=== PATIENT | male | born 1940 | race American Indian/Alaskan Native ===

== ENCOUNTER 2018-10-25 11:54 | Inpatient (IN) | payer MEDICARE ==
--- NOTE | 2018-10-25 12:34 | Emergency Department Report ---
ED Fall HPI - General Chief Complaint: Fall Stated Complaint: LEG PAIN/FALL Time Seen by Provider: 10/25/18 12:29 Source: EMS Mode of arrival: Stretcher Limitations: Language Barrier - History of Present Illness Initial Comments: This 78-year-old male that presented to emergency with complaints of bilateral knee pain and bilateral ankle pain after a fall. Patient states he was walking and tripped and fell and hit his knees and twisted his ankles. Patient states the pain is a 10 out of 10 and is so bad he can't walk. Patient states the pain is better with rest and worse with walking and movement and palpation. Patient denies loss of consciousness and hitting his head. Patient denies dizziness. Patient denies headache. Patient denies hip pain. Patient states she was walking and tripped and fell directly onto his knees Family at bedside to translate. MD Complaint: fall -: Sudden Fall From: standing When Fall Occurred: 1 hour [employer] Fall Witnessed: yes, by family Place Fall Occurred: street Loss of Consciousness: none Prolonged Down Time?: no Symptoms Prior to Fall: none Location - Extremities: Left: Knee, Ankle, Right: Knee, Ankle Severity: severe Severity scale (0 -10): 10 Context: tripped/slipped Associated Symptoms: unable to walk. denies: headache, neck pain, numbness, weakness, chest paint, abdominal pain, hematuria, lightheaded, vertigo, confusion - Related Data Home Medications Medication Instructions Recorded Confirmed Last Taken Atorvastatin Calcium 40 mg PO DAILY 10/25/18 10/25/18 Unknown Clopidogrel [Plavix] 75 mg PO QDAY 10/25/18 10/25/18 Unknown Lisinopril [Zestril] 20 mg PO QDAY 10/25/18 10/25/18 Unknown Nebivolol HCl [Bystolic] 10 mg PO DAILY 10/25/18 10/25/18 Unknown Allergies Allergy/AdvReac Type Severity Reaction Status Date / Time No Known Allergies Allergy Verified 10/25/18 17:04 ED Review of Systems ROS: Stated complaint: LEG PAIN/FALL Other details as noted in HPI Constitutional: denies: chills, fever Eyes: denies: eye pain, eye discharge, vision change ENT: denies: ear pain, throat pain Respiratory: denies: cough, shortness of breath, wheezing Cardiovascular: denies: chest pain, palpitations Endocrine: no symptoms reported Gastrointestinal: denies: abdominal pain, nausea, diarrhea Genitourinary: denies: urgency, dysuria Musculoskeletal: denies: back pain, joint swelling, arthralgia Skin: denies: rash, lesions Neurological: denies: headache, weakness, paresthesias Psychiatric: denies: anxiety, depression Hematological/Lymphatic: denies: easy bleeding, easy bruising ED Past Medical Hx - Past Medical History Previous Medical History?: Yes Hx Hypertension: Yes - Surgical History Past Surgical History?: Yes Additional Surgical History: cayden hands, ear - Family History Family history: no significant - Social History Smoking Status: Current Every Day Smoker Substance Use Type: None - Medications Home Medications: Home Medications Medication Instructions Recorded Confirmed Last Taken Type Atorvastatin Calcium 40 mg PO DAILY 10/25/18 10/25/18 Unknown History Clopidogrel [Plavix] 75 mg PO QDAY 10/25/18 10/25/18 Unknown History Lisinopril [Zestril] 20 mg PO QDAY 10/25/18 10/25/18 Unknown History Nebivolol HCl [Bystolic] 10 mg PO DAILY 10/25/18 10/25/18 Unknown History ED Physical Exam - General Limitations: Language Barrier General appearance: alert, in no apparent distress - Head Head exam: Present: atraumatic, normocephalic - Eye Eye exam: Present: normal appearance - ENT ENT exam: Present: mucous membranes moist - Neck Neck exam: Present: normal inspection - Respiratory Respiratory exam: Present: normal lung sounds bilaterally. Absent: respiratory distress - Cardiovascular Cardiovascular Exam: Present: regular rate, normal rhythm. Absent: systolic murmur, diastolic murmur, rubs, gallop - GI/Abdominal GI/Abdominal exam: Present: soft, normal bowel sounds, other (no hip or pelvic tenderness) - Rectal Rectal exam: Present: deferred - Extremities Exam Extremities exam: Present: tenderness (to cayden knees and ankles) - Back Exam Back exam: Present: normal inspection - Neurological Exam Neurological exam: Present: alert, oriented X3 - Psychiatric Psychiatric exam: Present: normal affect, normal mood - Skin Skin exam: Present: warm, dry, normal color, ecchymosis (cayden knees. ). Absent: rash ED Course Vital Signs 10/25/18 10/25/18 10/25/18 12:05 12:19 13:53 Temperature 98.7 F Pulse Rate 85 82 Respiratory 16 16 Rate Blood Pressure Blood Pressure 134/69 165/81 [Left] O2 Sat by Pulse 95 97 98 Oximetry 10/25/18 10/25/18 10/25/18 17:25 19:21 20:00 Temperature 98.3 F Pulse Rate 80 65 Respiratory 16 12 16 Rate Blood Pressure 151/72 Blood Pressure 151/72 137/48 [Left] O2 Sat by Pulse 99 98 97 Oximetry 10/25/18 10/25/18 21:00 22:00 Temperature Pulse Rate 68 65 Respiratory 16 10 L Rate Blood Pressure 150/63 162/68 Blood Pressure [Left] O2 Sat by Pulse 97 96 Oximetry - Reevaluation(s) Reevaluation #1: Discussed all results results with family and patient. Patient's x-rays are negative. Patient stable for discharge. Patient's findings consistent with contusions. 10/25/18 14:33 Discharge discharge give patient a [place] and attempted to ambulate patient 10/25/18 14:48 Patient still unable to walk. Patient instructed to walk to bathroom to urinate and was unable to support his own weight due to pain. While standing patient complained of bilateral hip pain. We'll do a pelvic CT 10/25/18 15:01 Discussed plan of care with patient and family. Patient admitted to the hospitalist service. 10/25/18 16:30 - Consultations Consultation #1: Hospitalist consultation for admission. Hospitalist to admit patient. 10/25/18 16:30 ED Medical Decision Making - Lab Data Result diagrams: 10/25/18 17:12 10/25/18 17:12 - Radiology Data Radiology results: report reviewed, image reviewed BILATERAL KNEES, 3 VIEWS History: Fall, pain. Findings: Osteopenia is evident. Mild osteoarthritic changes are noted in both knees. No evidence for fracture or bone lesion. Moderate to large bilateral knee effusions are identified. Vascular calcifications are also noted. Impression: Osteopenia. Mild osteoarthritis. Bilateral knee effusions. No acute bony injury is appreciated. Transcribed By: TTR Dictated By: CARISSA YOUNG JR, MD Electronically Authenticated By: CARISSA YOUNG JR, MD Signed Date/Time: 10/25/18 1334 Fluoro Time In Minutes: BILATERAL ANKLES, 3 VIEWS History: Fall, pain. Findings: Osteopenia is evident. Moderate osteoarthritic changes are noted at both ankles. No evidence for fracture, malalignment or bone lesion. Large left ankle effusion is suspected. Moderate bilateral plantar spurs. Impression: No acute injury is identified. Osteopenia. Degenerative changes. Left ankle effusion. Transcribed By: TTR Dictated By: CARISSA YOUNG JR, MD Electronically Authenticated By: CARISSA YOUNG JR, MD Signed Date/Time: 10/25/18 2233 FINAL REPORT PROCEDURE: CT ABDOMEN PELVIS WO CON TECHNIQUE: Computerized axial tomography of the abdomen and pelvis was performed without intravenous contrast. This study is performed without intravascular contrast material and its sensitivity for abdominal and pelvic pathology, including neoplasms, inflammation, abscess, free fluid, thrombosis, arterial dissection and infarction, is reduced compared with a contrast enhanced study. HISTORY: unable to ambulate and hip pain COMPARISON: No prior studies are available for comparison. FINDINGS: Lower Lung mora: There is a small amount of dependent atelectasis. Calcified granuloma seen left lower lobe. Calcifications visualized in the coronary arteries indicating atherosclerotic disease. Upper Abdomen: There are a few calcified granulomas seen in the left lobe of the liver. There is a 1.5 centimeter low-density nodule in the right lobe of the liver laterally with a density of 22 Hounsfield units. This may represent a cyst. I cannot exclude a low-density nodule. Consider follow- up ultrasound to ensure this is a cyst and not a low-density solid nodule. The liver is otherwise unremarkable. Gallbladder is unremarkable. The adrenal glands, the pancreas and the spleen show no abnormalities. Kidneys, Ureters and Urinary bladder: Renal arterial calcifications visualized bilaterally. No definite renal calculi are seen. There is no hydronephrosis. No ureteral calculi are identified. The renal cortex of both kidneys appears mildly lobulated. There is also a indeterminate nodule projecting posteriorly from the lower 3rd of the right kidney measuring 1 centimeter. 1.6 centimeter low-density nodule projects from the lower 3rd of the left kidney anteriorly. This has a density of approximately 9 Hounsfield units consistent with a renal cortical cyst. Retroperitoneum: Atherosclerotic changes seen in the abdominal aorta. No aneurysm is visualized. 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 Nonspecific subcentimeter lymph nodes are seen in the retroperitoneum. No pathologically enlarged lymph nodes are identified. Bowel: No focal bowel loop abnormalities are seen. No evidence of bowel obstruction ascites or free intraperitoneal gas. Normal-appearing appendix is seen in the right lower quadrant. Reproductive organs: Prostate gland does not appear to be significantly enlarged. Other: No acute bony abnormalities are seen. IMPRESSION: Prior granulomatous disease. Low-density nodule right lobe of the liver and lobulated contour of the kidneys. Multiple small cortical nodule suspected in the kidneys which are not clearly defined by this exam. Consider follow-up hepatic and renal ultrasound to ensure these all represent cysts and there are no solid nodules. Diffuse renal arterial calcifications are present. No definite renal calculi are seen. 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 . Transcribed By: DFSebastian Dictated By: YANICK WELLER MD Electronically Authenticated By: YANICK WELLER MD Signed Date/Time: 10/25/181807 - Medical Decision Making Patient 78-year-old male that presents for bilateral knee and ankle pain after fall. Patient denied losing consciousness. Patient denies headache. Patient's x-rays were done and were negative. Patient's finding consistent with contusion., Due to the patient unable to ambulate, pt to be Admitted to the hospitalist service . - Differential Diagnosis contusion. fall. knee and ankle pain/ Critical care attestation.: If time is entered above; I have spent that time in minutes in the direct care of this critically ill patient, excluding procedure time. ED Disposition Clinical Impression: Unable to ambulate Bilateral knee pain Qualifiers: Chronicity: acute Qualified Code(s): M25.561 - Pain in right knee Contusion, knee Qualifiers: Encounter type: initial encounter Laterality: unspecified laterality Qualified Code(s): S80.00XA - Contusion of unspecified knee, initial encounter Bilateral ankle pain Qualifiers: Chronicity: acute Qualified Code(s): M25.571 - Pain in right ankle and joints of right foot Ankle sprain Qualifiers: Encounter type: initial encounter Involved ligament of ankle: unspecified ligament Laterality: unspecified laterality Qualified Code(s): S93.409A - Sprain of unspecified ligament of unspecified ankle, initial encounter Disposition: OP ADMIT IP TO THIS HOSP Is pt being admited?: Yes Does the pt Need Aspirin: No Condition: Serious Time of Disposition: 16:31
--- NOTE | 2018-10-25 13:37 | XRay Report ---
BILATERAL KNEES, 3 VIEWS History: Fall, pain. Findings: Osteopenia is evident. Mild osteoarthritic changes are noted in both knees. No evidence for fracture or bone lesion. Moderate to large bilateral knee effusions are identified. Vascular calcifications are also noted. Impression: Osteopenia. Mild osteoarthritis. Bilateral knee effusions. No acute bony injury is appreciated.
--- NOTE | 2018-10-25 13:38 | XRay Report ---
BILATERAL ANKLES, 3 VIEWS History: Fall, pain. Findings: Osteopenia is evident. Moderate osteoarthritic changes are noted at both ankles. No evidence for fracture, malalignment or bone lesion. Large left ankle effusion is suspected. Moderate bilateral plantar spurs. Impression: No acute injury is identified. Osteopenia. Degenerative changes. Left ankle effusion.
[2018-10-25] MEDS ORDERED: NORCO 5/325 PO ONE (14:48)
--- NOTE | 2018-10-25 16:47 | History and Physical Report ---
History of Present Illness Chief complaint: Hes a little weak History of present illness: 78 YO Male with HTN, Nicotine Dependence presents to ED for evaluation. Pt is unable to speak Moroccan, and provide detailed history. Pt history provided by son and family who is at bedside during exam and interview. As per son, the patient states that he has experienced generalized weakness, and malaise over the past 4 days with persistent symptoms over the same time frame. Pt was walking and subsequently tripped and fell onto his knees. Pt transported to [facility] for further care and evaluation. Pt states that pain has improved at time of exam but he in unable to ambulate due to bilateral knee pain with weight bearing.. Pt seen and evaluated in ED and found to have Sepsis, ARF, and Bilateral knee contusions. Pt admitted to [facility] unit and initiated on sepsis protocol. PT denies fever, chills, CP, Palpitations, NVD, Syncope, BRBPR, Loss of Consciousness, Prolonged travel/immobility, unilateral leg swelling, calf pain, hemoptysis, individual/family history of DVT/PE/Blood Clotting Disorders, or skin rash. Past History Past Medical History: hypertension Past Surgical History: Other (Hand, Ear surgery) Social history: , smoking Family history: hypertension Medications and Allergies Allergies Allergy/AdvReac Type Severity Reaction Status Date / Time No Known Allergies Allergy Verified 10/25/18 17:04 Home Medications Medication Instructions Recorded Confirmed Last Taken Type Atorvastatin Calcium 40 mg PO DAILY 10/25/18 10/25/18 Unknown History Clopidogrel [Plavix] 75 mg PO QDAY 10/25/18 10/25/18 Unknown History Lisinopril [Zestril] 20 mg PO QDAY 10/25/18 10/25/18 Unknown History Nebivolol HCl [Bystolic] 10 mg PO DAILY 10/25/18 10/25/18 Unknown History Review of Systems Constitutional: weakness, malaise, no weight loss, no weight gain, no fever, no chills Ears, nose, mouth and throat: no ear pain, no ear discharge, no tinnitis, no decreased hearing, no nose pain Cardiovascular: no chest pain, no orthopnea, no palpitations, no rapid/irregular heart beat, no edema, no syncope Respiratory: no cough, no cough with sputum, no excessive sputum, no hemoptysis, no shortness of breath Gastrointestinal: no nausea, no vomiting, no diarrhea, no constipation, no change in bowel habits, no hematemesis Genitourinary Male: no dysuria, no hematuria, no flank pain, no discharge, no urinary frequency, no urinary hesitancy Rectal: no pain, no incontinence, no bleeding Musculoskeletal: no neck stiffness, no neck pain, no shooting arm pain, no arm numbness/tingling, no low back pain, no shooting leg pain Integumentary: no rash, no pruritis, no redness, no sores, no wounds Neurological: no transient paralysis, no paralysis, no weakness, no numbness, no tingling Psychiatric: no anxiety, no memory loss, no change in sleep habits, no sleep disturbances, no hypersomnia, no change in appetite Endocrine: no cold intolerance, no heat intolerance, no polyphagia, no polyuria, no weight change Hematologic/Lymphatic: no easy bruising, no easy bleeding, no lymphadenopathy, no lymphedema Allergic/Immunologic: no urticaria, no allergic rhinitis, no wheezing, no persistent infections, no anaphylaxis, no angioedema Exam - Constitutional Vitals: Temp Pulse Resp BP Pulse Ox 98.7 F 82 16 165/81 98 10/25/18 12:19 10/25/18 13:53 10/25/18 13:53 10/25/18 13:53 10/25/18 13:53 General appearance: Present: mild distress - EENT Eyes: Present: PERRL ENT: hearing intact, clear oral mucosa - Neck Neck: Present: supple, normal ROM - Respiratory Respiratory effort: normal Respiratory: bilateral: CTA - Cardiovascular Heart Sounds: Present: S1 & S2. Absent: rub, click - Extremities Extremities: pulses symmetrical, No edema Peripheral Pulses: abnormal (capillary refill greater then 3.5 seconds) - Abdominal General gastrointestinal: Present: soft, non-tender, non-distended, normal bowel sounds Male genitourinary: Present: normal - Integumentary Integumentary: Present: clear, warm, dry - Musculoskeletal Musculoskeletal: gait normal, strength equal bilaterally - Psychiatric Psychiatric: appropriate mood/affect, intact judgment & insight - Neurologic Neurologic: CNII-XII intact, moves all extremities Results - Labs CBC & Chem 7: 10/25/18 17:12 10/25/18 17:12 Assessment and Plan - Patient Problems (1) Sepsis Current Visit: Yes Status: Acute Qualifiers: Sepsis type: sepsis due to unspecified organism Qualified Code(s): A41.9 - Sepsis, unspecified organism Plan to address problem: Sepsis protocol: IV antibiotic therapy, monitor uop q shift, serial lactic acid, Chest x ray, urinalysis, blood cultures. CBC,CMP. (2) ARF (acute renal failure) with tubular necrosis Current Visit: Yes Status: Acute Plan to address problem: IVF resuscitation, monitor uop q shift, repeat bmp to monitor serum creatnine. (3) Contusion, knee Current Visit: Yes Status: Acute Qualifiers: Encounter type: initial encounter Laterality: unspecified laterality Qualified Code(s): S80.00XA - Contusion of unspecified knee, initial encounter Plan to address problem: Bilateral Knee x ray, pain control, supportive care. (4) DVT prophylaxis Current Visit: Yes Status: Acute Plan to address problem: SCD to BLE while in bed.
[2018-10-25] MEDS ORDERED: SODIUM CHLORIDE FLUSH SYRINGE 10 ML IV PRN (16:54)
[2018-10-25] MEDS ORDERED: ZOFRAN IV PRN (16:54)
[2018-10-25 17:30] LABS: Hematocrit 40.3 % (35.5-45.6); Hemoglobin 13.5 gm/dl (11.8-15.2); Mean Corpuscular HGB Conc 34 % (32-34); Mean Corpuscular Volume 90 fl (84-94); Platelet Count 440 K/mm3 (140-440); Red Blood Count 4.48 M/mm3 (3.65-5.03); Red Cell Distribution Width 14.1 % (13.2-15.2)
[2018-10-25 17:54] LABS: Albumin 2.9 g/dL (3.9-5); Calcium 9.5 mg/dL (8.4-10.2)
[2018-10-25 17:56] LABS: Basophils % (Manual) 0 % (0.0-1.8); Eosinophils % (Manual) 0 % (0.0-4.3); Total Cells Counted 100
[2018-10-25 17:57] LABS: Anisocytosis Few
[2018-10-25 17:58] LABS: Poikilocytosis Few
--- NOTE | 2018-10-25 18:08 | Cat Scan Report ---
FINAL REPORT PROCEDURE: CT ABDOMEN PELVIS WO CON TECHNIQUE: Computerized axial tomography of the abdomen and pelvis was performed without intravenous contrast. This study is performed without intravascular contrast material and its sensitivity for ab dominal and pelvic pathology, including neoplasms, inflammation, abscess, free fluid, thrombosis, art erial dissection and infarction, is reduced compared with a contrast enhanced study. HISTORY: unable to ambulate and hip pain COMPARISON: No prior studies are available for comparison. FINDINGS: Lower Lung mora: There is a small amount of dependent atelectasis. Calcified granuloma seen left lo wer lobe. Calcifications visualized in the coronary arteries indicating atherosclerotic disease. Upper Abdomen: There are a few calcified granulomas seen in the left lobe of the liver. There is a 1. 5 centimeter low-density nodule in the right lobe of the liver laterally with a density of 22 Hounsfi eld units. This may represent a cyst. I cannot exclude a low-density nodule. Consider follow-up ultra sound to ensure this is a cyst and not a low-density solid nodule. The liver is otherwise unremarkabl e. Gallbladder is unremarkable. The adrenal glands, the pancreas and the spleen show no abnormalities . Kidneys, Ureters and Urinary bladder: Renal arterial calcifications visualized bilaterally. No defini te renal calculi are seen. There is no hydronephrosis. No ureteral calculi are identified. The renal cortex of both kidneys appears mildly lobulated. There is also a indeterminate nodule projecting post eriorly from the lower 3rd of the right kidney measuring 1 centimeter. 1.6 centimeter low-density nod ule projects from the lower 3rd of the left kidney anteriorly. This has a density of approximately 9 Hounsfield units consistent with a renal cortical cyst. Retroperitoneum: Atherosclerotic changes seen in the abdominal aorta. No aneurysm is visualized. 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 Nonspecific subcentimeter lymph nodes are seen in the retroperitoneum. No pathologically enlarged lym ph nodes are identified. Bowel: No focal bowel loop abnormalities are seen. No evidence of bowel obstruction ascites or free i ntraperitoneal gas. Normal-appearing appendix is seen in the right lower quadrant. Reproductive organs: Prostate gland does not appear to be significantly enlarged. Other: No acute bony abnormalities are seen. IMPRESSION: Prior granulomatous disease. Low-density nodule right lobe of the liver and lobulated contour of the kidneys. Multiple small corti kentrell nodule suspected in the kidneys which are not clearly defined by this exam. Consider follow-up he patic and renal ultrasound to ensure these all represent cysts and there are no solid nodules. Diffus e renal arterial calcifications are present. No definite renal calculi are seen. 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 .
--- NOTE | 2018-10-25 19:33 | Cat Scan Report ---
FINAL REPORT PROCEDURE: CT head without contrast. TECHNIQUE: Computerized tomography of the head was performed without contrast material. HISTORY: Headache. COMPARISON: No prior studies are available for comparison. FINDINGS: There is mild cerebral atrophy. There is moderate evidence of chronic ischemic white matter disease. There is some focal encephalomalacia in the lateral aspect of the left frontal lobe. There is also so me encephalomalacia in the anterior portion of the left temporal lobe. 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 Clinical correlation is recommended. There are no mass lesions. There is no intr acranial hemorrhage. There is focal severe enlargement of the right side of the frontal bone. There a re lucent areas as well as sclerotic areas present. This obviously represents a long-standing process . Paget's disease of bone is one possibility. The exact etiology is uncertain. Clinical correlation i s recommended. The mastoid air cells and paranasal sinuses are clear as far as visualized. IMPRESSION: Chronic ischemic changes in the brain as described. No evidence of acute disease. Abnormal skull as d escribed, possibly representing Paget's disease.
[2018-10-25] MEDS ORDERED: NACL 0.9% 1000 ML IV ONE (19:38)
[2018-10-25] MEDS ORDERED: VANCOMYCIN 1,250 MG in NACL 0.9% 250ML 250 ML IV ONE (20:00)
[2018-10-25] MEDS ORDERED: VANCOMYCIN 1,250 MG in NACL 0.9% 500 ML 500 ML IV ONE (20:00)
[2018-10-25] MEDS ORDERED: NACL 0.9% 1000 ML 1,000 ML ONE ×2 (20:17→21:30)
[2018-10-25] MEDS: ZOSYN/NS 2.25 GM/50ML 2.25 GM/50 ML BAG IV SCH (20:38)
--- NOTE | 2018-10-25 21:21 | XRay Report ---
FINAL REPORT PROCEDURE: Chest. TECHNIQUE: Chest radiograph anteroposterior view. CPT 57823 HISTORY: Dyspnea. COMPARISON: No prior studies are available for comparison. FINDINGS: The heart size is normal. There is calcification in the thoracic aorta. The lungs are clear and well expanded. There are no pleural effusions. The soft tissues and regional skeleton are unremarkable. Th ere is an old fracture of the right clavicle. IMPRESSION: No evidence of acute disease.
[2018-10-25] MEDS ORDERED: ZOSYN/NS 4.5GM/100ML 4.5 GM/100 ML VIAL IV SCH (22:00)
[2018-10-26 06:01] LABS: Amorphous Crystals,Urine Few; Bacteria,Urine 1+ /HPF (Negative); Bilirubin,Urine NEG (Negative); Blood,Urine NEG (Negative); Color,Urine Yellow (Yellow); Hyaline Casts,Urine 9 /LPF; Mucus,Urine FEW /HPF; Protein,Urine <15 mg/dL mg/dL (Negative); Urobilinogen,Urine < 2.0 mg/dL (<2.0)
[2018-10-26] MEDS: ZOSYN/NS 2.25 GM/50ML 2.25 GM/50 ML BAG IV SCH ×3 (07:05→17:16)
[2018-10-26] MEDS: SODIUM CHLORIDE FLUSH SYRINGE 10 ML IV SCH ×3 (07:08→22:42)
[2018-10-26] MEDS ORDERED: ZESTRIL PO SCH (10:00)
[2018-10-26] MEDS ORDERED: NON-FORMULARY (Nebivolol Hcl [Bystolic] 10 MG) PO SCH (10:00)
[2018-10-26] MEDS: PLAVIX PO SCH (10:40)
[2018-10-26] MEDS: TOPROL XL PO SCH (10:42)
--- NOTE | 2018-10-26 13:35 | Progress Note ---
Assessment and Plan Assessment and plan: 78 YO Male with HTN, Nicotine Dependence presents to ED for evaluation. Pt is unable to speak Macedonian, and provide detailed history. Pt history provided by son and family who is at bedside during exam and interview. As per son, the patient states that he has experienced generalized weakness, and malaise over the past 4 days with persistent symptoms over the same time frame. Pt was walking and subsequently tripped and fell onto his knees. Pt transported to [facility] for further care and evaluation. Pt states that pain has improved at time of exam but he in unable to ambulate due to bilateral knee pain with weight bearing.. Pt seen and evaluated in ED and found to have Sepsis, ARF, and Bilateral knee contusions. Pt admitted to [facility] unit and initiated on sepsis protocol. PT denies fever, chills, CP, Palpitations, NVD, Syncope, BRBPR, Loss of Consciousness, Prolonged travel/immobility, unilateral leg swelling, calf pain, hemoptysis, individual/family history of DVT/PE/Blood Clotting Disorders, or skin rash. (1)SIRS vs Septic Knee- Less likely the later Surgical consult to evaluate knee effusion Continue abx for now (2) ARF (acute renal failure) with tubular necrosis Current Visit: Yes Status: Acute Plan to address problem: IVF resuscitation, monitor uop q shift, repeat bmp to monitor serum creatnine. Hold ACEI (3) Contusion, knee Current Visit: Yes Status: Acute Qualifiers: Encounter type: initial encounter Laterality: unspecified laterality Qualified Code(s): S80.00XA - Contusion of unspecified knee, initial encounter Plan to address problem: Bilateral Knee x ray, pain control, supportive care. (4) hypertension Blood pressure medications. (5) DVT prophylaxis Current Visit: Yes Status: Acute Plan to address problem: SCD to BLE while in bed. History Interval history: Patient is seen today for: RECURRENT falls Seen and examined at bedside; 24hour events reviewed; nursing staff ; no adverse overnight events reported to me; Denies any chest pain, nausea, vomiting, diarrhea No fever noted blood pressure controlled Hospitalist Physical - Physical exam Narrative exam: VITAL SIGNS: Reviewed. GENERAL: The patient appeared well nourished and normally developed. Vital signs as documented. HEAD: No signs of head trauma. EYES: Pupils are equal. Extraocular motions intact. EARS: Hearing grossly intact. MOUTH: Oropharynx is normal. NECK: No adenopathy, no JVD. CHEST: Chest with clear breath sounds bilaterally. No wheezes, rales, or rhonchi. CARDIAC: Regular rate and rhythm. S1 and S2, without murmurs, gallops, or rubs. VASCULAR: No Edema. Peripheral pulses normal and equal in all extremities. ABDOMEN: Soft, without detectable tenderness. No sign of distention. No rebound or guarding, and no masses palpated. Bowel Sounds normal. MUSCULOSKELETAL: Limited range of motion of the bilaterally warm to the touch the mild joint effusion bilaterally. Extremities without clubbing, cyanosis or edema. NEUROLOGIC EXAM: Alert and oriented x 3. No focal sensory or strength deficits. Speech normal. Follows commands. PSYCHIATRIC: Mood normal. SKIN: No rash or lesions. - Constitutional Vitals: Temp Pulse Resp BP Pulse Ox 98.6 F 70 20 154/69 95 10/26/18 08:05 10/26/18 10:42 10/26/18 10:00 10/26/18 10:42 10/26/18 10:40 General appearance: Present: mild distress Results - Labs CBC & Chem 7: 10/25/18 17:12 10/25/18 17:12 Labs: Laboratory Last Values WBC 20.9 K/mm3 (4.5-11.0) H 10/25/18 17:12 RBC 4.48 M/mm3 (3.65-5.03) 10/25/18 17:12 Hgb 13.5 gm/dl (11.8-15.2) 10/25/18 17:12 Hct 40.3 % (35.5-45.6) 10/25/18 17:12 MCV 90 fl (84-94) 10/25/18 17:12 MCH 30 pg (28-32) 10/25/18 17:12 MCHC 34 % (32-34) 10/25/18 17:12 RDW 14.1 % (13.2-15.2) 10/25/18 17:12 Plt Count 440 K/mm3 (140-440) 10/25/18 17:12 Add Manual Diff Complete 10/25/18 17:12 Total Counted 100 10/25/18 17:12 Seg Neuts % (Manual) 93.0 % (40.0-70.0) H 10/25/18 17:12 Band Neutrophils % 0 % 10/25/18 17:12 Lymphocytes % (Manual) 2.0 % (13.4-35.0) L 10/25/18 17:12 Reactive Lymphs % (Man) 0 % 10/25/18 17:12 Monocytes % (Manual) 5.0 % (0.0-7.3) 10/25/18 17:12 Eosinophils % (Manual) 0 % (0.0-4.3) 10/25/18 17:12 Basophils % (Manual) 0 % (0.0-1.8) 10/25/18 17:12 Metamyelocytes % 0 % 10/25/18 17:12 Myelocytes % 0 % 10/25/18 17:12 Promyelocytes % 0 % 10/25/18 17:12 Blast Cells % 0 % 10/25/18 17:12 Nucleated RBC % Not Reportable 10/25/18 17:12 Seg Neutrophils # Man 19.4 K/mm3 (1.8-7.7) H 10/25/18 17:12 Band Neutrophils # 0.0 K/mm3 10/25/18 17:12 Lymphocytes # (Manual) 0.4 K/mm3 (1.2-5.4) L 10/25/18 17:12 Abs React Lymphs (Man) 0.0 K/mm3 10/25/18 17:12 Monocytes # (Manual) 1.0 K/mm3 (0.0-0.8) H 10/25/18 17:12 Eosinophils # (Manual) 0.0 K/mm3 (0.0-0.4) 10/25/18 17:12 Basophils # (Manual) 0.0 K/mm3 (0.0-0.1) 10/25/18 17:12 Metamyelocytes # 0.0 K/mm3 10/25/18 17:12 Myelocytes # 0.0 K/mm3 10/25/18 17:12 Promyelocytes # 0.0 K/mm3 10/25/18 17:12 Blast Cells # 0.0 K/mm3 10/25/18 17:12 WBC Morphology Not Reportable 10/25/18 17:12 Hypersegmented Neuts Not Reportable 10/25/18 17:12 Hyposegmented Neuts Not Reportable 10/25/18 17:12 Hypogranular Neuts Not Reportable 10/25/18 17:12 Smudge Cells Not Reportable 10/25/18 17:12 Toxic Granulation Not Reportable 10/25/18 17:12 Toxic Vacuolation Not Reportable 10/25/18 17:12 Dohle Bodies Not Reportable 10/25/18 17:12 Pelger-Huet Anomaly Not Reportable 10/25/18 17:12 Swetha Rods Not Reportable 10/25/18 17:12 Platelet Estimate Appears normal 10/25/18 17:12 Clumped Platelets Not Reportable 10/25/18 17:12 Plt Clumps, EDTA Not Reportable 10/25/18 17:12 Large Platelets Not Reportable 10/25/18 17:12 Giant Platelets Not Reportable 10/25/18 17:12 Platelet Satelliting Not Reportable 10/25/18 17:12 Plt Morphology Comment Not Reportable 10/25/18 17:12 RBC Morphology Not Reportable 10/25/18 17:12 Dimorphic RBCs Not Reportable 10/25/18 17:12 Polychromasia Not Reportable 10/25/18 17:12 Hypochromasia Not Reportable 10/25/18 17:12 Poikilocytosis Few 10/25/18 17:12 Anisocytosis Few 10/25/18 17:12 Microcytosis Not Reportable 10/25/18 17:12 Macrocytosis Not Reportable 10/25/18 17:12 Spherocytes Not Reportable 10/25/18 17:12 Pappenheimer Bodies Not Reportable 10/25/18 17:12 Sickle Cells Not Reportable 10/25/18 17:12 Target Cells Not Reportable 10/25/18 17:12 Tear Drop Cells Not Reportable 10/25/18 17:12 Ovalocytes Not Reportable 10/25/18 17:12 Helmet Cells Not Reportable 10/25/18 17:12 [place] Bodies Not Reportable 10/25/18 17:12 [place] Rings Not Reportable 10/25/18 17:12 Mineral Cells Not Reportable 10/25/18 17:12 Bite Cells Not Reportable 10/25/18 17:12 Crenated Cell Not Reportable 10/25/18 17:12 Elliptocytes Few 10/25/18 17:12 Acanthocytes (Spur) Not Reportable 10/25/18 17:12 Rouleaux Not Reportable 10/25/18 17:12 Hemoglobin C Crystals Not Reportable 10/25/18 17:12 Schistocytes Not Reportable 10/25/18 17:12 Malaria parasites Not Reportable 10/25/18 17:12 Catalino Bodies Not Reportable 10/25/18 17:12 Hem Pathologist Commnt No 10/25/18 17:12 Sodium 143 mmol/L (137-145) 10/25/18 17:12 Potassium 4.1 mmol/L (3.6-5.0) 10/25/18 17:12 Chloride 101.3 mmol/L (98-107) 10/25/18 17:12 Carbon Dioxide 28 mmol/L (22-30) 10/25/18 17:12 Anion Gap 18 mmol/L 10/25/18 17:12 BUN 29 mg/dL (9-20) H 10/25/18 17:12 Creatinine 1.7 mg/dL (0.8-1.5) H 10/25/18 17:12 Estimated GFR 48 ml/min 10/25/18 17:12 BUN/Creatinine Ratio 17 % 10/25/18 17:12 Glucose 111 mg/dL (75-100) H 10/25/18 17:12 Lactic Acid 1.40 mmol/L (0.7-2.0) 10/26/18 06:05 Calcium 9.5 mg/dL (8.4-10.2) 10/25/18 17:12 Total Bilirubin 0.40 mg/dL (0.1-1.2) 10/25/18 17:12 AST 34 units/L (5-40) 10/25/18 17:12 ALT 24 units/L (7-56) 10/25/18 17:12 Alkaline Phosphatase 101 units/L (35-129) 10/25/18 17:12 Total Protein 6.8 g/dL (6.3-8.2) 10/25/18 17:12 Albumin 2.9 g/dL (3.9-5) L 10/25/18 17:12 Albumin/Globulin Ratio 0.7 % 10/25/18 17:12 Urine Color Yellow (Yellow) 10/26/18 05:30 Urine Turbidity Clear (Clear) 10/26/18 05:30 Urine pH 5.0 (5.0-7.0) 10/26/18 05:30 Ur Specific [place] 1.013 (1.003-1.030) 10/26/18 05:30 Urine Protein <15 mg/dl mg/dL (Negative) 10/26/18 05:30 Urine Glucose (UA) Neg mg/dL (Negative) 10/26/18 05:30 Urine Ketones Neg mg/dL (Negative) 10/26/18 05:30 Urine Blood Neg (Negative) 10/26/18 05:30 Urine Nitrite Neg (Negative) 10/26/18 05:30 Urine Bilirubin Neg (Negative) 10/26/18 05:30 Urine Urobilinogen < 2.0 mg/dL (<2.0) 10/26/18 05:30 Ur Leukocyte Esterase Neg (Negative) 10/26/18 05:30 Urine WBC (Auto) 2.0 /HPF (0.0-6.0) 10/26/18 05:30 Urine RBC (Auto) 1.0 /HPF (0.0-6.0) 10/26/18 05:30 U Epithel Cells (Auto) 2.0 /HPF (0-13.0) 10/26/18 05:30 Urine Bacteria (Auto) 1+ /HPF (Negative) 10/26/18 05:30 Amorphous Crystals Few 10/26/18 05:30 Hyaline Casts 9 /LPF 10/26/18 05:30 Urine Mucus Few /HPF 10/26/18 05:30 - Imaging and Cardiology Imaging and Cardiology: KNEE JOINTS XRAY SHOWS EFFUSION
[2018-10-26] MEDS: NACL 0.9% 1000 ML 1,000 ML IV SCH (14:47)
[2018-10-26] MEDS: TYLENOL PO PRN (17:22)
[2018-10-27] MEDS: NACL 0.9% 1000 ML 1,000 ML IV SCH ×2 (00:56→12:18)
[2018-10-27] MEDS: ZOSYN/NS 2.25 GM/50ML 2.25 GM/50 ML BAG IV SCH ×4 (00:56→18:55)
[2018-10-27 06:21] LABS: Hematocrit 43.8 % (35.5-45.6); Hemoglobin 14.4 gm/dl (11.8-15.2); Mean Corpuscular HGB Conc 33 % (32-34); Mean Corpuscular Volume 93 fl (84-94); Platelet Count 203 K/mm3 (140-440); Red Blood Count 4.71 M/mm3 (3.65-5.03); Red Cell Distribution Width 14.1 % (13.2-15.2)
[2018-10-27 06:23] LABS: Hemolysis Index 8
[2018-10-27 06:25] LABS: BUN/Creatinine Ratio TNR; Blood Urea Nitrogen TNR mg/dL (9-20); Calcium TNR mg/dL (8.4-10.2)
[2018-10-27 08:58] LABS: BUN/Creatinine Ratio 13; Blood Urea Nitrogen 17 mg/dL (9-20); Hemolysis Index 21
[2018-10-27 08:59] LABS: Blood Urea Nitrogen 17 mg/dL (9-20)
[2018-10-27] MEDS: TOPROL XL PO SCH (10:48)
[2018-10-27] MEDS: PLAVIX PO SCH (10:48)
[2018-10-27] MEDS: SODIUM CHLORIDE FLUSH SYRINGE 10 ML IV SCH ×2 (10:50→21:39)
[2018-10-27] MEDS: TYLENOL PO PRN (14:47)
--- NOTE | 2018-10-27 15:47 | Progress Note ---
Assessment and Plan Assessment and plan: 78 YO Male with HTN, Nicotine Dependence presents to ED for evaluation. Pt is unable to speak Yakut, and provide detailed history. Pt history provided by son and family who is at bedside during exam and interview. As per son, the patient states that he has experienced generalized weakness, and malaise over the past 4 days with persistent symptoms over the same time frame. Pt was walking and subsequently tripped and fell onto his knees. Pt transported to [facility] for further care and evaluation. Pt states that pain has improved at time of exam but he in unable to ambulate due to bilateral knee pain with weight bearing.. Pt seen and evaluated in ED and found to have Sepsis, ARF, and Bilateral knee contusions. Pt admitted to [facility] unit and initiated on sepsis protocol. PT denies fever, chills, CP, Palpitations, NVD, Syncope, BRBPR, Loss of Consciousness, Prolonged travel/immobility, unilateral leg swelling, calf pain, hemoptysis, individual/family history of DVT/PE/Blood Clotting Disorders, or skin rash. (1)SIRS vs Septic Knee- Less likely the later Surgical consult to evaluate knee effusion Continue abx for now Add vancomycin. Consult ID (2) ARF (acute renal failure) with tubular necrosis Current Visit: Yes Status: Acute Plan to address problem: IVF resuscitation, monitor uop q shift, repeat bmp to monitor serum creatinine. Hold ACEI (3) Contusion, knee Current Visit: Yes Status: Acute Qualifiers: Encounter type: initial encounter Laterality: unspecified laterality Qualified Code(s): S80.00XA - Contusion of unspecified knee, initial encounter Plan to address problem: Bilateral Knee x ray, pain control, supportive care. (4) Hypertension Blood pressure medications. Add PRN Hydralazin (5) DVT prophylaxis Current Visit: Yes Status: Acute Plan to address problem: SCD to BLE while in bed. History Interval history: Patient is seen today for: RECURRENT falls Seen and examined at bedside; 24hour events reviewed; nursing staff ; no adverse overnight events reported to me; Denies any chest pain, nausea, vomiting, diarrhea. Family at the bedside. states the patient normally would ambulate without help but slowly. Today noted with fever TMAX 101/2 Hospitalist Physical - Physical exam Narrative exam: VITAL SIGNS: Reviewed. GENERAL: The patient appeared well nourished and normally developed. Apparently lethargic Vital signs as documented. HEAD: No signs of head trauma. EYES: Pupils are equal. Extraocular motions intact. EARS: Hearing grossly intact. MOUTH: Oropharynx is normal. NECK: No adenopathy, no JVD. CHEST: Chest with clear breath sounds bilaterally. No wheezes, rales, or rhonchi. CARDIAC: Regular rate and rhythm. S1 and S2, without murmurs, gallops, or rubs. VASCULAR: No Edema. Peripheral pulses normal and equal in all extremities. ABDOMEN: Soft, without detectable tenderness. No sign of distention. No rebound or guarding, and no masses palpated. Bowel Sounds normal. MUSCULOSKELETAL: Limited range of motion of the bilaterally warm to the touch the mild joint effusion bilaterally. Extremities without clubbing, cyanosis or edema. NEUROLOGIC EXAM: Alert and oriented x 3. No focal sensory or strength de ficits. Speech normal. Follows commands. PSYCHIATRIC: Mood normal. SKIN: No rash or lesions. - Constitutional Vitals: Temp Pulse Resp BP Pulse Ox 101.2 F H 86 20 179/80 94 10/27/18 13:40 10/27/18 13:40 10/27/18 13:40 10/27/18 13:40 10/27/18 13:40 General appearance: Present: mild distress Results - Labs CBC & Chem 7: 10/27/18 05:45 10/27/18 08:14 Labs: Laboratory Last Values WBC 18.1 K/mm3 (4.5-11.0) H 10/27/18 05:45 RBC 4.71 M/mm3 (3.65-5.03) 10/27/18 05:45 Hgb 14.4 gm/dl (11.8-15.2) 10/27/18 05:45 Hct 43.8 % (35.5-45.6) 10/27/18 05:45 MCV 93 fl (84-94) 10/27/18 05:45 MCH 30 pg (28-32) 10/27/18 05:45 MCHC 33 % (32-34) 10/27/18 05:45 RDW 14.1 % (13.2-15.2) 10/27/18 05:45 Plt Count 203 K/mm3 (140-440) 10/27/18 05:45 Add Manual Diff Complete 10/25/18 17:12 Total Counted 100 10/25/18 17:12 Seg Neuts % (Manual) 93.0 % (40.0-70.0) H 10/25/18 17:12 Band Neutrophils % 0 % 10/25/18 17:12 Lymphocytes % (Manual) 2.0 % (13.4-35.0) L 10/25/18 17:12 Reactive Lymphs % (Man) 0 % 10/25/18 17:12 Monocytes % (Manual) 5.0 % (0.0-7.3) 10/25/18 17:12 Eosinophils % (Manual) 0 % (0.0-4.3) 10/25/18 17:12 Basophils % (Manual) 0 % (0.0-1.8) 10/25/18 17:12 Metamyelocytes % 0 % 10/25/18 17:12 Myelocytes % 0 % 10/25/18 17:12 Promyelocytes % 0 % 10/25/18 17:12 Blast Cells % 0 % 10/25/18 17:12 Nucleated RBC % Not Reportable 10/25/18 17:12 Seg Neutrophils # Man 19.4 K/mm3 (1.8-7.7) H 10/25/18 17:12 Band Neutrophils # 0.0 K/mm3 10/25/18 17:12 Lymphocytes # (Manual) 0.4 K/mm3 (1.2-5.4) L 10/25/18 17:12 Abs React Lymphs (Man) 0.0 K/mm3 10/25/18 17:12 Monocytes # (Manual) 1.0 K/mm3 (0.0-0.8) H 10/25/18 17:12 Eosinophils # (Manual) 0.0 K/mm3 (0.0-0.4) 10/25/18 17:12 Basophils # (Manual) 0.0 K/mm3 (0.0-0.1) 10/25/18 17:12 Metamyelocytes # 0.0 K/mm3 10/25/18 17:12 Myelocytes # 0.0 K/mm3 10/25/18 17:12 Promyelocytes # 0.0 K/mm3 10/25/18 17:12 Blast Cells # 0.0 K/mm3 10/25/18 17:12 WBC Morphology Not Reportable 10/25/18 17:12 Hypersegmented Neuts Not Reportable 10/25/18 17:12 Hyposegmented Neuts Not Reportable 10/25/18 17:12 Hypogranular Neuts Not Reportable 10/25/18 17:12 Smudge Cells Not Reportable 10/25/18 17:12 Toxic Granulation Not Reportable 10/25/18 17:12 Toxic Vacuolation Not Reportable 10/25/18 17:12 Dohle Bodies Not Reportable 10/25/18 17:12 Pelger-Huet Anomaly Not Reportable 10/25/18 17:12 Swetha Rods Not Reportable 10/25/18 17:12 Platelet Estimate Appears normal 10/25/18 17:12 Clumped Platelets Not Reportable 10/25/18 17:12 Plt Clumps, EDTA Not Reportable 10/25/18 17:12 Large Platelets Not Reportable 10/25/18 17:12 Giant Platelets Not Reportable 10/25/18 17:12 Platelet Satelliting Not Reportable 10/25/18 17:12 Plt Morphology Comment Not Reportable 10/25/18 17:12 RBC Morphology Not Reportable 10/25/18 17:12 Dimorphic RBCs Not Reportable 10/25/18 17:12 Polychromasia Not Reportable 10/25/18 17:12 Hypochromasia Not Reportable 10/25/18 17:12 Poikilocytosis Few 10/25/18 17:12 Anisocytosis Few 10/25/18 17:12 Microcytosis Not Reportable 10/25/18 17:12 Macrocytosis Not Reportable 10/25/18 17:12 Spherocytes Not Reportable 10/25/18 17:12 Pappenheimer Bodies Not Reportable 10/25/18 17:12 Sickle Cells Not Reportable 10/25/18 17:12 Target Cells Not Reportable 10/25/18 17:12 Tear Drop Cells Not Reportable 10/25/18 17:12 Ovalocytes Not Reportable 10/25/18 17:12 Helmet Cells Not Reportable 10/25/18 17:12 Qu[place] Bodies Not Reportable 10/25/18 17:12 [place] Rings Not Reportable 10/25/18 17:12 Kit Cells Not Reportable 10/25/18 17:12 Bite Cells Not Reportable 10/25/18 17:12 Crenated Cell Not Reportable 10/25/18 17:12 Elliptocytes Few 10/25/18 17:12 Acanthocytes (Spur) Not Reportable 10/25/18 17:12 Rouleaux Not Reportable 10/25/18 17:12 Hemoglobin C Crystals Not Reportable 10/25/18 17:12 Schistocytes Not Reportable 10/25/18 17:12 Malaria parasites Not Reportable 10/25/18 17:12 [place] Bodies Not Reportable 10/25/18 17:12 Hem Pathologist Commnt No 10/25/18 17:12 Sodium 142 mmol/L (137-145) 10/27/18 08:14 Potassium 3.3 mmol/L (3.6-5.0) L 10/27/18 08:14 Chloride 107.4 mmol/L (98-107) H 10/27/18 08:14 Carbon Dioxide 22 mmol/L (22-30) 10/27/18 08:14 Anion Gap 16 mmol/L 10/27/18 08:14 BUN 17 mg/dL (9-20) 10/27/18 08:14 Creatinine 1.3 mg/dL (0.8-1.5) 10/27/18 08:14 Estimated GFR > 60 ml/min 10/27/18 08:14 BUN/Creatinine Ratio 13 % 10/27/18 08:14 Glucose 97 mg/dL (75-100) 10/27/18 08:14 Lactic Acid 1.40 mmol/L (0.7-2.0) 10/26/18 06:05 Calcium 8.0 mg/dL (8.4-10.2) L D 10/27/18 08:14 Total Bilirubin 0.40 mg/dL (0.1-1.2) 10/25/18 17:12 AST 34 units/L (5-40) 10/25/18 17:12 ALT 24 units/L (7-56) 10/25/18 17:12 Alkaline Phosphatase 101 units/L (35-129) 10/25/18 17:12 Total Protein 6.8 g/dL (6.3-8.2) 10/25/18 17:12 Albumin 2.9 g/dL (3.9-5) L 10/25/18 17:12 Albumin/Globulin Ratio 0.7 % 10/25/18 17:12 Urine Color Yellow (Yellow) 10/26/18 05:30 Urine Turbidity Clear (Clear) 10/26/18 05:30 Urine pH 5.0 (5.0-7.0) 10/26/18 05:30 Ur Specific [place] 1.013 (1.003-1.030) 10/26/18 05:30 Urine Protein <15 mg/dl mg/dL (Negative) 10/26/18 05:30 Urine Glucose (UA) Neg mg/dL (Negative) 10/26/18 05:30 Urine Ketones Neg mg/dL (Negative) 10/26/18 05:30 Urine Blood Neg (Negative) 10/26/18 05:30 Urine Nitrite Neg (Negative) 10/26/18 05:30 Urine Bilirubin Neg (Negative) 10/26/18 05:30 Urine Urobilinogen < 2.0 mg/dL (<2.0) 10/26/18 05:30 Ur Leukocyte Esterase Neg (Negative) 10/26/18 05:30 Urine WBC (Auto) 2.0 /HPF (0.0-6.0) 10/26/18 05:30 Urine RBC (Auto) 1.0 /HPF (0.0-6.0) 10/26/18 05:30 U Epithel Cells (Auto) 2.0 /HPF (0-13.0) 10/26/18 05:30 Urine Bacteria (Auto) 1+ /HPF (Negative) 10/26/18 05:30 Amorphous Crystals Few 10/26/18 05:30 Hyaline Casts 9 /LPF 10/26/18 05:30 Urine Mucus Few /HPF 10/26/18 05:30
[2018-10-27] MEDS ORDERED: VANCOMYCIN PHARMACY TO DOSE IV SCH (16:00)
[2018-10-27] MEDS ORDERED: POTASSIUM CHLORIDE FEEDTUBE ONE (16:49)
--- NOTE | 2018-10-27 18:45 | Consultation ---
History of Present Illness - [facility] Consult date: 10/26/18 Consult reason: joint pain History of present illness: 78-year-old male who complains of bilateral knee pain after a fall patient was brought to the hospital for other medical reasons and was found to have pain in his left knee x-rays were obtained and consult requested. Currently patient states his knee is doing better with oral medications is present at bedside to translate... Past History Past Medical History: hypertension Past Surgical History: Other (Hand, Ear surgery) Social history: , smoking Family history: hypertension Medications and Allergies Allergies Allergy/AdvReac Type Severity Reaction Status Date / Time No Known Allergies Allergy Verified 10/25/18 17:04 Home Medications Medication Instructions Recorded Confirmed Last Taken Type Atorvastatin Calcium 40 mg PO DAILY 10/25/18 10/25/18 Unknown History Clopidogrel [Plavix] 75 mg PO QDAY 10/25/18 10/25/18 Unknown History Lisinopril [Zestril] 20 mg PO QDAY 10/25/18 10/25/18 Unknown History Nebivolol HCl [Bystolic] 10 mg PO DAILY 10/25/18 10/25/18 Unknown History Active Meds: Active Medications Acetaminophen (Tylenol) 650 mg PO Q4H PRN PRN Reason: Pain MILD(1-3)/Fever >100.5/PARIKH Last Admin: 10/27/18 14:47 Dose: 650 mg Documented by: Albuterol (Proventil) 2.5 mg IH Q4HRT PRN PRN Reason: Shortness Of Breath Atorvastatin Calcium (Lipitor) 40 mg PO DAILY [facility] Last Admin: 10/27/18 10:48 Dose: 40 mg Documented by: Clopidogrel Bisulfate (Plavix) 75 mg PO QDAY [facility] Last Admin: 10/27/18 10:48 Dose: 75 mg Documented by: Hydralazine HCl (Apresoline) 10 mg IV Q4HR PRN PRN Reason: Hypertension Piperacillin Sod/Tazobactam Sod (Zosyn/Ns 2.25 Gm/50ml) 2.25 gm in 50 mls @ 100 mls/hr IV Q6HR [facility] Last Admin: 10/27/18 12:19 Dose: 100 mls/hr Documented by: Sodium Chloride (Nacl 0.9% 1000 Ml) 1,000 mls @ 125 mls/hr IV DIRECT [facility] Last Admin: 10/27/18 12:18 Dose: 125 mls/hr Documented by: Vancomycin HCl 750 mg/ Sodium (Chloride) 265 mls @ 166.667 mls/hr IV Q24H [facility] Metoprolol Succinate (Toprol Xl) 100 mg PO QDAY [facility] Last Admin: 10/27/18 10:48 Dose: 100 mg Documented by: Ondansetron HCl (Zofran) 4 mg IV Q8H PRN PRN Reason: Nausea And Vomiting Sodium Chloride (Sodium Chloride Flush Syringe 10 Ml) 10 ml IV BID [facility] Last Admin: 10/27/18 10:50 Dose: 10 ml Documented by: Sodium Chloride (Sodium Chloride Flush Syringe 10 Ml) 10 ml IV PRN PRN PRN Reason: LINE FLUSH Physical Examination - Physical exam Narrative exam: PHYSICAL examination significant musculoskeletal findings relates to the lower extremities at the patient's knee there is no bruits and no discoloration there is mild joint effusion on the left palpation and he is slightly tender to deep palpation but has good active and passive range of motion Plain x-rays of both knees were reviewed by me and show some mild to moderate osteoarthritic changes in the left knee the right knee wounds basically unremarkable Assessment and Plan Bilateral knee pain status post contusion patient has a history of osteoarthritis Recommendations would continue with oral anti-inflammatory medications patient can also begin physical therapy for range of motion and strengthening exercises he can also weight-bear as tolerated
[2018-10-27] MEDS: VANCOMYCIN 750 MG in NACL 0.9% 250ML 250 ML IV SCH (19:29)
[2018-10-28] MEDS: ZOSYN/NS 2.25 GM/50ML 2.25 GM/50 ML BAG IV SCH ×4 (00:25→17:49)
[2018-10-28 06:42] LABS: BUN/Creatinine Ratio 10; Blood Urea Nitrogen 13 mg/dL (9-20); Calcium 7.7 mg/dL (8.4-10.2); Hemolysis Index 13
[2018-10-28] MEDS: TOPROL XL PO SCH (10:14)
[2018-10-28] MEDS: PLAVIX PO SCH (10:14)
[2018-10-28] MEDS: NACL 0.9% 1000 ML 1,000 ML IV SCH (10:15)
[2018-10-28] MEDS: SODIUM CHLORIDE FLUSH SYRINGE 10 ML IV SCH ×2 (10:15→22:02)
--- NOTE | 2018-10-28 11:59 | Progress Note ---
Assessment and Plan Assessment and plan: 78 YO Male with HTN, Nicotine Dependence presents to ED for evaluation. Pt is unable to speak Yoruba, and provide detailed history. Pt history provided by son and family who is at bedside during exam and interview. As per son, the patient states that he has experienced generalized weakness, and malaise over the past 4 days with persistent symptoms over the same time frame. Pt was walking and subsequently tripped and fell onto his knees. Pt transported to [facility] for further care and evaluation. Pt states that pain has improved at time of exam but he in unable to ambulate due to bilateral knee pain with weight bearing.. Pt seen and evaluated in ED and found to have Sepsis, ARF, and Bilateral knee contusions. Pt admitted to [facility] unit and initiated on sepsis protocol. PT denies fever, chills, CP, Palpitations, NVD, Syncope, BRBPR, Loss of Consciousness, Prolonged travel/immobility, unilateral leg swelling, calf pain, hemoptysis, individual/family history of DVT/PE/Blood Clotting Disorders, or skin rash. (1)SIRS vs Septic Knee- Less likely the later Surgical consult to evaluate knee effusion Input from surgery noted :lateral knee pain status post contusion patient has a history of osteoarthritis Recommendations would continue with oral anti- inflammatory medications patient can also begin physical therapy for range of motion and strengthening exercises he can also weight-bear as tolerated Continue abx for now Consult ID (2) ARF (acute renal failure) with tubular necrosis Current Visit: Yes Status: Acute Plan to address problem: IVF resuscitation, monitor uop q shift, repeat bmp to monitor serum creatinine. Hold ACEI (3) Contusion, knee Current Visit: Yes Status: Acute Qualifiers: Encounter type: initial encounter Laterality: unspecified laterality Qualified Code(s): S80.00XA - Contusion of unspecified knee, initial encounter Plan to address problem: Bilateral Knee x ray, pain control, supportive care. (4) Hypertension Blood pressure medications. Add PRN Hydralazin (5) Nocturnal Metabolic Encephalopathy Possible . May have underlying dementia Precautions discussed with family (6)DVT prophylaxis Current Visit: Yes Status: Acute Plan to address problem: SCD to BLE while in bed. Family agreeable to placement for Rehab at SNF on discharge History Interval history: Patient is seen today for: RECURRENT falls Seen and examined at bedside; 24hour events reviewed; nursing staff ; no adverse overnight events reported to me; Denies any chest pain, nausea, vomiting, diarrhea. Family at the bedside. states the patient normally would ambulate without help but slowly. Son reports intermittent confusion at night time. states this has been ongoing for a few months now Hospitalist Physical - Physical exam Narrative exam: VITAL SIGNS: Reviewed. GENERAL: The patient appeared well nourished and normally developed. Apparently lethargic Vital signs as documented. HEAD: No signs of head trauma. EYES: Pupils are equal. Extraocular motions intact. EARS: Hearing grossly intact. MOUTH: Oropharynx is normal. NECK: No adenopathy, no JVD. CHEST: Chest with clear breath sounds bilaterally. No wheezes, rales, or rhonchi. CARDIAC: Regular rate and rhythm. S1 and S2, without murmurs, gallops, or rubs. VASCULAR: No Edema. Peripheral pulses normal and equal in all extremities. ABDOMEN: Soft, without detectable tenderness. No sign of distention. No rebound or guarding, and no masses palpated. Bowel Sounds normal. MUSCULOSKELETAL: Limited range of motion of the bilaterally warm to the touch the mild joint effusion bilaterally. Extremities without clubbing, cyanosis or edema. NEUROLOGIC EXAM: Alert and oriented x 3. No focal sensory or strength deficits. Speech normal. Follows commands. PSYCHIATRIC: Mood normal. SKIN: No rash or lesions. - Constitutional Vitals: Temp Pulse Resp BP Pulse Ox 98.3 F 77 18 206/88 95 10/28/18 07:39 10/28/18 10:14 10/28/18 07:39 10/28/18 10:14 10/28/18 08:09 General appearance: Present: mild distress Results - Labs CBC & Chem 7: 10/27/18 05:45 10/28/18 05:22 Labs: Laboratory Last Values WBC 18.1 K/mm3 (4.5-11.0) H 10/27/18 05:45 RBC 4.71 M/mm3 (3.65-5.03) 10/27/18 05:45 Hgb 14.4 gm/dl (11.8-15.2) 10/27/18 05:45 Hct 43.8 % (35.5-45.6) 10/27/18 05:45 MCV 93 fl (84-94) 10/27/18 05:45 MCH 30 pg (28-32) 10/27/18 05:45 MCHC 33 % (32-34) 10/27/18 05:45 RDW 14.1 % (13.2-15.2) 10/27/18 05:45 Plt Count 203 K/mm3 (140-440) 10/27/18 05:45 Add Manual Diff Complete 10/25/18 17:12 Total Counted 100 10/25/18 17:12 Seg Neuts % (Manual) 93.0 % (40.0-70.0) H 10/25/18 17:12 Band Neutrophils % 0 % 10/25/18 17:12 Lymphocytes % (Manual) 2.0 % (13.4-35.0) L 10/25/18 17:12 Reactive Lymphs % (Man) 0 % 10/25/18 17:12 Monocytes % (Manual) 5.0 % (0.0-7.3) 10/25/18 17:12 Eosinophils % (Manual) 0 % (0.0-4.3) 10/25/18 17:12 Basophils % (Manual) 0 % (0.0-1.8) 10/25/18 17:12 Metamyelocytes % 0 % 10/25/18 17:12 Myelocytes % 0 % 10/25/18 17:12 Promyelocytes % 0 % 10/25/18 17:12 Blast Cells % 0 % 10/25/18 17:12 Nucleated RBC % Not Reportable 10/25/18 17:12 Seg Neutrophils # Man 19.4 K/mm3 (1.8-7.7) H 10/25/18 17:12 Band Neutrophils # 0.0 K/mm3 10/25/18 17:12 Lymphocytes # (Manual) 0.4 K/mm3 (1.2-5.4) L 10/25/18 17:12 Abs React Lymphs (Man) 0.0 K/mm3 10/25/18 17:12 Monocytes # (Manual) 1.0 K/mm3 (0.0-0.8) H 10/25/18 17:12 Eosinophils # (Manual) 0.0 K/mm3 (0.0-0.4) 10/25/18 17:12 Basophils # (Manual) 0.0 K/mm3 (0.0-0.1) 10/25/18 17:12 Metamyelocytes # 0.0 K/mm3 10/25/18 17:12 Myelocytes # 0.0 K/mm3 10/25/18 17:12 Promyelocytes # 0.0 K/mm3 10/25/18 17:12 Blast Cells # 0.0 K/mm3 10/25/18 17:12 WBC Morphology Not Reportable 10/25/18 17:12 Hypersegmented Neuts Not Reportable 10/25/18 17:12 Hyposegmented Neuts Not Reportable 10/25/18 17:12 Hypogranular Neuts Not Reportable 10/25/18 17:12 Smudge Cells Not Reportable 10/25/18 17:12 Toxic Granulation Not Reportable 10/25/18 17:12 Toxic Vacuolation Not Reportable 10/25/18 17:12 Dohle Bodies Not Reportable 10/25/18 17:12 Pelger-Huet Anomaly Not Reportable 10/25/18 17:12 Swetha Rods Not Reportable 10/25/18 17:12 Platelet Estimate Appears normal 10/25/18 17:12 Clumped Platelets Not Reportable 10/25/18 17:12 Plt Clumps, EDTA Not Reportable 10/25/18 17:12 Large Platelets Not Reportable 10/25/18 17:12 Giant Platelets Not Reportable 10/25/18 17:12 Platelet Satelliting Not Reportable 10/25/18 17:12 Plt Morphology Comment Not Reportable 10/25/18 17:12 RBC Morphology Not Reportable 10/25/18 17:12 Dimorphic RBCs Not Reportable 10/25/18 17:12 Polychromasia Not Reportable 10/25/18 17:12 Hypochromasia Not Reportable 10/25/18 17:12 Poikilocytosis Few 10/25/18 17:12 Anisocytosis Few 10/25/18 17:12 Microcytosis Not Reportable 10/25/18 17:12 Macrocytosis Not Reportable 10/25/18 17:12 Spherocytes Not Reportable 10/25/18 17:12 Pappenheimer Bodies Not Reportable 10/25/18 17:12 Sickle Cells Not Reportable 10/25/18 17:12 Target Cells Not Reportable 10/25/18 17:12 Tear Drop Cells Not Reportable 10/25/18 17:12 Ovalocytes Not Reportable 10/25/18 17:12 Helmet Cells Not Reportable 10/25/18 17:12 [place] Bodies Not Reportable 10/25/18 17:12 [place] Rings Not Reportable 10/25/18 17:12 [place] Cells Not Reportable 10/25/18 17:12 Bite Cells Not Reportable 10/25/18 17:12 Crenated Cell Not Reportable 10/25/18 17:12 Elliptocytes Few 10/25/18 17:12 Acanthocytes (Spur) Not Reportable 10/25/18 17:12 Rouleaux Not Reportable 10/25/18 17:12 Hemoglobin C Crystals Not Reportable 10/25/18 17:12 Schistocytes Not Reportable 10/25/18 17:12 Malaria parasites Not Reportable 10/25/18 17:12 [place] Bodies Not Reportable 10/25/18 17:12 Hem Pathologist Commnt No 10/25/18 17:12 Sodium 141 mmol/L (137-145) 10/28/18 05:22 Potassium 3.7 mmol/L (3.6-5.0) 10/28/18 05:22 Chloride 105.2 mmol/L (98-107) 10/28/18 05:22 Carbon Dioxide 20 mmol/L (22-30) L 10/28/18 05:22 Anion Gap 20 mmol/L 10/28/18 05:22 BUN 13 mg/dL (9-20) 10/28/18 05:22 Creatinine 1.3 mg/dL (0.8-1.5) 10/28/18 05:22 Estimated GFR > 60 ml/min 10/28/18 05:22 BUN/Creatinine Ratio 10 % 10/28/18 05:22 Glucose 91 mg/dL (75-100) 10/28/18 05:22 Lactic Acid 1.40 mmol/L (0.7-2.0) 10/26/18 06:05 Calcium 7.7 mg/dL (8.4-10.2) L 10/28/18 05:22 Total Bilirubin 0.40 mg/dL (0.1-1.2) 10/25/18 17:12 AST 34 units/L (5-40) 10/25/18 17:12 ALT 24 units/L (7-56) 10/25/18 17:12 Alkaline Phosphatase 101 units/L (35-129) 10/25/18 17:12 Total Protein 6.8 g/dL (6.3-8.2) 10/25/18 17:12 Albumin 2.9 g/dL (3.9-5) L 10/25/18 17:12 Albumin/Globulin Ratio 0.7 % 10/25/18 17:12 Urine Color Yellow (Yellow) 10/26/18 05:30 Urine Turbidity Clear (Clear) 10/26/18 05:30 Urine pH 5.0 (5.0-7.0) 10/26/18 05:30 Ur Specific [place] 1.013 (1.003-1.030) 10/26/18 05:30 Urine Protein <15 mg/dl mg/dL (Negative) 10/26/18 05:30 Urine Glucose (UA) Neg mg/dL (Negative) 10/26/18 05:30 Urine Ketones Neg mg/dL (Negative) 10/26/18 05:30 Urine Blood Neg (Negative) 10/26/18 05:30 Urine Nitrite Neg (Negative) 10/26/18 05:30 Urine Bilirubin Neg (Negative) 10/26/18 05:30 Urine Urobilinogen < 2.0 mg/dL (<2.0) 10/26/18 05:30 Ur Leukocyte Esterase Neg (Negative) 10/26/18 05:30 Urine WBC (Auto) 2.0 /HPF (0.0-6.0) 10/26/18 05:30 Urine RBC (Auto) 1.0 /HPF (0.0-6.0) 10/26/18 05:30 U Epithel Cells (Auto) 2.0 /HPF (0-13.0) 10/26/18 05:30 Urine Bacteria (Auto) 1+ /HPF (Negative) 10/26/18 05:30 Amorphous Crystals Few 10/26/18 05:30 Hyaline Casts 9 /LPF 10/26/18 05:30 Urine Mucus Few /HPF 10/26/18 05:30
[2018-10-28] MEDS: VANCOMYCIN 750 MG in NACL 0.9% 250ML 250 ML IV SCH (18:32)
--- NOTE | 2018-10-28 20:04 | Event Note ---
Date: 10/28/18 Received consult due to septic knee, patient unable to provide history. Per son, he has been recenlty falling down, last time hit his knees, admitted with SIRS with leukocytosis and fever also AMS, UA neg, CXR, CT abd w/o contrast ?liver cyst, knee XR cayden effusion. Unclear source of sepsis. F/u blood cx, obtain CRP, consider IR right knee aspiration as right is worse then left, abdominal US r/o liver abscess; continue zosyn / vanc for now. Full consultation to f/u tomorrow.
--- NOTE | 2018-10-28 21:17 | Ultrasound Report ---
FINAL REPORT EXAM: US ABDOMEN COMPLETE HISTORY: eval r/o liver abscess, kidney abscess COMPARISON: CT abdomen pelvis from October 25, 2018. TECHNIQUE: Several real-time grayscale and color Doppler images were obtained. FINDINGS: There is increased echogenicity of the liver compatible with fatty infiltration. No shadowing gallsto jaun. Gallbladder wall thickness within normal limits. The common bile duct measures 4 millimeters wit hin normal limits. Visualized portal vein is patent. The spleen measures 11 centimeters in length within normal limits. Right kidney measures 10.6 centime ters in length. Left kidney measures 11.0 centimeters in length. No hydronephrosis. Lobulated contour of the kidneys. There are tiny hypodensities which may reflect cysts on the right. Punctate nonobstr uctive renal calculi could be obscured by renal sinus fat. Visualized aorta is normal in caliber. Vis ualized urinary bladder is grossly unremarkable. Dedicated images the IVC not obtained. IMPRESSION: Mild diffuse fatty infiltration of the liver. Previously seen low-attenuation lesion seen on prior CT within the right hepatic lobe is not visualized by ultrasound. Probable tiny right renal cyst. These are not well delineated by ultrasound. CT abdomen and pelvis wi thout contrast could be performed for further evaluation if clinically indicated. No cholelithiasis or biliary dilatation.
[2018-10-29] MEDS: ZOSYN/NS 2.25 GM/50ML 2.25 GM/50 ML BAG IV SCH ×3 (00:26→13:11)
[2018-10-29] MEDS: NACL 0.9% 1000 ML 1,000 ML IV SCH ×2 (06:05→17:31)
--- NOTE | 2018-10-29 09:52 | Progress Note ---
Assessment and Plan Assessment and plan: 78 YO Male with HTN, Nicotine Dependence presents to ED for evaluation. Pt is unable to speak Kiswahili, and provide detailed history. Pt history provided by son and family who is at bedside during exam and interview. As per son, the patient states that he has experienced generalized weakness, and malaise over the past 4 days with persistent symptoms over the same time frame. Pt was walking and subsequently tripped and fell onto his knees. Pt transported to [facility] for further care and evaluation. Pt states that pain has improved at time of exam but he in unable to ambulate due to bilateral knee pain with weight bearing.. Pt seen and evaluated in ED and found to have Sepsis, ARF, and Bilateral knee contusions. Pt admitted to [facility] unit and initiated on sepsis protocol. PT denies fever, chills, CP, Palpitations, NVD, Syncope, BRBPR, Loss of Consciousness, Prolonged travel/immobility, unilateral leg swelling, calf pain, hemoptysis, individual/family history of DVT/PE/Blood Clotting Disorders, or skin rash. (1)Febrile disease. SIRS vs Septic Knee vs gout Surgical consult to evaluate knee effusion Input from surgery noted :lateral knee pain status post contusion patient has a history of osteoarthritis Recommendations would continue with oral anti- inflammatory medications patient can also begin physical therapy for range of motion and strengthening exercises he can also weight-bear as tolerated Continue abx for now ID input noted IR for joint aspiration (2) ARF (acute renal failure) with tubular necrosis Current Visit: Yes Status: Acute Plan to address problem: Resolved Decrease IV fluids (3) Contusion, knee Current Visit: Yes Status: Acute Qualifiers: Encounter type: initial encounter Laterality: unspecified laterality Qualified Code(s): S80.00XA - Contusion of unspecified knee, initial encounter Plan to address problem: Bilateral Knee x ray, pain control, supportive care. PT eval and treat (4) Hypertension Blood pressure medications. Continue PRN Hydralazin Retart ACEI (5) Nocturnal Metabolic Encephalopathy Possible . May have underlying dementia Precautions discussed with family (6)DVT prophylaxis Current Visit: Yes Status: Acute Plan to address problem: SCD to BLE while in bed. Family agreeable to placement for Rehab at SNF on discharge History Interval history: Patient is seen today for: RECURRENT falls Seen and examined at bedside; 24hour events reviewed; nursing staff ; no adverse overnight events reported to me; Denies any chest pain, nausea, vomiting, diarrhea. Son reports patient improving, also evident is improvement in mentation. Hospitalist Physical - Physical exam Narrative exam: VITAL SIGNS: Reviewed. GENERAL: The patient appeared well nourished and normally developed. Apparently lethargic Vital signs as documented. HEAD: No signs of head trauma. EYES: Pupils are equal. Extraocular motions intact. EARS: Hearing grossly intact. MOUTH: Oropharynx is normal. NECK: No adenopathy, no JVD. CHEST: Chest with clear breath sounds bilaterally. No wheezes, rales, or rhonchi. CARDIAC: Regular rate and rhythm. S1 and S2, without murmurs, gallops, or rubs. VASCULAR: No Edema. Peripheral pulses normal and equal in all extremities. ABDOMEN: Soft, without detectable tenderness. No sign of distention. No rebound or guarding, and no masses palpated. Bowel Sounds normal. MUSCULOSKELETAL: Limited range of motion of the bilaterally warm to the touch the mild joint effusion bilaterally. Extremities without clubbing, cyanosis or edema. NEUROLOGIC EXAM: Alert and oriented x 3. No focal sensory or strength deficits. Speech normal. Follows commands. PSYCHIATRIC: Mood normal. SKIN: No rash or lesions. - Constitutional Vitals: Temp Pulse Resp BP Pulse Ox 99.5 F 71 20 171/68 98 10/29/18 02:52 10/29/18 02:52 10/29/18 02:52 10/29/18 02:52 10/29/18 02:52 General appearance: Present: mild distress Results - Labs CBC & Chem 7: 10/27/18 05:45 10/28/18 05:22 Labs: Laboratory Last Values WBC 18.1 K/mm3 (4.5-11.0) H 10/27/18 05:45 RBC 4.71 M/mm3 (3.65-5.03) 10/27/18 05:45 Hgb 14.4 gm/dl (11.8-15.2) 10/27/18 05:45 Hct 43.8 % (35.5-45.6) 10/27/18 05:45 MCV 93 fl (84-94) 10/27/18 05:45 MCH 30 pg (28-32) 10/27/18 05:45 MCHC 33 % (32-34) 10/27/18 05:45 RDW 14.1 % (13.2-15.2) 10/27/18 05:45 Plt Count 203 K/mm3 (140-440) 10/27/18 05:45 Add Manual Diff Complete 10/25/18 17:12 Total Counted 100 10/25/18 17:12 Seg Neuts % (Manual) 93.0 % (40.0-70.0) H 10/25/18 17:12 Band Neutrophils % 0 % 10/25/18 17:12 Lymphocytes % (Manual) 2.0 % (13.4-35.0) L 10/25/18 17:12 Reactive Lymphs % (Man) 0 % 10/25/18 17:12 Monocytes % (Manual) 5.0 % (0.0-7.3) 10/25/18 17:12 Eosinophils % (Manual) 0 % (0.0-4.3) 10/25/18 17:12 Basophils % (Manual) 0 % (0.0-1.8) 10/25/18 17:12 Metamyelocytes % 0 % 10/25/18 17:12 Myelocytes % 0 % 10/25/18 17:12 Promyelocytes % 0 % 10/25/18 17:12 Blast Cells % 0 % 10/25/18 17:12 Nucleated RBC % Not Reportable 10/25/18 17:12 Seg Neutrophils # Man 19.4 K/mm3 (1.8-7.7) H 10/25/18 17:12 Band Neutrophils # 0.0 K/mm3 10/25/18 17:12 Lymphocytes # (Manual) 0.4 K/mm3 (1.2-5.4) L 10/25/18 17:12 Abs React Lymphs (Man) 0.0 K/mm3 10/25/18 17:12 Monocytes # (Manual) 1.0 K/mm3 (0.0-0.8) H 10/25/18 17:12 Eosinophils # (Manual) 0.0 K/mm3 (0.0-0.4) 10/25/18 17:12 Basophils # (Manual) 0.0 K/mm3 (0.0-0.1) 10/25/18 17:12 Metamyelocytes # 0.0 K/mm3 10/25/18 17:12 Myelocytes # 0.0 K/mm3 10/25/18 17:12 Promyelocytes # 0.0 K/mm3 10/25/18 17:12 Blast Cells # 0.0 K/mm3 10/25/18 17:12 WBC Morphology Not Reportable 10/25/18 17:12 Hypersegmented Neuts Not Reportable 10/25/18 17:12 Hyposegmented Neuts Not Reportable 10/25/18 17:12 Hypogranular Neuts Not Reportable 10/25/18 17:12 Smudge Cells Not Reportable 10/25/18 17:12 Toxic Granulation Not Reportable 10/25/18 17:12 Toxic Vacuolation Not Reportable 10/25/18 17:12 Dohle Bodies Not Reportable 10/25/18 17:12 Pelger-Huet Anomaly Not Reportable 10/25/18 17:12 Swetha Rods Not Reportable 10/25/18 17:12 Platelet Estimate Appears normal 10/25/18 17:12 Clumped Platelets Not Reportable 10/25/18 17:12 Plt Clumps, EDTA Not Reportable 10/25/18 17:12 Large Platelets Not Reportable 10/25/18 17:12 Giant Platelets Not Reportable 10/25/18 17:12 Platelet Satelliting Not Reportable 10/25/18 17:12 Plt Morphology Comment Not Reportable 10/25/18 17:12 RBC Morphology Not Reportable 10/25/18 17:12 Dimorphic RBCs Not Reportable 10/25/18 17:12 Polychromasia Not Reportable 10/25/18 17:12 Hypochromasia Not Reportable 10/25/18 17:12 Poikilocytosis Few 10/25/18 17:12 Anisocytosis Few 10/25/18 17:12 Microcytosis Not Reportable 10/25/18 17:12 Macrocytosis Not Reportable 10/25/18 17:12 Spherocytes Not Reportable 10/25/18 17:12 Pappenheimer Bodies Not Reportable 10/25/18 17:12 Sickle Cells Not Reportable 10/25/18 17:12 Target Cells Not Reportable 10/25/18 17:12 Tear Drop Cells Not Reportable 10/25/18 17:12 Ovalocytes Not Reportable 10/25/18 17:12 Helmet Cells Not Reportable 10/25/18 17:12 [place] Bodies Not Reportable 10/25/18 17:12 [place] Rings Not Reportable 10/25/18 17:12 [place] Cells Not Reportable 10/25/18 17:12 Bite Cells Not Reportable 10/25/18 17:12 Crenated Cell Not Reportable 10/25/18 17:12 Elliptocytes Few 10/25/18 17:12 Acanthocytes (Spur) Not Reportable 10/25/18 17:12 Rouleaux Not Reportable 10/25/18 17:12 Hemoglobin C Crystals Not Reportable 10/25/18 17:12 Schistocytes Not Reportable 10/25/18 17:12 Malaria parasites Not Reportable 10/25/18 17:12 [place] Bodies Not Reportable 10/25/18 17:12 Hem Pathologist Commnt No 10/25/18 17:12 Sodium 141 mmol/L (137-145) 10/28/18 05:22 Potassium 3.7 mmol/L (3.6-5.0) 10/28/18 05:22 Chloride 105.2 mmol/L (98-107) 10/28/18 05:22 Carbon Dioxide 20 mmol/L (22-30) L 10/28/18 05:22 Anion Gap 20 mmol/L 10/28/18 05:22 BUN 13 mg/dL (9-20) 10/28/18 05:22 Creatinine 1.3 mg/dL (0.8-1.5) 10/28/18 05:22 Estimated GFR > 60 ml/min 10/28/18 05:22 BUN/Creatinine Ratio 10 % 10/28/18 05:22 Glucose 91 mg/dL (75-100) 10/28/18 05:22 Lactic Acid 1.40 mmol/L (0.7-2.0) 10/26/18 06:05 Calcium 7.7 mg/dL (8.4-10.2) L 10/28/18 05:22 Total Bilirubin 0.40 mg/dL (0.1-1.2) 10/25/18 17:12 AST 34 units/L (5-40) 10/25/18 17:12 ALT 24 units/L (7-56) 10/25/18 17:12 Alkaline Phosphatase 101 units/L (35-129) 10/25/18 17:12 C-Reactive Protein 23.00 mg/dL (0.00-1.30) H 10/28/18 20:48 Total Protein 6.8 g/dL (6.3-8.2) 10/25/18 17:12 Albumin 2.9 g/dL (3.9-5) L 10/25/18 17:12 Albumin/Globulin Ratio 0.7 % 10/25/18 17:12 Urine Color Yellow (Yellow) 10/26/18 05:30 Urine Turbidity Clear (Clear) 10/26/18 05:30 Urine pH 5.0 (5.0-7.0) 10/26/18 05:30 Ur Specific [place] 1.013 (1.003-1.030) 10/26/18 05:30 Urine Protein <15 mg/dl mg/dL (Negative) 10/26/18 05:30 Urine Glucose (UA) Neg mg/dL (Negative) 10/26/18 05:30 Urine Ketones Neg mg/dL (Negative) 10/26/18 05:30 Urine Blood Neg (Negative) 10/26/18 05:30 Urine Nitrite Neg (Negative) 10/26/18 05:30 Urine Bilirubin Neg (Negative) 10/26/18 05:30 Urine Urobilinogen < 2.0 mg/dL (<2.0) 10/26/18 05:30 Ur Leukocyte Esterase Neg (Negative) 10/26/18 05:30 Urine WBC (Auto) 2.0 /HPF (0.0-6.0) 10/26/18 05:30 Urine RBC (Auto) 1.0 /HPF (0.0-6.0) 10/26/18 05:30 U Epithel Cells (Auto) 2.0 /HPF (0-13.0) 10/26/18 05:30 Urine Bacteria (Auto) 1+ /HPF (Negative) 10/26/18 05:30 Amorphous Crystals Few 10/26/18 05:30 Hyaline Casts 9 /LPF 10/26/18 05:30 Urine Mucus Few /HPF 10/26/18 05:30
[2018-10-29] MEDS: ZESTRIL PO SCH (10:44)
[2018-10-29] MEDS: PLAVIX PO SCH (10:44)
[2018-10-29] MEDS: TOPROL XL PO SCH (10:44)
[2018-10-29] MEDS: SODIUM CHLORIDE FLUSH SYRINGE 10 ML IV SCH ×2 (10:45→22:38)
--- NOTE | 2018-10-29 13:10 | Consultation ---
History of Present Illness - Reason for Consult Consult date: 10/29/18 septic knee Requesting physician: CITLALI BURTON - History of Present Illness 78 y/o male with history of HTN; admitted on 10/25/2018 due to a-week history of generalized weakness and a recent fall to the ground injuring his knees. History was provided by son since patient was sleepy/somnolent. Son reports he had an upper respiratory infection during [place] and had cough for a while. He also vomited once during a family reunion. Patient has been falling down several times per son. After last fall, he was unable to stand up on his feet and walk. Son also noted sleepiness and confusion. In the ED, temp 98.7, HR 85, BP 134/69, O2 sat 95%, WBC 20.0. Hg 13.5. Plat 440. Creat 1.7. Lactate 0.7. LFTs normal. Blood cultures 10/25/[address] no [address] abd showed prior granulomatous disease, low-density nodule right lobe of the liver and lobulated contour of the kidneys, multiple small cortical nodule suspected in the kidneys which are not clearly defined by this exam. CXR neg. XR knees bilateral knee effusions. CT head old chronic ischemic changes. Noted fever 101.2 on 10/27/2018 ROS: unable to obtain due to AMS/language barrier Past History Past Medical History: hypertension Past Surgical History: Other (Hand, Ear surgery) Social history: , smoking Family history: hypertension Medications and Allergies Allergies Allergy/AdvReac Type Severity Reaction Status Date / Time No Known Allergies Allergy Verified 10/25/18 17:04 Home Medications Medication Instructions Recorded Confirmed Last Taken Type Atorvastatin Calcium 40 mg PO DAILY 10/25/18 10/25/18 Unknown History Clopidogrel [Plavix] 75 mg PO QDAY 10/25/18 10/25/18 Unknown History Lisinopril [Zestril] 20 mg PO QDAY 10/25/18 10/25/18 Unknown History Nebivolol HCl [Bystolic] 10 mg PO DAILY 10/25/18 10/25/18 Unknown History Active Meds: Active Medications Acetaminophen (Tylenol) 650 mg PO Q4H PRN PRN Reason: Pain MILD(1-3)/Fever >100.5/PARIKH Last Admin: 10/27/18 14:47 Dose: 650 mg Documented by: Albuterol (Proventil) 2.5 mg IH Q4HRT PRN PRN Reason: Shortness Of Breath Atorvastatin Calcium (Lipitor) 40 mg PO DAILY [facility] Last Admin: 10/29/18 10:44 Dose: 40 mg Documented by: Clopidogrel Bisulfate (Plavix) 75 mg PO QDAY [facility] Last Admin: 10/29/18 10:44 Dose: 75 mg Documented by: Hydralazine HCl (Apresoline) 10 mg IV Q4HR PRN PRN Reason: Hypertension Piperacillin Sod/Tazobactam Sod (Zosyn/Ns 2.25 Gm/50ml) 2.25 gm in 50 mls @ 100 mls/hr IV Q6HR [facility] Last Admin: 10/29/18 06:02 Dose: 100 mls/hr Documented by: Sodium Chloride (Nacl 0.9% 1000 Ml) 1,000 mls @ 75 mls/hr IV DIRECT [facility] Last Admin: 10/29/18 06:05 Dose: 125 mls/hr Documented by: Vancomycin HCl 750 mg/ Sodium (Chloride) 265 mls @ 166.667 mls/hr IV Q24H [facility] Last Admin: 10/28/18 18:32 Dose: 166.667 mls/hr Documented by: Lisinopril (Zestril) 20 mg PO QDAY [facility] Last Admin: 10/29/18 10:44 Dose: 20 mg Documented by: Metoprolol Succinate (Toprol Xl) 100 mg PO QDAY [facility] Last Admin: 10/29/18 10:44 Dose: 100 mg Documented by: Ondansetron HCl (Zofran) 4 mg IV Q8H PRN PRN Reason: Nausea And Vomiting Sodium Chloride (Sodium Chloride Flush Syringe 10 Ml) 10 ml IV BID [facility] Last Admin: 10/29/18 10:45 Dose: 10 ml Documented by: Sodium Chloride (Sodium Chloride Flush Syringe 10 Ml) 10 ml IV PRN PRN PRN Reason: LINE FLUSH Physical Examination - Physical Exam Narrative exam: General appearance: somnolent in NAD, non conversant Eyes: anicteric sclerae, moist conjunctivae; no lid-lag; PERRLA HENT: Atraumatic, old craneal frontal deformity; oropharynx limited Neck: Trachea midline; supple, no thyromegaly or lymphadenopathy Lungs: CTA CV: RRR Abdomen: Soft, non-tender; no masses or hepatosplenomegaly Extremities: +right knee edema, heat and tenderness more pronounced than left Skin: Normal temperature, turgor and texture; no rash, ulcers or subcutaneous nodules Psych: somnolent Neuro: somnolent non verbal Lines: - Constitutional Vitals: Vital Signs Temp Pulse Resp BP Pulse Ox 98.7 F 67 18 177/75 95 10/29/18 07:29 10/29/18 07:29 10/29/18 07:29 10/29/18 10:44 10/29/18 07:29 Temperature -Last 24 Hours Temperature 98.7 F Temperature 99.5 F Temperature 98.1 F Results - Labs CBC & Chem 7: 10/27/18 05:45 10/28/18 05:22 Labs: Abnormal lab results 10/28/18 Range/Units 20:48 C-Reactive Protein 23.00 H (0.00-1.30) mg/dL Assessment and Plan Cultures: Blood culture 10/25/2018 no growth so far Assessment: 78 y/o male with history of HTN; admitted on 10/25/2018 due to a-week history of generalized weakness and a recent fall to the ground injuring his knees:. 1) SIRS: present on admission with leukocytosis and AMS, noted fever on 10/27/2018 at 101.2; source unclear. ?right knee septic arthritis vs cellulitis after a fall ? influenza. Blood cultures 10/27/2018 no growth, UA neg, CXR neg, LFTs normal, CT abd showed prior granulomatous disease, low-density nodule right lobe of the liver and lobulated contour of the kidneys, multiple small cortical nodule suspected in the kidneys which are not clearly defined by this exam. XR knee bilateral effusion. 2) Acute encephalopathy: unclear etio. improving. 3) Right > left knee cellulitis vs septic arthritis ? after recent fall 4) AMANDA - better Recommendations: - stop zosyn - continue vancomycin - start cefazolin - request right knee asp by IR send fluid for cell coutn, diff, crystlas, Gram and cultures - monitor leukocytosis - check influenza antigen Will follow up with you. Dr Vines roundchapis tomorrow Rosita Couch MD Infectious Diseases [employer] [facility] M [phone] O [phone]
[2018-10-29] MEDS: ceFAZolin 2 GM in NACL 0.9% 100 ML IV SCH ×3 (14:40→22:37)
[2018-10-29] MEDS: TAMIFLU PO SCH ×2 (15:53→22:37)
[2018-10-29] MEDS: VANCOMYCIN 750 MG in NACL 0.9% 250ML 250 ML IV SCH (17:28)
[2018-10-29] MEDS: TYLENOL PO PRN (20:06)
[2018-10-29] MEDS: APRESOLINE IV PRN (20:07)
[2018-10-30 03:48] LABS: BUN/Creatinine Ratio 9; Blood Urea Nitrogen 11 mg/dL (9-20); Calcium 7.6 mg/dL (8.4-10.2); Hemolysis Index 131
[2018-10-30 04:05] LABS: Hematocrit 44.3 % (35.5-45.6); Mean Corpuscular HGB Conc 32 % (32-34); Mean Corpuscular Volume 95 fl (84-94); Platelet Count 292 K/mm3 (140-440); Red Blood Count 4.68 M/mm3 (3.65-5.03); Red Cell Distribution Width 14.7 % (13.2-15.2)
[2018-10-30] MEDS: ceFAZolin 2 GM in NACL 0.9% 100 ML IV SCH ×3 (05:35→21:52)
--- NOTE | 2018-10-30 08:22 | Progress Note ---
Assessment and Plan Cultures: Blood culture 10/25/2018 no growth so far Assessment: 78 y/o male with history of HTN; admitted on 10/25/2018 due to a-week history of generalized weakness and a recent fall to the ground injuring his knees:. 1) SIRS: Improved. Leukocytosis continuing. source unclear. ?right knee septic arthritis vs cellulitis after a fall. influenza negative. Blood cultures 10/27/2018 no growth, UA neg, CXR neg, LFTs normal, CT abd showed prior granulomatous disease, low-density nodule right lobe of the liver and lobulated contour of the kidneys, multiple small cortical nodule suspected in the kidneys which are not clearly defined by this exam. XR knee bilateral effusion. -Influenza negative 2) Acute encephalopathy: unclear etio. improving. 3) Right > left knee cellulitis vs septic arthritis ? after recent fall- requested right knee aspiration and cultures 4) AMANDA - better Recommendations: - continue vancomycin - continue cefazolin - f/u right knee asp by IR send fluid for cell coutn, diff, crystlas, Gram and cultures [facility] M: [phone] O:[phone] Subjective Date of service: 10/30/18 Interval history: Patient seen and examined. and daughter at bedside. Primary language Grenadian. Patient verbalized that he was feeling better today, but continues to have right knee pain. Objective - Exam Narrative Exam: General appearance: Awake, alert Primary language Grenadian, mild distress Eyes: anicteric sclerae, moist conjunctivae; no lid-lag; PERRLA HENT: Atraumatic, old craneal frontal deformity; oropharynx limited Neck: Trachea midline; supple, no thyromegaly or lymphadenopathy Lungs: CTA CV: RRR Abdomen: Soft, non-tender; no masses or hepatosplenomegaly Extremities: +right knee edema, heat and tenderness more pronounced than left Skin: Normal temperature, turgor and texture; no rash, ulcers or subcutaneous nodules Psych: Mood: ok Neuro: conversant, awake Lines: - Constitutional Vitals: Vital Signs Temp Pulse Resp BP Pulse Ox 98.8 F 80 20 164/73 93 10/30/18 07:34 10/30/18 07:34 10/30/18 07:34 10/30/18 07:34 10/30/18 07:34 Temperature -Last 24 Hours Temperature 98.8 F Temperature 98.1 F Temperature 99.2 F Temperature 97.8 F - Labs CBC & Chem 7: 10/30/18 02:36 10/30/18 02:36 Labs: Abnormal lab results 10/30/18 10/30/18 Range/Units 02:36 02:36 WBC 18.7 H (4.5-11.0) K/mm3 MCV 95 H (84-94) fl Sodium 135 L (137-145) mmol/L Potassium 3.0 L (3.6-5.0) mmol/L Carbon Dioxide 18 L (22-30) mmol/L Glucose 107 H (75-100) mg/dL Calcium 7.6 L (8.4-10.2) mg/dL
[2018-10-30] MEDS: PLAVIX PO SCH (11:00)
[2018-10-30] MEDS: VANCOMYCIN/NS 1 GM/250 ML 1 GM/250 ML BAG IV SCH (11:00)
[2018-10-30] MEDS: ZESTRIL PO SCH (11:00)
[2018-10-30] MEDS: TOPROL XL PO SCH (11:00)
[2018-10-30] MEDS: TAMIFLU PO SCH ×2 (11:00→21:52)
[2018-10-30] MEDS: SODIUM CHLORIDE FLUSH SYRINGE 10 ML IV SCH ×2 (11:03→21:53)
--- NOTE | 2018-10-30 15:35 | Event Note ---
Date: 10/30/18 Will plan on right knee aspiration tomorrow
[2018-10-30] MEDS: APRESOLINE IV PRN (15:45)
[2018-10-30] MEDS: TYLENOL PO PRN (17:00)
--- NOTE | 2018-10-30 17:00 | Progress Note ---
Assessment and Plan Assessment and plan: 78 YO Male with HTN, Nicotine Dependence presents to ED for evaluation. Pt is unable to speak Divehi, and provide detailed history. Pt history provided by son and family who is at bedside during exam and interview. As per son, the patient states that he has experienced generalized weakness, and malaise over the past 4 days with persistent symptoms over the same time frame. Pt was walking and subsequently tripped and fell onto his knees. Pt transported to [facility] for further care and evaluation. Pt states that pain has improved at time of exam but he in unable to ambulate due to bilateral knee pain with weight bearing.. Pt seen and evaluated in ED and found to have Sepsis, ARF, and Bilateral knee contusions. Pt admitted to [facility] unit and initiated on sepsis protocol. PT denies fever, chills, CP, Palpitations, NVD, Syncope, BRBPR, Loss of Consciousness, Prolonged travel/immobility, unilateral leg swelling, calf pain, hemoptysis, individual/family history of DVT/PE/Blood Clotting Disorders, or skin rash. Patient will schedule mammogram antibiotic coverage with vancomycin and ID was consulted were waiting for joint aspiration which appears to happen tomorrow as planned. I started the patient on colchicine also in case this appears to be gout which I doubt that this point. But will help with some pain control. (1)Febrile disease. SIRS vs Septic Knee vs gout Surgical consult to evaluate knee effusion Input from surgery noted :lateral knee pain status post contusion patient has a history of osteoarthritis Recommendations would continue with oral anti- inflammatory medications patient can also begin physical therapy for range of motion and strengthening exercises he can also weight-bear as tolerated Continue abx for now Unknown source of the infection ID input noted IR for joint aspiration (2) ARF (acute renal failure) with tubular necrosis Current Visit: Yes Status: Acute Plan to address problem: Resolved Decrease IV fluids (3) Contusion, knee Current Visit: Yes Status: Acute Qualifiers: Encounter type: initial encounter Laterality: unspecified laterality Qualified Code(s): S80.00XA - Contusion of unspecified knee, initial encounter Plan to address problem: Bilateral Knee x ray, pain control, supportive care. PT eval and treat (4) Hypertension Blood pressure medications. Continue PRN Hydralazin Retart ACEI (5) Nocturnal Metabolic Encephalopathy Possible . May have underlying dementia Precautions discussed with family (6)DVT prophylaxis Current Visit: Yes Status: Acute Plan to address problem: SCD to BLE while in bed. Family agreeable to placement for Rehab at SNF on discharge History Interval history: Patient is seen today for: RECURRENT falls Seen and examined at bedside; 24hour events reviewed; nursing staff ; no adverse overnight events reported to me; Denies any chest pain, nausea, vomiting, diarrhea. still with intermittent fever. still with knee pain Son reports patient improving, also evident is improvement in mentation. Hospitalist Physical - Physical exam Narrative exam: VITAL SIGNS: Reviewed. GENERAL: The patient appeared well nourished and normally developed. Apparently lethargic Vital signs as documented. HEAD: No signs of head trauma. EYES: Pupils are equal. Extraocular motions intact. EARS: Hearing grossly intact. MOUTH: Oropharynx is normal. NECK: No adenopathy, no JVD. CHEST: Chest with clear breath sounds bilaterally. No wheezes, rales, or rhonchi. CARDIAC: Regular rate and rhythm. S1 and S2, without murmurs, gallops, or rubs. VASCULAR: No Edema. Peripheral pulses normal and equal in all extremities. ABDOMEN: Soft, without detectable tenderness. No sign of distention. No rebound or guarding, and no masses palpated. Bowel Sounds normal. MUSCULOSKELETAL: Limited range of motion of the bilaterally warm to the touch the mild joint effusion bilaterally. Extremities without clubbing, cyanosis or edema. NEUROLOGIC EXAM: Alert and oriented x 3. No focal sensory or strength deficits. Speech normal. Follows commands. PSYCHIATRIC: Mood normal. SKIN: No rash or lesions. - Constitutional Vitals: Temp Pulse Resp BP Pulse Ox 101.4 F H 99 H 20 198/92 96 10/30/18 14:46 10/30/18 14:46 10/30/18 14:46 10/30/18 14:46 10/30/18 14:46 General appearance: Present: mild distress Results - Labs CBC & Chem 7: 10/30/18 02:36 10/30/18 02:36 Labs: Laboratory Last Values WBC 18.7 K/mm3 (4.5-11.0) H 10/30/18 02:36 RBC 4.68 M/mm3 (3.65-5.03) 10/30/18 02:36 Hgb 14.0 gm/dl (11.8-15.2) 10/30/18 02:36 Hct 44.3 % (35.5-45.6) 10/30/18 02:36 MCV 95 fl (84-94) H 10/30/18 02:36 MCH 30 pg (28-32) 10/30/18 02:36 MCHC 32 % (32-34) 10/30/18 02:36 RDW 14.7 % (13.2-15.2) 10/30/18 02:36 Plt Count 292 K/mm3 (140-440) 10/30/18 02:36 Add Manual Diff Complete 10/25/18 17:12 Total Counted 100 10/25/18 17:12 Seg Neuts % (Manual) 93.0 % (40.0-70.0) H 10/25/18 17:12 Band Neutrophils % 0 % 10/25/18 17:12 Lymphocytes % (Manual) 2.0 % (13.4-35.0) L 10/25/18 17:12 Reactive Lymphs % (Man) 0 % 10/25/18 17:12 Monocytes % (Manual) 5.0 % (0.0-7.3) 10/25/18 17:12 Eosinophils % (Manual) 0 % (0.0-4.3) 10/25/18 17:12 Basophils % (Manual) 0 % (0.0-1.8) 10/25/18 17:12 Metamyelocytes % 0 % 10/25/18 17:12 Myelocytes % 0 % 10/25/18 17:12 Promyelocytes % 0 % 10/25/18 17:12 Blast Cells % 0 % 10/25/18 17:12 Nucleated RBC % Not Reportable 10/25/18 17:12 Seg Neutrophils # Man 19.4 K/mm3 (1.8-7.7) H 10/25/18 17:12 Band Neutrophils # 0.0 K/mm3 10/25/18 17:12 Lymphocytes # (Manual) 0.4 K/mm3 (1.2-5.4) L 10/25/18 17:12 Abs React Lymphs (Man) 0.0 K/mm3 10/25/18 17:12 Monocytes # (Manual) 1.0 K/mm3 (0.0-0.8) H 10/25/18 17:12 Eosinophils # (Manual) 0.0 K/mm3 (0.0-0.4) 10/25/18 17:12 Basophils # (Manual) 0.0 K/mm3 (0.0-0.1) 10/25/18 17:12 Metamyelocytes # 0.0 K/mm3 10/25/18 17:12 Myelocytes # 0.0 K/mm3 10/25/18 17:12 Promyelocytes # 0.0 K/mm3 10/25/18 17:12 Blast Cells # 0.0 K/mm3 10/25/18 17:12 WBC Morphology Not Reportable 10/25/18 17:12 Hypersegmented Neuts Not Reportable 10/25/18 17:12 Hyposegmented Neuts Not Reportable 10/25/18 17:12 Hypogranular Neuts Not Reportable 10/25/18 17:12 Smudge Cells Not Reportable 10/25/18 17:12 Toxic Granulation Not Reportable 10/25/18 17:12 Toxic Vacuolation Not Reportable 10/25/18 17:12 Dohle Bodies Not Reportable 10/25/18 17:12 Pelger-Huet Anomaly Not Reportable 10/25/18 17:12 Swetha Rods Not Reportable 10/25/18 17:12 Platelet Estimate Appears normal 10/25/18 17:12 Clumped Platelets Not Reportable 10/25/18 17:12 Plt Clumps, EDTA Not Reportable 10/25/18 17:12 Large Platelets Not Reportable 10/25/18 17:12 Giant Platelets Not Reportable 10/25/18 17:12 Platelet Satelliting Not Reportable 10/25/18 17:12 Plt Morphology Comment Not Reportable 10/25/18 17:12 RBC Morphology Not Reportable 10/25/18 17:12 Dimorphic RBCs Not Reportable 10/25/18 17:12 Polychromasia Not Reportable 10/25/18 17:12 Hypochromasia Not Reportable 10/25/18 17:12 Poikilocytosis Few 10/25/18 17:12 Anisocytosis Few 10/25/18 17:12 Microcytosis Not Reportable 10/25/18 17:12 Macrocytosis Not Reportable 10/25/18 17:12 Spherocytes Not Reportable 10/25/18 17:12 Pappenheimer Bodies Not Reportable 10/25/18 17:12 Sickle Cells Not Reportable 10/25/18 17:12 Target Cells Not Reportable 10/25/18 17:12 Tear Drop Cells Not Reportable 10/25/18 17:12 Ovalocytes Not Reportable 10/25/18 17:12 Helmet Cells Not Reportable 10/25/18 17:12 [place] Bodies Not Reportable 10/25/18 17:12 [place] Rings Not Reportable 10/25/18 17:12 [place] Cells Not Reportable 10/25/18 17:12 Bite Cells Not Reportable 10/25/18 17:12 Crenated Cell Not Reportable 10/25/18 17:12 Elliptocytes Few 10/25/18 17:12 Acanthocytes (Spur) Not Reportable 10/25/18 17:12 Rouleaux Not Reportable 10/25/18 17:12 Hemoglobin C Crystals Not Reportable 10/25/18 17:12 Schistocytes Not Reportable 10/25/18 17:12 Malaria parasites Not Reportable 10/25/18 17:12 [place] Bodies Not Reportable 10/25/18 17:12 Hem Pathologist Commnt No 10/25/18 17:12 Sodium 135 mmol/L (137-145) L 10/30/18 02:36 Potassium 3.0 mmol/L (3.6-5.0) L 10/30/18 02:36 Chloride 103.0 mmol/L (98-107) 10/30/18 02:36 Carbon Dioxide 18 mmol/L (22-30) L 10/30/18 02:36 Anion Gap 17 mmol/L 10/30/18 02:36 BUN 11 mg/dL (9-20) 10/30/18 02:36 Creatinine 1.2 mg/dL (0.8-1.5) 10/30/18 02:36 Estimated GFR > 60 ml/min 10/30/18 02:36 BUN/Creatinine Ratio 9 % 10/30/18 02:36 Glucose 107 mg/dL (75-100) H 10/30/18 02:36 Lactic Acid 1.40 mmol/L (0.7-2.0) 10/26/18 06:05 Calcium 7.6 mg/dL (8.4-10.2) L 10/30/18 02:36 Total Bilirubin 0.40 mg/dL (0.1-1.2) 10/25/18 17:12 AST 34 units/L (5-40) 10/25/18 17:12 ALT 24 units/L (7-56) 10/25/18 17:12 Alkaline Phosphatase 101 units/L (35-129) 10/25/18 17:12 C-Reactive Protein 23.00 mg/dL (0.00-1.30) H 10/28/18 20:48 Total Protein 6.8 g/dL (6.3-8.2) 10/25/18 17:12 Albumin 2.9 g/dL (3.9-5) L 10/25/18 17:12 Albumin/Globulin Ratio 0.7 % 10/25/18 17:12 Urine Color Yellow (Yellow) 10/26/18 05:30 Urine Turbidity Clear (Clear) 10/26/18 05:30 Urine pH 5.0 (5.0-7.0) 10/26/18 05:30 Ur Specific [place] 1.013 (1.003-1.030) 10/26/18 05:30 Urine Protein <15 mg/dl mg/dL (Negative) 10/26/18 05:30 Urine Glucose (UA) Neg mg/dL (Negative) 10/26/18 05:30 Urine Ketones Neg mg/dL (Negative) 10/26/18 05:30 Urine Blood Neg (Negative) 10/26/18 05:30 Urine Nitrite Neg (Negative) 10/26/18 05:30 Urine Bilirubin Neg (Negative) 10/26/18 05:30 Urine Urobilinogen < 2.0 mg/dL (<2.0) 10/26/18 05:30 Ur Leukocyte Esterase Neg (Negative) 10/26/18 05:30 Urine WBC (Auto) 2.0 /HPF (0.0-6.0) 10/26/18 05:30 Urine RBC (Auto) 1.0 /HPF (0.0-6.0) 10/26/18 05:30 U Epithel Cells (Auto) 2.0 /HPF (0-13.0) 10/26/18 05:30 Urine Bacteria (Auto) 1+ /HPF (Negative) 10/26/18 05:30 Amorphous Crystals Few 10/26/18 05:30 Hyaline Casts 9 /LPF 10/26/18 05:30 Urine Mucus Few /HPF 10/26/18 05:30 Influenza A (Rapid) Negative (Negative) 10/29/18 16:42 Influenza B (Rapid) Negative (Negative) 10/29/18 16:42
[2018-10-30] MEDS: COLCHICINE PO SCH ×2 (17:01→21:52)
--- NOTE | 2018-10-30 21:18 | Progress Note ---
Assessment and Plan Left knee effusion most likely inflammatory in nature Status post aspiration was then fluid for culture and sensitivity Subjective Date of service: 10/30/18 Interval history: There is still complaining of left knee pain, infectious disease request aspiration left knee Objective Vital signs: Vital Signs - 12hr 10/30/18 10/30/18 10/30/18 14:00 14:46 15:45 Temperature 101.4 F H Pulse Rate 99 H 99 H Pulse Rate [ 80 From Monitor] Respiratory 20 20 Rate Blood Pressure 198/92 198/92 O2 Sat by Pulse 93 96 Oximetry 10/30/18 19:52 Temperature 97.5 F L Pulse Rate 86 Pulse Rate [ From Monitor] Respiratory 18 Rate Blood Pressure 147/73 O2 Sat by Pulse 94 Oximetry Narrative Exam: Left knee - 1+ joint effusion, decreased RANGE of motion passively able to flex to 40 Left knee aspirated at bedside with return of serosanguineous fluid no pus seen - Labs CBC & BMP: 10/30/18 02:36 10/30/18 02:36 Labs: Abnormal lab results 10/30/18 10/30/18 Range/Units 02:36 02:36 WBC 18.7 H (4.5-11.0) K/mm3 MCV 95 H (84-94) fl Sodium 135 L (137-145) mmol/L Potassium 3.0 L (3.6-5.0) mmol/L Carbon Dioxide 18 L (22-30) mmol/L Glucose 107 H (75-100) mg/dL Calcium 7.6 L (8.4-10.2) mg/dL
[2018-10-31] MEDS: NACL 0.9% 1000 ML 1,000 ML IV SCH ×2 (02:12→17:23)
[2018-10-31] MEDS: ceFAZolin 2 GM in NACL 0.9% 100 ML IV SCH ×3 (05:54→22:01)
--- NOTE | 2018-10-31 08:33 | Progress Note ---
Assessment and Plan Cultures: 10/25/2018 Blood Culture: no growth so far 10/30/2018 Synovial Left Knee: no growth Assessment: 78 y/o male with history of HTN; admitted on 10/25/2018 due to a-week history of generalized weakness and a recent fall to the ground injuring his knees:. 1) SIRS: Improved. Leukocytosis continuing. source unclear. ?right knee septic arthritis vs cellulitis after a fall. influenza negative. Blood cultures 10/27/2018 no growth, UA neg, CXR neg, LFTs normal, CT abd showed prior granu lomatous disease, low-density nodule right lobe of the liver and lobulated contour of the kidneys, multiple small cortical nodule suspected in the kidneys which are not clearly defined by this exam. XR knee bilateral effusion. -Influenza negative 2) Acute encephalopathy: unclear etio. improving. 3) Right knee cellulitis vs septic arthritis. Right knee swelling, will obtain a right knee arthrocentesis.. Left knee unremarkable. 4) AMANDA - better Recommendations: - continue vancomycin - continue cefazolin - f/u right knee arthrocentesis [facility] M: [phone] O:[phone] Subjective Date of service: 10/31/18 Interval history: Patient seen and examined. at bedside. . Primary language Ghanaian. S tated that is knees continue to hurt, right more than left. Objective - Exam Narrative Exam: General appearance: Awake, alert Primary language Ghanaian, mild distress Eyes: anicteric sclerae, moist conjunctivae; no lid-lag; PERRLA HENT: Atraumatic, old craneal frontal deformity; oropharynx limited Neck: Trachea midline; supple, no thyromegaly or lymphadenopathy Lungs: CTA CV: RRR Abdomen: Soft, non-tender; no masses or hepatosplenomegaly Extremities: +right knee edema, heat and tenderness more pronounced than left Skin: Normal temperature, turgor and texture; no rash, ulcers or subcutaneous nodules Psych: Mood: ok Neuro: conversant, awake Lines: - Constitutional Vitals: Vital Signs Temp Pulse Resp BP Pulse Ox 98.0 F 72 18 162/76 94 10/31/18 02:10 10/31/18 02:10 10/31/18 02:10 10/31/18 02:10 10/31/18 02:10 Temperature -Last 24 Hours Temperature 98.0 F Temperature 97.5 F Temperature 101.4 F - Labs CBC & Chem 7: 10/30/18 02:36 10/30/18 02:36
[2018-10-31] MEDS: TYLENOL PO PRN (10:07)
[2018-10-31] MEDS: PLAVIX PO SCH (10:07)
[2018-10-31] MEDS: ZESTRIL PO SCH (10:08)
[2018-10-31] MEDS: COLCHICINE PO SCH ×2 (10:08→22:01)
[2018-10-31] MEDS: TOPROL XL PO SCH (10:09)
[2018-10-31] MEDS: TAMIFLU PO SCH ×2 (10:09→22:01)
[2018-10-31] MEDS: VANCOMYCIN/NS 1 GM/250 ML 1 GM/250 ML BAG IV SCH (10:10)
[2018-10-31 12:46] LABS: Total Cells Counted 100 /mm3
--- NOTE | 2018-10-31 16:25 | Progress Note ---
Assessment and Plan Assessment and plan: Septic arthritis of the right knee -Patient is on IV vancomycin and cefazolin -ID consulted -Blood cultures negative so far -IR will do right arthrocentesis 78 YO Male with HTN, Nicotine Dependence presents to ED for evaluation. Pt is unable to speak Armenian, and provide detailed history. Pt history provided by son and family who is at bedside during exam and interview. As per son, the patient states that he has experienced generalized weakness, and malaise over the past 4 days with persistent symptoms over the same time frame. Pt was walking and subsequently tripped and fell onto his knees. Pt transported to [facility] for further care and evaluation. Pt states that pain has improved at time of exam but he in unable to ambulate due to bilateral knee pain with weight bearing.. Pt seen and evaluated in ED and found to have Sepsis, ARF, and Bilateral knee contusions. Pt admitted to [facility] unit and initiated on sepsis protocol. PT denies fever, chills, CP, Palpitations, NVD, Syncope, BRBPR, Loss of Consciousness, Prolonged travel/immobility, unilateral leg swelling, calf pain, hemoptysis, individual/family history of DVT/PE/Blood Clotting Disorders, or skin rash. Patient will schedule mammogram antibiotic coverage with vancomycin and ID was consulted were waiting for joint aspiration which appears to happen tomorrow as planned. I started the patient on colchicine also in case this appears to be gout which I doubt that this point. But will help with some pain control. Febrile disease. SIRS vs Septic Knee vs gout Input from surgery noted :lateral knee pain status post contusion patient has a history of osteoarthritis Recommendations would continue with oral anti- inflammatory medications patient can also begin physical therapy for range of motion and strengthening exercises he can also weight-bear as tolerated Continue IV vancomycin and cefazolin ID input appreciated IR will do the right knee joint aspiration today ARF (acute renal failure) with tubular necrosis Resolved with IV fluids Contusion, knee Bilateral Knee x ray, pain control, supportive care. PT eval and treat Hypertension Blood pressure medications. Continue PRN Hydralazin Retart ACEI Nocturnal Metabolic Encephalopathy Possible . May have underlying dementia Precautions discussed with family DVT prophylaxis SCD to BLE while in bed. Family agreeable to placement for Rehab at SNF on discharge History Interval history: Patient was seen and evaluated this morning, patient's complaining right knee pain. Hospitalist Physical - Physical exam Narrative exam: Not in cardiopulmonary distress. The patient appeared well nourished and normally developed. Vital signs as documented. Head exam is unremarkable. No scleral icterus . Neck is without jugular venous distension, thyromegaly, or carotid bruits. Lungs are clear to auscultation. Cardiac exam reveals regular rate and Rhythm. Abdominal exam reveals normal bowel sounds, no masses, no organomegaly and no aortic enlargement. Extremities swelling and tenderness on the right knee. PRODUCTION SHIFT SUPERVISOR: Alert and oriented 3. No focal weakness. - Constitutional Vitals: Temp Pulse Resp BP Pulse Ox 99.4 F 75 20 182/85 96 10/31/18 15:04 10/31/18 15:37 10/31/18 15:04 10/31/18 15:04 10/31/18 15:37 General appearance: Present: mild distress Results - Labs CBC & Chem 7: 10/30/18 02:36 10/30/18 02:36 Labs: Laboratory Last Values WBC 18.7 K/mm3 (4.5-11.0) H 10/30/18 02:36 RBC 4.68 M/mm3 (3.65-5.03) 10/30/18 02:36 Hgb 14.0 gm/dl (11.8-15.2) 10/30/18 02:36 Hct 44.3 % (35.5-45.6) 10/30/18 02:36 MCV 95 fl (84-94) H 10/30/18 02:36 MCH 30 pg (28-32) 10/30/18 02:36 MCHC 32 % (32-34) 10/30/18 02:36 RDW 14.7 % (13.2-15.2) 10/30/18 02:36 Plt Count 292 K/mm3 (140-440) 10/30/18 02:36 Add Manual Diff Complete 10/25/18 17:12 Total Counted 100 10/25/18 17:12 Seg Neuts % (Manual) 93.0 % (40.0-70.0) H 10/25/18 17:12 Band Neutrophils % 0 % 10/25/18 17:12 Lymphocytes % (Manual) 2.0 % (13.4-35.0) L 10/25/18 17:12 Reactive Lymphs % (Man) 0 % 10/25/18 17:12 Monocytes % (Manual) 5.0 % (0.0-7.3) 10/25/18 17:12 Eosinophils % (Manual) 0 % (0.0-4.3) 10/25/18 17:12 Basophils % (Manual) 0 % (0.0-1.8) 10/25/18 17:12 Metamyelocytes % 0 % 10/25/18 17:12 Myelocytes % 0 % 10/25/18 17:12 Promyelocytes % 0 % 10/25/18 17:12 Blast Cells % 0 % 10/25/18 17:12 Nucleated RBC % Not Reportable 10/25/18 17:12 Seg Neutrophils # Man 19.4 K/mm3 (1.8-7.7) H 10/25/18 17:12 Band Neutrophils # 0.0 K/mm3 10/25/18 17:12 Lymphocytes # (Manual) 0.4 K/mm3 (1.2-5.4) L 10/25/18 17:12 Abs React Lymphs (Man) 0.0 K/mm3 10/25/18 17:12 Monocytes # (Manual) 1.0 K/mm3 (0.0-0.8) H 10/25/18 17:12 Eosinophils # (Manual) 0.0 K/mm3 (0.0-0.4) 10/25/18 17:12 Basophils # (Manual) 0.0 K/mm3 (0.0-0.1) 10/25/18 17:12 Metamyelocytes # 0.0 K/mm3 10/25/18 17:12 Myelocytes # 0.0 K/mm3 10/25/18 17:12 Promyelocytes # 0.0 K/mm3 10/25/18 17:12 Blast Cells # 0.0 K/mm3 10/25/18 17:12 WBC Morphology Not Reportable 10/25/18 17:12 Hypersegmented Neuts Not Reportable 10/25/18 17:12 Hyposegmented Neuts Not Reportable 10/25/18 17:12 Hypogranular Neuts Not Reportable 10/25/18 17:12 Smudge Cells Not Reportable 10/25/18 17:12 Toxic Granulation Not Reportable 10/25/18 17:12 Toxic Vacuolation Not Reportable 10/25/18 17:12 Dohle Bodies Not Reportable 10/25/18 17:12 Pelger-Huet Anomaly Not Reportable 10/25/18 17:12 Swetha Rods Not Reportable 10/25/18 17:12 Platelet Estimate Appears normal 10/25/18 17:12 Clumped Platelets Not Reportable 10/25/18 17:12 Plt Clumps, EDTA Not Reportable 10/25/18 17:12 Large Platelets Not Reportable 10/25/18 17:12 Giant Platelets Not Reportable 10/25/18 17:12 Platelet Satelliting Not Reportable 10/25/18 17:12 Plt Morphology Comment Not Reportable 10/25/18 17:12 RBC Morphology Not Reportable 10/25/18 17:12 Dimorphic RBCs Not Reportable 10/25/18 17:12 Polychromasia Not Reportable 10/25/18 17:12 Hypochromasia Not Reportable 10/25/18 17:12 Poikilocytosis Few 10/25/18 17:12 Anisocytosis Few 10/25/18 17:12 Microcytosis Not Reportable 10/25/18 17:12 Macrocytosis Not Reportable 10/25/18 17:12 Spherocytes Not Reportable 10/25/18 17:12 Pappenheimer Bodies Not Reportable 10/25/18 17:12 Sickle Cells Not Reportable 10/25/18 17:12 Target Cells Not Reportable 10/25/18 17:12 Tear Drop Cells Not Reportable 10/25/18 17:12 Ovalocytes Not Reportable 10/25/18 17:12 Helmet Cells Not Reportable 10/25/18 17:12 Quiñones-[place] Bodies Not Reportable 10/25/18 17:12 Emblem Rings Not Reportable 10/25/18 17:12 Kit Cells Not Reportable 10/25/18 17:12 Bite Cells Not Reportable 10/25/18 17:12 Crenated Cell Not Reportable 10/25/18 17:12 Elliptocytes Few 10/25/18 17:12 Acanthocytes (Spur) Not Reportable 10/25/18 17:12 Rouleaux Not Reportable 10/25/18 17:12 Hemoglobin C Crystals Not Reportable 10/25/18 17:12 Schistocytes Not Reportable 10/25/18 17:12 Malaria parasites Not Reportable 10/25/18 17:12 Catalino Bodies Not Reportable 10/25/18 17:12 Hem Pathologist Commnt No 10/25/18 17:12 Sodium 135 mmol/L (137-145) L 10/30/18 02:36 Potassium 3.0 mmol/L (3.6-5.0) L 10/30/18 02:36 Chloride 103.0 mmol/L (98-107) 10/30/18 02:36 Carbon Dioxide 18 mmol/L (22-30) L 10/30/18 02:36 Anion Gap 17 mmol/L 10/30/18 02:36 BUN 11 mg/dL (9-20) 10/30/18 02:36 Creatinine 1.2 mg/dL (0.8-1.5) 10/30/18 02:36 Estimated GFR > 60 ml/min 10/30/18 02:36 BUN/Creatinine Ratio 9 % 10/30/18 02:36 Glucose 107 mg/dL (75-100) H 10/30/18 02:36 Lactic Acid 1.40 mmol/L (0.7-2.0) 10/26/18 06:05 Calcium 7.6 mg/dL (8.4-10.2) L 10/30/18 02:36 Total Bilirubin 0.40 mg/dL (0.1-1.2) 10/25/18 17:12 AST 34 units/L (5-40) 10/25/18 17:12 ALT 24 units/L (7-56) 10/25/18 17:12 Alkaline Phosphatase 101 units/L (35-129) 10/25/18 17:12 C-Reactive Protein 23.00 mg/dL (0.00-1.30) H 10/28/18 20:48 Total Protein 6.8 g/dL (6.3-8.2) 10/25/18 17:12 Albumin 2.9 g/dL (3.9-5) L 10/25/18 17:12 Albumin/Globulin Ratio 0.7 % 10/25/18 17:12 Urine Color Yellow (Yellow) 10/26/18 05:30 Urine Turbidity Clear (Clear) 10/26/18 05:30 Urine pH 5.0 (5.0-7.0) 10/26/18 05:30 Ur Specific [place] 1.013 (1.003-1.030) 10/26/18 05:30 Urine Protein <15 mg/dl mg/dL (Negative) 10/26/18 05:30 Urine Glucose (UA) Neg mg/dL (Negative) 10/26/18 05:30 Urine Ketones Neg mg/dL (Negative) 10/26/18 05:30 Urine Blood Neg (Negative) 10/26/18 05:30 Urine Nitrite Neg (Negative) 10/26/18 05:30 Urine Bilirubin Neg (Negative) 10/26/18 05:30 Urine Urobilinogen < 2.0 mg/dL (<2.0) 10/26/18 05:30 Ur Leukocyte Esterase Neg (Negative) 10/26/18 05:30 Urine WBC (Auto) 2.0 /HPF (0.0-6.0) 10/26/18 05:30 Urine RBC (Auto) 1.0 /HPF (0.0-6.0) 10/26/18 05:30 U Epithel Cells (Auto) 2.0 /HPF (0-13.0) 10/26/18 05:30 Urine Bacteria (Auto) 1+ /HPF (Negative) 10/26/18 05:30 Amorphous Crystals Few 10/26/18 05:30 Hyaline Casts 9 /LPF 10/26/18 05:30 Urine Mucus Few /HPF 10/26/18 05:30 Fluid Type Synovial 10/29/18 Unknown Fluid Color Red 10/29/18 Unknown Fluid Appearance Turbid 10/29/18 Unknown Fluid WBC 250 /mm3 10/29/18 Unknown Fluid RBC 1300 /mm3 10/29/18 Unknown Fluid Seg Neutrophils 86.0 % 10/29/18 Unknown Fluid Lymphocytes 7.0 % 10/29/18 Unknown Fluid Reactive Lymphs 0 % 10/29/18 Unknown Fluid Monocytes 7.0 % 10/29/18 Unknown Fluid Eosinophils 0 % 10/29/18 Unknown Fluid Basophils 0 % 10/29/18 Unknown Synovial Crystals Negative (NONE SEEN) 10/29/18 Unknown Influenza A (Rapid) Negative (Negative) 10/29/18 16:42 Influenza B (Rapid) Negative (Negative) 10/29/18 16:42
[2018-10-31] MEDS: APRESOLINE IV PRN (17:22)
[2018-10-31] MEDS: SODIUM CHLORIDE FLUSH SYRINGE 10 ML IV SCH ×2 (17:25→22:02)
[2018-11-01] MEDS: NACL 0.9% 1000 ML 1,000 ML IV SCH ×2 (03:37→15:02)
[2018-11-01] MEDS: ceFAZolin 2 GM in NACL 0.9% 100 ML IV SCH ×3 (05:57→22:12)
[2018-11-01 08:42] LABS: BUN/Creatinine Ratio 13; Blood Urea Nitrogen 14 mg/dL (9-20); Calcium 7.9 mg/dL (8.4-10.2); Hemolysis Index 6
--- NOTE | 2018-11-01 08:48 | Progress Note ---
Assessment and Plan Cultures: 10/25/2018 Blood Culture: no growth so far 10/30/2018 Synovial Left Knee: no growth Assessment: 78 y/o male with history of HTN; admitted on 10/25/2018 due to a-week history of generalized weakness and a recent fall to the ground injuring his knees:. 1) SIRS: Improved. Leukocytosis continuing. source unclear. ?right knee septic arthritis vs cellulitis after a fall. influenza negative. Blood cultures 10/27/2018 no growth, UA neg, CXR neg, LFTs normal, CT abd showed prior granu lomatous disease, low-density nodule right lobe of the liver and lobulated contour of the kidneys, multiple small cortical nodule suspected in the kidneys which are not clearly defined by this exam. XR knee bilateral effusion. -Influenza negative 2) Acute encephalopathy: unclear etio. improving. 3) Right knee cellulitis vs septic arthritis. Right knee swelling, will obtain a right knee arthrocentesis.. Left knee unremarkable. 4) AMANDA - better Recommendations: - continue vancomycin - continue cefazolin - f/u right knee arthrocentesis -CBC/BMP ordered for tomorrow [facility] M: [id number] O:[phone] Subjective Date of service: 11/01/18 Interval history: Patient seen and examined. and daughter at bedside. . Primary language Malaysian. Stated that he was feeling better today. + Right knee tenderness. Objective - Exam Narrative Exam: General appearance: Awake, alert Primary language Malaysian, mild distress Eyes: anicteric sclerae, moist conjunctivae; no lid-lag; PERRLA HENT: Atraumatic, old craneal frontal deformity; oropharynx limited Neck: Trachea midline; supple, no thyromegaly or lymphadenopathy Lungs: CTA CV: RRR Abdomen: Soft, non-tender; no masses or hepatosplenomegaly Extremities: +right knee edema, heat and tenderness more pronounced than left Skin: Normal temperature, turgor and texture; no rash, ulcers or subcutaneous nodules Psych: Mood: ok Neuro: conversant, awake Lines: - Constitutional Vitals: Vital Signs Temp Pulse Resp BP Pulse Ox 98.2 F 107 H 20 160/84 96 11/01/18 03:45 11/01/18 03:45 11/01/18 03:45 11/01/18 03:45 11/01/18 03:45 Temperature -Last 24 Hours Temperature 98.2 F Temperature 99.2 F Temperature 99.4 F - Labs CBC & Chem 7: 10/30/18 02:36 11/01/18 05:27 Labs: Abnormal lab results 11/01/18 Range/Units 05:27 Carbon Dioxide 18 L (22-30) mmol/L Calcium 7.9 L (8.4-10.2) mg/dL
[2018-11-01] MEDS: SODIUM CHLORIDE FLUSH SYRINGE 10 ML IV SCH ×2 (10:04→22:15)
[2018-11-01] MEDS: VANCOMYCIN/NS 1 GM/250 ML 1 GM/250 ML BAG IV SCH (10:04)
[2018-11-01] MEDS: COLCHICINE PO SCH (10:05)
[2018-11-01] MEDS: TAMIFLU PO SCH ×2 (10:05→22:14)
[2018-11-01] MEDS: TOPROL XL PO SCH (10:05)
[2018-11-01] MEDS: PLAVIX PO SCH (10:06)
[2018-11-01] MEDS: ZESTRIL PO SCH (10:06)
[2018-11-01] MEDS ORDERED: K-DUR PO ONE (11:05)
--- NOTE | 2018-11-01 14:56 | Progress Note ---
Assessment and Plan Assessment and plan: Septic arthritis of the right knee -Patient is on IV vancomycin and cefazolin -ID consulted -Blood cultures negative so far -IR will do right arthrocentesis 78 YO Male with HTN, Nicotine Dependence presents to ED for evaluation. Pt is unable to speak Romanian, and provide detailed history. Pt history provided by son and family who is at bedside during exam and interview. As per son, the patient states that he has experienced generalized weakness, and malaise over the past 4 days with persistent symptoms over the same time frame. Pt was walking and subsequently tripped and fell onto his knees. Pt transported to [facility] for further care and evaluation. Pt states that pain has improved at time of exam but he in unable to ambulate due to bilateral knee pain with weight bearing.. Pt seen and evaluated in ED and found to have Sepsis, ARF, and Bilateral knee contusions. Pt admitted to [facility] unit and initiated on sepsis protocol. PT denies fever, chills, CP, Palpitations, NVD, Syncope, BRBPR, Loss of Consciousness, Prolonged travel/immobility, unilateral leg swelling, calf pain, hemoptysis, individual/family history of DVT/PE/Blood Clotting Disorders, or skin rash. Patient will schedule mammogram antibiotic coverage with vancomycin and ID was consulted were waiting for joint aspiration which appears to happen tomorrow as planned. I started the patient on colchicine also in case this appears to be gout which I doubt that this point. But will help with some pain control. Febrile disease. SIRS vs Septic Knee vs gout Input from surgery noted :lateral knee pain status post contusion patient has a history of osteoarthritis Recommendations would continue with oral anti- inflammatory medications patient can also begin physical therapy for range of motion and strengthening exercises he can also weight-bear as tolerated Continue IV vancomycin and cefazolin ID input appreciated Dr Clifton was consulted to do right knee arthrocentesis and said there is no fluid. ARF (acute renal failure) with tubular necrosis Resolved with IV fluids Contusion, knee Bilateral Knee x ray, pain control, supportive care. PT eval and treat Hypertension Blood pressure medications. Continue PRN Hydralazin Retart ACEI Nocturnal Metabolic Encephalopathy Possible . May have underlying dementia Precautions discussed with family DVT prophylaxis SCD to BLE while in bed. Family agreeable to placement for Rehab at SNF on discharge History Interval history: Patient was seen and evaluated this morning, patient's complaining right knee pain. Hospitalist Physical - Physical exam Narrative exam: Not in cardiopulmonary distress. The patient appeared well nourished and normally developed. Vital signs as documented. Head exam is unremarkable. No scleral icterus . Neck is without jugular venous distension, thyromegaly, or carotid bruits. Lungs are clear to auscultation. Cardiac exam reveals regular rate and Rhythm. Abdominal exam reveals normal bowel sounds, no masses, no organomegaly and no aortic enlargement. Extremities swelling and tenderness on the right knee. ADJUNCT PROFESSOR OF ENGLISH: Alert and oriented 3. No focal weakness. - Constitutional Vitals: Temp Pulse Resp BP Pulse Ox 97.4 F L 100 H 18 180/88 96 11/01/18 08:01 11/01/18 10:06 11/01/18 08:01 11/01/18 10:06 11/01/18 08:01 General appearance: Present: mild distress Results - Labs CBC & Chem 7: 10/30/18 02:36 11/01/18 05:27 Labs: Laboratory Last Values WBC 18.7 K/mm3 (4.5-11.0) H 10/30/18 02:36 RBC 4.68 M/mm3 (3.65-5.03) 10/30/18 02:36 Hgb 14.0 gm/dl (11.8-15.2) 10/30/18 02:36 Hct 44.3 % (35.5-45.6) 10/30/18 02:36 MCV 95 fl (84-94) H 10/30/18 02:36 MCH 30 pg (28-32) 10/30/18 02:36 MCHC 32 % (32-34) 10/30/18 02:36 RDW 14.7 % (13.2-15.2) 10/30/18 02:36 Plt Count 292 K/mm3 (140-440) 10/30/18 02:36 Add Manual Diff Complete 10/25/18 17:12 Total Counted 100 10/25/18 17:12 Seg Neuts % (Manual) 93.0 % (40.0-70.0) H 10/25/18 17:12 Band Neutrophils % 0 % 10/25/18 17:12 Lymphocytes % (Manual) 2.0 % (13.4-35.0) L 10/25/18 17:12 Reactive Lymphs % (Man) 0 % 10/25/18 17:12 Monocytes % (Manual) 5.0 % (0.0-7.3) 10/25/18 17:12 Eosinophils % (Manual) 0 % (0.0-4.3) 10/25/18 17:12 Basophils % (Manual) 0 % (0.0-1.8) 10/25/18 17:12 Metamyelocytes % 0 % 10/25/18 17:12 Myelocytes % 0 % 10/25/18 17:12 Promyelocytes % 0 % 10/25/18 17:12 Blast Cells % 0 % 10/25/18 17:12 Nucleated RBC % Not Reportable 10/25/18 17:12 Seg Neutrophils # Man 19.4 K/mm3 (1.8-7.7) H 10/25/18 17:12 Band Neutrophils # 0.0 K/mm3 10/25/18 17:12 Lymphocytes # (Manual) 0.4 K/mm3 (1.2-5.4) L 10/25/18 17:12 Abs React Lymphs (Man) 0.0 K/mm3 10/25/18 17:12 Monocytes # (Manual) 1.0 K/mm3 (0.0-0.8) H 10/25/18 17:12 Eosinophils # (Manual) 0.0 K/mm3 (0.0-0.4) 10/25/18 17:12 Basophils # (Manual) 0.0 K/mm3 (0.0-0.1) 10/25/18 17:12 Metamyelocytes # 0.0 K/mm3 10/25/18 17:12 Myelocytes # 0.0 K/mm3 10/25/18 17:12 Promyelocytes # 0.0 K/mm3 10/25/18 17:12 Blast Cells # 0.0 K/mm3 10/25/18 17:12 WBC Morphology Not Reportable 10/25/18 17:12 Hypersegmented Neuts Not Reportable 10/25/18 17:12 Hyposegmented Neuts Not Reportable 10/25/18 17:12 Hypogranular Neuts Not Reportable 10/25/18 17:12 Smudge Cells Not Reportable 10/25/18 17:12 Toxic Granulation Not Reportable 10/25/18 17:12 Toxic Vacuolation Not Reportable 10/25/18 17:12 Dohle Bodies Not Reportable 10/25/18 17:12 Pelger-Huet Anomaly Not Reportable 10/25/18 17:12 Swetha Rods Not Reportable 10/25/18 17:12 Platelet Estimate Appears normal 10/25/18 17:12 Clumped Platelets Not Reportable 10/25/18 17:12 Plt Clumps, EDTA Not Reportable 10/25/18 17:12 Large Platelets Not Reportable 10/25/18 17:12 Giant Platelets Not Reportable 10/25/18 17:12 Platelet Satelliting Not Reportable 10/25/18 17:12 Plt Morphology Comment Not Reportable 10/25/18 17:12 RBC Morphology Not Reportable 10/25/18 17:12 Dimorphic RBCs Not Reportable 10/25/18 17:12 Polychromasia Not Reportable 10/25/18 17:12 Hypochromasia Not Reportable 10/25/18 17:12 Poikilocytosis Few 10/25/18 17:12 Anisocytosis Few 10/25/18 17:12 Microcytosis Not Reportable 10/25/18 17:12 Macrocytosis Not Reportable 10/25/18 17:12 Spherocytes Not Reportable 10/25/18 17:12 Pappenheimer Bodies Not Reportable 10/25/18 17:12 Sickle Cells Not Reportable 10/25/18 17:12 Target Cells Not Reportable 10/25/18 17:12 Tear Drop Cells Not Reportable 10/25/18 17:12 Ovalocytes Not Reportable 10/25/18 17:12 Helmet Cells Not Reportable 10/25/18 17:12 Quiñ[place] Bodies Not Reportable 10/25/18 17:12 [place] Rings Not Reportable 10/25/18 17:12 [place] Cells Not Reportable 10/25/18 17:12 Bite Cells Not Reportable 10/25/18 17:12 Crenated Cell Not Reportable 10/25/18 17:12 Elliptocytes Few 10/25/18 17:12 Acanthocytes (Spur) Not Reportable 10/25/18 17:12 Rouleaux Not Reportable 10/25/18 17:12 Hemoglobin C Crystals Not Reportable 10/25/18 17:12 Schistocytes Not Reportable 10/25/18 17:12 Malaria parasites Not Reportable 10/25/18 17:12 Catalino Bodies Not Reportable 10/25/18 17:12 Hem Pathologist Commnt No 10/25/18 17:12 Sodium 140 mmol/L (137-145) 11/01/18 05:27 Potassium 2.5 mmol/L (3.6-5.0) L* 11/01/18 05:27 Chloride 106.6 mmol/L (98-107) 11/01/18 05:27 Carbon Dioxide 18 mmol/L (22-30) L 11/01/18 05:27 Anion Gap 18 mmol/L 11/01/18 05:27 BUN 14 mg/dL (9-20) 11/01/18 05:27 Creatinine 1.1 mg/dL (0.8-1.5) 11/01/18 05:27 Estimated GFR > 60 ml/min 11/01/18 05:27 BUN/Creatinine Ratio 13 % 11/01/18 05:27 Glucose 96 mg/dL (75-100) 11/01/18 05:27 Lactic Acid 1.40 mmol/L (0.7-2.0) 10/26/18 06:05 Calcium 7.9 mg/dL (8.4-10.2) L 11/01/18 05:27 Total Bilirubin 0.40 mg/dL (0.1-1.2) 10/25/18 17:12 AST 34 units/L (5-40) 10/25/18 17:12 ALT 24 units/L (7-56) 10/25/18 17:12 Alkaline Phosphatase 101 units/L (35-129) 10/25/18 17:12 C-Reactive Protein 23.00 mg/dL (0.00-1.30) H 10/28/18 20:48 Total Protein 6.8 g/dL (6.3-8.2) 10/25/18 17:12 Albumin 2.9 g/dL (3.9-5) L 10/25/18 17:12 Albumin/Globulin Ratio 0.7 % 10/25/18 17:12 Urine Color Yellow (Yellow) 10/26/18 05:30 Urine Turbidity Clear (Clear) 10/26/18 05:30 Urine pH 5.0 (5.0-7.0) 10/26/18 05:30 Ur Specific [place] 1.013 (1.003-1.030) 10/26/18 05:30 Urine Protein <15 mg/dl mg/dL (Negative) 10/26/18 05:30 Urine Glucose (UA) Neg mg/dL (Negative) 10/26/18 05:30 Urine Ketones Neg mg/dL (Negative) 10/26/18 05:30 Urine Blood Neg (Negative) 10/26/18 05:30 Urine Nitrite Neg (Negative) 10/26/18 05:30 Urine Bilirubin Neg (Negative) 10/26/18 05:30 Urine Urobilinogen < 2.0 mg/dL (<2.0) 10/26/18 05:30 Ur Leukocyte Esterase Neg (Negative) 10/26/18 05:30 Urine WBC (Auto) 2.0 /HPF (0.0-6.0) 10/26/18 05:30 Urine RBC (Auto) 1.0 /HPF (0.0-6.0) 10/26/18 05:30 U Epithel Cells (Auto) 2.0 /HPF (0-13.0) 10/26/18 05:30 Urine Bacteria (Auto) 1+ /HPF (Negative) 10/26/18 05:30 Amorphous Crystals Few 10/26/18 05:30 Hyaline Casts 9 /LPF 10/26/18 05:30 Urine Mucus Few /HPF 10/26/18 05:30 Fluid Type Synovial 10/29/18 Unknown Fluid Color Red 10/29/18 Unknown Fluid Appearance Turbid 10/29/18 Unknown Fluid WBC 250 /mm3 10/29/18 Unknown Fluid RBC 1300 /mm3 10/29/18 Unknown Fluid Seg Neutrophils 86.0 % 10/29/18 Unknown Fluid Lymphocytes 7.0 % 10/29/18 Unknown Fluid Reactive Lymphs 0 % 10/29/18 Unknown Fluid Monocytes 7.0 % 10/29/18 Unknown Fluid Eosinophils 0 % 10/29/18 Unknown Fluid Basophils 0 % 10/29/18 Unknown Synovial Crystals Negative (NONE SEEN) 10/29/18 Unknown Influenza A (Rapid) Negative (Negative) 10/29/18 16:42 Influenza B (Rapid) Negative (Negative) 10/29/18 16:42 Nutrition/Malnutrition Assess - Dietary Evaluation Nutrition/Malnutrition Findings: Nutrition Notes Start: 11/01/18 12:03 Freq: Status: Active Protocol: Document 11/01/18 12:03 GEOFFREY (Rec: 11/01/18 12:09 GEOFFREY [email or web address]) Nutrition Notes Need for Assessment generated from: LOS Initial or Follow up Assessment Current Diagnosis Hypertension Other Pertinent Diagnosis (R) knee septic arthritis Current Diet Cardiac Labs/Tests K 2.5 Pertinent Medications 80mEq KCl Height 5 ft 4 in Weight 61 kg Usual Body Weight 60.9 kg [place] Body Weight (lbs) 130.0 BMI 23.1 Weight Status Appropriate Subjective/Other Information Pt screened for LOS. He has consumed 58% of meals since admission. Per pt family report, pt ate well first few days of admission, then intakes declined. They request a supplement. Percent of energy/protein needs met: 81% energy 79% pro Burn Absent Trauma Absent Current % PO Fair (50-74%) #1 Nutrition Diagnosis Inadequate oral intake Etiology decreased appetite during admission; sepsis As Evidenced by Signs and Symptoms PO intakes declining during hospital stay Is patient on ventilator? No Is Patient Ambulatory and/or Out of Bed No [facility] 1507.764 Calculation Used for Recommendations [facility] Additional Notes Pro needs 1-1.2g/k-73g/ day Fluid needs 1ml/kcal Nutrition Intervention Change Diet Order: Continue current diet order; suggested that family bring him foods he likes to eat Add Supplement/Snack (indicate name/kcal Ensure Enlive TID (vanilla) /protein ) Provides kCal: 1,050 Provides Protein (gm) 60 Goal #1 PO intake of meals plus ONS to meet nutrient needs Goal #2 Wt maintenance Anticipated Discharge Needs: Continue ONS 1-2 times daily if PO intakes remain suboptimal Follow-Up By: 11/03/18 Additional Comments F/U: intakes (meals/ONS), wt
[2018-11-02 05:41] LABS: Hematocrit 35.7 % (35.5-45.6); Hemoglobin 11.7 gm/dl (11.8-15.2); Mean Corpuscular HGB Conc 33 % (32-34); Mean Corpuscular Volume 89 fl (84-94); Platelet Count 456 K/mm3 (140-440); Red Cell Distribution Width 14.5 % (13.2-15.2)
[2018-11-02] MEDS: APRESOLINE IV PRN (05:50)
[2018-11-02 06:06] LABS: BUN/Creatinine Ratio 13; Blood Urea Nitrogen 14 mg/dL (9-20); Hemolysis Index 8
[2018-11-02 06:15] LABS: Band Neutrophils # (Manual) 0.8 K/mm3; Total Cells Counted 100
[2018-11-02 06:16] LABS: Anisocytosis 1+; Ovalocytes 1+
[2018-11-02] MEDS: ceFAZolin 2 GM in NACL 0.9% 100 ML IV SCH ×3 (07:08→21:46)
--- NOTE | 2018-11-02 08:12 | Progress Note ---
Assessment and Plan Cultures: 10/25/2018 Blood Culture: no growth so far 10/30/2018 Synovial Left Knee: no growth Assessment: 78 y/o male with history of HTN; admitted on 10/25/2018 due to a-week history of generalized weakness and a recent fall to the ground injuring his knees:. 1) SIRS: Leukocytosis Worsening, 18.7 ---> 28.2, source unclear. ?right knee septic arthritis vs cellulitis after a fall. influenza negative. Blood cultures 10/27/2018 no growth, UA neg, CXR neg, LFTs normal, CT abd showed prior granulomatous disease, low-density nodule right lobe of the liver and lobulated contour of the kidneys, multiple small cortical nodule suspected in the kidneys which are not clearly defined by this exam. XR knee bilateral effusion. -Influenza negative 2) Acute encephalopathy: unclear etio. improving. 3) Right knee cellulitis vs septic arthritis. s/p Right knee -aspirated 20 cc seropurulent fluid, sent for gram stain and analysis. Patient taken to the OR fo r joint washout. 4) AMANDA - better Recommendations: - continue vancomycin - continue cefazolin - f/u right knee arthrocentesis cultures Lula Purdy NP [facility] M: [phone] O:[phone] Subjective Date of service: 11/02/18 Interval history: Patient seen and examined. and daughter at bedside. . Primary language Liberian. Family stated that right knee was aspirated today. Verbalized understanding about going to the OR, questions answered. Objective - Exam Narrative Exam: General appearance: Awake, alert Primary language Liberian, mild distress Eyes: anicteric sclerae, moist conjunctivae; no lid-lag; PERRLA HENT: Atraumatic, old craneal frontal deformity; oropharynx limited Neck: Trachea midline; supple, no thyromegaly or lymphadenopathy Lungs: CTA CV: RRR Abdomen: Soft, non-tender; no masses or hepatosplenomegaly Extremities: s/p +left knee aspirated, no swelling or tenderness- +right knee aspiration today Skin: Normal temperature, turgor and texture; no rash, ulcers or subcutaneous nodules Psych: Mood: ok Neuro: conversant, awake Lines: - Constitutional Vitals: Vital Signs Temp Pulse Resp BP Pulse Ox 98.2 F 102 H 18 171/94 94 11/02/18 07:40 11/02/18 07:40 11/02/18 07:40 11/02/18 07:40 11/02/18 07:40 Temperature -Last 24 Hours Temperature 98.2 F Temperature 99.6 F Temperature 99.1 F - Labs CBC & Chem 7: 11/02/18 05:20 11/02/18 05:20 Labs: Abnormal lab results 11/01/18 11/02/18 11/02/18 Range/Units 05:27 05:20 05:20 WBC 28.2 H (4.5-11.0) K/mm3 Hgb 11.7 L (11.8-15.2) gm/dl Plt Count 456 H (140-440) K/mm3 Seg Neuts % (Manual) 91.0 H (40.0-70.0) % Lymphocytes % (Manual) 1.0 L (13.4-35.0) % Seg Neutrophils # Man 25.7 H (1.8-7.7) K/mm3 Lymphocytes # (Manual) 0.3 L (1.2-5.4) K/mm3 Basophils # (Manual) 0.3 H (0.0-0.1) K/mm3 Potassium 2.5 L* 3.3 L (3.6-5.0) mmol/L Carbon Dioxide 18 L 20 L (22-30) mmol/L Calcium 7.9 L 8.0 L (8.4-10.2) mg/dL
[2018-11-02] MEDS: VANCOMYCIN/NS 1 GM/250 ML 1 GM/250 ML BAG IV SCH (09:54)
[2018-11-02] MEDS: PLAVIX PO SCH (09:55)
[2018-11-02] MEDS: TOPROL XL PO SCH (09:55)
[2018-11-02] MEDS: APRESOLINE PO SCH ×3 (09:56→21:43)
[2018-11-02] MEDS: TAMIFLU PO SCH (09:56)
[2018-11-02] MEDS: ZESTRIL PO SCH (09:56)
[2018-11-02] MEDS ORDERED: XYLOCAINE 1% 20 mL ONE (09:59)
[2018-11-02] MEDS ORDERED: K-DUR PO ONE (10:00)
--- NOTE | 2018-11-02 10:29 | Progress Note ---
Assessment and Plan right knee pain and swelling s/p aspiration right knee today awaiting gram stain and fluid analysis may need irrigation and debridement via arthroscope Subjective Date of service: 11/02/18 Interval history: There is still complaining of left knee pain, infectious disease request aspiration left knee Objective Vital signs: Vital Signs - 12hr 11/02/18 11/02/18 02:10 07:40 Temperature 99.6 F 98.2 F Pulse Rate 96 H 102 H Respiratory 20 18 Rate Blood Pressure 182/87 171/94 [Left] O2 Sat by Pulse 99 94 Oximetry Narrative Exam: Right knee -aspirated 20 cc seropurulent fluid, sent for gram stain and analysis stat - Labs CBC & BMP: 11/02/18 05:20 11/02/18 05:20 Labs: Abnormal lab results 11/02/18 11/02/18 Range/Units 05:20 05:20 WBC 28.2 H (4.5-11.0) K/mm3 Hgb 11.7 L (11.8-15.2) gm/dl Plt Count 456 H (140-440) K/mm3 Seg Neuts % (Manual) 91.0 H (40.0-70.0) % Lymphocytes % (Manual) 1.0 L (13.4-35.0) % Seg Neutrophils # Man 25.7 H (1.8-7.7) K/mm3 Lymphocytes # (Manual) 0.3 L (1.2-5.4) K/mm3 Basophils # (Manual) 0.3 H (0.0-0.1) K/mm3 Potassium 3.3 L (3.6-5.0) mmol/L Carbon Dioxide 20 L (22-30) mmol/L Calcium 8.0 L (8.4-10.2) mg/dL
[2018-11-02] MEDS: SODIUM CHLORIDE FLUSH SYRINGE 10 ML IV SCH ×2 (12:50→21:47)
--- NOTE | 2018-11-02 13:09 | Progress Note ---
Assessment and Plan Assessment and plan: Septic arthritis of the right knee -Patient is on IV vancomycin and cefazolin -ID consulted -Blood cultures negative so far -IR will do right arthrocentesis 78 YO Male with HTN, Nicotine Dependence presents to ED for evaluation. Pt is unable to speak Welsh, and provide detailed history. Pt history provided by son and family who is at bedside during exam and interview. As per son, the patient states that he has experienced generalized weakness, and malaise over the past 4 days with persistent symptoms over the same time frame. Pt was walking and subsequently tripped and fell onto his knees. Pt transported to [facility] for further care and evaluation. Pt states that pain has improved at time of exam but he in unable to ambulate due to bilateral knee pain with weight bearing.. Pt seen and evaluated in ED and found to have Sepsis, ARF, and Bilateral knee contusions. Pt admitted to [facility] unit and initiated on sepsis protocol. PT denies fever, chills, CP, Palpitations, NVD, Syncope, BRBPR, Loss of Consciousness, Prolonged travel/immobility, unilateral leg swelling, calf pain, hemoptysis, individual/family history of DVT/PE/Blood Clotting Disorders, or skin rash. Patient will schedule mammogram antibiotic coverage with vancomycin and ID was consulted were waiting for joint aspiration which appears to happen tomorrow as planned. I started the patient on colchicine also in case this appears to be gout which I doubt that this point. But will help with some pain control. Sepsis secondary to septic arthritis of the right knee - Patient is on IV vancomycin and cefazolin - ID input appreciated - Orthopedics was consulted and did arthrocentesis and will do joint washout ARF (acute renal failure) with tubular necrosis Resolved with IV fluids Contusion, knee Bilateral Knee x ray, pain control, supportive care. PT eval and treat Hypertension Blood pressure medications. Continue PRN Hydralazin Retart ACEI Metabolic Encephalopathy Resolving DVT prophylaxis SCD to BLE while in bed. Family agreeable to placement for Rehab at SNF on discharge History Interval history: Patient was seen and evaluated this morning, patient's complaining right knee pain. Dr Wolf did right knee artherocentesis. Hospitalist Physical - Physical exam Narrative exam: Not in cardiopulmonary distress. The patient appeared well nourished and normally developed. Vital signs as documented. Head exam is unremarkable. No scleral icterus . Neck is without jugular venous distension, thyromegaly, or carotid bruits. Lungs are clear to auscultation. Cardiac exam reveals regular rate and Rhythm. Abdominal exam reveals normal bowel sounds, no masses, no organomegaly and no aortic enlargement. Extremities swelling and tenderness on the right knee, status post arthrocentesis. PIER WORKER: Alert and oriented 3. No focal weakness. - Constitutional Vitals: Temp Pulse Resp BP Pulse Ox 98.2 F 102 H 18 171/94 94 11/02/18 07:40 11/02/18 07:40 11/02/18 07:40 11/02/18 07:40 11/02/18 07:40 General appearance: Present: mild distress Results - Labs CBC & Chem 7: 11/02/18 05:20 11/02/18 05:20 Labs: Laboratory Last Values WBC 28.2 K/mm3 (4.5-11.0) H 11/02/18 05:20 RBC 4.00 M/mm3 (3.65-5.03) 11/02/18 05:20 Hgb 11.7 gm/dl (11.8-15.2) L 11/02/18 05:20 Hct 35.7 % (35.5-45.6) 11/02/18 05:20 MCV 89 fl (84-94) 11/02/18 05:20 MCH 29 pg (28-32) 11/02/18 05:20 MCHC 33 % (32-34) 11/02/18 05:20 RDW 14.5 % (13.2-15.2) 11/02/18 05:20 Plt Count 456 K/mm3 (140-440) H 11/02/18 05:20 Add Manual Diff Complete 11/02/18 05:20 Total Counted 100 11/02/18 05:20 Seg Neuts % (Manual) 91.0 % (40.0-70.0) H 11/02/18 05:20 Band Neutrophils % 3.0 % 11/02/18 05:20 Lymphocytes % (Manual) 1.0 % (13.4-35.0) L 11/02/18 05:20 Reactive Lymphs % (Man) 0 % 11/02/18 05:20 Monocytes % (Manual) 3.0 % (0.0-7.3) 11/02/18 05:20 Eosinophils % (Manual) 1.0 % (0.0-4.3) 11/02/18 05:20 Basophils % (Manual) 1.0 % (0.0-1.8) 11/02/18 05:20 Metamyelocytes % 0 % 11/02/18 05:20 Myelocytes % 0 % 11/02/18 05:20 Promyelocytes % 0 % 11/02/18 05:20 Blast Cells % 0 % 11/02/18 05:20 Nucleated RBC % Not Reportable 11/02/18 05:20 Seg Neutrophils # Man 25.7 K/mm3 (1.8-7.7) H 11/02/18 05:20 Band Neutrophils # 0.8 K/mm3 11/02/18 05:20 Lymphocytes # (Manual) 0.3 K/mm3 (1.2-5.4) L 11/02/18 05:20 Abs React Lymphs (Man) 0.0 K/mm3 11/02/18 05:20 Monocytes # (Manual) 0.8 K/mm3 (0.0-0.8) 11/02/18 05:20 Eosinophils # (Manual) 0.3 K/mm3 (0.0-0.4) 11/02/18 05:20 Basophils # (Manual) 0.3 K/mm3 (0.0-0.1) H 11/02/18 05:20 Metamyelocytes # 0.0 K/mm3 11/02/18 05:20 Myelocytes # 0.0 K/mm3 11/02/18 05:20 Promyelocytes # 0.0 K/mm3 11/02/18 05:20 Blast Cells # 0.0 K/mm3 11/02/18 05:20 WBC Morphology Not Reportable 11/02/18 05:20 Hypersegmented Neuts Not Reportable 11/02/18 05:20 Hyposegmented Neuts Not Reportable 11/02/18 05:20 Hypogranular Neuts Not Reportable 11/02/18 05:20 Smudge Cells Not Reportable 11/02/18 05:20 Toxic Granulation Not Reportable 11/02/18 05:20 Toxic Vacuolation Not Reportable 11/02/18 05:20 Dohle Bodies Not Reportable 11/02/18 05:20 Pelger-Huet Anomaly Not Reportable 11/02/18 05:20 Swetha Rods Not Reportable 11/02/18 05:20 Platelet Estimate Appears normal 11/02/18 05:20 Clumped Platelets Not Reportable 11/02/18 05:20 Plt Clumps, EDTA Not Reportable 11/02/18 05:20 Large Platelets Not Reportable 11/02/18 05:20 Giant Platelets Not Reportable 11/02/18 05:20 Platelet Satelliting Not Reportable 11/02/18 05:20 Plt Morphology Comment Not Reportable 11/02/18 05:20 RBC Morphology Not Reportable 11/02/18 05:20 Dimorphic RBCs Not Reportable 11/02/18 05:20 Polychromasia Not Reportable 11/02/18 05:20 Hypochromasia Not Reportable 11/02/18 05:20 Poikilocytosis Not Reportable 11/02/18 05:20 Anisocytosis 1+ 11/02/18 05:20 Microcytosis Not Reportable 11/02/18 05:20 Macrocytosis Not Reportable 11/02/18 05:20 Spherocytes Not Reportable 11/02/18 05:20 Pappenheimer Bodies Not Reportable 11/02/18 05:20 Sickle Cells Not Reportable 11/02/18 05:20 Target Cells Not Reportable 11/02/18 05:20 Tear Drop Cells Not Reportable 11/02/18 05:20 Ovalocytes 1+ 11/02/18 05:20 Helmet Cells Not Reportable 11/02/18 05:20 Quiñones-Nogal Bodies Not Reportable 11/02/18 05:20 Delcambre Rings Not Reportable 11/02/18 05:20 Kit Cells Not Reportable 11/02/18 05:20 Bite Cells Not Reportable 11/02/18 05:20 Crenated Cell Not Reportable 11/02/18 05:20 Elliptocytes Not Reportable 11/02/18 05:20 Acanthocytes (Spur) Not Reportable 11/02/18 05:20 Rouleaux Not Reportable 11/02/18 05:20 Hemoglobin C Crystals Not Reportable 11/02/18 05:20 Schistocytes Not Reportable 11/02/18 05:20 Malaria parasites Not Reportable 11/02/18 05:20 Catalino Bodies Not Reportable 11/02/18 05:20 Hem Pathologist Commnt No 11/02/18 05:20 Sodium 138 mmol/L (137-145) 11/02/18 05:20 Potassium 3.3 mmol/L (3.6-5.0) L 11/02/18 05:20 Chloride 105.4 mmol/L (98-107) 11/02/18 05:20 Carbon Dioxide 20 mmol/L (22-30) L 11/02/18 05:20 Anion Gap 16 mmol/L 11/02/18 05:20 BUN 14 mg/dL (9-20) 11/02/18 05:20 Creatinine 1.1 mg/dL (0.8-1.5) 11/02/18 05:20 Estimated GFR > 60 ml/min 11/02/18 05:20 BUN/Creatinine Ratio 13 % 11/02/18 05:20 Glucose 95 mg/dL (75-100) 11/02/18 05:20 Lactic Acid 1.40 mmol/L (0.7-2.0) 10/26/18 06:05 Calcium 8.0 mg/dL (8.4-10.2) L 11/02/18 05:20 Total Bilirubin 0.40 mg/dL (0.1-1.2) 10/25/18 17:12 AST 34 units/L (5-40) 10/25/18 17:12 ALT 24 units/L (7-56) 10/25/18 17:12 Alkaline Phosphatase 101 units/L (35-129) 10/25/18 17:12 C-Reactive Protein 23.00 mg/dL (0.00-1.30) H 10/28/18 20:48 Total Protein 6.8 g/dL (6.3-8.2) 10/25/18 17:12 Albumin 2.9 g/dL (3.9-5) L 10/25/18 17:12 Albumin/Globulin Ratio 0.7 % 10/25/18 17:12 Urine Color Yellow (Yellow) 10/26/18 05:30 Urine Turbidity Clear (Clear) 10/26/18 05:30 Urine pH 5.0 (5.0-7.0) 10/26/18 05:30 Ur Specific [place] 1.013 (1.003-1.030) 10/26/18 05:30 Urine Protein <15 mg/dl mg/dL (Negative) 10/26/18 05:30 Urine Glucose (UA) Neg mg/dL (Negative) 10/26/18 05:30 Urine Ketones Neg mg/dL (Negative) 10/26/18 05:30 Urine Blood Neg (Negative) 10/26/18 05:30 Urine Nitrite Neg (Negative) 10/26/18 05:30 Urine Bilirubin Neg (Negative) 10/26/18 05:30 Urine Urobilinogen < 2.0 mg/dL (<2.0) 10/26/18 05:30 Ur Leukocyte Esterase Neg (Negative) 10/26/18 05:30 Urine WBC (Auto) 2.0 /HPF (0.0-6.0) 10/26/18 05:30 Urine RBC (Auto) 1.0 /HPF (0.0-6.0) 10/26/18 05:30 U Epithel Cells (Auto) 2.0 /HPF (0-13.0) 10/26/18 05:30 Urine Bacteria (Auto) 1+ /HPF (Negative) 10/26/18 05:30 Amorphous Crystals Few 10/26/18 05:30 Hyaline Casts 9 /LPF 10/26/18 05:30 Urine Mucus Few /HPF 10/26/18 05:30 Fluid Type Synovial 10/29/18 Unknown Fluid Color Red 10/29/18 Unknown Fluid Appearance Turbid 10/29/18 Unknown Fluid WBC 250 /mm3 10/29/18 Unknown Fluid RBC 1300 /mm3 10/29/18 Unknown Fluid Seg Neutrophils 86.0 % 10/29/18 Unknown Fluid Lymphocytes 7.0 % 10/29/18 Unknown Fluid Reactive Lymphs 0 % 10/29/18 Unknown Fluid Monocytes 7.0 % 10/29/18 Unknown Fluid Eosinophils 0 % 10/29/18 Unknown Fluid Basophils 0 % 10/29/18 Unknown Synovial Crystals Negative (NONE SEEN) 10/29/18 Unknown Vancomycin Trough 14.1 ug/mL (5.0-20.0) 11/02/18 09:19 Influenza A (Rapid) Negative (Negative) 10/29/18 16:42 Influenza B (Rapid) Negative (Negative) 10/29/18 16:42 Nutrition/Malnutrition Assess - Dietary Evaluation Nutrition/Malnutrition Findings: Nutrition Notes Start: 11/01/18 12:03 Freq: Status: Active Protocol: Document 11/01/18 12:03 NHALL (Rec: 11/01/18 12:09 [facility] ESTELL[facility]-FNSERVICE S1) Nutrition Notes Need for Assessment generated from: LOS Initial or Follow up Assessment Current Diagnosis Hypertension Other Pertinent Diagnosis (R) knee septic arthritis Current Diet Cardiac Labs/Tests K 2.5 Pertinent Medications 80mEq KCl Height 5 ft 4 in Weight 61 kg Usual Body Weight 60.9 kg [place] Body Weight (lbs) 130.0 BMI 23.1 Weight Status Appropriate Subjective/Other Information Pt screened for LOS. He has consumed 58% of meals since admission. Per pt family report, pt ate well first few days of admission, then intakes declined. They request a supplement. Percent of energy/protein needs met: 81% energy 79% pro Burn Absent Trauma Absent Current % PO Fair (50-74%) #1 Nutrition Diagnosis Inadequate oral intake Etiology decreased appetite during admission; sepsis As Evidenced by Signs and Symptoms PO intakes declining during hospital stay Is patient on ventilator? No Is Patient Ambulatory and/or Out of Bed No REE-([facility]-confined to bed) 1507.764 Calculation Used for Recommendations [facility] Additional Notes Pro needs 1-1.2g/k-73g/ day Fluid needs 1ml/kcal Nutrition Intervention Change Diet Order: Continue current diet order; suggested that family bring him foods he likes to eat Add Supplement/Snack (indicate name/kcal Ensure Enlive TID (vanilla) /protein ) Provides kCal: 1,050 Provides Protein (gm) 60 Goal #1 PO intake of meals plus ONS to meet nutrient needs Goal #2 Wt maintenance Anticipated Discharge Needs: Continue ONS 1-2 times daily if PO intakes remain suboptimal Follow-Up By: 11/03/18 Additional Comments F/U: intakes (meals/ONS), wt
[2018-11-02] MEDS ORDERED: TYLENOL ONE (13:16)
[2018-11-02] MEDS ORDERED: MARCAINE-EPI 0.5%-1:200,000 INFILTRATI ONE (13:26)
[2018-11-02] MEDS ORDERED: DEPO-Medrol ONE (13:27)
[2018-11-02] MEDS ORDERED: MARCAINE-EPI/PF 0.5%-1:200,000 INFILTRATI ONE (13:32)
[2018-11-02] MEDS ORDERED: DIPRIVAN 10 MG/ML IV ONE (13:50)
[2018-11-02] MEDS ORDERED: DILAUDID ONE ×2 (13:50→15:07)
--- NOTE | 2018-11-02 14:15 | Anesthesia Day of Surgery ---
Anesthesia Day of Surgery - Day of Surgery Patient Examined: Yes Patient H&P Reviewed: Yes Patient is NPO: Yes
[2018-11-02] MEDS ORDERED: ZOFRAN IV PRN (14:16)
[2018-11-02] MEDS ORDERED: DILAUDID IV PRN ×3 (14:16→15:34)
--- NOTE | 2018-11-02 14:16 | Anesthesia Consultation ---
Anesthesia Consult and Med Hx Date of service: 11/02/18 - Airway Anesthetic Teeth Evaluation: Poor ROM Head & Neck: Adequate Mental/Hyoid Distance: Adequate Mallampati Class: Class III Intubation Access Assessment: Possibly Difficult - Pulmonary Exam CTA: Yes - Cardiac Exam Cardiac Exam: RRR - Pre-Operative Health Status ASA Pre-Surgery Classification: ASA4 Proposed Anesthetic Plan: General (Dementia?, ARF Resolved, HTN, hx of CVA, Left Arm swelling from infiltrated IV) - Cardiovascular System Hx Hypertension: Yes
--- NOTE | 2018-11-02 14:22 | XRay Report ---
AP CHEST: HISTORY: Shortness of breath Mild cardiomegaly is evident which appears slightly increased since 10/25/18. Pulmonary venous structures are borderline. There is poor visualization of the left lower lobe secondary to cardiomegaly, otherwise, the lungs are well aerated. No large pleural effusion or pneumothorax is identified. IMPRESSION: Cardiomegaly.
[2018-11-02] MEDS ORDERED: NACL 0.9% IR ONE (14:51)
--- NOTE | 2018-11-02 15:10 | Procedure Note ---
Date of procedure: 11/02/18 Pre-op diagnosis: septic arthritis right knee Post-op diagnosis: same Procedure: Arthroscopy right knee with debridement and irrigation Procedure The patient was brought to the OR and placed table supine position following induction and intubation anesthesia the patient's right lower extremity was prepped and draped in the usual sterile manner. Timeout procedure was done to identify the patient and the correct operative site . The tourniquet was then inflated to 300 mmHg routine arthroscopic portals were made and fluid was obtained for culture and sensitivity studies next the joint was insufflated with normal saline solution examination revealed a synovial hypertrophy hypoplasia and says hemorrhagic discoloration the knee joint was then copiously irrigated with 4000 L of normal saline solution. Following copious irrigation the stab wounds were repaired with a postop dressings were applied the patient tolerated the procedure and there were no complications Anesthesia: JEFF Surgeon: CLEMENTINE ALEXANDER Network Operations Specialist: RICHA GARIBAY Estimated blood loss: minimal Pathology: list (synovial fluid was sent to the lab for culture sensitivity and Gram stain as well as AFB) Specimen disposition: to lab Condition: stable Disposition: PACU
[2018-11-02] MEDS ORDERED: NORMODYNE IV PRN (15:36)
[2018-11-02 16:14] LABS: Monocytes Body Fluid 0 %; Total Cells Counted 100 /mm3
[2018-11-02] MEDS: TYLENOL PO PRN (21:42)
[2018-11-03] MEDS: APRESOLINE IV PRN (05:45)
[2018-11-03] MEDS: ceFAZolin 2 GM in NACL 0.9% 100 ML IV SCH (05:45)
--- NOTE | 2018-11-03 08:11 | Progress Note ---
Assessment and Plan Cultures: 10/25/2018 Blood Culture: no growth so far 10/30/2018 Synovial Left Knee: no growth 11/02/2018 Synovial Right Knee: no growth Assessment: 78 y/o male with history of HTN; admitted on 10/25/2018 due to a-week history of generalized weakness and a recent fall to the ground injuring his knees:. 1) SIRS: Leukocytosis trending down , 28.2 ---> 23.0, source unclear. ?right knee septic arthritis vs cellulitis after a fall. influenza negative. Blood cultures 10/27/2018 no growth, UA neg, CXR neg, LFTs normal, CT abd showed prior granulomatous disease, low-density nodule right lobe of the liver and lobulated contour of the kidneys, multiple small cortical nodule suspected in the kidneys which are not clearly defined by this exam. XR knee bilateral effusion. -Influenza negative 2) Acute encephalopathy: unclear etio. improving. 3) Right knee cellulitis vs septic arthritis. s/p Right knee -aspirated 20 cc seropurulent fluid, sent for gram stain and analysis. Patient taken to the OR for joint washout- Synovial right knee cultures show no growth. Follow up on AFB cultures. 4) AMANDA - better Recommendations: - continue vancomycin - start Cefepime 2 gm q 12 H - f/u right knee arthrocentesis AFB cultures Dr. Harrison will be rounding in the Hospital this weekend , . Lula Purdy NP [facility] M: [phone] O:[phone] Subjective Date of service: 11/03/18 Interval history: Patient seen and examined. and daughter at bedside. . Primary language Guamanian. Family stated that his right knee was feeling better.patient more alert and conversant. Objective - Exam Narrative Exam: General appearance: Awake, alert Primary language Guamanian, No acute distress Eyes: anicteric sclerae, moist conjunctivae; no lid-lag; PERRLA HENT: Atraumatic, old craneal frontal deformity; oropharynx limited Neck: Trachea midline; supple, no thyromegaly or lymphadenopathy Lungs: CTA CV: RRR Abdomen: Soft, non-tender; no masses or hepatosplenomegaly Extremities: s/p +left knee aspirated, no swelling or tenderness- +right knee aspiration today Skin: Normal temperature, turgor and texture; no rash, ulcers or subcutaneous nodules Psych: Mood: ok Neuro: conversant, awake Lines: - Constitutional Vitals: Vital Signs Temp Pulse Resp BP Pulse Ox 98.2 F 96 H 20 157/77 93 11/03/18 07:29 11/03/18 07:29 11/03/18 07:29 11/03/18 07:29 11/03/18 07:29 Temperature -Last 24 Hours Temperature 98.2 F Temperature 98.8 F Temperature 97.8 F Temperature 98.0 F Temperature 97.2 F Temperature 99.3 F - Labs CBC & Chem 7: 11/03/18 09:43 11/03/18 09:43
[2018-11-03] MEDS: APRESOLINE PO SCH ×3 (08:42→21:42)
[2018-11-03] MEDS: TOPROL XL PO SCH (09:34)
[2018-11-03] MEDS: PLAVIX PO SCH (09:34)
[2018-11-03] MEDS: ZESTRIL PO SCH (09:35)
[2018-11-03] MEDS: SODIUM CHLORIDE FLUSH SYRINGE 10 ML IV SCH ×3 (09:35→21:42)
[2018-11-03 10:15] LABS: Hematocrit 32.7 % (35.5-45.6); Hemoglobin 10.9 gm/dl (11.8-15.2); Mean Corpuscular HGB Conc 33 % (32-34); Mean Corpuscular Volume 89 fl (84-94); Platelet Count 461 K/mm3 (140-440); Red Blood Count 3.69 M/mm3 (3.65-5.03); Red Cell Distribution Width 14.6 % (13.2-15.2)
[2018-11-03] MEDS: VANCOMYCIN/NS 1 GM/250 ML 1 GM/250 ML BAG IV SCH (10:22)
[2018-11-03 10:46] LABS: BUN/Creatinine Ratio 12; Blood Urea Nitrogen 16 mg/dL (9-20); Calcium 8.1 mg/dL (8.4-10.2); Hemolysis Index 37
[2018-11-03 10:57] LABS: Basophils % (Manual) 0 % (0.0-1.8); Total Cells Counted 100
[2018-11-03 10:58] LABS: Anisocytosis 1+; Ovalocytes Few; Platelet Estimate A
[2018-11-03] MEDS: MAXIPIME/NS 2 GM/100 ML 2 GM/100 ML BAG IV SCH (13:45)
--- NOTE | 2018-11-03 15:22 | Progress Note ---
Assessment and Plan Assessment and plan: Septic arthritis of the right knee -Patient is on IV vancomycin and cefazolin -ID consulted -Blood cultures negative so far -IR will do right arthrocentesis 78 YO Male with HTN, Nicotine Dependence presents to ED for evaluation. Pt is unable to speak Italian, and provide detailed history. Pt history provided by son and family who is at bedside during exam and interview. As per son, the patient states that he has experienced generalized weakness, and malaise over the past 4 days with persistent symptoms over the same time frame. Pt was walking and subsequently tripped and fell onto his knees. Pt transported to [facility] for further care and evaluation. Pt states that pain has improved at time of exam but he in unable to ambulate due to bilateral knee pain with weight bearing.. Pt seen and evaluated in ED and found to have Sepsis, ARF, and Bilateral knee contusions. Pt admitted to [facility] unit and initiated on sepsis protocol. PT denies fever, chills, CP, Palpitations, NVD, Syncope, BRBPR, Loss of Consciousness, Prolonged travel/immobility, unilateral leg swelling, calf pain, hemoptysis, individual/family history of DVT/PE/Blood Clotting Disorders, or skin rash. Patient will schedule mammogram antibiotic coverage with vancomycin and ID was consulted were waiting for joint aspiration which appears to happen tomorrow as planned. I started the patient on colchicine also in case this appears to be gout which I doubt that this point. But will help with some pain control. Sepsis secondary to septic arthritis of the right knee - Patient is on IV vancomycin and cefepime - Leukocytosis is still high - ID input appreciated - Orthopedics was consulted and did arthrocentesis and joint washout - Patient is getting better ARF (acute renal failure) with tubular necrosis Resolved with IV fluids Contusion, knee Bilateral Knee x ray, pain control, supportive care. PT eval and treat Hypertension Blood pressure medications. Continue PRN Hydralazin Retart ACEI Metabolic Encephalopathy Resolving DVT prophylaxis SCD to BLE while in bed. Family agreeable to placement for Rehab at SNF on discharge History Interval history: Patient was seen and evaluated this morning, patient's right knee pain is getting better. Dr Wolf did right knee artherocentesis and washout. Hospitalist Physical - Physical exam Narrative exam: Not in cardiopulmonary distress. The patient appeared well nourished and normally developed. Vital signs as documented. Head exam is unremarkable. No scleral icterus . Neck is without jugular venous distension, thyromegaly, or carotid bruits. Lungs are clear to auscultation. Cardiac exam reveals regular rate and Rhythm. Abdominal exam reveals normal bowel sounds, no masses, no organomegaly and no a ortic enlargement. Extremities swelling and tenderness on the right knee, status post arthrocentesi s. EPIDEMIOLOGIST: Alert and oriented 3. No focal weakness. - Constitutional Vitals: Temp Pulse Resp BP Pulse Ox 98.8 F 87 20 176/95 94 11/03/18 13:41 11/03/18 13:41 11/03/18 13:41 11/03/18 13:41 11/03/18 13:41 General appearance: Present: mild distress Results - Labs CBC & Chem 7: 11/03/18 09:43 11/03/18 09:43 Labs: Laboratory Last Values WBC 23.0 K/mm3 (4.5-11.0) H 11/03/18 09:43 RBC 3.69 M/mm3 (3.65-5.03) 11/03/18 09:43 Hgb 10.9 gm/dl (11.8-15.2) L 11/03/18 09:43 Hct 32.7 % (35.5-45.6) L 11/03/18 09:43 MCV 89 fl (84-94) 11/03/18 09:43 MCH 30 pg (28-32) 11/03/18 09:43 MCHC 33 % (32-34) 11/03/18 09:43 RDW 14.6 % (13.2-15.2) 11/03/18 09:43 Plt Count 461 K/mm3 (140-440) H 11/03/18 09:43 Add Manual Diff Complete 11/03/18 09:43 Total Counted 100 11/03/18 09:43 Seg Neuts % (Manual) 92.0 % (40.0-70.0) H 11/03/18 09:43 Band Neutrophils % 0 % 11/03/18 09:43 Lymphocytes % (Manual) 1.0 % (13.4-35.0) L 11/03/18 09:43 Reactive Lymphs % (Man) 0 % 11/03/18 09:43 Monocytes % (Manual) 6.0 % (0.0-7.3) 11/03/18 09:43 Eosinophils % (Manual) 1.0 % (0.0-4.3) 11/03/18 09:43 Basophils % (Manual) 0 % (0.0-1.8) 11/03/18 09:43 Metamyelocytes % 0 % 11/03/18 09:43 Myelocytes % 0 % 11/03/18 09:43 Promyelocytes % 0 % 11/03/18 09:43 Blast Cells % 0 % 11/03/18 09:43 Nucleated RBC % Not Reportable 11/03/18 09:43 Seg Neutrophils # Man 21.2 K/mm3 (1.8-7.7) H 11/03/18 09:43 Band Neutrophils # 0.0 K/mm3 11/03/18 09:43 Lymphocytes # (Manual) 0.2 K/mm3 (1.2-5.4) L 11/03/18 09:43 Abs React Lymphs (Man) 0.0 K/mm3 11/03/18 09:43 Monocytes # (Manual) 1.4 K/mm3 (0.0-0.8) H 11/03/18 09:43 Eosinophils # (Manual) 0.2 K/mm3 (0.0-0.4) 11/03/18 09:43 Basophils # (Manual) 0.0 K/mm3 (0.0-0.1) 11/03/18 09:43 Metamyelocytes # 0.0 K/mm3 11/03/18 09:43 Myelocytes # 0.0 K/mm3 11/03/18 09:43 Promyelocytes # 0.0 K/mm3 11/03/18 09:43 Blast Cells # 0.0 K/mm3 11/03/18 09:43 WBC Morphology Not Reportable 11/03/18 09:43 Hypersegmented Neuts Not Reportable 11/03/18 09:43 Hyposegmented Neuts Not Reportable 11/03/18 09:43 Hypogranular Neuts Not Reportable 11/03/18 09:43 Smudge Cells Not Reportable 11/03/18 09:43 Toxic Granulation Not Reportable 11/03/18 09:43 Toxic Vacuolation Not Reportable 11/03/18 09:43 Dohle Bodies Not Reportable 11/03/18 09:43 Pelger-Huet Anomaly Not Reportable 11/03/18 09:43 Swetha Rods Not Reportable 11/03/18 09:43 Platelet Estimate A 11/03/18 09:43 Clumped Platelets Not Reportable 11/03/18 09:43 Plt Clumps, EDTA Not Reportable 11/03/18 09:43 Large Platelets Not Reportable 11/03/18 09:43 Giant Platelets Not Reportable 11/03/18 09:43 Platelet Satelliting Not Reportable 11/03/18 09:43 Plt Morphology Comment Not Reportable 11/03/18 09:43 RBC Morphology Not Reportable 11/03/18 09:43 Dimorphic RBCs Not Reportable 11/03/18 09:43 Polychromasia Not Reportable 11/03/18 09:43 Hypochromasia Not Reportable 11/03/18 09:43 Poikilocytosis Not Reportable 11/03/18 09:43 Anisocytosis 1+ 11/03/18 09:43 Microcytosis Not Reportable 11/03/18 09:43 Macrocytosis Not Reportable 11/03/18 09:43 Spherocytes Not Reportable 11/03/18 09:43 Pappenheimer Bodies Not Reportable 11/03/18 09:43 Sickle Cells Not Reportable 11/03/18 09:43 Target Cells Not Reportable 11/03/18 09:43 Tear Drop Cells Not Reportable 11/03/18 09:43 Ovalocytes Few 11/03/18 09:43 Helmet Cells Not Reportable 11/03/18 09:43 Quiñones-[place] Bodies Not Reportable 11/03/18 09:43 [place] Rings Not Reportable 11/03/18 09:43 [place] Cells Not Reportable 11/03/18 09:43 Bite Cells Not Reportable 11/03/18 09:43 Crenated Cell Not Reportable 11/03/18 09:43 Elliptocytes Not Reportable 11/03/18 09:43 Acanthocytes (Spur) Not Reportable 11/03/18 09:43 Rouleaux Not Reportable 11/03/18 09:43 Hemoglobin C Crystals Not Reportable 11/03/18 09:43 Schistocytes Not Reportable 11/03/18 09:43 Malaria parasites Not Reportable 11/03/18 09:43 [place] Bodies Not Reportable 11/03/18 09:43 Hem Pathologist Commnt No 11/03/18 09:43 Sodium 142 mmol/L (137-145) 11/03/18 09:43 Potassium 3.5 mmol/L (3.6-5.0) L 11/03/18 09:43 Chloride 109.3 mmol/L (98-107) H 11/03/18 09:43 Carbon Dioxide 18 mmol/L (22-30) L 11/03/18 09:43 Anion Gap 18 mmol/L 11/03/18 09:43 BUN 16 mg/dL (9-20) 11/03/18 09:43 Creatinine 1.3 mg/dL (0.8-1.5) 11/03/18 09:43 Estimated GFR > 60 ml/min 11/03/18 09:43 BUN/Creatinine Ratio 12 % 11/03/18 09:43 Glucose 126 mg/dL (75-100) H 11/03/18 09:43 Lactic Acid 1.40 mmol/L (0.7-2.0) 10/26/18 06:05 Calcium 8.1 mg/dL (8.4-10.2) L 11/03/18 09:43 Total Bilirubin 0.40 mg/dL (0.1-1.2) 10/25/18 17:12 AST 34 units/L (5-40) 10/25/18 17:12 ALT 24 units/L (7-56) 10/25/18 17:12 Alkaline Phosphatase 101 units/L (35-129) 10/25/18 17:12 C-Reactive Protein 23.00 mg/dL (0.00-1.30) H 10/28/18 20:48 Total Protein 6.8 g/dL (6.3-8.2) 10/25/18 17:12 Albumin 2.9 g/dL (3.9-5) L 10/25/18 17:12 Albumin/Globulin Ratio 0.7 % 10/25/18 17:12 Urine Color Yellow (Yellow) 10/26/18 05:30 Urine Turbidity Clear (Clear) 10/26/18 05:30 Urine pH 5.0 (5.0-7.0) 10/26/18 05:30 Ur Specific [place] 1.013 (1.003-1.030) 10/26/18 05:30 Urine Protein <15 mg/dl mg/dL (Negative) 10/26/18 05:30 Urine Glucose (UA) Neg mg/dL (Negative) 10/26/18 05:30 Urine Ketones Neg mg/dL (Negative) 10/26/18 05:30 Urine Blood Neg (Negative) 10/26/18 05:30 Urine Nitrite Neg (Negative) 10/26/18 05:30 Urine Bilirubin Neg (Negative) 10/26/18 05:30 Urine Urobilinogen < 2.0 mg/dL (<2.0) 10/26/18 05:30 Ur Leukocyte Esterase Neg (Negative) 10/26/18 05:30 Urine WBC (Auto) 2.0 /HPF (0.0-6.0) 10/26/18 05:30 Urine RBC (Auto) 1.0 /HPF (0.0-6.0) 10/26/18 05:30 U Epithel Cells (Auto) 2.0 /HPF (0-13.0) 10/26/18 05:30 Urine Bacteria (Auto) 1+ /HPF (Negative) 10/26/18 05:30 Amorphous Crystals Few 10/26/18 05:30 Hyaline Casts 9 /LPF 10/26/18 05:30 Urine Mucus Few /HPF 10/26/18 05:30 Fluid Type Synovial 11/02/18 10:15 Fluid Color Red 11/02/18 10:15 Fluid Appearance Turbid 11/02/18 10:15 Fluid WBC 94535 /mm3 11/02/18 10:15 Fluid RBC 8580 /mm3 11/02/18 10:15 Fluid Seg Neutrophils 93.0 % 11/02/18 10:15 Fluid Lymphocytes 7.0 % 11/02/18 10:15 Fluid Reactive Lymphs 0 % 11/02/18 10:15 Fluid Monocytes 0 % 11/02/18 10:15 Fluid Eosinophils 0 % 11/02/18 10:15 Fluid Basophils 0 % 11/02/18 10:15 Synovial Crystals Negative (NONE SEEN) 10/29/18 Unknown Vancomycin Trough 14.1 ug/mL (5.0-20.0) 11/02/18 09:19 Influenza A (Rapid) Negative (Negative) 10/29/18 16:42 Influenza B (Rapid) Negative (Negative) 10/29/18 16:42 Nutrition/Malnutrition Assess - Dietary Evaluation Nutrition/Malnutrition Findings: Nutrition Notes Start: 11/01/18 12:03 Freq: Status: Active Protocol: Document 11/01/18 12:03 GEOFFREY (Rec: 11/01/18 12:09 GEOFFREY [email or web address]) Nutrition Notes Need for Assessment generated from: LOS Initial or Follow up Assessment Current Diagnosis Hypertension Other Pertinent Diagnosis (R) knee septic arthritis Current Diet Cardiac Labs/Tests K 2.5 Pertinent Medications 80mEq KCl Height 5 ft 4 in Weight 61 kg Usual Body Weight 60.9 kg [place] Body Weight (lbs) 130.0 BMI 23.1 Weight Status Appropriate Subjective/Other Information Pt screened for LOS. He has consumed 58% of meals since admission. Per pt family report, pt ate well first few days of admission, then intakes declined. They request a supplement. Percent of energy/protein needs met: 81% energy 79% pro Burn Absent Trauma Absent Current % PO Fair (50-74%) #1 Nutrition Diagnosis Inadequate oral intake Etiology decreased appetite during admission; sepsis As Evidenced by Signs and Symptoms PO intakes declining during hospital stay Is patient on ventilator? No Is Patient Ambulatory and/or Out of Bed No REE-(Moriarty-St. Jeor-confined to bed) 1507.764 Calculation Used for Recommendations Moriarty-St Jeor Additional Notes Pro needs 1-1.2g/k-73g/ day Fluid needs 1ml/kcal Nutrition Intervention Change Diet Order: Continue current diet order; suggested that family bring him foods he likes to eat Add Supplement/Snack (indicate name/kcal Ensure Enlive TID (vanilla) /protein ) Provides kCal: 1,050 Provides Protein (gm) 60 Goal #1 PO intake of meals plus ONS to meet nutrient needs Goal #2 Wt maintenance Anticipated Discharge Needs: Continue ONS 1-2 times daily if PO intakes remain suboptimal Follow-Up By: 11/03/18 Additional Comments F/U: intakes (meals/ONS), wt
[2018-11-03] MEDS ORDERED: K-DUR PO ONE (16:00)
--- NOTE | 2018-11-03 22:00 | Progress Note ---
Assessment and Plan s/p arthroscopic drainage and irrigation right knee continue observation and IVAB Subjective Date of service: 11/03/18 Interval history: no c/o's noted from the patient, at bedside Objective Vital signs: Vital Signs - 12hr 11/03/18 11/03/18 11/03/18 10:00 13:41 18:04 Temperature 98.8 F Pulse Rate 87 Pulse Rate [ 20 L From Monitor] Respiratory 20 20 Rate Blood Pressure 176/95 156/71 O2 Sat by Pulse 93 94 Oximetry 11/03/18 11/03/18 19:40 19:42 Temperature 99.2 F Pulse Rate 95 H Pulse Rate [ From Monitor] Respiratory 20 Rate Blood Pressure 132/67 O2 Sat by Pulse 95 Oximetry Narrative Exam: post op dressing intact, minimal drainage noted - Labs CBC & BMP: 11/03/18 09:43 11/03/18 09:43 Labs: Abnormal lab results 11/03/18 11/03/18 Range/Units 09:43 09:43 WBC 23.0 H (4.5-11.0) K/mm3 Hgb 10.9 L (11.8-15.2) gm/dl Hct 32.7 L (35.5-45.6) % Plt Count 461 H (140-440) K/mm3 Seg Neuts % (Manual) 92.0 H (40.0-70.0) % Lymphocytes % (Manual) 1.0 L (13.4-35.0) % Seg Neutrophils # Man 21.2 H (1.8-7.7) K/mm3 Lymphocytes # (Manual) 0.2 L (1.2-5.4) K/mm3 Monocytes # (Manual) 1.4 H (0.0-0.8) K/mm3 Potassium 3.5 L (3.6-5.0) mmol/L Chloride 109.3 H (98-107) mmol/L Carbon Dioxide 18 L (22-30) mmol/L Glucose 126 H (75-100) mg/dL Calcium 8.1 L (8.4-10.2) mg/dL
[2018-11-04] MEDS: MAXIPIME/NS 2 GM/100 ML 2 GM/100 ML BAG IV SCH ×2 (01:16→14:35)
[2018-11-04 05:32] LABS: Hematocrit 30.9 % (35.5-45.6); Hemoglobin 10.5 gm/dl (11.8-15.2); Mean Corpuscular HGB Conc 34 % (32-34); Mean Corpuscular Volume 89 fl (84-94); Platelet Count 498 K/mm3 (140-440); Red Blood Count 3.47 M/mm3 (3.65-5.03); Red Cell Distribution Width 15.2 % (13.2-15.2)
[2018-11-04 06:01] LABS: BUN/Creatinine Ratio 16; Blood Urea Nitrogen 18 mg/dL (9-20); Calcium 8.1 mg/dL (8.4-10.2); Hemolysis Index 7
[2018-11-04 06:15] LABS: Anisocytosis 1+; Monocytes % (Manual) 0 % (0.0-7.3); Total Cells Counted 100
[2018-11-04 06:16] LABS: Ovalocytes 1+; Tear Drop Cells Rare
[2018-11-04] MEDS: APRESOLINE PO SCH ×3 (08:37→20:09)
[2018-11-04] MEDS: TOPROL XL PO SCH (09:55)
[2018-11-04] MEDS: PLAVIX PO SCH (09:55)
[2018-11-04] MEDS: ZESTRIL PO SCH (09:55)
[2018-11-04] MEDS: VANCOMYCIN/NS 1 GM/250 ML 1 GM/250 ML BAG IV SCH (10:00)
--- NOTE | 2018-11-04 13:05 | Progress Note ---
Assessment and Plan Assessment and plan: Septic arthritis of the right knee -Patient is on IV vancomycin and cefazolin -ID consulted -Blood cultures negative so far -IR will do right arthrocentesis 78 YO Male with HTN, Nicotine Dependence presents to ED for evaluation. Pt is unable to speak French, and provide detailed history. Pt history provided by son and family who is at bedside during exam and interview. As per son, the patient states that he has experienced generalized weakness, and malaise over the past 4 days with persistent symptoms over the same time frame. Pt was walking and subsequently tripped and fell onto his knees. Pt transported to [facility] for further care and evaluation. Pt states that pain has improved at time of exam but he in unable to ambulate due to bilateral knee pain with weight bearing.. Pt seen and evaluated in ED and found to have Sepsis, ARF, and Bilateral knee contusions. Pt admitted to [facility] unit and initiated on sepsis protocol. PT denies fever, chills, CP, Palpitations, NVD, Syncope, BRBPR, Loss of Consciousness, Prolonged travel/immobility, unilateral leg swelling, calf pain, hemoptysis, individual/family history of DVT/PE/Blood Clotting Disorders, or skin rash. Patient will schedule mammogram antibiotic coverage with vancomycin and ID was consulted were waiting for joint aspiration which appears to happen tomorrow as planned. I started the patient on colchicine also in case this appears to be gout which I doubt that this point. But will help with some pain control. Sepsis secondary to septic arthritis of the right knee - Patient is on IV vancomycin and cefepime - Leukocytosis is still high - ID input appreciated - Orthopedics was consulted and did arthrocentesis and joint washout - Patient is getting better ARF (acute renal failure) with tubular necrosis Resolved with IV fluids Contusion, knee Bilateral Knee x ray, pain control, supportive care. PT eval and treat Hypertension Blood pressure medications. Continue PRN Hydralazin Retart ACEI Metabolic Encephalopathy Resolving DVT prophylaxis SCD to BLE while in bed. Family agreeable to placement for Rehab at SNF on discharge History Interval history: Patient was seen and evaluated this morning, patient's right knee pain is getting better. Dr Wolf did right knee artherocentesis and washout. Hospitalist Physical - Physical exam Narrative exam: Not in cardiopulmonary distress. The patient appeared well nourished and normally developed. Vital signs as documented. Head exam is unremarkable. No scleral icterus . Neck is without jugular venous distension, thyromegaly, or carotid bruits. Lungs are clear to auscultation. Cardiac exam reveals regular rate and Rhythm. Abdominal exam reveals normal bowel sounds, no masses, no organomegaly and no a ortic enlargement. Extremities swelling and tenderness on the right knee, status post arthrocentesi s. OBIEE CONSULTANT: Alert and oriented 3. No focal weakness. - Constitutional Vitals: Temp Pulse Resp BP Pulse Ox 98.5 F 96 H 20 184/86 93 11/04/18 07:44 11/04/18 10:00 11/04/18 07:44 11/04/18 09:55 11/04/18 10:00 General appearance: Present: mild distress Results - Labs CBC & Chem 7: 11/04/18 04:58 11/04/18 04:58 Labs: Laboratory Last Values WBC 19.5 K/mm3 (4.5-11.0) H 11/04/18 04:58 RBC 3.47 M/mm3 (3.65-5.03) L 11/04/18 04:58 Hgb 10.5 gm/dl (11.8-15.2) L 11/04/18 04:58 Hct 30.9 % (35.5-45.6) L 11/04/18 04:58 MCV 89 fl (84-94) 11/04/18 04:58 MCH 30 pg (28-32) 11/04/18 04:58 MCHC 34 % (32-34) 11/04/18 04:58 RDW 15.2 % (13.2-15.2) 11/04/18 04:58 Plt Count 498 K/mm3 (140-440) H 11/04/18 04:58 Add Manual Diff Complete 11/04/18 04:58 Total Counted 100 11/04/18 04:58 Seg Neuts % (Manual) 94.0 % (40.0-70.0) H 11/04/18 04:58 Band Neutrophils % 0 % 11/04/18 04:58 Lymphocytes % (Manual) 3.0 % (13.4-35.0) L 11/04/18 04:58 Reactive Lymphs % (Man) 0 % 11/04/18 04:58 Monocytes % (Manual) 0 % (0.0-7.3) 11/04/18 04:58 Eosinophils % (Manual) 2.0 % (0.0-4.3) 11/04/18 04:58 Basophils % (Manual) 1.0 % (0.0-1.8) 11/04/18 04:58 Metamyelocytes % 0 % 11/04/18 04:58 Myelocytes % 0 % 11/04/18 04:58 Promyelocytes % 0 % 11/04/18 04:58 Blast Cells % 0 % 11/04/18 04:58 Nucleated RBC % Not Reportable 11/04/18 04:58 Seg Neutrophils # Man 18.3 K/mm3 (1.8-7.7) H 11/04/18 04:58 Band Neutrophils # 0.0 K/mm3 11/04/18 04:58 Lymphocytes # (Manual) 0.6 K/mm3 (1.2-5.4) L 11/04/18 04:58 Abs React Lymphs (Man) 0.0 K/mm3 11/04/18 04:58 Monocytes # (Manual) 0.0 K/mm3 (0.0-0.8) 11/04/18 04:58 Eosinophils # (Manual) 0.4 K/mm3 (0.0-0.4) 11/04/18 04:58 Basophils # (Manual) 0.2 K/mm3 (0.0-0.1) H 11/04/18 04:58 Metamyelocytes # 0.0 K/mm3 11/04/18 04:58 Myelocytes # 0.0 K/mm3 11/04/18 04:58 Promyelocytes # 0.0 K/mm3 11/04/18 04:58 Blast Cells # 0.0 K/mm3 11/04/18 04:58 WBC Morphology Not Reportable 11/04/18 04:58 Hypersegmented Neuts Not Reportable 11/04/18 04:58 Hyposegmented Neuts Not Reportable 11/04/18 04:58 Hypogranular Neuts Not Reportable 11/04/18 04:58 Smudge Cells Not Reportable 11/04/18 04:58 Toxic Granulation Not Reportable 11/04/18 04:58 Toxic Vacuolation Not Reportable 11/04/18 04:58 Dohle Bodies Not Reportable 11/04/18 04:58 Pelger-Huet Anomaly Not Reportable 11/04/18 04:58 Swetha Rods Not Reportable 11/04/18 04:58 Platelet Estimate Appears normal 11/04/18 04:58 Clumped Platelets Not Reportable 11/04/18 04:58 Plt Clumps, EDTA Not Reportable 11/04/18 04:58 Large Platelets Not Reportable 11/04/18 04:58 Giant Platelets Not Reportable 11/04/18 04:58 Platelet Satelliting Not Reportable 11/04/18 04:58 Plt Morphology Comment Not Reportable 11/04/18 04:58 RBC Morphology Not Reportable 11/04/18 04:58 Dimorphic RBCs Not Reportable 11/04/18 04:58 Polychromasia Few 11/04/18 04:58 Hypochromasia Not Reportable 11/04/18 04:58 Poikilocytosis Not Reportable 11/04/18 04:58 Anisocytosis 1+ 11/04/18 04:58 Microcytosis Not Reportable 11/04/18 04:58 Macrocytosis Not Reportable 11/04/18 04:58 Spherocytes Not Reportable 11/04/18 04:58 Pappenheimer Bodies Not Reportable 11/04/18 04:58 Sickle Cells Not Reportable 11/04/18 04:58 Target Cells Not Reportable 11/04/18 04:58 Tear Drop Cells Rare 11/04/18 04:58 Ovalocytes 1+ 11/04/18 04:58 Helmet Cells Not Reportable 11/04/18 04:58 Quiñones-[place] Bodies Not Reportable 11/04/18 04:58 [place] Rings Not Reportable 11/04/18 04:58 [place] Cells Not Reportable 11/04/18 04:58 Bite Cells Not Reportable 11/04/18 04:58 Crenated Cell Not Reportable 11/04/18 04:58 Elliptocytes Rare 11/04/18 04:58 Acanthocytes (Spur) Not Reportable 11/04/18 04:58 Rouleaux Not Reportable 11/04/18 04:58 Hemoglobin C Crystals Not Reportable 11/04/18 04:58 Schistocytes Not Reportable 11/04/18 04:58 Malaria parasites Not Reportable 11/04/18 04:58 Catalino Bodies Not Reportable 11/04/18 04:58 Hem Pathologist Commnt No 11/04/18 04:58 Sodium 140 mmol/L (137-145) 11/04/18 04:58 Potassium 3.6 mmol/L (3.6-5.0) 11/04/18 04:58 Chloride 107.6 mmol/L (98-107) H 11/04/18 04:58 Carbon Dioxide 19 mmol/L (22-30) L 11/04/18 04:58 Anion Gap 17 mmol/L 11/04/18 04:58 BUN 18 mg/dL (9-20) 11/04/18 04:58 Creatinine 1.1 mg/dL (0.8-1.5) 11/04/18 04:58 Estimated GFR > 60 ml/min 11/04/18 04:58 BUN/Creatinine Ratio 16 % 11/04/18 04:58 Glucose 94 mg/dL (75-100) 11/04/18 04:58 Lactic Acid 1.40 mmol/L (0.7-2.0) 10/26/18 06:05 Calcium 8.1 mg/dL (8.4-10.2) L 11/04/18 04:58 Magnesium 1.90 mg/dL (1.7-2.3) 11/04/18 04:58 Total Bilirubin 0.40 mg/dL (0.1-1.2) 10/25/18 17:12 AST 34 units/L (5-40) 10/25/18 17:12 ALT 24 units/L (7-56) 10/25/18 17:12 Alkaline Phosphatase 101 units/L (35-129) 10/25/18 17:12 C-Reactive Protein 23.00 mg/dL (0.00-1.30) H 10/28/18 20:48 Total Protein 6.8 g/dL (6.3-8.2) 10/25/18 17:12 Albumin 2.9 g/dL (3.9-5) L 10/25/18 17:12 Albumin/Globulin Ratio 0.7 % 10/25/18 17:12 Urine Color Yellow (Yellow) 10/26/18 05:30 Urine Turbidity Clear (Clear) 10/26/18 05:30 Urine pH 5.0 (5.0-7.0) 10/26/18 05:30 Ur Specific [place] 1.013 (1.003-1.030) 10/26/18 05:30 Urine Protein <15 mg/dl mg/dL (Negative) 10/26/18 05:30 Urine Glucose (UA) Neg mg/dL (Negative) 10/26/18 05:30 Urine Ketones Neg mg/dL (Negative) 10/26/18 05:30 Urine Blood Neg (Negative) 10/26/18 05:30 Urine Nitrite Neg (Negative) 10/26/18 05:30 Urine Bilirubin Neg (Negative) 10/26/18 05:30 Urine Urobilinogen < 2.0 mg/dL (<2.0) 10/26/18 05:30 Ur Leukocyte Esterase Neg (Negative) 10/26/18 05:30 Urine WBC (Auto) 2.0 /HPF (0.0-6.0) 10/26/18 05:30 Urine RBC (Auto) 1.0 /HPF (0.0-6.0) 10/26/18 05:30 U Epithel Cells (Auto) 2.0 /HPF (0-13.0) 10/26/18 05:30 Urine Bacteria (Auto) 1+ /HPF (Negative) 10/26/18 05:30 Amorphous Crystals Few 10/26/18 05:30 Hyaline Casts 9 /LPF 10/26/18 05:30 Urine Mucus Few /HPF 10/26/18 05:30 Fluid Type Synovial 11/02/18 10:15 Fluid Color Red 11/02/18 10:15 Fluid Appearance Turbid 11/02/18 10:15 Fluid WBC 05206 /mm3 11/02/18 10:15 Fluid RBC 8580 /mm3 11/02/18 10:15 Fluid Seg Neutrophils 93.0 % 11/02/18 10:15 Fluid Lymphocytes 7.0 % 11/02/18 10:15 Fluid Reactive Lymphs 0 % 11/02/18 10:15 Fluid Monocytes 0 % 11/02/18 10:15 Fluid Eosinophils 0 % 11/02/18 10:15 Fluid Basophils 0 % 11/02/18 10:15 Synovial Crystals Negative (NONE SEEN) 10/29/18 Unknown Vancomycin Trough 14.1 ug/mL (5.0-20.0) 11/02/18 09:19 Influenza A (Rapid) Negative (Negative) 10/29/18 16:42 Influenza B (Rapid) Negative (Negative) 10/29/18 16:42 Nutrition/Malnutrition Assess - Dietary Evaluation Nutrition/Malnutrition Findings: Nutrition Notes Start: 11/01/18 12:03 Freq: Status: Active Protocol: Document 11/03/18 17:01 RM (Rec: 11/03/18 17:07 [id number]) Nutrition Notes Initial or Follow up Reassessment Current Diagnosis Hypertension Other Pertinent Diagnosis (R) knee septic arthritis Current Diet Cardiac Labs/Tests Reviewed Pertinent Medications Reviewed Height 5 ft 4 in Weight 61 kg [place] Body Weight (lbs) 130.0 BMI 23.1 Subjective/Other Information Pt and pt relative in room at time of visit. Pt asleep at time of visit. Pt relative stated that pt eats bites of his meals. Also stated that pt sometimes drinks half the Ensure Enlive and sometimes all. No food preferences voiced on behalf of pt. Burn Absent Trauma Absent #1 Nutrition Diagnosis Inadequate oral intake Diagnosis Progress(for reassessment Continues documentation) Nutrition Intervention Change Diet Order: Continue current Add Supplement/Snack (indicate name/kcal Ensure Enlive TID (vanilla) /protein ) Provides kCal: 1,050 Provides Protein (gm) 60 Goal #1 Meet at least 75% of calorie and protein needs via PO and ONS intakes Goal #2 Wt maintenance Anticipated Discharge Needs: Continue ONS 1-2 times daily if PO intakes remain suboptimal Follow-Up By: 11/06/18 Additional Comments Follow for PO and ONS intakes
[2018-11-04] MEDS: SODIUM CHLORIDE FLUSH SYRINGE 10 ML IV SCH (14:50)
[2018-11-05] MEDS: SODIUM CHLORIDE FLUSH SYRINGE 10 ML IV SCH ×5 (01:09→21:31)
[2018-11-05] MEDS: MAXIPIME/NS 2 GM/100 ML 2 GM/100 ML BAG IV SCH ×2 (01:43→14:41)
[2018-11-05] MEDS: APRESOLINE IV PRN ×2 (04:31→07:57)
[2018-11-05 06:36] LABS: Hematocrit 32.2 % (35.5-45.6); Hemoglobin 10.6 gm/dl (11.8-15.2); Mean Corpuscular HGB Conc 33 % (32-34); Mean Corpuscular Volume 89 fl (84-94); Platelet Count 590 K/mm3 (140-440); Red Blood Count 3.63 M/mm3 (3.65-5.03); Red Cell Distribution Width 14.9 % (13.2-15.2)
[2018-11-05 06:55] LABS: BUN/Creatinine Ratio 18; Blood Urea Nitrogen 18 mg/dL (9-20); Calcium 8.2 mg/dL (8.4-10.2); Hemolysis Index 4
[2018-11-05] MEDS: APRESOLINE PO SCH ×3 (08:00→20:05)
[2018-11-05] MEDS: TYLENOL PO PRN ×2 (08:07→12:30)
[2018-11-05 10:41] LABS: Total Cells Counted 100
[2018-11-05 10:42] LABS: Anisocytosis 1+; Basophils % (Manual) 0 % (0.0-1.8); Platelet Estimate Consistent w Auto
[2018-11-05] MEDS: PLAVIX PO SCH (10:54)
[2018-11-05] MEDS: ZESTRIL PO SCH (10:54)
[2018-11-05] MEDS: TOPROL XL PO SCH (10:55)
[2018-11-05] MEDS: CATAPRES PO SCH ×2 (10:55→21:30)
[2018-11-05] MEDS: VANCOMYCIN/NS 1 GM/250 ML 1 GM/250 ML BAG IV SCH (11:00)
[2018-11-05] MEDS ORDERED: K-DUR PO ONE (11:00)
[2018-11-05] MEDS: K-DUR PO ONE ×2 (11:05→11:07)
--- NOTE | 2018-11-05 12:25 | Progress Note ---
Assessment and Plan Assessment and plan: Septic arthritis of the right knee -Patient is on IV vancomycin and cefazolin -ID consulted -Blood cultures negative so far -IR will do right arthrocentesis 78 YO Male with HTN, Nicotine Dependence presents to ED for evaluation. Pt is unable to speak Amharic, and provide detailed history. Pt history provided by son and family who is at bedside during exam and interview. As per son, the patient states that he has experienced generalized weakness, and malaise over the past 4 days with persistent symptoms over the same time frame. Pt was walking and subsequently tripped and fell onto his knees. Pt transported to [facility] for further care and evaluation. Pt states that pain has improved at time of exam but he in unable to ambulate due to bilateral knee pain with weight bearing.. Pt seen and evaluated in ED and found to have Sepsis, ARF, and Bilateral knee contusions. Pt admitted to [facility] unit and initiated on sepsis protocol. PT denies fever, chills, CP, Palpitations, NVD, Syncope, BRBPR, Loss of Consciousness, Prolonged travel/immobility, unilateral leg swelling, calf pain, hemoptysis, individual/family history of DVT/PE/Blood Clotting Disorders, or skin rash. Patient will schedule mammogram antibiotic coverage with vancomycin and ID was consulted were waiting for joint aspiration which appears to happen tomorrow as planned. I started the patient on colchicine also in case this appears to be gout which I doubt that this point. But will help with some pain control. Sepsis secondary to septic arthritis of the right knee - Patient is on IV vancomycin and cefepime - Leukocytosis is still high - ID input appreciated - Orthopedics was consulted and did arthrocentesis and joint washout - Patient is getting better ARF (acute renal failure) with tubular necrosis Resolved with IV fluids Contusion, knee Bilateral Knee x ray, pain control, supportive care. PT eval and treat Hypertension Blood pressure medications. Continue PRN Hydralazin Retart ACEI Metabolic Encephalopathy Resolving DVT prophylaxis disposition; subacute after cleared by ID. History Interval history: Patient was seen and evaluated this morning, patient's right knee pain is getting better. Patient has dementia and hearing problems. Hospitalist Physical - Physical exam Narrative exam: Not in cardiopulmonary distress. The patient appeared well nourished and normally developed. Vital signs as documented. Head exam is unremarkable. No scleral icterus . Neck is without jugular venous distension, thyromegaly, or carotid bruits. Lungs are clear to auscultation. Cardiac exam reveals regular rate and Rhythm. Abdominal exam reveals normal bowel sounds, no masses, no organomegaly and no aortic enlargement. Extremities status post arthrocentesis and right knee washout. COMPUTER GRAPHICS ILLUSTRATOR: Alert and oriented 3. - Constitutional Vitals: Temp Pulse Resp BP Pulse Ox 98.4 F 96 H 16 139/77 96 11/05/18 07:50 11/05/18 10:55 11/05/18 08:07 11/05/18 10:55 11/05/18 07:50 General appearance: Present: mild distress Results - Labs CBC & Chem 7: 11/05/18 06:00 11/05/18 06:00 Labs: Laboratory Last Values WBC 19.0 K/mm3 (4.5-11.0) H 11/05/18 06:00 RBC 3.63 M/mm3 (3.65-5.03) L 11/05/18 06:00 Hgb 10.6 gm/dl (11.8-15.2) L 11/05/18 06:00 Hct 32.2 % (35.5-45.6) L 11/05/18 06:00 MCV 89 fl (84-94) 11/05/18 06:00 MCH 29 pg (28-32) 11/05/18 06:00 MCHC 33 % (32-34) 11/05/18 06:00 RDW 14.9 % (13.2-15.2) 11/05/18 06:00 Plt Count 590 K/mm3 (140-440) H 11/05/18 06:00 Add Manual Diff Complete 11/05/18 06:00 Total Counted 100 11/05/18 06:00 Seg Neuts % (Manual) 87.0 % (40.0-70.0) H 11/05/18 06:00 Band Neutrophils % 0 % 11/05/18 06:00 Lymphocytes % (Manual) 3.0 % (13.4-35.0) L 11/05/18 06:00 Reactive Lymphs % (Man) 0 % 11/05/18 06:00 Monocytes % (Manual) 6.0 % (0.0-7.3) 11/05/18 06:00 Eosinophils % (Manual) 4.0 % (0.0-4.3) 11/05/18 06:00 Basophils % (Manual) 0 % (0.0-1.8) 11/05/18 06:00 Metamyelocytes % 0 % 11/05/18 06:00 Myelocytes % 0 % 11/05/18 06:00 Promyelocytes % 0 % 11/05/18 06:00 Blast Cells % 0 % 11/05/18 06:00 Nucleated RBC % Not Reportable 11/05/18 06:00 Seg Neutrophils # Man 16.5 K/mm3 (1.8-7.7) H 11/05/18 06:00 Band Neutrophils # 0.0 K/mm3 11/05/18 06:00 Lymphocytes # (Manual) 0.6 K/mm3 (1.2-5.4) L 11/05/18 06:00 Abs React Lymphs (Man) 0.0 K/mm3 11/05/18 06:00 Monocytes # (Manual) 1.1 K/mm3 (0.0-0.8) H 11/05/18 06:00 Eosinophils # (Manual) 0.8 K/mm3 (0.0-0.4) H 11/05/18 06:00 Basophils # (Manual) 0.0 K/mm3 (0.0-0.1) 11/05/18 06:00 Metamyelocytes # 0.0 K/mm3 11/05/18 06:00 Myelocytes # 0.0 K/mm3 11/05/18 06:00 Promyelocytes # 0.0 K/mm3 11/05/18 06:00 Blast Cells # 0.0 K/mm3 11/05/18 06:00 WBC Morphology Not Reportable 11/05/18 06:00 Hypersegmented Neuts Not Reportable 11/05/18 06:00 Hyposegmented Neuts Not Reportable 11/05/18 06:00 Hypogranular Neuts Not Reportable 11/05/18 06:00 Smudge Cells Not Reportable 11/05/18 06:00 Toxic Granulation Not Reportable 11/05/18 06:00 Toxic Vacuolation Not Reportable 11/05/18 06:00 Dohle Bodies Not Reportable 11/05/18 06:00 Pelger-Huet Anomaly Not Reportable 11/05/18 06:00 Swetha Rods Not Reportable 11/05/18 06:00 Platelet Estimate Consistent w auto 11/05/18 06:00 Clumped Platelets Not Reportable 11/05/18 06:00 Plt Clumps, EDTA Not Reportable 11/05/18 06:00 Large Platelets Not Reportable 11/05/18 06:00 Giant Platelets Not Reportable 11/05/18 06:00 Platelet Satelliting Not Reportable 11/05/18 06:00 Plt Morphology Comment Not Reportable 11/05/18 06:00 RBC Morphology Not Reportable 11/05/18 06:00 Dimorphic RBCs Not Reportable 11/05/18 06:00 Polychromasia Not Reportable 11/05/18 06:00 Hypochromasia Not Reportable 11/05/18 06:00 Poikilocytosis Not Reportable 11/05/18 06:00 Anisocytosis 1+ 11/05/18 06:00 Microcytosis Not Reportable 11/05/18 06:00 Macrocytosis Not Reportable 11/05/18 06:00 Spherocytes Not Reportable 11/05/18 06:00 Pappenheimer Bodies Not Reportable 11/05/18 06:00 Sickle Cells Not Reportable 11/05/18 06:00 Target Cells Not Reportable 11/05/18 06:00 Tear Drop Cells Not Reportable 11/05/18 06:00 Ovalocytes Not Reportable 11/05/18 06:00 Helmet Cells Not Reportable 11/05/18 06:00 Qu[place]ñones-Ste[place] Bodies Not Reportable 11/05/18 06:00 [place] Rings Not Reportable 11/05/18 06:00 Ider Cells Not Reportable 11/05/18 06:00 Bite Cells Not Reportable 11/05/18 06:00 Crenated Cell Not Reportable 11/05/18 06:00 Elliptocytes Not Reportable 11/05/18 06:00 Acanthocytes (Spur) Not Reportable 11/05/18 06:00 Rouleaux Not Reportable 11/05/18 06:00 Hemoglobin C Crystals Not Reportable 11/05/18 06:00 Schistocytes Not Reportable 11/05/18 06:00 Malaria parasites Not Reportable 11/05/18 06:00 Catalino Bodies Not Reportable 11/05/18 06:00 Hem Pathologist Commnt No 11/05/18 06:00 Sodium 143 mmol/L (137-145) 11/05/18 06:00 Potassium 3.2 mmol/L (3.6-5.0) L 11/05/18 06:00 Chloride 107.5 mmol/L (98-107) H 11/05/18 06:00 Carbon Dioxide 21 mmol/L (22-30) L 11/05/18 06:00 Anion Gap 18 mmol/L 11/05/18 06:00 BUN 18 mg/dL (9-20) 11/05/18 06:00 Creatinine 1.0 mg/dL (0.8-1.5) 11/05/18 06:00 Estimated GFR > 60 ml/min 11/05/18 06:00 BUN/Creatinine Ratio 18 % 11/05/18 06:00 Glucose 105 mg/dL (75-100) H 11/05/18 06:00 Lactic Acid 1.40 mmol/L (0.7-2.0) 10/26/18 06:05 Calcium 8.2 mg/dL (8.4-10.2) L 11/05/18 06:00 Magnesium 1.90 mg/dL (1.7-2.3) 11/04/18 04:58 Total Bilirubin 0.40 mg/dL (0.1-1.2) 10/25/18 17:12 AST 34 units/L (5-40) 10/25/18 17:12 ALT 24 units/L (7-56) 10/25/18 17:12 Alkaline Phosphatase 101 units/L (35-129) 10/25/18 17:12 C-Reactive Protein 23.00 mg/dL (0.00-1.30) H 10/28/18 20:48 Total Protein 6.8 g/dL (6.3-8.2) 10/25/18 17:12 Albumin 2.9 g/dL (3.9-5) L 10/25/18 17:12 Albumin/Globulin Ratio 0.7 % 10/25/18 17:12 Urine Color Yellow (Yellow) 10/26/18 05:30 Urine Turbidity Clear (Clear) 10/26/18 05:30 Urine pH 5.0 (5.0-7.0) 10/26/18 05:30 Ur Specific [place] 1.013 (1.003-1.030) 10/26/18 05:30 Urine Protein <15 mg/dl mg/dL (Negative) 10/26/18 05:30 Urine Glucose (UA) Neg mg/dL (Negative) 10/26/18 05:30 Urine Ketones Neg mg/dL (Negative) 10/26/18 05:30 Urine Blood Neg (Negative) 10/26/18 05:30 Urine Nitrite Neg (Negative) 10/26/18 05:30 Urine Bilirubin Neg (Negative) 10/26/18 05:30 Urine Urobilinogen < 2.0 mg/dL (<2.0) 10/26/18 05:30 Ur Leukocyte Esterase Neg (Negative) 10/26/18 05:30 Urine WBC (Auto) 2.0 /HPF (0.0-6.0) 10/26/18 05:30 Urine RBC (Auto) 1.0 /HPF (0.0-6.0) 10/26/18 05:30 U Epithel Cells (Auto) 2.0 /HPF (0-13.0) 10/26/18 05:30 Urine Bacteria (Auto) 1+ /HPF (Negative) 10/26/18 05:30 Amorphous Crystals Few 10/26/18 05:30 Hyaline Casts 9 /LPF 10/26/18 05:30 Urine Mucus Few /HPF 10/26/18 05:30 Fluid Type Synovial 11/02/18 10:15 Fluid Color Red 11/02/18 10:15 Fluid Appearance Turbid 11/02/18 10:15 Fluid WBC 66299 /mm3 11/02/18 10:15 Fluid RBC 8580 /mm3 11/02/18 10:15 Fluid Seg Neutrophils 93.0 % 11/02/18 10:15 Fluid Lymphocytes 7.0 % 11/02/18 10:15 Fluid Reactive Lymphs 0 % 11/02/18 10:15 Fluid Monocytes 0 % 11/02/18 10:15 Fluid Eosinophils 0 % 11/02/18 10:15 Fluid Basophils 0 % 11/02/18 10:15 Synovial Crystals Negative (NONE SEEN) 10/29/18 Unknown Vancomycin Trough 14.1 ug/mL (5.0-20.0) 11/02/18 09:19 Influenza A (Rapid) Negative (Negative) 10/29/18 16:42 Influenza B (Rapid) Negative (Negative) 10/29/18 16:42 Nutrition/Malnutrition Assess - Dietary Evaluation Nutrition/Malnutrition Findings: Nutrition Notes Start: 11/01/18 12:03 Freq: Status: Active Protocol: Document 11/03/18 17:01 RM (Rec: 11/03/18 17:07 RM [id number]) Nutrition Notes Initial or Follow up Reassessment Current Diagnosis Hypertension Other Pertinent Diagnosis (R) knee septic arthritis Current Diet Cardiac Labs/Tests Reviewed Pertinent Medications Reviewed Height 5 ft 4 in Weight 61 kg [place] Body Weight (lbs) 130.0 BMI 23.1 Subjective/Other Information Pt and pt relative in room at time of visit. Pt asleep at time of visit. Pt relative stated that pt eats bites of his meals. Also stated that pt sometimes drinks half the Ensure Enlive and sometimes all. No food preferences voiced on behalf of pt. Burn Absent Trauma Absent #1 Nutrition Diagnosis Inadequate oral intake Diagnosis Progress(for reassessment Continues documentation) Nutrition Intervention Change Diet Order: Continue current Add Supplement/Snack (indicate name/kcal Ensure Enlive TID (vanilla) /protein ) Provides kCal: 1,050 Provides Protein (gm) 60 Goal #1 Meet at least 75% of calorie and protein needs via PO and ONS intakes Goal #2 Wt maintenance Anticipated Discharge Needs: Continue ONS 1-2 times daily if PO intakes remain suboptimal Follow-Up By: 11/06/18 Additional Comments Follow for PO and ONS intakes
[2018-11-06] MEDS: MAXIPIME/NS 2 GM/100 ML 2 GM/100 ML BAG IV SCH ×2 (01:51→14:33)
[2018-11-06] MEDS: APRESOLINE PO SCH ×3 (08:09→22:37)
--- NOTE | 2018-11-06 08:43 | Progress Note ---
Assessment and Plan Cultures: 10/25/2018 Blood Culture: no growth so far 10/30/2018 Synovial Left Knee: no growth 11/02/2018 Synovial Right Knee: no growth Assessment: 78 y/o male with history of HTN; admitted on 10/25/2018 due to a-week history of generalized weakness and a recent fall to the ground injuring his knees:. 1) SIRS: Leukocytosis improved source unclear. ?right knee septic arthritis vs cellulitis after a fall. influenza negative. Blood cultures 10/27/2018 no growth, UA neg, CXR neg, LFTs normal, CT abd showed prior granulomatous disease, low-density nodule right lobe of the liver and lobulated contour of the kidneys, multiple small cortical nodule suspected in the kidneys which are not clearly defined by this exam. XR knee bilateral effusion. -Influenza negative 2) Acute encephalopathy: Improved 3) Right knee cellulitis vs septic arthritis. s/p Right knee -aspirated 20 cc seropurulent fluid, sent for gram stain and analysis. s/p right knee joint washout, Synovial fluid analysis with 14K WBCs, could be reflective of partially treated septic arthritis Synovial right knee cultures show no growth. Follow up on AFB cultures. 4) AMANDA - Resolved Recommendations: - continue vancomycin - continue Cefepime 2 gm q 12 H, while inpatient - f/u right knee arthrocentesis AFB cultures -upon discharge Cipro 500mg, PO BID and Vancomycin 1gm q 24 until 11/30/18 -f/u ID clinic 11/28/18 -Order placed with case management -PICC line ordered . [facility] M: [id number] O:[phone] Subjective Date of service: 11/06/18 Interval history: Patient seen and examined.. Primary language Z[place]ian. Patient asleep, easily arousable, denied pain, stated that his knee was feeling better. No family at bedside. Objective - Exam Narrative Exam: General appearance: Asleep, easily arousable. Primary language [place]ian, No acute distress Eyes: anicteric sclerae, moist conjunctivae; no lid-lag; PERRLA HENT: Atraumatic, old craneal frontal deformity; oropharynx limited Neck: Trachea midline; supple, no thyromegaly or lymphadenopathy Lungs: CTA CV: RRR Abdomen: Soft, non-tender; no masses or hepatosplenomegaly Extremities: s/p +left knee aspirated, no swelling or tenderness- +right knee aspiration/joint washout -swelling, mild tenderness Skin: Normal temperature, turgor and texture; no rash, ulcers or subcutaneous nodules Psych: Mood sleepy Neuro: sleepy Lines: - Constitutional Vitals: Vital Signs Temp Pulse Resp BP Pulse Ox 98.4 F 76 20 149/75 94 11/06/18 02:33 11/06/18 02:33 11/06/18 02:33 11/06/18 02:33 11/06/18 02:33 Temperature -Last 24 Hours Temperature 98.4 F Temperature 97.8 F Temperature 97.7 F - Labs CBC & Chem 7: 11/05/18 06:00 11/05/18 06:00 Labs: Abnormal lab results 11/05/18 Range/Units 06:00 Seg Neuts % (Manual) 87.0 H (40.0-70.0) % Lymphocytes % (Manual) 3.0 L (13.4-35.0) % Seg Neutrophils # Man 16.5 H (1.8-7.7) K/mm3 Lymphocytes # (Manual) 0.6 L (1.2-5.4) K/mm3 Monocytes # (Manual) 1.1 H (0.0-0.8) K/mm3 Eosinophils # (Manual) 0.8 H (0.0-0.4) K/mm3
[2018-11-06] MEDS: SODIUM CHLORIDE FLUSH SYRINGE 10 ML IV SCH ×2 (09:34→22:38)
[2018-11-06] MEDS: PLAVIX PO SCH (09:34)
[2018-11-06] MEDS: CATAPRES PO SCH ×2 (09:34→22:37)
[2018-11-06] MEDS: TOPROL XL PO SCH (09:35)
[2018-11-06] MEDS: ZESTRIL PO SCH (09:35)
[2018-11-06] MEDS: VANCOMYCIN/NS 1 GM/250 ML 1 GM/250 ML BAG IV SCH (09:36)
--- NOTE | 2018-11-06 14:26 | Progress Note ---
Assessment and Plan Assessment and plan: Septic arthritis of the right knee -Patient is on IV vancomycin and cefazolin -ID consulted -Blood cultures negative so far -IR will do right arthrocentesis 78 YO Male with HTN, Nicotine Dependence presents to ED for evaluation. Pt is unable to speak Bulgarian, and provide detailed history. Pt history provided by son and family who is at bedside during exam and interview. As per son, the patient states that he has experienced generalized weakness, and malaise over the past 4 days with persistent symptoms over the same time frame. Pt was walking and subsequently tripped and fell onto his knees. Pt transported to [facility] for further care and evaluation. Pt states that pain has improved at time of exam but he in unable to ambulate due to bilateral knee pain with weight bearing.. Pt seen and evaluated in ED and found to have Sepsis, ARF, and Bilateral knee contusions. Pt admitted to [facility] unit and initiated on sepsis protocol. PT denies fever, chills, CP, Palpitations, NVD, Syncope, BRBPR, Loss of Consciousness, Prolonged travel/immobility, unilateral leg swelling, calf pain, hemoptysis, individual/family history of DVT/PE/Blood Clotting Disorders, or skin rash. Patient will schedule mammogram antibiotic coverage with vancomycin and ID was consulted were waiting for joint aspiration which appears to happen tomorrow as planned. I started the patient on colchicine also in case this appears to be gout which I doubt that this point. But will help with some pain control. Sepsis secondary to septic arthritis of the right knee - Patient is on IV vancomycin and cefepime - WBC is still high - ID input appreciated - Orthopedics was consulted and did arthrocentesis and joint washout - Patient is getting better ARF (acute renal failure) with tubular necrosis Resolved with IV fluids Hypertension Adjust blood pressure medications. Continue PRN Hydralazin Restart ACEI Metabolic Encephalopathy Vs dementia Resolving DVT prophylaxis disposition; subacute after cleared by ID. History Interval history: Patient was seen and evaluated this morning, patient's right knee pain is getting better. Patient has dementia and hearing problems. Hospitalist Physical - Physical exam Narrative exam: Not in cardiopulmonary distress. The patient appeared well nourished and normally developed. Vital signs as documented. Head exam is unremarkable. No scleral icterus . Neck is without jugular venous distension, thyromegaly, or carotid bruits. Lungs are clear to auscultation. Cardiac exam reveals regular rate and Rhythm. Abdominal exam reveals normal bowel sounds, no masses, no organomegaly and no aortic enlargement. Extremities status post arthrocentesis and right knee washout. [employer]ENT[employer]IC: Alert and oriented 3. - Constitutional Vitals: Temp Pulse Resp BP Pulse Ox 98.4 F 79 18 129/60 94 11/06/18 13:43 11/06/18 13:43 11/06/18 13:43 11/06/18 13:43 11/06/18 13:43 General appearance: Present: mild distress Results - Labs CBC & Chem 7: 11/05/18 06:00 11/05/18 06:00 Labs: Laboratory Last Values WBC 19.0 K/mm3 (4.5-11.0) H 11/05/18 06:00 RBC 3.63 M/mm3 (3.65-5.03) L 11/05/18 06:00 Hgb 10.6 gm/dl (11.8-15.2) L 11/05/18 06:00 Hct 32.2 % (35.5-45.6) L 11/05/18 06:00 MCV 89 fl (84-94) 11/05/18 06:00 MCH 29 pg (28-32) 11/05/18 06:00 MCHC 33 % (32-34) 11/05/18 06:00 RDW 14.9 % (13.2-15.2) 11/05/18 06:00 Plt Count 590 K/mm3 (140-440) H 11/05/18 06:00 Add Manual Diff Complete 11/05/18 06:00 Total Counted 100 11/05/18 06:00 Seg Neuts % (Manual) 87.0 % (40.0-70.0) H 11/05/18 06:00 Band Neutrophils % 0 % 11/05/18 06:00 Lymphocytes % (Manual) 3.0 % (13.4-35.0) L 11/05/18 06:00 Reactive Lymphs % (Man) 0 % 11/05/18 06:00 Monocytes % (Manual) 6.0 % (0.0-7.3) 11/05/18 06:00 Eosinophils % (Manual) 4.0 % (0.0-4.3) 11/05/18 06:00 Basophils % (Manual) 0 % (0.0-1.8) 11/05/18 06:00 Metamyelocytes % 0 % 11/05/18 06:00 Myelocytes % 0 % 11/05/18 06:00 Promyelocytes % 0 % 11/05/18 06:00 Blast Cells % 0 % 11/05/18 06:00 Nucleated RBC % Not Reportable 11/05/18 06:00 Seg Neutrophils # Man 16.5 K/mm3 (1.8-7.7) H 11/05/18 06:00 Band Neutrophils # 0.0 K/mm3 11/05/18 06:00 Lymphocytes # (Manual) 0.6 K/mm3 (1.2-5.4) L 11/05/18 06:00 Abs React Lymphs (Man) 0.0 K/mm3 11/05/18 06:00 Monocytes # (Manual) 1.1 K/mm3 (0.0-0.8) H 11/05/18 06:00 Eosinophils # (Manual) 0.8 K/mm3 (0.0-0.4) H 11/05/18 06:00 Basophils # (Manual) 0.0 K/mm3 (0.0-0.1) 11/05/18 06:00 Metamyelocytes # 0.0 K/mm3 11/05/18 06:00 Myelocytes # 0.0 K/mm3 11/05/18 06:00 Promyelocytes # 0.0 K/mm3 11/05/18 06:00 Blast Cells # 0.0 K/mm3 11/05/18 06:00 WBC Morphology Not Reportable 11/05/18 06:00 Hypersegmented Neuts Not Reportable 11/05/18 06:00 Hyposegmented Neuts Not Reportable 11/05/18 06:00 Hypogranular Neuts Not Reportable 11/05/18 06:00 Smudge Cells Not Reportable 11/05/18 06:00 Toxic Granulation Not Reportable 11/05/18 06:00 Toxic Vacuolation Not Reportable 11/05/18 06:00 Dohle Bodies Not Reportable 11/05/18 06:00 Pelger-Huet Anomaly Not Reportable 11/05/18 06:00 Swetha Rods Not Reportable 11/05/18 06:00 Platelet Estimate Consistent w auto 11/05/18 06:00 Clumped Platelets Not Reportable 11/05/18 06:00 Plt Clumps, EDTA Not Reportable 11/05/18 06:00 Large Platelets Not Reportable 11/05/18 06:00 Giant Platelets Not Reportable 11/05/18 06:00 Platelet Satelliting Not Reportable 11/05/18 06:00 Plt Morphology Comment Not Reportable 11/05/18 06:00 RBC Morphology Not Reportable 11/05/18 06:00 Dimorphic RBCs Not Reportable 11/05/18 06:00 Polychromasia Not Reportable 11/05/18 06:00 Hypochromasia Not Reportable 11/05/18 06:00 Poikilocytosis Not Reportable 11/05/18 06:00 Anisocytosis 1+ 11/05/18 06:00 Microcytosis Not Reportable 11/05/18 06:00 Macrocytosis Not Reportable 11/05/18 06:00 Spherocytes Not Reportable 11/05/18 06:00 Pappenheimer Bodies Not Reportable 11/05/18 06:00 Sickle Cells Not Reportable 11/05/18 06:00 Target Cells Not Reportable 11/05/18 06:00 Tear Drop Cells Not Reportable 11/05/18 06:00 Ovalocytes Not Reportable 11/05/18 06:00 Helmet Cells Not Reportable 11/05/18 06:00 [place] Bodies Not Reportable 11/05/18 06:00 [place] Rings Not Reportable 11/05/18 06:00 [place] Cells Not Reportable 11/05/18 06:00 Bite Cells Not Reportable 11/05/18 06:00 Crenated Cell Not Reportable 11/05/18 06:00 Elliptocytes Not Reportable 11/05/18 06:00 Acanthocytes (Spur) Not Reportable 11/05/18 06:00 Rouleaux Not Reportable 11/05/18 06:00 Hemoglobin C Crystals Not Reportable 11/05/18 06:00 Schistocytes Not Reportable 11/05/18 06:00 Malaria parasites Not Reportable 11/05/18 06:00 Catalino Bodies Not Reportable 11/05/18 06:00 Hem Pathologist Commnt No 11/05/18 06:00 Sodium 143 mmol/L (137-145) 11/05/18 06:00 Potassium 3.2 mmol/L (3.6-5.0) L 11/05/18 06:00 Chloride 107.5 mmol/L (98-107) H 11/05/18 06:00 Carbon Dioxide 21 mmol/L (22-30) L 11/05/18 06:00 Anion Gap 18 mmol/L 11/05/18 06:00 BUN 18 mg/dL (9-20) 11/05/18 06:00 Creatinine 1.0 mg/dL (0.8-1.5) 11/05/18 06:00 Estimated GFR > 60 ml/min 11/05/18 06:00 BUN/Creatinine Ratio 18 % 11/05/18 06:00 Glucose 105 mg/dL (75-100) H 11/05/18 06:00 Lactic Acid 1.40 mmol/L (0.7-2.0) 10/26/18 06:05 Calcium 8.2 mg/dL (8.4-10.2) L 11/05/18 06:00 Magnesium 1.90 mg/dL (1.7-2.3) 11/04/18 04:58 Total Bilirubin 0.40 mg/dL (0.1-1.2) 10/25/18 17:12 AST 34 units/L (5-40) 10/25/18 17:12 ALT 24 units/L (7-56) 10/25/18 17:12 Alkaline Phosphatase 101 units/L (35-129) 10/25/18 17:12 C-Reactive Protein 23.00 mg/dL (0.00-1.30) H 10/28/18 20:48 Total Protein 6.8 g/dL (6.3-8.2) 10/25/18 17:12 Albumin 2.9 g/dL (3.9-5) L 10/25/18 17:12 Albumin/Globulin Ratio 0.7 % 10/25/18 17:12 Urine Color Yellow (Yellow) 10/26/18 05:30 Urine Turbidity Clear (Clear) 10/26/18 05:30 Urine pH 5.0 (5.0-7.0) 10/26/18 05:30 Ur Specific [place] 1.013 (1.003-1.030) 10/26/18 05:30 Urine Protein <15 mg/dl mg/dL (Negative) 10/26/18 05:30 Urine Glucose (UA) Neg mg/dL (Negative) 10/26/18 05:30 Urine Ketones Neg mg/dL (Negative) 10/26/18 05:30 Urine Blood Neg (Negative) 10/26/18 05:30 Urine Nitrite Neg (Negative) 10/26/18 05:30 Urine Bilirubin Neg (Negative) 10/26/18 05:30 Urine Urobilinogen < 2.0 mg/dL (<2.0) 10/26/18 05:30 Ur Leukocyte Esterase Neg (Negative) 10/26/18 05:30 Urine WBC (Auto) 2.0 /HPF (0.0-6.0) 10/26/18 05:30 Urine RBC (Auto) 1.0 /HPF (0.0-6.0) 10/26/18 05:30 U Epithel Cells (Auto) 2.0 /HPF (0-13.0) 10/26/18 05:30 Urine Bacteria (Auto) 1+ /HPF (Negative) 10/26/18 05:30 Amorphous Crystals Few 10/26/18 05:30 Hyaline Casts 9 /LPF 10/26/18 05:30 Urine Mucus Few /HPF 10/26/18 05:30 Fluid Type Synovial 11/02/18 10:15 Fluid Color Red 11/02/18 10:15 Fluid Appearance Turbid 11/02/18 10:15 Fluid WBC 36642 /mm3 11/02/18 10:15 Fluid RBC 8580 /mm3 11/02/18 10:15 Fluid Seg Neutrophils 93.0 % 11/02/18 10:15 Fluid Lymphocytes 7.0 % 11/02/18 10:15 Fluid Reactive Lymphs 0 % 11/02/18 10:15 Fluid Monocytes 0 % 11/02/18 10:15 Fluid Eosinophils 0 % 11/02/18 10:15 Fluid Basophils 0 % 11/02/18 10:15 Synovial Crystals Negative (NONE SEEN) 10/29/18 Unknown Vancomycin Trough 14.1 ug/mL (5.0-20.0) 11/02/18 09:19 Influenza A (Rapid) Negative (Negative) 10/29/18 16:42 Influenza B (Rapid) Negative (Negative) 10/29/18 16:42 Nutrition/Malnutrition Assess - Dietary Evaluation Nutrition/Malnutrition Findings: Nutrition Notes Start: 11/01/18 12:03 Freq: Status: Active Protocol: Document 11/03/18 17:01 RM (Rec: 11/03/18 17:07 [id number]) Nutrition Notes Initial or Follow up Reassessment Current Diagnosis Hypertension Other Pertinent Diagnosis (R) knee septic arthritis Current Diet Cardiac Labs/Tests Reviewed Pertinent Medications Reviewed Height 5 ft 4 in Weight 61 kg [place] Body Weight (lbs) 130.0 BMI 23.1 Subjective/Other Information Pt and pt relative in room at time of visit. Pt asleep at time of visit. Pt relative stated that pt eats bites of his meals. Also stated that pt sometimes drinks half the Ensure Enlive and sometimes all. No food preferences voiced on behalf of pt. Burn Absent Trauma Absent #1 Nutrition Diagnosis Inadequate oral intake Diagnosis Progress(for reassessment Continues documentation) Nutrition Intervention Change Diet Order: Continue current Add Supplement/Snack (indicate name/kcal Ensure Enlive TID (vanilla) /protein ) Provides kCal: 1,050 Provides Protein (gm) 60 Goal #1 Meet at least 75% of calorie and protein needs via PO and ONS intakes Goal #2 Wt maintenance Anticipated Discharge Needs: Continue ONS 1-2 times daily if PO intakes remain suboptimal Follow-Up By: 11/06/18 Additional Comments Follow for PO and ONS intakes
[2018-11-07] MEDS: MAXIPIME/NS 2 GM/100 ML 2 GM/100 ML BAG IV SCH ×2 (02:11→14:09)
[2018-11-07 06:20] LABS: Hemoglobin 9.4 gm/dl (11.8-15.2); Mean Corpuscular HGB Conc 33 % (32-34); Mean Corpuscular Volume 90 fl (84-94); Platelet Count 552 K/mm3 (140-440); Red Blood Count 3.23 M/mm3 (3.65-5.03); Red Cell Distribution Width 14.7 % (13.2-15.2)
[2018-11-07 06:48] LABS: BUN/Creatinine Ratio 16; Blood Urea Nitrogen 21 mg/dL (9-20); Calcium 8.1 mg/dL (8.4-10.2); Hemolysis Index 1
[2018-11-07 07:37] LABS: Band Neutrophils # (Manual) 1.8 K/mm3; Basophils % (Manual) 0 % (0.0-1.8); Myelocytes # (Manual) 0.3 K/mm3; Total Cells Counted 100
[2018-11-07 07:38] LABS: Anisocytosis 1+; Ovalocytes 1+; Platelet Estimate Appears Increased
--- NOTE | 2018-11-07 08:25 | Progress Note ---
Assessment and Plan Cultures: 10/25/2018 Blood Culture: no growth so far 10/30/2018 Synovial Left Knee: no growth 11/02/2018 Synovial Right Knee: no growth Assessment: 78 y/o male with history of HTN; admitted on 10/25/2018 due to a-week history of generalized weakness and a recent fall to the ground injuring his knees:. 1) SIRS: Leukocytosis improved source unclear. ?right knee septic arthritis vs cellulitis after a fall. influenza negative. Blood cultures 10/27/2018 no growth, UA neg, CXR neg, LFTs normal, CT abd showed prior granulomatous disease, low-density nodule right lobe of the liver and lobulated contour of the kidneys, multiple small cortical nodule suspected in the kidneys which are not clearly defined by this exam. XR knee bilateral effusion. -Influenza negative 2) Acute encephalopathy: Improved 3) Right knee cellulitis vs septic arthritis. s/p Right knee -aspirated 20 cc seropurulent fluid, sent for gram stain and analysis. s/p right knee joint washout, Synovial fluid analysis with 14K WBCs, could be reflective of partially treated septic arthritis Synovial right knee cultures show no growth. Follow up on AFB cultures. 4) AMANDA - Resolved Recommendations: - continue vancomycin - continue Cefepime 2 gm q 12, while inpatient - f/u right knee arthrocentesis AFB cultures -Ok to discharge to SNF from ID standpoint, OPAT sent to case management [facility] M: [phone] O:[phone] Subjective Date of service: 11/07/18 Interval history: Patient seen and examined.. Primary language Congolese. Patient awake, alert. at bedside. Verbalized that his knee was doing better today. Objective - Exam Narrative Exam: General appearance: Awake, alert. Primary language Congolese, No acute distress Eyes: anicteric sclerae, moist conjunctivae; no lid-lag; PERRLA HENT: Atraumatic, old craneal frontal deformity; oropharynx limited Neck: Trachea midline; supple, no thyromegaly or lymphadenopathy Lungs: CTA CV: RRR Abdomen: Soft, non-tender; no masses or hepatosplenomegaly Extremities: s/p +left knee aspirated, no swelling or tenderness- +right knee aspiration/joint washout -wrapped. Skin: Normal temperature, turgor and texture; no rash, ulcers or subcutaneous nodules Psych: Mood good Neuro: awake, alert Lines: - Constitutional Vitals: Vital Signs Temp Pulse Resp BP Pulse Ox 98.2 F 69 20 137/66 93 11/07/18 02:00 11/07/18 02:00 11/07/18 02:00 11/07/18 02:00 11/07/18 02:00 Temperature -Last 24 Hours Temperature 98.2 F Temperature 98.3 F Temperature 98.4 F - Labs CBC & Chem 7: 11/07/18 05:39 11/07/18 05:39 Labs: Abnormal lab results 11/07/18 11/07/18 Range/Units 05:39 05:39 WBC 16.5 H (4.5-11.0) K/mm3 RBC 3.23 L (3.65-5.03) M/mm3 Hgb 9.4 L (11.8-15.2) gm/dl Hct 29.0 L (35.5-45.6) % Plt Count 552 H (140-440) K/mm3 Monocytes % (Manual) 9.0 H (0.0-7.3) % Seg Neutrophils # Man 10.2 H (1.8-7.7) K/mm3 Monocytes # (Manual) 1.5 H (0.0-0.8) K/mm3 Chloride 110.6 H (98-107) mmol/L Carbon Dioxide 21 L (22-30) mmol/L BUN 21 H (9-20) mg/dL Calcium 8.1 L (8.4-10.2) mg/dL
[2018-11-07] MEDS: APRESOLINE PO SCH ×3 (09:29→20:46)
[2018-11-07] MEDS: TOPROL XL PO SCH (09:29)
[2018-11-07] MEDS: ZESTRIL PO SCH (09:30)
[2018-11-07] MEDS: CATAPRES PO SCH ×2 (09:30→22:05)
[2018-11-07] MEDS: PLAVIX PO SCH (09:31)
[2018-11-07] MEDS: VANCOMYCIN/NS 1 GM/250 ML 1 GM/250 ML BAG IV SCH (09:39)
[2018-11-07] MEDS: SODIUM CHLORIDE FLUSH SYRINGE 10 ML IV SCH ×2 (09:39→22:05)
--- NOTE | 2018-11-07 10:22 | XRay Report ---
AP CHEST: HISTORY: PICC placement A right PICC has been inserted which terminates near the cavoatrial junction. Mild vascular congestion and small pleural effusions are suspected. Heart size is borderline. No pneumothorax. IMPRESSION: Right arm PICC as described.
--- NOTE | 2018-11-07 11:59 | Progress Note ---
Assessment and Plan Assessment and plan: 78 YO Male with HTN, Nicotine Dependence pw gen weakness, , ams, malaise, x4 days. He fell on both his knees at home. -At time of admission, he met sepsis criteria and had bilat knee contusion - he was rx with broad spectrum abx -septic arthritis of R knee was suspected, sp tap, cx neg so far, AFB cx still pending -per ID upon discharge Cipro 500mg, PO BID and Vancomycin 1gm q 24 until 11/30/18 - He received IVF and has improvement in renal function - meds were optimized for chronic conditions -he c/o testicular swelling, obtain US - He had worsening functional status, and debility and therefore was recommended to [facility] facility where he will complete his abx Diagnosis Sepsis secondary to septic arthritis of the right knee ARF (acute renal failure) with tubular necrosis Hypertension Metabolic Encephalopathy Dementia History Interval history: Review of systems Constitutional: No fevers, no malaise, no joint pains CVS: No chest pain, no orthopnea, no dyspnea on exertion, no pedal edema GI: No abdominal pain, no diarrhea, no vomiting, no constipation Respiratory: No shortness of breath, no wheezing, no coughing Hospitalist Physical - Physical exam Narrative exam: General.: appears chronically ill HEENT: Moist mucous membranes, extraocular muscles intact, no lymphadenopathy Neck: supple Cardiac: S1-S2 heard Lungs: clear to auscultation bilaterally Abdomen: soft , nontender, nondistended, bowel sounds positive Extremities: no edema clubbing or cyanosis testicular edema Skin: no rash or lesions Neurologic: confused Psych: calm, and cooperative - Constitutional Vitals: Temp Pulse Resp BP Pulse Ox 97.4 F L 79 18 145/73 95 11/07/18 07:33 11/07/18 09:37 11/07/18 07:33 11/07/18 09:37 11/07/18 09:37 General appearance: Present: mild distress Results - Labs CBC & Chem 7: 11/09/18 09:40 11/09/18 05:38 Labs: Laboratory Last Values WBC 16.5 K/mm3 (4.5-11.0) H 11/07/18 05:39 RBC 3.23 M/mm3 (3.65-5.03) L 11/07/18 05:39 Hgb 9.4 gm/dl (11.8-15.2) L 11/07/18 05:39 Hct 29.0 % (35.5-45.6) L 11/07/18 05:39 MCV 90 fl (84-94) 11/07/18 05:39 MCH 29 pg (28-32) 11/07/18 05:39 MCHC 33 % (32-34) 11/07/18 05:39 RDW 14.7 % (13.2-15.2) 11/07/18 05:39 Plt Count 552 K/mm3 (140-440) H 11/07/18 05:39 Add Manual Diff Complete 11/07/18 05:39 Total Counted 100 11/07/18 05:39 Seg Neuts % (Manual) 62.0 % (40.0-70.0) 11/07/18 05:39 Band Neutrophils % 11.0 % 11/07/18 05:39 Lymphocytes % (Manual) 14.0 % (13.4-35.0) 11/07/18 05:39 Reactive Lymphs % (Man) 0 % 11/07/18 05:39 Monocytes % (Manual) 9.0 % (0.0-7.3) H 11/07/18 05:39 Eosinophils % (Manual) 2.0 % (0.0-4.3) 11/07/18 05:39 Basophils % (Manual) 0 % (0.0-1.8) 11/07/18 05:39 Metamyelocytes % 0 % 11/07/18 05:39 Myelocytes % 2.0 % 11/07/18 05:39 Promyelocytes % 0 % 11/07/18 05:39 Blast Cells % 0 % 11/07/18 05:39 Nucleated RBC % Not Reportable 11/07/18 05:39 Seg Neutrophils # Man 10.2 K/mm3 (1.8-7.7) H 11/07/18 05:39 Band Neutrophils # 1.8 K/mm3 11/07/18 05:39 Lymphocytes # (Manual) 2.3 K/mm3 (1.2-5.4) 11/07/18 05:39 Abs React Lymphs (Man) 0.0 K/mm3 11/07/18 05:39 Monocytes # (Manual) 1.5 K/mm3 (0.0-0.8) H 11/07/18 05:39 Eosinophils # (Manual) 0.3 K/mm3 (0.0-0.4) 11/07/18 05:39 Basophils # (Manual) 0.0 K/mm3 (0.0-0.1) 11/07/18 05:39 Metamyelocytes # 0.0 K/mm3 11/07/18 05:39 Myelocytes # 0.3 K/mm3 11/07/18 05:39 Promyelocytes # 0.0 K/mm3 11/07/18 05:39 Blast Cells # 0.0 K/mm3 11/07/18 05:39 WBC Morphology Not Reportable 11/07/18 05:39 Hypersegmented Neuts Not Reportable 11/07/18 05:39 Hyposegmented Neuts Not Reportable 11/07/18 05:39 Hypogranular Neuts Not Reportable 11/07/18 05:39 Smudge Cells Not Reportable 11/07/18 05:39 Toxic Granulation Not Reportable 11/07/18 05:39 Toxic Vacuolation Not Reportable 11/07/18 05:39 Dohle Bodies Not Reportable 11/07/18 05:39 Pelger-Huet Anomaly Not Reportable 11/07/18 05:39 Swetha Rods Not Reportable 11/07/18 05:39 Platelet Estimate Appears increased 11/07/18 05:39 Clumped Platelets Not Reportable 11/07/18 05:39 Plt Clumps, EDTA Not Reportable 11/07/18 05:39 Large Platelets Not Reportable 11/07/18 05:39 Giant Platelets Not Reportable 11/07/18 05:39 Platelet Satelliting Not Reportable 11/07/18 05:39 Plt Morphology Comment Not Reportable 11/07/18 05:39 RBC Morphology Not Reportable 11/07/18 05:39 Dimorphic RBCs Not Reportable 11/07/18 05:39 Polychromasia Not Reportable 11/07/18 05:39 Hypochromasia Not Reportable 11/07/18 05:39 Poikilocytosis Not Reportable 11/07/18 05:39 Anisocytosis 1+ 11/07/18 05:39 Microcytosis Not Reportable 11/07/18 05:39 Macrocytosis Not Reportable 11/07/18 05:39 Spherocytes Not Reportable 11/07/18 05:39 Pappenheimer Bodies Not Reportable 11/07/18 05:39 Sickle Cells Not Reportable 11/07/18 05:39 Target Cells Not Reportable 11/07/18 05:39 Tear Drop Cells Not Reportable 11/07/18 05:39 Ovalocytes 1+ 11/07/18 05:39 Helmet Cells Not Reportable 11/07/18 05:39 Qui[place] Bodies Not Reportable 11/07/18 05:39 [place] Rings Not Reportable 11/07/18 05:39 [place] Cells Not Reportable 11/07/18 05:39 Bite Cells Not Reportable 11/07/18 05:39 Crenated Cell Not Reportable 11/07/18 05:39 Elliptocytes Not Reportable 11/07/18 05:39 Acanthocytes (Spur) Not Reportable 11/07/18 05:39 Rouleaux Not Reportable 11/07/18 05:39 Hemoglobin C Crystals Not Reportable 11/07/18 05:39 Schistocytes Not Reportable 11/07/18 05:39 Malaria parasites Not Reportable 11/07/18 05:39 Catalino Bodies Not Reportable 11/07/18 05:39 Hem Pathologist Commnt No 11/07/18 05:39 Sodium 145 mmol/L (137-145) 11/07/18 05:39 Potassium 3.9 mmol/L (3.6-5.0) D 11/07/18 05:39 Chloride 110.6 mmol/L (98-107) H 11/07/18 05:39 Carbon Dioxide 21 mmol/L (22-30) L 11/07/18 05:39 Anion Gap 17 mmol/L 11/07/18 05:39 BUN 21 mg/dL (9-20) H 11/07/18 05:39 Creatinine 1.3 mg/dL (0.8-1.5) 11/07/18 05:39 Estimated GFR > 60 ml/min 11/07/18 05:39 BUN/Creatinine Ratio 16 % 11/07/18 05:39 Glucose 98 mg/dL (75-100) 11/07/18 05:39 Lactic Acid 1.40 mmol/L (0.7-2.0) 10/26/18 06:05 Calcium 8.1 mg/dL (8.4-10.2) L 11/07/18 05:39 Magnesium 1.90 mg/dL (1.7-2.3) 11/04/18 04:58 Total Bilirubin 0.40 mg/dL (0.1-1.2) 10/25/18 17:12 AST 34 units/L (5-40) 10/25/18 17:12 ALT 24 units/L (7-56) 10/25/18 17:12 Alkaline Phosphatase 101 units/L (35-129) 10/25/18 17:12 C-Reactive Protein 23.00 mg/dL (0.00-1.30) H 10/28/18 20:48 Total Protein 6.8 g/dL (6.3-8.2) 10/25/18 17:12 Albumin 2.9 g/dL (3.9-5) L 10/25/18 17:12 Albumin/Globulin Ratio 0.7 % 10/25/18 17:12 Urine Color Yellow (Yellow) 10/26/18 05:30 Urine Turbidity Clear (Clear) 10/26/18 05:30 Urine pH 5.0 (5.0-7.0) 10/26/18 05:30 Ur Specific [place] 1.013 (1.003-1.030) 10/26/18 05:30 Urine Protein <15 mg/dl mg/dL (Negative) 10/26/18 05:30 Urine Glucose (UA) Neg mg/dL (Negative) 10/26/18 05:30 Urine Ketones Neg mg/dL (Negative) 10/26/18 05:30 Urine Blood Neg (Negative) 10/26/18 05:30 Urine Nitrite Neg (Negative) 10/26/18 05:30 Urine Bilirubin Neg (Negative) 10/26/18 05:30 Urine Urobilinogen < 2.0 mg/dL (<2.0) 10/26/18 05:30 Ur Leukocyte Esterase Neg (Negative) 10/26/18 05:30 Urine WBC (Auto) 2.0 /HPF (0.0-6.0) 10/26/18 05:30 Urine RBC (Auto) 1.0 /HPF (0.0-6.0) 10/26/18 05:30 U Epithel Cells (Auto) 2.0 /HPF (0-13.0) 10/26/18 05:30 Urine Bacteria (Auto) 1+ /HPF (Negative) 10/26/18 05:30 Amorphous Crystals Few 10/26/18 05:30 Hyaline Casts 9 /LPF 10/26/18 05:30 Urine Mucus Few /HPF 10/26/18 05:30 Fluid Type Synovial 11/02/18 10:15 Fluid Color Red 11/02/18 10:15 Fluid Appearance Turbid 11/02/18 10:15 Fluid WBC 30436 /mm3 11/02/18 10:15 Fluid RBC 8580 /mm3 11/02/18 10:15 Fluid Seg Neutrophils 93.0 % 11/02/18 10:15 Fluid Lymphocytes 7.0 % 11/02/18 10:15 Fluid Reactive Lymphs 0 % 11/02/18 10:15 Fluid Monocytes 0 % 11/02/18 10:15 Fluid Eosinophils 0 % 11/02/18 10:15 Fluid Basophils 0 % 11/02/18 10:15 Synovial Crystals Negative (NONE SEEN) 10/29/18 Unknown Vancomycin Trough 14.1 ug/mL (5.0-20.0) 11/02/18 09:19 Influenza A (Rapid) Negative (Negative) 10/29/18 16:42 Influenza B (Rapid) Negative (Negative) 10/29/18 16:42 Nutrition/Malnutrition Assess - Dietary Evaluation Nutrition/Malnutrition Findings: Nutrition Notes Start: 11/01/18 12:03 Freq: Status: Active Protocol: Document 11/06/18 15:20 RM (Rec: 11/06/18 15:32 RM [id number]) Nutrition Notes Initial or Follow up Reassessment Current Diagnosis Acute Kidney Injury Hypertension Other Pertinent Diagnosis (R) knee septic arthritis, Generalized Edema, SIRS Current Diet Cardiac Labs/Tests Reviewed Pertinent Medications Reviewed Height 5 ft 4 in Weight 61 kg [place] Body Weight (lbs) 130.0 BMI 23.1 Subjective/Other Information Pt asleep at time of visit. Per tech pt eats 25% of his meals and drinks all of the Ensure Enlive. Percent of energy/protein needs met: 100%/100% Burn Absent Trauma Absent #1 Nutrition Diagnosis Inadequate oral intake As Evidenced by Signs and Symptoms pt meeting 100% of calorie and protein needs Diagnosis Progress(for reassessment Resolved documentation) Is patient on ventilator? No Is Patient Ambulatory and/or Out of Bed No REE-(Lewis-St. Jesteve-confined to bed) 1507.764 Calculation Used for Recommendations Lewis-St Jeor Additional Notes Pro needs 1-1.2g/k-73g/ day Fluid needs 1ml/kcal Nutrition Intervention Change Diet Order: Continue current Add Supplement/Snack (indicate name/kcal Ensure Enlive TID (vanilla) /protein ) Provides kCal: 1,050 Provides Protein (gm) 60 Goal #1 Continue to meet at least 75% of calorie and protein needs via PO and ONS intakes Goal #2 Wt maintenance Anticipated Discharge Needs: Cardiac diet Follow-Up By: 11/14/18 Additional Comments Follow for PO and ONS intakes
[2018-11-07] MEDS: TYLENOL PO PRN (22:05)
[2018-11-08] MEDS: MAXIPIME/NS 2 GM/100 ML 2 GM/100 ML BAG IV SCH ×2 (02:23→14:48)
--- NOTE | 2018-11-08 09:00 | Progress Note ---
Assessment and Plan Cultures: 10/25/2018 Blood Culture: no growth so far 10/30/2018 Synovial Left Knee: no growth 11/02/2018 Synovial Right Knee: no growth Assessment: 78 y/o male with history of HTN; admitted on 10/25/2018 due to a-week history of generalized weakness and a recent fall to the ground injuring his knees:. 1) SIRS: Leukocytosis improved source unclear. ?right knee septic arthritis vs cellulitis after a fall. influenza negative. Blood cultures 10/27/2018 no growth, UA neg, CXR neg, LFTs normal, CT abd showed prior granulomatous disease, low-density nodule right lobe of the liver and lobulated contour of the kidneys, multiple small cortical nodule suspected in the kidneys which are not clearly defined by this exam. XR knee bilateral effusion. -Influenza negative 2) Acute encephalopathy: Improved 3) Right knee cellulitis vs septic arthritis. s/p Right knee -aspirated 20 cc seropurulent fluid, sent for gram stain and analysis. s/p right knee joint washout, Synovial fluid analysis with 14K WBCs, could be reflective of partially treated septic arthritis Synovial right knee cultures show no growth. Follow up on AFB cultures. 4) AMANDA - Resolved Recommendations: - continue vancomycin - continue Cefepime 2 gm q 12, while inpatient - f/u right knee arthrocentesis AFB cultures -Ok to discharge to SNF from ID standpoint, OPAT sent to case management [facility] M: [id number] O:[phone] Subjective Date of service: 11/08/18 Interval history: Patient seen and examined.. Primary language Singaporean. Somnolent. at bedside. Nurses notes, lab and reports reviewed. Objective - Exam Narrative Exam: General appearance: Somnolent. Primary language Singaporean, No acute distress observed Eyes: anicteric sclerae, moist conjunctivae; no lid-lag; PERRLA HENT: Atraumatic, old craneal frontal deformity; oropharynx limited Neck: Trachea midline; supple, no thyromegaly or lymphadenopathy Lungs: CTA CV: RRR Abdomen: Soft, non-tender; no masses or hepatosplenomegaly Extremities: s/p +left knee aspirated, no swelling or tenderness- +right knee aspiration/joint washout -wrapped. Skin: Normal temperature, turgor and texture; no rash, ulcers or subcutaneous nodules Psych: somnolent Lines: - Constitutional Vitals: Vital Signs Temp Pulse Resp BP Pulse Ox 97.9 F 67 18 130/60 96 11/08/18 02:35 11/08/18 02:35 11/08/18 02:35 11/08/18 02:35 11/08/18 08:38 Temperature -Last 24 Hours Temperature 97.9 F Temperature 98.4 F Temperature 97.8 F - Labs CBC & Chem 7: 11/07/18 05:39 11/07/18 05:39
--- NOTE | 2018-11-08 09:12 | Progress Note ---
Assessment and Plan Assessment and plan: 78 YO Male with HTN, Nicotine Dependence pw gen weakness, , ams, malaise, x4 days. He fell on both his knees at home. -At time of admission, he met sepsis criteria and had bilat knee contusion - he was rx with broad spectrum abx -septic arthritis of R knee was suspected, sp tap, cx neg so far, AFB cx still pending -per ID upon discharge Cipro 500mg, PO BID and Vancomycin 1gm q 24 until 11/30/18 - He received IVF and has improvement in renal function - meds were optimized for chronic conditions -he c/o testicular swelling, US shows bilat hydrocele, ntd - He had worsening functional status, and debility and therefore was recommended to [facility] facility where he will complete his abx Diagnosis Sepsis secondary to septic arthritis of the right knee ARF (acute renal failure) with tubular necrosis Hypertension Metabolic Encephalopathy Dementia History Interval history: Review of systems Constitutional: No fevers, no malaise, no joint pains CVS: No chest pain, no orthopnea, no dyspnea on exertion, no pedal edema GI: No abdominal pain, no diarrhea, no vomiting, no constipation Respiratory: No shortness of breath, no wheezing, no coughing Hospitalist Physical - Physical exam Narrative exam: General.: appears chronically ill HEENT: Moist mucous membranes, extraocular muscles intact, no lymphadenopathy Neck: supple Cardiac: S1-S2 heard Lungs: clear to auscultation bilaterally Abdomen: soft , nontender, nondistended, bowel sounds positive Extremities: no edema clubbing or cyanosis testicular edema Skin: no rash or lesions Neurologic: confused Psych: calm, and cooperative - Constitutional Vitals: Temp Pulse Resp BP Pulse Ox 97.9 F 67 18 130/60 96 11/08/18 02:35 11/08/18 02:35 11/08/18 02:35 11/08/18 02:35 11/08/18 08:38 General appearance: Present: mild distress Results - Labs CBC & Chem 7: 11/09/18 09:40 11/09/18 05:38 Labs: Laboratory Last Values WBC 16.5 K/mm3 (4.5-11.0) H 11/07/18 05:39 RBC 3.23 M/mm3 (3.65-5.03) L 11/07/18 05:39 Hgb 9.4 gm/dl (11.8-15.2) L 11/07/18 05:39 Hct 29.0 % (35.5-45.6) L 11/07/18 05:39 MCV 90 fl (84-94) 11/07/18 05:39 MCH 29 pg (28-32) 11/07/18 05:39 MCHC 33 % (32-34) 11/07/18 05:39 RDW 14.7 % (13.2-15.2) 11/07/18 05:39 Plt Count 552 K/mm3 (140-440) H 11/07/18 05:39 Add Manual Diff Complete 11/07/18 05:39 Total Counted 100 11/07/18 05:39 Seg Neuts % (Manual) 62.0 % (40.0-70.0) 11/07/18 05:39 Band Neutrophils % 11.0 % 11/07/18 05:39 Lymphocytes % (Manual) 14.0 % (13.4-35.0) 11/07/18 05:39 Reactive Lymphs % (Man) 0 % 11/07/18 05:39 Monocytes % (Manual) 9.0 % (0.0-7.3) H 11/07/18 05:39 Eosinophils % (Manual) 2.0 % (0.0-4.3) 11/07/18 05:39 Basophils % (Manual) 0 % (0.0-1.8) 11/07/18 05:39 Metamyelocytes % 0 % 11/07/18 05:39 Myelocytes % 2.0 % 11/07/18 05:39 Promyelocytes % 0 % 11/07/18 05:39 Blast Cells % 0 % 11/07/18 05:39 Nucleated RBC % Not Reportable 11/07/18 05:39 Seg Neutrophils # Man 10.2 K/mm3 (1.8-7.7) H 11/07/18 05:39 Band Neutrophils # 1.8 K/mm3 11/07/18 05:39 Lymphocytes # (Manual) 2.3 K/mm3 (1.2-5.4) 11/07/18 05:39 Abs React Lymphs (Man) 0.0 K/mm3 11/07/18 05:39 Monocytes # (Manual) 1.5 K/mm3 (0.0-0.8) H 11/07/18 05:39 Eosinophils # (Manual) 0.3 K/mm3 (0.0-0.4) 11/07/18 05:39 Basophils # (Manual) 0.0 K/mm3 (0.0-0.1) 11/07/18 05:39 Metamyelocytes # 0.0 K/mm3 11/07/18 05:39 Myelocytes # 0.3 K/mm3 11/07/18 05:39 Promyelocytes # 0.0 K/mm3 11/07/18 05:39 Blast Cells # 0.0 K/mm3 11/07/18 05:39 WBC Morphology Not Reportable 11/07/18 05:39 Hypersegmented Neuts Not Reportable 11/07/18 05:39 Hyposegmented Neuts Not Reportable 11/07/18 05:39 Hypogranular Neuts Not Reportable 11/07/18 05:39 Smudge Cells Not Reportable 11/07/18 05:39 Toxic Granulation Not Reportable 11/07/18 05:39 Toxic Vacuolation Not Reportable 11/07/18 05:39 Dohle Bodies Not Reportable 11/07/18 05:39 Pelger-Huet Anomaly Not Reportable 11/07/18 05:39 Swetha Rods Not Reportable 11/07/18 05:39 Platelet Estimate Appears increased 11/07/18 05:39 Clumped Platelets Not Reportable 11/07/18 05:39 Plt Clumps, EDTA Not Reportable 11/07/18 05:39 Large Platelets Not Reportable 11/07/18 05:39 Giant Platelets Not Reportable 11/07/18 05:39 Platelet Satelliting Not Reportable 11/07/18 05:39 Plt Morphology Comment Not Reportable 11/07/18 05:39 RBC Morphology Not Reportable 11/07/18 05:39 Dimorphic RBCs Not Reportable 11/07/18 05:39 Polychromasia Not Reportable 11/07/18 05:39 Hypochromasia Not Reportable 11/07/18 05:39 Poikilocytosis Not Reportable 11/07/18 05:39 Anisocytosis 1+ 11/07/18 05:39 Microcytosis Not Reportable 11/07/18 05:39 Macrocytosis Not Reportable 11/07/18 05:39 Spherocytes Not Reportable 11/07/18 05:39 Pappenheimer Bodies Not Reportable 11/07/18 05:39 Sickle Cells Not Reportable 11/07/18 05:39 Target Cells Not Reportable 11/07/18 05:39 Tear Drop Cells Not Reportable 11/07/18 05:39 Ovalocytes 1+ 11/07/18 05:39 Helmet Cells Not Reportable 11/07/18 05:39 [place] Bodies Not Reportable 11/07/18 05:39 [place] Rings Not Reportable 11/07/18 05:39 [place] Cells Not Reportable 11/07/18 05:39 Bite Cells Not Reportable 11/07/18 05:39 Crenated Cell Not Reportable 11/07/18 05:39 Elliptocytes Not Reportable 11/07/18 05:39 Acanthocytes (Spur) Not Reportable 11/07/18 05:39 Rouleaux Not Reportable 11/07/18 05:39 Hemoglobin C Crystals Not Reportable 11/07/18 05:39 Schistocytes Not Reportable 11/07/18 05:39 Malaria parasites Not Reportable 11/07/18 05:39 [place] Bodies Not Reportable 11/07/18 05:39 Hem Pathologist Commnt No 11/07/18 05:39 Sodium 145 mmol/L (137-145) 11/07/18 05:39 Potassium 3.9 mmol/L (3.6-5.0) D 11/07/18 05:39 Chloride 110.6 mmol/L (98-107) H 11/07/18 05:39 Carbon Dioxide 21 mmol/L (22-30) L 11/07/18 05:39 Anion Gap 17 mmol/L 11/07/18 05:39 BUN 21 mg/dL (9-20) H 11/07/18 05:39 Creatinine 1.3 mg/dL (0.8-1.5) 11/07/18 05:39 Estimated GFR > 60 ml/min 11/07/18 05:39 BUN/Creatinine Ratio 16 % 11/07/18 05:39 Glucose 98 mg/dL (75-100) 11/07/18 05:39 Lactic Acid 1.40 mmol/L (0.7-2.0) 10/26/18 06:05 Calcium 8.1 mg/dL (8.4-10.2) L 11/07/18 05:39 Magnesium 1.90 mg/dL (1.7-2.3) 11/04/18 04:58 Total Bilirubin 0.40 mg/dL (0.1-1.2) 10/25/18 17:12 AST 34 units/L (5-40) 10/25/18 17:12 ALT 24 units/L (7-56) 10/25/18 17:12 Alkaline Phosphatase 101 units/L (35-129) 10/25/18 17:12 C-Reactive Protein 23.00 mg/dL (0.00-1.30) H 10/28/18 20:48 Total Protein 6.8 g/dL (6.3-8.2) 10/25/18 17:12 Albumin 2.9 g/dL (3.9-5) L 10/25/18 17:12 Albumin/Globulin Ratio 0.7 % 10/25/18 17:12 Urine Color Yellow (Yellow) 10/26/18 05:30 Urine Turbidity Clear (Clear) 10/26/18 05:30 Urine pH 5.0 (5.0-7.0) 10/26/18 05:30 Ur Specific [place] 1.013 (1.003-1.030) 10/26/18 05:30 Urine Protein <15 mg/dl mg/dL (Negative) 10/26/18 05:30 Urine Glucose (UA) Neg mg/dL (Negative) 10/26/18 05:30 Urine Ketones Neg mg/dL (Negative) 10/26/18 05:30 Urine Blood Neg (Negative) 10/26/18 05:30 Urine Nitrite Neg (Negative) 10/26/18 05:30 Urine Bilirubin Neg (Negative) 10/26/18 05:30 Urine Urobilinogen < 2.0 mg/dL (<2.0) 10/26/18 05:30 Ur Leukocyte Esterase Neg (Negative) 10/26/18 05:30 Urine WBC (Auto) 2.0 /HPF (0.0-6.0) 10/26/18 05:30 Urine RBC (Auto) 1.0 /HPF (0.0-6.0) 10/26/18 05:30 U Epithel Cells (Auto) 2.0 /HPF (0-13.0) 10/26/18 05:30 Urine Bacteria (Auto) 1+ /HPF (Negative) 10/26/18 05:30 Amorphous Crystals Few 10/26/18 05:30 Hyaline Casts 9 /LPF 10/26/18 05:30 Urine Mucus Few /HPF 10/26/18 05:30 Fluid Type Synovial 11/02/18 10:15 Fluid Color Red 11/02/18 10:15 Fluid Appearance Turbid 11/02/18 10:15 Fluid WBC 68255 /mm3 11/02/18 10:15 Fluid RBC 8580 /mm3 11/02/18 10:15 Fluid Seg Neutrophils 93.0 % 11/02/18 10:15 Fluid Lymphocytes 7.0 % 11/02/18 10:15 Fluid Reactive Lymphs 0 % 11/02/18 10:15 Fluid Monocytes 0 % 11/02/18 10:15 Fluid Eosinophils 0 % 11/02/18 10:15 Fluid Basophils 0 % 11/02/18 10:15 Synovial Crystals Negative (NONE SEEN) 10/29/18 Unknown Vancomycin Trough 14.1 ug/mL (5.0-20.0) 11/02/18 09:19 Influenza A (Rapid) Negative (Negative) 10/29/18 16:42 Influenza B (Rapid) Negative (Negative) 10/29/18 16:42 Nutrition/Malnutrition Assess - Dietary Evaluation Nutrition/Malnutrition Findings: Nutrition Notes Start: 11/01/18 12:03 Freq: Status: Active Protocol: Document 11/06/18 15:20 RM (Rec: 11/06/18 15:32 RM [id number]) Nutrition Notes Initial or Follow up Reassessment Current Diagnosis Acute Kidney Injury Hypertension Other Pertinent Diagnosis (R) knee septic arthritis, Generalized Edema, SIRS Current Diet Cardiac Labs/Tests Reviewed Pertinent Medications Reviewed Height 5 ft 4 in Weight 61 kg [place] Body Weight (lbs) 130.0 BMI 23.1 Subjective/Other Information Pt asleep at time of visit. Per tech pt eats 25% of his meals and drinks all of the Ensure Enlive. Percent of energy/protein needs met: 100%/100% Burn Absent Trauma Absent #1 Nutrition Diagnosis Inadequate oral intake As Evidenced by Signs and Symptoms pt meeting 100% of calorie and protein needs Diagnosis Progress(for reassessment Resolved documentation) Is patient on ventilator? No Is Patient Ambulatory and/or Out of Bed No REE-([place]-St. Jeor-confined to bed) 1507.764 Calculation Used for Recommendations [place]-St Jeor Additional Notes Pro needs 1-1.2g/k-73g/ day Fluid needs 1ml/kcal Nutrition Intervention Change Diet Order: Continue current Add Supplement/Snack (indicate name/kcal Ensure Enlive TID (vanilla) /protein ) Provides kCal: 1,050 Provides Protein (gm) 60 Goal #1 Continue to meet at least 75% of calorie and protein needs via PO and ONS intakes Goal #2 Wt maintenance Anticipated Discharge Needs: Cardiac diet Follow-Up By: 11/14/18 Additional Comments Follow for PO and ONS intakes
[2018-11-08] MEDS: VANCOMYCIN/NS 1 GM/250 ML 1 GM/250 ML BAG IV SCH (09:22)
[2018-11-08] MEDS: ZESTRIL PO SCH (09:23)
[2018-11-08] MEDS: CATAPRES PO SCH ×2 (09:23→22:15)
[2018-11-08] MEDS: TOPROL XL PO SCH (09:23)
[2018-11-08] MEDS: APRESOLINE PO SCH ×3 (09:23→20:48)
[2018-11-08] MEDS: PLAVIX PO SCH (09:24)
[2018-11-08] MEDS: SODIUM CHLORIDE FLUSH SYRINGE 10 ML IV SCH ×2 (09:24→22:35)
--- NOTE | 2018-11-08 10:45 | Ultrasound Report ---
ULTRASOUND TESTICULAR DOPPLER COMPLETE History: Swelling and pain. Technique: Trans-scrotal ultrasound with spectral doppler interrogation. Findings: Both testes and epididymides are normal size, contour and echotexture. Bilateral epididymal head cysts measuring up to 5 mm are noted. No mass or pathologic calcifications. Moderate simple appearing hydroceles are identified, left greater than right. No evidence for varicocele. Doppler interrogation depicts symmetric arterial flow to both testes. IMPRESSION: Bilateral hydroceles. Bilateral epididymal head cysts, simple. Unremarkable testes.
--- NOTE | 2018-11-08 16:57 | Consultation ---
History of Present Illness - Reason for Consult Consult date: 11/08/18 - History of Present Illness CC: scrotal swelling 78 YO Male with HTN, Nicotine Dependence presents to ED for evaluation. Pt is unable to speak Slovak, and provide detailed history. Pt history provided by son and family who is at bedside during exam and interview. As per son, the patient states that he has experienced generalized weakness, and malaise over the past 4 days with persistent symptoms over the same time frame. Pt was walking and subsequently tripped and fell onto his knees. Pt transported to [facility] for further care and evaluation. Pt states that pain has improved at time of exam but he in unable to ambulate due to bilateral knee pain with weight bearing.. Pt seen and evaluated in ED and found to have Sepsis, ARF, and Bilateral knee contusions. Pt admitted to [facility] unit and initiated on sepsis protocol. female family & nurse at bedside + adult diaper paraphimosis - reduced mild scrotal swelling - non tender cora: bilat hydrocele A/P paraphimosis - reduced (may need out circ in futrue) hydrocele - no intervention needed will sign off Past History Past Medical History: hypertension Past Surgical History: Other (Hand, Ear surgery) Social history: , smoking Family history: hypertension Medications and Allergies Allergies Allergy/AdvReac Type Severity Reaction Status Date / Time No Known Allergies Allergy Verified 10/25/18 17:04 Home Medications Medication Instructions Recorded Confirmed Last Taken Type Atorvastatin Calcium 40 mg PO DAILY 10/25/18 10/25/18 Unknown History Clopidogrel [Plavix] 75 mg PO QDAY 10/25/18 10/25/18 Unknown History Lisinopril [Zestril] 20 mg PO QDAY 10/25/18 10/25/18 Unknown History Nebivolol HCl [Bystolic] 10 mg PO DAILY 10/25/18 10/25/18 Unknown History Active Meds: Active Medications Acetaminophen (Tylenol) 650 mg PO Q4H PRN PRN Reason: Pain MILD(1-3)/Fever >100.5/PARIKH Last Admin: 11/07/18 22:05 Dose: 650 mg Documented by: Albuterol (Proventil) 2.5 mg IH Q4HRT PRN PRN Reason: Shortness Of Breath Atorvastatin Calcium (Lipitor) 40 mg PO DAILY [facility] Last Admin: 11/08/18 09:24 Dose: 40 mg Documented by: Clonidine HCl (Catapres) 0.2 mg PO Q12HR [facility] Last Admin: 11/08/18 09:23 Dose: 0.2 mg Documented by: Clopidogrel Bisulfate (Plavix) 75 mg PO QDAY [facility] Last Admin: 11/08/18 09:24 Dose: 75 mg Documented by: Hydralazine HCl (Apresoline) 10 mg IV Q4HR PRN PRN Reason: Hypertension Last Admin: 11/05/18 07:57 Dose: 10 mg Documented by: Hydralazine HCl (Apresoline) 100 mg PO TID [facility] Last Admin: 11/08/18 13:52 Dose: 100 mg Documented by: Sodium Chloride (Nacl 0.9% 1000 Ml) 1,000 mls @ 75 mls/hr IV DIRECT [facility] Last Admin: 11/01/18 15:02 Dose: 125 mls/hr Documented by: Cefepime HCl (Maxipime/Ns 2 Gm/100 Ml) 2 gm in 100 mls @ 200 mls/hr IV Q12H SC H; Protocol Last Admin: 11/08/18 14:48 Dose: 200 mls/hr Documented by: Vancomycin HCl 750 mg/ Sodium (Chloride) 265 mls @ 166.667 mls/hr IV Q24H [facility] Lisinopril (Zestril) 20 mg PO QDAY [facility] Last Admin: 11/08/18 09:23 Dose: 20 mg Documented by: Metoprolol Succinate (Toprol Xl) 100 mg PO QDAY [facility] Last Admin: 11/08/18 09:23 Dose: 100 mg Documented by: Ondansetron HCl (Zofran) 4 mg IV Q8H PRN PRN Reason: Nausea And Vomiting Sodium Chloride (Sodium Chloride Flush Syringe 10 Ml) 10 ml IV BID [facility] Last Admin: 11/08/18 09:24 Dose: 10 ml Documented by: Sodium Chloride (Sodium Chloride Flush Syringe 10 Ml) 10 ml IV PRN PRN PRN Reason: LINE FLUSH Sodium Chloride (Sodium Chloride Flush Syringe 10 Ml) 10 ml IV PRN [facility] Last Admin: 11/03/18 13:46 Dose: 10 ml Documented by: Exam - Constitutional Vitals: Temp Pulse Resp BP Pulse Ox 97.5 F L 68 20 129/57 94 11/08/18 13:47 11/08/18 13:47 11/08/18 13:47 11/08/18 13:47 11/08/18 13:47 Results - Labs CBC & Chem 7: 11/07/18 05:39 11/07/18 05:39 Labs: Abnormal lab results 11/08/18 Range/Units 09:11 Vancomycin Trough 23.6 H (5.0-20.0) ug/mL
[2018-11-08] MEDS: PROVENTIL IH PRN (22:38)
[2018-11-09] MEDS: MAXIPIME/NS 2 GM/100 ML 2 GM/100 ML BAG IV SCH (01:04)
[2018-11-09] MEDS: SODIUM CHLORIDE FLUSH SYRINGE 10 ML IV SCH ×4 (01:08→22:03)
[2018-11-09 06:10] LABS: Calcium 8.4 mg/dL (8.4-10.2)
[2018-11-09] MEDS: APRESOLINE PO SCH ×3 (08:21→22:02)
--- NOTE | 2018-11-09 08:34 | Progress Note ---
Assessment and Plan Cultures: 10/25/2018 Blood Culture: no growth so far 10/30/2018 Synovial Left Knee: no growth 11/02/2018 Synovial Right Knee: no growth 11/04/2018 AFB Smear: negative Assessment: 78 y/o male with history of HTN; admitted on 10/25/2018 due to a-week history of generalized weakness and a recent fall to the ground injuring his knees:. 1) SIRS: Leukocytosis improved source unclear. ?right knee septic arthritis vs cellulitis after a fall. influenza negative. Blood cultures 10/27/2018 no growth, UA neg, CXR neg, LFTs normal, CT abd showed prior granulomatous disease, low-density nodule right lobe of the liver and lobulated contour of the kidneys, multiple small cortical nodule suspected in the kidneys which are not clearly defined by this exam. XR knee bilateral effusion. -Influenza negative 2) Acute encephalopathy: Improved 3) Right knee cellulitis vs septic arthritis. s/p Right knee -aspirated 20 cc seropurulent fluid, sent for gram stain and analysis. s/p right knee joint washout, Synovial fluid analysis with 14K WBCs, could be reflective of partially treated septic arthritis Synovial right knee cultures show no growth. Follow up on AFB cultures. 4) AMANDA - Resolved Recommendations: - continue vancomycin while inpatient - Discontinue Cefepime -Start levofloxacin and continue while inpatient -Ok to discharge from ID standpoint -Upon Discharge will do Cipro 500mg, PO BID and Vancomycin 1gm q 24 until 11/30/18. [facility] M: [id number] O:[phone] Subjective Date of service: 11/09/18 Interval history: Patient seen and examined.. Primary language Norwegian. Son a bedside, discussion about OPAT , patient going home instead of SNF. Nurse notes, labs and reports reviewed discussed with family, question answered. Call placed to [facility] case management for further clarification discharge concerns. Objective - Exam Narrative Exam: General appearance: Somnolent. Primary language Norwegian, No acute distress observed Eyes: anicteric sclerae, moist conjunctivae; no lid-lag; PERRLA HENT: Atraumatic, old craneal frontal deformity; oropharynx limited Neck: Trachea midline; supple, no thyromegaly or lymphadenopathy Lungs: CTA CV: RRR Abdomen: Soft, non-tender; no masses or hepatosplenomegaly Extremities: s/p +left knee aspirated, no swelling or tenderness- +right knee aspiration/joint washout -wrapped. Skin: Normal temperature, turgor and texture; no rash, ulcers or subcutaneous nodules Psych: somnolent, confused Lines: - Constitutional Vitals: Vital Signs Temp Pulse Resp BP Pulse Ox 98.7 F 73 18 154/77 96 11/09/18 07:59 11/09/18 07:59 11/09/18 07:59 11/09/18 07:59 11/09/18 07:59 Temperature -Last 24 Hours Temperature 98.7 F Temperature 98.9 F Temperature 98.5 F Temperature 97.5 F - Labs CBC & Chem 7: 11/09/18 09:40 11/09/18 05:38 Labs: Abnormal lab results 11/08/18 11/09/18 Range/Units 09:11 05:38 Potassium 3.5 L (3.6-5.0) mmol/L Chloride 108.8 H (98-107) mmol/L BUN 21 H (9-20) mg/dL Vancomycin Trough 23.6 H (5.0-20.0) ug/mL
[2018-11-09] MEDS: PLAVIX PO SCH (09:33)
[2018-11-09] MEDS: ZESTRIL PO SCH (09:34)
[2018-11-09] MEDS: CATAPRES PO SCH ×2 (09:34→22:03)
[2018-11-09] MEDS: TOPROL XL PO SCH (09:35)
[2018-11-09 10:19] LABS: Hematocrit 29.7 % (35.5-45.6); Hemoglobin 9.9 gm/dl (11.8-15.2); Mean Corpuscular HGB Conc 33 % (32-34); Mean Corpuscular Volume 89 fl (84-94); Platelet Count 486 K/mm3 (140-440); Red Blood Count 3.34 M/mm3 (3.65-5.03); Red Cell Distribution Width 14.6 % (13.2-15.2)
[2018-11-09 11:00] LABS: Basophils % (Manual) 0 % (0.0-1.8); Myelocytes # (Manual) 0.2 K/mm3; Total Cells Counted 100
[2018-11-09 11:02] LABS: Anisocytosis 1+; Ovalocytes 1+; Platelet Estimate Consistent w Auto; Poikilocytosis 1+
--- NOTE | 2018-11-09 11:17 | Discharge Summary ---
Providers - Providers Date of Admission: 10/25/18 16:54 Attending physician: CARI FERGUSON MD 10/26/18 09:40 Consult to Physician [CONS] Routine Comment: called office/austen Consulting Provider: CLEMENTINE ALEXANDER Physician Instructions: Reason For Exam: septic knee vs arthirits induced effuison 10/27/18 10:06 Physical Therapy Evaluation and Treat [CONS] Routine Comment: Reason For Exam: Debility/Falls 10/27/18 15:49 Consult to Physician [CONS] Routine Comment: Consulting Provider: SHORTY GASPAR Physician Instructions: Reason For Exam: presumed septic knee 10/29/18 10:41 Consult to Interventional Radiology [CONS] Routine Consulting Provider: CANDY MERCEDES Reason For Exam: right knee joint aspiration Place consult to:: Notified:: Phone number called:: [phone] Was contact made?: Yes If yes, spoke with:: WILL SEE PATIENT IN THE MORNING Time called:: 16:59 Comment:: [place] 11/06/18 11:34 Consult to Case Management [CONS] Stat Services Needed at Discharge: Other Notified:: yes Additional Physician Instructions: [facility] M [phone] O [phone] F [phone] OUTPATIENT PARENTERAL ANTIBIOTIC THERAPY ORDERS Diagnoses: Right Knee Septic Arthritis Antimicrobial administration: upon discharge Ciprofloxacin 500mg, PO BID and Vancomycin 1gm q 24 until 11/30/18 -f/u ID clinic 11/28/18 -Order placed with case management Remove PICC line after last dose unless otherwise instructed. Lines: PICC Lab monitoring: CBC, BUN, Creatinine, ALT, AST, CRP, ESR , vancomycin trough once a week preferly on Tuesday morning. Please fax results to [phone] and call [phone] for critical lab results. Lula Purdy NP/kavita Gaspar Date: 11/06/18 11/08/18 07:51 Consult to Physician [CONS] Routine Comment: called office spoke to tia/austen Consulting Provider: SULLY CARRASCO Physician Instructions: Reason For Exam: testicular and penile swelling Primary care physician: AMBULANCE OFFICER Hospitalization Condition: Serious Disposition: DC-30 STILL A PATIENT Exam - Constitutional Vitals: Temp Pulse Resp BP Pulse Ox 98.7 F 73 18 141/73 96 11/09/18 07:59 11/09/18 10:00 11/09/18 10:00 11/09/18 09:35 11/09/18 10:00 Plan Follow up with: SHORTY GASPAR MD [Staff Physician] - 7 Days PRIMARY CARE, [Primary Care Provider] - 2-3 Days CLEMENTINE ALEXANDER MD [Staff Physician] - 2-3 Days Prescriptions: Ciprofloxacin HCl [Cipro] 500 mg PO BID 21 Days tablet cloNIDine [Catapres] 0.2 mg PO Q12HR #60 tablet hydrALAZINE [Apresoline TAB] 100 mg PO TID #90 tab Lisinopril [Zestril TAB] 20 mg PO QDAY #30 tablet Metoprolol Xl [Metoprolol SUCCINATE ER TAB] 100 mg PO QDAY #30 tablet
[2018-11-09] MEDS: TYLENOL PO PRN (11:40)
[2018-11-09] MEDS: LEVAQUIN PO SCH (13:21)
--- NOTE | 2018-11-09 16:50 | Progress Note ---
Assessment and Plan Assessment and plan: 78 YO Male with HTN, Nicotine Dependence pw gen weakness, , ams, malaise, x4 days. He fell on both his knees at home. -At time of admission, he met sepsis criteria and had bilat knee contusion - he was rx with broad spectrum abx -septic arthritis of R knee was suspected, sp tap, cx neg so far, AFB cx still pending -per ID upon discharge Cipro 500mg, PO BID and Vancomycin 1gm q 24 until 11/30/18 - He received IVF and has improvement in renal function - meds were optimized for chronic conditions -he c/o testicular swelling, US shows bilat hydrocele, ntd - He had worsening functional status, and debility and therefore was recommended to [facility] facility where he will complete his abx Diagnosis Sepsis secondary to septic arthritis of the right knee ARF (acute renal failure) with tubular necrosis Hypertension Metabolic Encephalopathy Dementia History Interval history: Review of systems Constitutional: No fevers, no malaise, no joint pains CVS: No chest pain, no orthopnea, no dyspnea on exertion, no pedal edema GI: No abdominal pain, no diarrhea, no vomiting, no constipation Respiratory: No shortness of breath, no wheezing, no coughing Hospitalist Physical - Physical exam Narrative exam: General.: appears chronically ill HEENT: Moist mucous membranes, extraocular muscles intact, no lymphadenopathy Neck: supple Cardiac: S1-S2 heard Lungs: clear to auscultation bilaterally Abdomen: soft , nontender, nondistended, bowel sounds positive Extremities: no edema clubbing or cyanosis testicular edema Skin: no rash or lesions Neurologic: confused Psych: calm, and cooperative - Constitutional Vitals: Temp Pulse Resp BP Pulse Ox 98.3 F 80 18 130/67 95 11/09/18 13:20 11/09/18 13:20 11/09/18 13:20 11/09/18 13:20 11/09/18 13:20 General appearance: Present: mild distress Results - Labs CBC & Chem 7: 11/09/18 09:40 11/09/18 05:38 Labs: Laboratory Last Values WBC 17.4 K/mm3 (4.5-11.0) H 11/09/18 09:40 RBC 3.34 M/mm3 (3.65-5.03) L 11/09/18 09:40 Hgb 9.9 gm/dl (11.8-15.2) L 11/09/18 09:40 Hct 29.7 % (35.5-45.6) L 11/09/18 09:40 MCV 89 fl (84-94) 11/09/18 09:40 MCH 30 pg (28-32) 11/09/18 09:40 MCHC 33 % (32-34) 11/09/18 09:40 RDW 14.6 % (13.2-15.2) 11/09/18 09:40 Plt Count 486 K/mm3 (140-440) H 11/09/18 09:40 Add Manual Diff Complete 11/09/18 09:40 Total Counted 100 11/09/18 09:40 Seg Neuts % (Manual) 86.0 % (40.0-70.0) H 11/09/18 09:40 Band Neutrophils % 0 % 11/09/18 09:40 Lymphocytes % (Manual) 6.0 % (13.4-35.0) L 11/09/18 09:40 Reactive Lymphs % (Man) 0 % 11/09/18 09:40 Monocytes % (Manual) 3.0 % (0.0-7.3) 11/09/18 09:40 Eosinophils % (Manual) 4.0 % (0.0-4.3) 11/09/18 09:40 Basophils % (Manual) 0 % (0.0-1.8) 11/09/18 09:40 Metamyelocytes % 0 % 11/09/18 09:40 Myelocytes % 1.0 % 11/09/18 09:40 Promyelocytes % 0 % 11/09/18 09:40 Blast Cells % 0 % 11/09/18 09:40 Nucleated RBC % Not Reportable 11/09/18 09:40 Seg Neutrophils # Man 15.0 K/mm3 (1.8-7.7) H 11/09/18 09:40 Band Neutrophils # 0.0 K/mm3 11/09/18 09:40 Lymphocytes # (Manual) 1.0 K/mm3 (1.2-5.4) L 11/09/18 09:40 Abs React Lymphs (Man) 0.0 K/mm3 11/09/18 09:40 Monocytes # (Manual) 0.5 K/mm3 (0.0-0.8) 11/09/18 09:40 Eosinophils # (Manual) 0.7 K/mm3 (0.0-0.4) H 11/09/18 09:40 Basophils # (Manual) 0.0 K/mm3 (0.0-0.1) 11/09/18 09:40 Metamyelocytes # 0.0 K/mm3 11/09/18 09:40 Myelocytes # 0.2 K/mm3 11/09/18 09:40 Promyelocytes # 0.0 K/mm3 11/09/18 09:40 Blast Cells # 0.0 K/mm3 11/09/18 09:40 WBC Morphology Not Reportable 11/09/18 09:40 Hypersegmented Neuts Not Reportable 11/09/18 09:40 Hyposegmented Neuts Not Reportable 11/09/18 09:40 Hypogranular Neuts Not Reportable 11/09/18 09:40 Smudge Cells Not Reportable 11/09/18 09:40 Toxic Granulation Not Reportable 11/09/18 09:40 Toxic Vacuolation Not Reportable 11/09/18 09:40 Dohle Bodies Not Reportable 11/09/18 09:40 Pelger-Huet Anomaly Not Reportable 11/09/18 09:40 Swetha Rods Not Reportable 11/09/18 09:40 Platelet Estimate Consistent w auto 11/09/18 09:40 Clumped Platelets Not Reportable 11/09/18 09:40 Plt Clumps, EDTA Not Reportable 11/09/18 09:40 Large Platelets Not Reportable 11/09/18 09:40 Giant Platelets Not Reportable 11/09/18 09:40 Platelet Satelliting Not Reportable 11/09/18 09:40 Plt Morphology Comment Not Reportable 11/09/18 09:40 RBC Morphology Not Reportable 11/09/18 09:40 Dimorphic RBCs Not Reportable 11/09/18 09:40 Polychromasia Not Reportable 11/09/18 09:40 Hypochromasia Not Reportable 11/09/18 09:40 Poikilocytosis 1+ 11/09/18 09:40 Anisocytosis 1+ 11/09/18 09:40 Microcytosis Not Reportable 11/09/18 09:40 Macrocytosis Not Reportable 11/09/18 09:40 Spherocytes Not Reportable 11/09/18 09:40 Pappenheimer Bodies Not Reportable 11/09/18 09:40 Sickle Cells Not Reportable 11/09/18 09:40 Target Cells Not Reportable 11/09/18 09:40 Tear Drop Cells Not Reportable 11/09/18 09:40 Ovalocytes 1+ 11/09/18 09:40 Helmet Cells Not Reportable 11/09/18 09:40 [place] Bodies Not Reportable 11/09/18 09:40 [place] Rings Not Reportable 11/09/18 09:40 [place] Cells Not Reportable 11/09/18 09:40 Bite Cells Not Reportable 11/09/18 09:40 Crenated Cell Not Reportable 11/09/18 09:40 Elliptocytes Not Reportable 11/09/18 09:40 Acanthocytes (Spur) Not Reportable 11/09/18 09:40 Rouleaux Not Reportable 11/09/18 09:40 Hemoglobin C Crystals Not Reportable 11/09/18 09:40 Schistocytes Not Reportable 11/09/18 09:40 Malaria parasites Not Reportable 11/09/18 09:40 [place] Bodies Not Reportable 11/09/18 09:40 Hem Pathologist Commnt No 11/09/18 09:40 Sodium 144 mmol/L (137-145) 11/09/18 05:38 Potassium 3.5 mmol/L (3.6-5.0) L 11/09/18 05:38 Chloride 108.8 mmol/L (98-107) H 11/09/18 05:38 Carbon Dioxide 23 mmol/L (22-30) 11/09/18 05:38 Anion Gap 16 mmol/L 11/09/18 05:38 BUN 21 mg/dL (9-20) H 11/09/18 05:38 Creatinine 1.4 mg/dL (0.8-1.5) 11/09/18 05:38 Estimated GFR 60 ml/min 11/09/18 05:38 BUN/Creatinine Ratio 15 % 11/09/18 05:38 Glucose 93 mg/dL (75-100) 11/09/18 05:38 Lactic Acid 1.40 mmol/L (0.7-2.0) 10/26/18 06:05 Calcium 8.4 mg/dL (8.4-10.2) 11/09/18 05:38 Magnesium 1.90 mg/dL (1.7-2.3) 11/04/18 04:58 Total Bilirubin 0.40 mg/dL (0.1-1.2) 10/25/18 17:12 AST 34 units/L (5-40) 10/25/18 17:12 ALT 24 units/L (7-56) 10/25/18 17:12 Alkaline Phosphatase 101 units/L (35-129) 10/25/18 17:12 C-Reactive Protein 23.00 mg/dL (0.00-1.30) H 10/28/18 20:48 Total Protein 6.8 g/dL (6.3-8.2) 10/25/18 17:12 Albumin 2.9 g/dL (3.9-5) L 10/25/18 17:12 Albumin/Globulin Ratio 0.7 % 10/25/18 17:12 Urine Color Yellow (Yellow) 10/26/18 05:30 Urine Turbidity Clear (Clear) 10/26/18 05:30 Urine pH 5.0 (5.0-7.0) 10/26/18 05:30 Ur Specific [place] 1.013 (1.003-1.030) 10/26/18 05:30 Urine Protein <15 mg/dl mg/dL (Negative) 10/26/18 05:30 Urine Glucose (UA) Neg mg/dL (Negative) 10/26/18 05:30 Urine Ketones Neg mg/dL (Negative) 10/26/18 05:30 Urine Blood Neg (Negative) 10/26/18 05:30 Urine Nitrite Neg (Negative) 10/26/18 05:30 Urine Bilirubin Neg (Negative) 10/26/18 05:30 Urine Urobilinogen < 2.0 mg/dL (<2.0) 10/26/18 05:30 Ur Leukocyte Esterase Neg (Negative) 10/26/18 05:30 Urine WBC (Auto) 2.0 /HPF (0.0-6.0) 10/26/18 05:30 Urine RBC (Auto) 1.0 /HPF (0.0-6.0) 10/26/18 05:30 U Epithel Cells (Auto) 2.0 /HPF (0-13.0) 10/26/18 05:30 Urine Bacteria (Auto) 1+ /HPF (Negative) 10/26/18 05:30 Amorphous Crystals Few 10/26/18 05:30 Hyaline Casts 9 /LPF 10/26/18 05:30 Urine Mucus Few /HPF 10/26/18 05:30 Fluid Type Synovial 11/02/18 10:15 Fluid Color Red 11/02/18 10:15 Fluid Appearance Turbid 11/02/18 10:15 Fluid WBC 94114 /mm3 11/02/18 10:15 Fluid RBC 8580 /mm3 11/02/18 10:15 Fluid Seg Neutrophils 93.0 % 11/02/18 10:15 Fluid Lymphocytes 7.0 % 11/02/18 10:15 Fluid Reactive Lymphs 0 % 11/02/18 10:15 Fluid Monocytes 0 % 11/02/18 10:15 Fluid Eosinophils 0 % 11/02/18 10:15 Fluid Basophils 0 % 11/02/18 10:15 Synovial Crystals Negative (NONE SEEN) 10/29/18 Unknown Vancomycin Trough 23.6 ug/mL (5.0-20.0) H 11/08/18 09:11 Influenza A (Rapid) Negative (Negative) 10/29/18 16:42 Influenza B (Rapid) Negative (Negative) 10/29/18 16:42 Nutrition/Malnutrition Assess - Dietary Evaluation Nutrition/Malnutrition Findings: Nutrition Notes Start: 11/01/18 12:03 Freq: Status: Active Protocol: Document 11/06/18 15:20 RM (Rec: 11/06/18 15:32 RM [id number]) Nutrition Notes Initial or Follow up Reassessment Current Diagnosis Acute Kidney Injury Hypertension Other Pertinent Diagnosis (R) knee septic arthritis, Generalized Edema, SIRS Current Diet Cardiac Labs/Tests Reviewed Pertinent Medications Reviewed Height 5 ft 4 in Weight 61 kg [place] Body Weight (lbs) 130.0 BMI 23.1 Subjective/Other Information Pt asleep at time of visit. Per tech pt eats 25% of his meals and drinks all of the Ensure Enlive. Percent of energy/protein needs met: 100%/100% Burn Absent Trauma Absent #1 Nutrition Diagnosis Inadequate oral intake As Evidenced by Signs and Symptoms pt meeting 100% of calorie and protein needs Diagnosis Progress(for reassessment Resolved documentation) Is patient on ventilator? No Is Patient Ambulatory and/or Out of Bed No REE-([place]-confined to bed) 1507.764 Calculation Used for Recommendations [place] Additional Notes Pro needs 1-1.2g/k-73g/ day Fluid needs 1ml/kcal Nutrition Intervention Change Diet Order: Continue current Add Supplement/Snack (indicate name/kcal Ensure Enlive TID (vanilla) /protein ) Provides kCal: 1,050 Provides Protein (gm) 60 Goal #1 Continue to meet at least 75% of calorie and protein needs via PO and ONS intakes Goal #2 Wt maintenance Anticipated Discharge Needs: Cardiac diet Follow-Up By: 11/14/18 Additional Comments Follow for PO and ONS intakes
[2018-11-09] MEDS: VANCOMYCIN 750 MG in NACL 0.9% 250ML 250 ML IV SCH (17:18)
[2018-11-10] MEDS: ZESTRIL PO SCH (09:36)
[2018-11-10] MEDS: TOPROL XL PO SCH (09:36)
[2018-11-10] MEDS: LEVAQUIN PO SCH (09:36)
[2018-11-10] MEDS: CATAPRES PO SCH ×2 (09:36→21:25)
[2018-11-10] MEDS: PLAVIX PO SCH (09:36)
[2018-11-10] MEDS: APRESOLINE PO SCH ×3 (09:36→20:30)
[2018-11-10] MEDS: SODIUM CHLORIDE FLUSH SYRINGE 10 ML IV SCH ×2 (09:37→23:44)
--- NOTE | 2018-11-10 13:47 | Progress Note ---
Assessment and Plan Cultures: 10/25/2018 Blood Culture: no growth so far 10/30/2018 Synovial Left Knee: no growth 11/02/2018 Synovial Right Knee: no growth 11/04/2018 AFB Smear: negative Assessment: 78 y/o male with history of HTN; admitted on 10/25/2018 due to a-week history of generalized weakness and a recent fall to the ground injuring his knees:. 1) SIRS: Leukocytosis improved source unclear. ?right knee septic arthritis vs cellulitis after a fall. influenza negative. Blood cultures 10/27/2018 no growth, UA neg, CXR neg, LFTs normal, CT abd showed prior granulomatous disease, low-density nodule right lobe of the liver and lobulated contour of the kidneys, multiple small cortical nodule suspected in the kidneys which are not clearly defined by this exam. XR knee bilateral effusion. -Influenza negative 2) Acute encephalopathy: resolved. 3) Right knee cellulitis vs septic arthritis. s/p Right knee -aspirated 20 cc seropurulent fluid, sent for gram stain and analysis. s/p right knee joint washout, Synovial fluid analysis with 14K WBCs, could be reflective of partially treated septic arthritis Synovial right knee cultures show no growth. Follow up on AFB cultures. 4) AMANDA - Resolved Recommendations: -continue vancomycin while inpatient -continue levofloxacin and continue while inpatient -Upon Discharge will do Cipro 500mg PO BID and Vancomycin 1gm q 24 until 11/30/18. Patien to be d/c to [facility] facility Will sign off call us for questions Rosita Couch MD Infectious Diseases [employer] [facility] M [phone] O [phone] Subjective Date of service: 11/10/18 Principal diagnosis: SIRS Interval history: Patient is alert, answering questions, no fever, family at bedside. No pain. Objective - Exam Narrative Exam: General appearance: alert in NAD, onversant Eyes: anicteric sclerae, moist conjunctivae; no lid-lag; PERRLA HENT: Atraumatic, old craneal frontal deformity; oropharynx limited Neck: Trachea midline; supple, no thyromegaly or lymphadenopathy Lungs: CTA CV: RRR Abdomen: Soft, non-tender; no masses or hepatosplenomegaly Extremities: +right knee with surg dressings Skin: Normal temperature, turgor and texture; no rash, ulcers or subcutaneous nodules Psych: alert pleasant Neuro: alert oriented moving all extremities Lines: - Constitutional Vitals: Vital Signs Temp Pulse Resp BP Pulse Ox 97.7 F 76 18 174/74 93 11/10/18 07:56 11/10/18 07:56 11/10/18 07:56 11/10/18 07:56 11/10/18 07:56 Temperature -Last 24 Hours Temperature 97.7 F Temperature 98.6 F - Labs CBC & Chem 7: 11/09/18 09:40 11/09/18 05:38
[2018-11-10] MEDS: VANCOMYCIN 750 MG in NACL 0.9% 250ML 250 ML IV SCH (17:26)
[2018-11-11] MEDS: CATAPRES PO SCH ×2 (10:13→22:06)
[2018-11-11] MEDS: TOPROL XL PO SCH (10:13)
[2018-11-11] MEDS: LEVAQUIN PO SCH (10:13)
[2018-11-11] MEDS: APRESOLINE PO SCH ×3 (10:13→20:38)
[2018-11-11] MEDS: ZESTRIL PO SCH (10:13)
[2018-11-11] MEDS: SODIUM CHLORIDE FLUSH SYRINGE 10 ML IV SCH ×2 (10:14→22:07)
[2018-11-11] MEDS: PLAVIX PO SCH (10:14)
--- NOTE | 2018-11-11 12:55 | Progress Note ---
Assessment and Plan Assessment and plan: 78 YO Male with HTN, Nicotine Dependence pw gen weakness, , ams, malaise, x4 days. He fell on both his knees at home. -At time of admission, he met sepsis criteria and had bilat knee contusion - he was rx with broad spectrum abx -septic arthritis of R knee was suspected, sp tap, cx neg so far, AFB cx still pending -per ID upon discharge Cipro 500mg, PO BID and Vancomycin 1gm q 24 until 11/30/18 - He received IVF and has improvement in renal function - meds were optimized for chronic conditions -he c/o testicular swelling, US shows bilat hydrocele, ntd - He had worsening functional status, and debility and therefore was recommended to [facility] facility where he will complete his abx Diagnosis Sepsis secondary to septic arthritis of the right knee ARF (acute renal failure) with tubular necrosis Hypertension Metabolic Encephalopathy Dementia History Interval history: Review of systems Constitutional: No fevers, no malaise, no joint pains CVS: No chest pain, no orthopnea, no dyspnea on exertion, no pedal edema GI: No abdominal pain, no diarrhea, no vomiting, no constipation Respiratory: No shortness of breath, no wheezing, no coughing Hospitalist Physical - Physical exam Narrative exam: General.: appears chronically ill HEENT: Moist mucous membranes, extraocular muscles intact, no lymphadenopathy Neck: supple Cardiac: S1-S2 heard Lungs: clear to auscultation bilaterally Abdomen: soft , nontender, nondistended, bowel sounds positive Extremities: no edema clubbing or cyanosis testicular edema Skin: no rash or lesions Neurologic: confused, gen weakness Psych: calm, and cooperative - Constitutional Vitals: Temp Pulse Resp BP Pulse Ox 98.0 F 70 18 151/67 94 11/11/18 07:43 11/11/18 07:43 11/11/18 07:43 11/11/18 07:43 11/11/18 07:43 General appearance: Present: mild distress Results - Labs CBC & Chem 7: 11/09/18 09:40 11/09/18 05:38 Labs: Laboratory Last Values WBC 17.4 K/mm3 (4.5-11.0) H 11/09/18 09:40 RBC 3.34 M/mm3 (3.65-5.03) L 11/09/18 09:40 Hgb 9.9 gm/dl (11.8-15.2) L 11/09/18 09:40 Hct 29.7 % (35.5-45.6) L 11/09/18 09:40 MCV 89 fl (84-94) 11/09/18 09:40 MCH 30 pg (28-32) 11/09/18 09:40 MCHC 33 % (32-34) 11/09/18 09:40 RDW 14.6 % (13.2-15.2) 11/09/18 09:40 Plt Count 486 K/mm3 (140-440) H 11/09/18 09:40 Add Manual Diff Complete 11/09/18 09:40 Total Counted 100 11/09/18 09:40 Seg Neuts % (Manual) 86.0 % (40.0-70.0) H 11/09/18 09:40 Band Neutrophils % 0 % 11/09/18 09:40 Lymphocytes % (Manual) 6.0 % (13.4-35.0) L 11/09/18 09:40 Reactive Lymphs % (Man) 0 % 11/09/18 09:40 Monocytes % (Manual) 3.0 % (0.0-7.3) 11/09/18 09:40 Eosinophils % (Manual) 4.0 % (0.0-4.3) 11/09/18 09:40 Basophils % (Manual) 0 % (0.0-1.8) 11/09/18 09:40 Metamyelocytes % 0 % 11/09/18 09:40 Myelocytes % 1.0 % 11/09/18 09:40 Promyelocytes % 0 % 11/09/18 09:40 Blast Cells % 0 % 11/09/18 09:40 Nucleated RBC % Not Reportable 11/09/18 09:40 Seg Neutrophils # Man 15.0 K/mm3 (1.8-7.7) H 11/09/18 09:40 Band Neutrophils # 0.0 K/mm3 11/09/18 09:40 Lymphocytes # (Manual) 1.0 K/mm3 (1.2-5.4) L 11/09/18 09:40 Abs React Lymphs (Man) 0.0 K/mm3 11/09/18 09:40 Monocytes # (Manual) 0.5 K/mm3 (0.0-0.8) 11/09/18 09:40 Eosinophils # (Manual) 0.7 K/mm3 (0.0-0.4) H 11/09/18 09:40 Basophils # (Manual) 0.0 K/mm3 (0.0-0.1) 11/09/18 09:40 Metamyelocytes # 0.0 K/mm3 11/09/18 09:40 Myelocytes # 0.2 K/mm3 11/09/18 09:40 Promyelocytes # 0.0 K/mm3 11/09/18 09:40 Blast Cells # 0.0 K/mm3 11/09/18 09:40 WBC Morphology Not Reportable 11/09/18 09:40 Hypersegmented Neuts Not Reportable 11/09/18 09:40 Hyposegmented Neuts Not Reportable 11/09/18 09:40 Hypogranular Neuts Not Reportable 11/09/18 09:40 Smudge Cells Not Reportable 11/09/18 09:40 Toxic Granulation Not Reportable 11/09/18 09:40 Toxic Vacuolation Not Reportable 11/09/18 09:40 Dohle Bodies Not Reportable 11/09/18 09:40 Pelger-Huet Anomaly Not Reportable 11/09/18 09:40 Swetha Rods Not Reportable 11/09/18 09:40 Platelet Estimate Consistent w auto 11/09/18 09:40 Clumped Platelets Not Reportable 11/09/18 09:40 Plt Clumps, EDTA Not Reportable 11/09/18 09:40 Large Platelets Not Reportable 11/09/18 09:40 Giant Platelets Not Reportable 11/09/18 09:40 Platelet Satelliting Not Reportable 11/09/18 09:40 Plt Morphology Comment Not Reportable 11/09/18 09:40 RBC Morphology Not Reportable 11/09/18 09:40 Dimorphic RBCs Not Reportable 11/09/18 09:40 Polychromasia Not Reportable 11/09/18 09:40 Hypochromasia Not Reportable 11/09/18 09:40 Poikilocytosis 1+ 11/09/18 09:40 Anisocytosis 1+ 11/09/18 09:40 Microcytosis Not Reportable 11/09/18 09:40 Macrocytosis Not Reportable 11/09/18 09:40 Spherocytes Not Reportable 11/09/18 09:40 Pappenheimer Bodies Not Reportable 11/09/18 09:40 Sickle Cells Not Reportable 11/09/18 09:40 Target Cells Not Reportable 11/09/18 09:40 Tear Drop Cells Not Reportable 11/09/18 09:40 Ovalocytes 1+ 11/09/18 09:40 Helmet Cells Not Reportable 11/09/18 09:40 [place] Bodies Not Reportable 11/09/18 09:40 [place] Rings Not Reportable 11/09/18 09:40 [place] Cells Not Reportable 11/09/18 09:40 Bite Cells Not Reportable 11/09/18 09:40 Crenated Cell Not Reportable 11/09/18 09:40 Elliptocytes Not Reportable 11/09/18 09:40 Acanthocytes (Spur) Not Reportable 11/09/18 09:40 Rouleaux Not Reportable 11/09/18 09:40 Hemoglobin C Crystals Not Reportable 11/09/18 09:40 Schistocytes Not Reportable 11/09/18 09:40 Malaria parasites Not Reportable 11/09/18 09:40 [place] Bodies Not Reportable 11/09/18 09:40 Hem Pathologist Commnt No 11/09/18 09:40 Sodium 144 mmol/L (137-145) 11/09/18 05:38 Potassium 3.5 mmol/L (3.6-5.0) L 11/09/18 05:38 Chloride 108.8 mmol/L (98-107) H 11/09/18 05:38 Carbon Dioxide 23 mmol/L (22-30) 11/09/18 05:38 Anion Gap 16 mmol/L 11/09/18 05:38 BUN 21 mg/dL (9-20) H 11/09/18 05:38 Creatinine 1.4 mg/dL (0.8-1.5) 11/09/18 05:38 Estimated GFR 60 ml/min 11/09/18 05:38 BUN/Creatinine Ratio 15 % 11/09/18 05:38 Glucose 93 mg/dL (75-100) 11/09/18 05:38 Lactic Acid 1.40 mmol/L (0.7-2.0) 10/26/18 06:05 Calcium 8.4 mg/dL (8.4-10.2) 11/09/18 05:38 Magnesium 1.90 mg/dL (1.7-2.3) 11/04/18 04:58 Total Bilirubin 0.40 mg/dL (0.1-1.2) 10/25/18 17:12 AST 34 units/L (5-40) 10/25/18 17:12 ALT 24 units/L (7-56) 10/25/18 17:12 Alkaline Phosphatase 101 units/L (35-129) 10/25/18 17:12 C-Reactive Protein 23.00 mg/dL (0.00-1.30) H 10/28/18 20:48 Total Protein 6.8 g/dL (6.3-8.2) 10/25/18 17:12 Albumin 2.9 g/dL (3.9-5) L 10/25/18 17:12 Albumin/Globulin Ratio 0.7 % 10/25/18 17:12 Urine Color Yellow (Yellow) 10/26/18 05:30 Urine Turbidity Clear (Clear) 10/26/18 05:30 Urine pH 5.0 (5.0-7.0) 10/26/18 05:30 Ur Specific [place] 1.013 (1.003-1.030) 10/26/18 05:30 Urine Protein <15 mg/dl mg/dL (Negative) 10/26/18 05:30 Urine Glucose (UA) Neg mg/dL (Negative) 10/26/18 05:30 Urine Ketones Neg mg/dL (Negative) 10/26/18 05:30 Urine Blood Neg (Negative) 10/26/18 05:30 Urine Nitrite Neg (Negative) 10/26/18 05:30 Urine Bilirubin Neg (Negative) 10/26/18 05:30 Urine Urobilinogen < 2.0 mg/dL (<2.0) 10/26/18 05:30 Ur Leukocyte Esterase Neg (Negative) 10/26/18 05:30 Urine WBC (Auto) 2.0 /HPF (0.0-6.0) 10/26/18 05:30 Urine RBC (Auto) 1.0 /HPF (0.0-6.0) 10/26/18 05:30 U Epithel Cells (Auto) 2.0 /HPF (0-13.0) 10/26/18 05:30 Urine Bacteria (Auto) 1+ /HPF (Negative) 10/26/18 05:30 Amorphous Crystals Few 10/26/18 05:30 Hyaline Casts 9 /LPF 10/26/18 05:30 Urine Mucus Few /HPF 10/26/18 05:30 Fluid Type Synovial 11/02/18 10:15 Fluid Color Red 11/02/18 10:15 Fluid Appearance Turbid 11/02/18 10:15 Fluid WBC 53444 /mm3 11/02/18 10:15 Fluid RBC 8580 /mm3 11/02/18 10:15 Fluid Seg Neutrophils 93.0 % 11/02/18 10:15 Fluid Lymphocytes 7.0 % 11/02/18 10:15 Fluid Reactive Lymphs 0 % 11/02/18 10:15 Fluid Monocytes 0 % 11/02/18 10:15 Fluid Eosinophils 0 % 11/02/18 10:15 Fluid Basophils 0 % 11/02/18 10:15 Synovial Crystals Negative (NONE SEEN) 10/29/18 Unknown Vancomycin Trough 23.6 ug/mL (5.0-20.0) H 11/08/18 09:11 Influenza A (Rapid) Negative (Negative) 10/29/18 16:42 Influenza B (Rapid) Negative (Negative) 10/29/18 16:42 Nutrition/Malnutrition Assess - Dietary Evaluation Nutrition/Malnutrition Findings: Nutrition Notes Start: 11/01/18 12:03 Freq: Status: Active Protocol: Document 11/06/18 15:20 RM (Rec: 11/06/18 15:32 RM [id number]) Nutrition Notes Initial or Follow up Reassessment Current Diagnosis Acute Kidney Injury Hypertension Other Pertinent Diagnosis (R) knee septic arthritis, Generalized Edema, SIRS Current Diet Cardiac Labs/Tests Reviewed Pertinent Medications Reviewed Height 5 ft 4 in Weight 61 kg [place] Body Weight (kg) 130.0 BMI 23.1 Subjective/Other Information Pt asleep at time of visit. Per tech pt eats 25% of his meals and drinks all of the Ensure Enlive. Percent of energy/protein needs met: 100%/100% Burn Absent Trauma Absent #1 Nutrition Diagnosis Inadequate oral intake As Evidenced by Signs and Symptoms pt meeting 100% of calorie and protein needs Diagnosis Progress(for reassessment Resolved documentation) Is patient on ventilator? No Is Patient Ambulatory and/or Out of Bed No REE-([place]-confined to bed) 1507.764 Calculation Used for Recommendations [place] Additional Notes Pro needs 1-1.2g/k-73g/ day Fluid needs 1ml/kcal Nutrition Intervention Change Diet Order: Continue current Add Supplement/Snack (indicate name/kcal Ensure Enlive TID (vanilla) /protein ) Provides kCal: 1,050 Provides Protein (gm) 60 Goal #1 Continue to meet at least 75% of calorie and protein needs via PO and ONS intakes Goal #2 Wt maintenance Anticipated Discharge Needs: Cardiac diet Follow-Up By: 11/14/18 Additional Comments Follow for PO and ONS intakes
[2018-11-11] MEDS: VANCOMYCIN 750 MG in NACL 0.9% 250ML 250 ML IV SCH (17:26)
[2018-11-12] MEDS: APRESOLINE PO SCH ×3 (07:25→19:53)
[2018-11-12] MEDS: PLAVIX PO SCH (09:13)
[2018-11-12] MEDS: SODIUM CHLORIDE FLUSH SYRINGE 10 ML IV SCH ×2 (09:14→21:38)
[2018-11-12] MEDS: ZESTRIL PO SCH (09:14)
[2018-11-12] MEDS: LEVAQUIN PO SCH (09:14)
[2018-11-12] MEDS: TOPROL XL PO SCH (09:15)
[2018-11-12] MEDS: CATAPRES PO SCH ×2 (09:15→21:37)
--- NOTE | 2018-11-12 11:07 | Progress Note ---
Assessment and Plan Assessment and plan: 78 YO Male with HTN, Nicotine Dependence pw gen weakness, , ams, malaise, x4 days. He fell on both his knees at home. -At time of admission, he met sepsis criteria and had bilat knee contusion - he was rx with broad spectrum abx -septic arthritis of R knee was suspected, sp tap, cx neg so far, AFB cx still pending -per ID upon discharge Cipro 500mg, PO BID and Vancomycin 1gm q 24 until 11/30/18 - He received IVF and has improvement in renal function - meds were optimized for chronic conditions -he c/o testicular swelling, US shows bilat hydrocele, ntd - He had worsening functional status, and debility and therefore was recommended to [facility] facility where he will complete his abx Diagnosis Sepsis secondary to septic arthritis of the right knee ARF (acute renal failure) with tubular necrosis Hypertension Metabolic Encephalopathy Dementia History Interval history: Review of systems Constitutional: No fevers, no malaise, no joint pains CVS: No chest pain, no orthopnea, no dyspnea on exertion, no pedal edema GI: No abdominal pain, no diarrhea, no vomiting, no constipation Respiratory: No shortness of breath, no wheezing, no coughing Hospitalist Physical - Physical exam Narrative exam: General.: appears chronically ill HEENT: Moist mucous membranes, extraocular muscles intact, no lymphadenopathy Neck: supple Cardiac: S1-S2 heard Lungs: clear to auscultation bilaterally Abdomen: soft , nontender, nondistended, bowel sounds positive Extremities: no edema clubbing or cyanosis testicular edema Skin: no rash or lesions Neurologic: confused, gen weakness Psych: calm, and cooperative - Constitutional Vitals: Temp Pulse Resp BP Pulse Ox 97.6 F 91 H 16 128/68 96 11/12/18 07:27 11/12/18 10:00 11/12/18 07:27 11/12/18 09:15 11/12/18 10:00 General appearance: Present: mild distress Results - Labs CBC & Chem 7: 11/09/18 09:40 11/13/18 05:16 Labs: Laboratory Last Values WBC 17.4 K/mm3 (4.5-11.0) H 11/09/18 09:40 RBC 3.34 M/mm3 (3.65-5.03) L 11/09/18 09:40 Hgb 9.9 gm/dl (11.8-15.2) L 11/09/18 09:40 Hct 29.7 % (35.5-45.6) L 11/09/18 09:40 MCV 89 fl (84-94) 11/09/18 09:40 MCH 30 pg (28-32) 11/09/18 09:40 MCHC 33 % (32-34) 11/09/18 09:40 RDW 14.6 % (13.2-15.2) 11/09/18 09:40 Plt Count 486 K/mm3 (140-440) H 11/09/18 09:40 Add Manual Diff Complete 11/09/18 09:40 Total Counted 100 11/09/18 09:40 Seg Neuts % (Manual) 86.0 % (40.0-70.0) H 11/09/18 09:40 Band Neutrophils % 0 % 11/09/18 09:40 Lymphocytes % (Manual) 6.0 % (13.4-35.0) L 11/09/18 09:40 Reactive Lymphs % (Man) 0 % 11/09/18 09:40 Monocytes % (Manual) 3.0 % (0.0-7.3) 11/09/18 09:40 Eosinophils % (Manual) 4.0 % (0.0-4.3) 11/09/18 09:40 Basophils % (Manual) 0 % (0.0-1.8) 11/09/18 09:40 Metamyelocytes % 0 % 11/09/18 09:40 Myelocytes % 1.0 % 11/09/18 09:40 Promyelocytes % 0 % 11/09/18 09:40 Blast Cells % 0 % 11/09/18 09:40 Nucleated RBC % Not Reportable 11/09/18 09:40 Seg Neutrophils # Man 15.0 K/mm3 (1.8-7.7) H 11/09/18 09:40 Band Neutrophils # 0.0 K/mm3 11/09/18 09:40 Lymphocytes # (Manual) 1.0 K/mm3 (1.2-5.4) L 11/09/18 09:40 Abs React Lymphs (Man) 0.0 K/mm3 11/09/18 09:40 Monocytes # (Manual) 0.5 K/mm3 (0.0-0.8) 11/09/18 09:40 Eosinophils # (Manual) 0.7 K/mm3 (0.0-0.4) H 11/09/18 09:40 Basophils # (Manual) 0.0 K/mm3 (0.0-0.1) 11/09/18 09:40 Metamyelocytes # 0.0 K/mm3 11/09/18 09:40 Myelocytes # 0.2 K/mm3 11/09/18 09:40 Promyelocytes # 0.0 K/mm3 11/09/18 09:40 Blast Cells # 0.0 K/mm3 11/09/18 09:40 WBC Morphology Not Reportable 11/09/18 09:40 Hypersegmented Neuts Not Reportable 11/09/18 09:40 Hyposegmented Neuts Not Reportable 11/09/18 09:40 Hypogranular Neuts Not Reportable 11/09/18 09:40 Smudge Cells Not Reportable 11/09/18 09:40 Toxic Granulation Not Reportable 11/09/18 09:40 Toxic Vacuolation Not Reportable 11/09/18 09:40 Dohle Bodies Not Reportable 11/09/18 09:40 Pelger-Huet Anomaly Not Reportable 11/09/18 09:40 Swetha Rods Not Reportable 11/09/18 09:40 Platelet Estimate Consistent w auto 11/09/18 09:40 Clumped Platelets Not Reportable 11/09/18 09:40 Plt Clumps, EDTA Not Reportable 11/09/18 09:40 Large Platelets Not Reportable 11/09/18 09:40 Giant Platelets Not Reportable 11/09/18 09:40 Platelet Satelliting Not Reportable 11/09/18 09:40 Plt Morphology Comment Not Reportable 11/09/18 09:40 RBC Morphology Not Reportable 11/09/18 09:40 Dimorphic RBCs Not Reportable 11/09/18 09:40 Polychromasia Not Reportable 11/09/18 09:40 Hypochromasia Not Reportable 11/09/18 09:40 Poikilocytosis 1+ 11/09/18 09:40 Anisocytosis 1+ 11/09/18 09:40 Microcytosis Not Reportable 11/09/18 09:40 Macrocytosis Not Reportable 11/09/18 09:40 Spherocytes Not Reportable 11/09/18 09:40 Pappenheimer Bodies Not Reportable 11/09/18 09:40 Sickle Cells Not Reportable 11/09/18 09:40 Target Cells Not Reportable 11/09/18 09:40 Tear Drop Cells Not Reportable 11/09/18 09:40 Ovalocytes 1+ 11/09/18 09:40 Helmet Cells Not Reportable 11/09/18 09:40 [place] Bodies Not Reportable 11/09/18 09:40 [place] Rings Not Reportable 11/09/18 09:40 [place] Cells Not Reportable 11/09/18 09:40 Bite Cells Not Reportable 11/09/18 09:40 Crenated Cell Not Reportable 11/09/18 09:40 Elliptocytes Not Reportable 11/09/18 09:40 Acanthocytes (Spur) Not Reportable 11/09/18 09:40 Rouleaux Not Reportable 11/09/18 09:40 Hemoglobin C Crystals Not Reportable 11/09/18 09:40 Schistocytes Not Reportable 11/09/18 09:40 Malaria parasites Not Reportable 11/09/18 09:40 Catalino Bodies Not Reportable 11/09/18 09:40 Hem Pathologist Commnt No 11/09/18 09:40 Sodium 144 mmol/L (137-145) 11/09/18 05:38 Potassium 3.5 mmol/L (3.6-5.0) L 11/09/18 05:38 Chloride 108.8 mmol/L (98-107) H 11/09/18 05:38 Carbon Dioxide 23 mmol/L (22-30) 11/09/18 05:38 Anion Gap 16 mmol/L 11/09/18 05:38 BUN 21 mg/dL (9-20) H 11/09/18 05:38 Creatinine 1.4 mg/dL (0.8-1.5) 11/09/18 05:38 Estimated GFR 60 ml/min 11/09/18 05:38 BUN/Creatinine Ratio 15 % 11/09/18 05:38 Glucose 93 mg/dL (75-100) 11/09/18 05:38 Lactic Acid 1.40 mmol/L (0.7-2.0) 10/26/18 06:05 Calcium 8.4 mg/dL (8.4-10.2) 11/09/18 05:38 Magnesium 1.90 mg/dL (1.7-2.3) 11/04/18 04:58 Total Bilirubin 0.40 mg/dL (0.1-1.2) 10/25/18 17:12 AST 34 units/L (5-40) 10/25/18 17:12 ALT 24 units/L (7-56) 10/25/18 17:12 Alkaline Phosphatase 101 units/L (35-129) 10/25/18 17:12 C-Reactive Protein 23.00 mg/dL (0.00-1.30) H 10/28/18 20:48 Total Protein 6.8 g/dL (6.3-8.2) 10/25/18 17:12 Albumin 2.9 g/dL (3.9-5) L 10/25/18 17:12 Albumin/Globulin Ratio 0.7 % 10/25/18 17:12 Urine Color Yellow (Yellow) 10/26/18 05:30 Urine Turbidity Clear (Clear) 10/26/18 05:30 Urine pH 5.0 (5.0-7.0) 10/26/18 05:30 Ur Specific [place] 1.013 (1.003-1.030) 10/26/18 05:30 Urine Protein <15 mg/dl mg/dL (Negative) 10/26/18 05:30 Urine Glucose (UA) Neg mg/dL (Negative) 10/26/18 05:30 Urine Ketones Neg mg/dL (Negative) 10/26/18 05:30 Urine Blood Neg (Negative) 10/26/18 05:30 Urine Nitrite Neg (Negative) 10/26/18 05:30 Urine Bilirubin Neg (Negative) 10/26/18 05:30 Urine Urobilinogen < 2.0 mg/dL (<2.0) 10/26/18 05:30 Ur Leukocyte Esterase Neg (Negative) 10/26/18 05:30 Urine WBC (Auto) 2.0 /HPF (0.0-6.0) 10/26/18 05:30 Urine RBC (Auto) 1.0 /HPF (0.0-6.0) 10/26/18 05:30 U Epithel Cells (Auto) 2.0 /HPF (0-13.0) 10/26/18 05:30 Urine Bacteria (Auto) 1+ /HPF (Negative) 10/26/18 05:30 Amorphous Crystals Few 10/26/18 05:30 Hyaline Casts 9 /LPF 10/26/18 05:30 Urine Mucus Few /HPF 10/26/18 05:30 Fluid Type Synovial 11/02/18 10:15 Fluid Color Red 11/02/18 10:15 Fluid Appearance Turbid 11/02/18 10:15 Fluid WBC 39272 /mm3 11/02/18 10:15 Fluid RBC 8580 /mm3 11/02/18 10:15 Fluid Seg Neutrophils 93.0 % 11/02/18 10:15 Fluid Lymphocytes 7.0 % 11/02/18 10:15 Fluid Reactive Lymphs 0 % 11/02/18 10:15 Fluid Monocytes 0 % 11/02/18 10:15 Fluid Eosinophils 0 % 11/02/18 10:15 Fluid Basophils 0 % 11/02/18 10:15 Synovial Crystals Negative (NONE SEEN) 10/29/18 Unknown Vancomycin Trough 23.6 ug/mL (5.0-20.0) H 11/08/18 09:11 Influenza A (Rapid) Negative (Negative) 10/29/18 16:42 Influenza B (Rapid) Negative (Negative) 10/29/18 16:42 Nutrition/Malnutrition Assess - Dietary Evaluation Nutrition/Malnutrition Findings: Nutrition Notes Start: 11/01/18 12:03 Freq: Status: Active Protocol: Document 11/06/18 15:20 RM (Rec: 11/06/18 15:32 RM [id number]) Nutrition Notes Initial or Follow up Reassessment Current Diagnosis Acute Kidney Injury Hypertension Other Pertinent Diagnosis (R) knee septic arthritis, Generalized Edema, SIRS Current Diet Cardiac Labs/Tests Reviewed Pertinent Medications Reviewed Height 5 ft 4 in Weight 61 kg [place] Body Weight (kg) 130.0 BMI 23.1 Subjective/Other Information Pt asleep at time of visit. Per tech pt eats 25% of his meals and drinks all of the Ensure Enlive. Percent of energy/protein needs met: 100%/100% Burn Absent Trauma Absent #1 Nutrition Diagnosis Inadequate oral intake As Evidenced by Signs and Symptoms pt meeting 100% of calorie and protein needs Diagnosis Progress(for reassessment Resolved documentation) Is patient on ventilator? No Is Patient Ambulatory and/or Out of Bed No REE-([place]-[facility]. Jeor-confined to bed) 1507.764 Calculation Used for Recommendations [place]-St Jeor Additional Notes Pro needs 1-1.2g/k-73g/ day Fluid needs 1ml/kcal Nutrition Intervention Change Diet Order: Continue current Add Supplement/Snack (indicate name/kcal Ensure Enlive TID (vanilla) /protein ) Provides kCal: 1,050 Provides Protein (gm) 60 Goal #1 Continue to meet at least 75% of calorie and protein needs via PO and ONS intakes Goal #2 Wt maintenance Anticipated Discharge Needs: Cardiac diet Follow-Up By: 11/14/18 Additional Comments Follow for PO and ONS intakes
[2018-11-12] MEDS: VANCOMYCIN 750 MG in NACL 0.9% 250ML 250 ML IV SCH (17:06)
[2018-11-12] MEDS: TYLENOL PO PRN (21:42)
--- NOTE | 2018-11-12 22:48 | XRay Report ---
FINAL REPORT EXAM: XR CHEST 1V AP HISTORY: Elevated temp. TECHNIQUE: AP portable view of the chest. PRIORS: 10/25/2018 FINDINGS: There is a right arm PICC line in place with the tip in the SVC. The cardiomediastinal silhouette antoine ears normal. There is mild right lateral pleural thickening consistent with a loculated pleural effus ion. The interstitial markings appear mildly prominent. The bones and soft tissues are unremarkable. IMPRESSION: Suspect right loculated pleural effusion Prominent interstitial markings most likely due to pulmonary edema
[2018-11-12 22:52] LABS: Bacteria,Urine 1+ /HPF (Negative); Bilirubin,Urine NEG (Negative); Blood,Urine SM (Negative); Color,Urine Yellow (Yellow); Mucus,Urine FEW /HPF; Urobilinogen,Urine < 2.0 mg/dL (<2.0)
[2018-11-13 06:52] LABS: Calcium 8.5 mg/dL (8.4-10.2)
[2018-11-13] MEDS: APRESOLINE PO SCH ×3 (08:44→21:21)
[2018-11-13] MEDS: CATAPRES PO SCH ×2 (10:56→21:21)
[2018-11-13] MEDS: PLAVIX PO SCH (10:56)
[2018-11-13] MEDS: TOPROL XL PO SCH (10:56)
[2018-11-13] MEDS: ZESTRIL PO SCH (10:56)
[2018-11-13] MEDS: SODIUM CHLORIDE FLUSH SYRINGE 10 ML IV SCH ×2 (11:02→21:22)
--- NOTE | 2018-11-13 14:28 | Progress Note ---
Assessment and Plan Assessment and plan: 78 YO Male with HTN, Nicotine Dependence pw gen weakness, , ams, malaise, x4 days. He fell on both his knees at home. -At time of admission, he met sepsis criteria and had bilat knee effusion and contusions - he was rx with broad spectrum abx -septic arthritis of R knee was suspected, sp tap, cx neg so far, AFB cx still pending -per ID upon discharge Cipro 500mg, PO BID and Vancomycin 1gm q 24 until 11/30/18 - He received IVF and has improvement in renal function - meds were optimized for chronic conditions -he c/o testicular swelling, US shows bilat hydrocele, ntd - He had worsening functional status, and debility and therefore was recommended to [facility] facility where he will complete his abx -had fever on evening of 11/12, fup B cx, obtain UA, UC and CXR Diagnosis Sepsis secondary to septic arthritis of the right knee ARF (acute renal failure) with tubular necrosis Hypertension Metabolic Encephalopathy Dementia History Interval history: Review of systems Constitutional: had fever last night, no malaise, no joint pains CVS: No chest pain, no orthopnea, no dyspnea on exertion, no pedal edema GI: No abdominal pain, no diarrhea, no vomiting, no constipation Respiratory: No shortness of breath, no wheezing, no coughing Hospitalist Physical - Physical exam Narrative exam: General.: appears chronically ill HEENT: Moist mucous membranes, extraocular muscles intact, no lymphadenopathy Neck: supple Cardiac: S1-S2 heard Lungs: clear to auscultation bilaterally Abdomen: soft , nontender, nondistended, bowel sounds positive Extremities: no edema clubbing or cyanosis testicular edema Skin: no rash or lesions Neurologic: confused, gen weakness Psych: calm, and cooperative - Constitutional Vitals: Temp Pulse Resp BP Pulse Ox 99.5 F 91 H 21 139/68 91 11/13/18 14:17 11/13/18 14:17 11/13/18 14:17 11/13/18 14:17 11/13/18 14:17 General appearance: Present: mild distress Results - Labs CBC & Chem 7: 11/09/18 09:40 11/13/18 05:16 Labs: Laboratory Last Values WBC 17.4 K/mm3 (4.5-11.0) H 11/09/18 09:40 RBC 3.34 M/mm3 (3.65-5.03) L 11/09/18 09:40 Hgb 9.9 gm/dl (11.8-15.2) L 11/09/18 09:40 Hct 29.7 % (35.5-45.6) L 11/09/18 09:40 MCV 89 fl (84-94) 11/09/18 09:40 MCH 30 pg (28-32) 11/09/18 09:40 MCHC 33 % (32-34) 11/09/18 09:40 RDW 14.6 % (13.2-15.2) 11/09/18 09:40 Plt Count 486 K/mm3 (140-440) H 11/09/18 09:40 Add Manual Diff Complete 11/09/18 09:40 Total Counted 100 11/09/18 09:40 Seg Neuts % (Manual) 86.0 % (40.0-70.0) H 11/09/18 09:40 Band Neutrophils % 0 % 11/09/18 09:40 Lymphocytes % (Manual) 6.0 % (13.4-35.0) L 11/09/18 09:40 Reactive Lymphs % (Man) 0 % 11/09/18 09:40 Monocytes % (Manual) 3.0 % (0.0-7.3) 11/09/18 09:40 Eosinophils % (Manual) 4.0 % (0.0-4.3) 11/09/18 09:40 Basophils % (Manual) 0 % (0.0-1.8) 11/09/18 09:40 Metamyelocytes % 0 % 11/09/18 09:40 Myelocytes % 1.0 % 11/09/18 09:40 Promyelocytes % 0 % 11/09/18 09:40 Blast Cells % 0 % 11/09/18 09:40 Nucleated RBC % Not Reportable 11/09/18 09:40 Seg Neutrophils # Man 15.0 K/mm3 (1.8-7.7) H 11/09/18 09:40 Band Neutrophils # 0.0 K/mm3 11/09/18 09:40 Lymphocytes # (Manual) 1.0 K/mm3 (1.2-5.4) L 11/09/18 09:40 Abs React Lymphs (Man) 0.0 K/mm3 11/09/18 09:40 Monocytes # (Manual) 0.5 K/mm3 (0.0-0.8) 11/09/18 09:40 Eosinophils # (Manual) 0.7 K/mm3 (0.0-0.4) H 11/09/18 09:40 Basophils # (Manual) 0.0 K/mm3 (0.0-0.1) 11/09/18 09:40 Metamyelocytes # 0.0 K/mm3 11/09/18 09:40 Myelocytes # 0.2 K/mm3 11/09/18 09:40 Promyelocytes # 0.0 K/mm3 11/09/18 09:40 Blast Cells # 0.0 K/mm3 11/09/18 09:40 WBC Morphology Not Reportable 11/09/18 09:40 Hypersegmented Neuts Not Reportable 11/09/18 09:40 Hyposegmented Neuts Not Reportable 11/09/18 09:40 Hypogranular Neuts Not Reportable 11/09/18 09:40 Smudge Cells Not Reportable 11/09/18 09:40 Toxic Granulation Not Reportable 11/09/18 09:40 Toxic Vacuolation Not Reportable 11/09/18 09:40 Dohle Bodies Not Reportable 11/09/18 09:40 Pelger-Huet Anomaly Not Reportable 11/09/18 09:40 Swetha Rods Not Reportable 11/09/18 09:40 Platelet Estimate Consistent w auto 11/09/18 09:40 Clumped Platelets Not Reportable 11/09/18 09:40 Plt Clumps, EDTA Not Reportable 11/09/18 09:40 Large Platelets Not Reportable 11/09/18 09:40 Giant Platelets Not Reportable 11/09/18 09:40 Platelet Satelliting Not Reportable 11/09/18 09:40 Plt Morphology Comment Not Reportable 11/09/18 09:40 RBC Morphology Not Reportable 11/09/18 09:40 Dimorphic RBCs Not Reportable 11/09/18 09:40 Polychromasia Not Reportable 11/09/18 09:40 Hypochromasia Not Reportable 11/09/18 09:40 Poikilocytosis 1+ 11/09/18 09:40 Anisocytosis 1+ 11/09/18 09:40 Microcytosis Not Reportable 11/09/18 09:40 Macrocytosis Not Reportable 11/09/18 09:40 Spherocytes Not Reportable 11/09/18 09:40 Pappenheimer Bodies Not Reportable 11/09/18 09:40 Sickle Cells Not Reportable 11/09/18 09:40 Target Cells Not Reportable 11/09/18 09:40 Tear Drop Cells Not Reportable 11/09/18 09:40 Ovalocytes 1+ 11/09/18 09:40 Helmet Cells Not Reportable 11/09/18 09:40 Qu[place] Bodies Not Reportable 11/09/18 09:40 [place] Rings Not Reportable 11/09/18 09:40 [place] Cells Not Reportable 11/09/18 09:40 Bite Cells Not Reportable 11/09/18 09:40 Crenated Cell Not Reportable 11/09/18 09:40 Elliptocytes Not Reportable 11/09/18 09:40 Acanthocytes (Spur) Not Reportable 11/09/18 09:40 Rouleaux Not Reportable 11/09/18 09:40 Hemoglobin C Crystals Not Reportable 11/09/18 09:40 Schistocytes Not Reportable 11/09/18 09:40 Malaria parasites Not Reportable 11/09/18 09:40 [place] Bodies Not Reportable 11/09/18 09:40 Hem Pathologist Commnt No 11/09/18 09:40 Sodium 142 mmol/L (137-145) 11/13/18 05:16 Potassium 3.9 mmol/L (3.6-5.0) 11/13/18 05:16 Chloride 106.1 mmol/L (98-107) 11/13/18 05:16 Carbon Dioxide 26 mmol/L (22-30) 11/13/18 05:16 Anion Gap 14 mmol/L 11/13/18 05:16 BUN 23 mg/dL (9-20) H 11/13/18 05:16 Creatinine 1.5 mg/dL (0.8-1.5) 11/13/18 05:16 Estimated GFR 55 ml/min 11/13/18 05:16 BUN/Creatinine Ratio 15 % 11/13/18 05:16 Glucose 112 mg/dL (75-100) H 11/13/18 05:16 Lactic Acid 1.40 mmol/L (0.7-2.0) 10/26/18 06:05 Calcium 8.5 mg/dL (8.4-10.2) 11/13/18 05:16 Magnesium 1.90 mg/dL (1.7-2.3) 11/04/18 04:58 Total Bilirubin 0.40 mg/dL (0.1-1.2) 10/25/18 17:12 AST 34 units/L (5-40) 10/25/18 17:12 ALT 24 units/L (7-56) 10/25/18 17:12 Alkaline Phosphatase 101 units/L (35-129) 10/25/18 17:12 C-Reactive Protein 23.00 mg/dL (0.00-1.30) H 10/28/18 20:48 Total Protein 6.8 g/dL (6.3-8.2) 10/25/18 17:12 Albumin 2.9 g/dL (3.9-5) L 10/25/18 17:12 Albumin/Globulin Ratio 0.7 % 10/25/18 17:12 Urine Color Yellow (Yellow) 11/12/18 22:31 Urine Turbidity Slightly-cloudy (Clear) 11/12/18 22:31 Urine pH 6.0 (5.0-7.0) 11/12/18 22:31 Ur Specific [place] 1.009 (1.003-1.030) 11/12/18 22:31 Urine Protein 100 mg/dl mg/dL (Negative) 11/12/18 22:31 Urine Glucose (UA) Neg mg/dL (Negative) 11/12/18 22:31 Urine Ketones Neg mg/dL (Negative) 11/12/18 22:31 Urine Blood Sm (Negative) 11/12/18 22:31 Urine Nitrite Neg (Negative) 11/12/18 22:31 Urine Bilirubin Neg (Negative) 11/12/18 22:31 Urine Urobilinogen < 2.0 mg/dL (<2.0) 11/12/18 22:31 Ur Leukocyte Esterase Neg (Negative) 11/12/18 22:31 Urine WBC (Auto) 6.0 /HPF (0.0-6.0) 11/12/18 22:31 Urine RBC (Auto) 48.0 /HPF (0.0-6.0) 11/12/18 22:31 U Epithel Cells (Auto) < 1.0 /HPF (0-13.0) 11/12/18 22:31 Urine Bacteria (Auto) 1+ /HPF (Negative) 11/12/18 22:31 Amorphous Crystals Few 10/26/18 05:30 Hyaline Casts 9 /LPF 10/26/18 05:30 Urine Mucus Few /HPF 11/12/18 22:31 Fluid Type Synovial 11/02/18 10:15 Fluid Color Red 11/02/18 10:15 Fluid Appearance Turbid 11/02/18 10:15 Fluid WBC 92884 /mm3 11/02/18 10:15 Fluid RBC 8580 /mm3 11/02/18 10:15 Fluid Seg Neutrophils 93.0 % 11/02/18 10:15 Fluid Lymphocytes 7.0 % 11/02/18 10:15 Fluid Reactive Lymphs 0 % 11/02/18 10:15 Fluid Monocytes 0 % 11/02/18 10:15 Fluid Eosinophils 0 % 11/02/18 10:15 Fluid Basophils 0 % 11/02/18 10:15 Synovial Crystals Negative (NONE SEEN) 10/29/18 Unknown Vancomycin Trough 21.4 ug/mL (5.0-20.0) H 11/12/18 16:58 Influenza A (Rapid) Negative (Negative) 10/29/18 16:42 Influenza B (Rapid) Negative (Negative) 10/29/18 16:42 Nutrition/Malnutrition Assess - Dietary Evaluation Nutrition/Malnutrition Findings: Nutrition Notes Start: 11/01/18 12:03 Freq: Status: Active Protocol: Document 11/06/18 15:20 RM (Rec: 11/06/18 15:32 RM [id number]) Nutrition Notes Initial or Follow up Reassessment Current Diagnosis Acute Kidney Injury Hypertension Other Pertinent Diagnosis (R) knee septic arthritis, Generalized Edema, SIRS Current Diet Cardiac Labs/Tests Reviewed Pertinent Medications Reviewed Height 5 ft 4 in Weight 61 kg [place] Body Weight (kg) 130.0 BMI 23.1 Subjective/Other Information Pt asleep at time of visit. Per tech pt eats 25% of his meals and drinks all of the Ensure Enlive. Percent of energy/protein needs met: 100%/100% Burn Absent Trauma Absent #1 Nutrition Diagnosis Inadequate oral intake As Evidenced by Signs and Symptoms pt meeting 100% of calorie and protein needs Diagnosis Progress(for reassessment Resolved documentation) Is patient on ventilator? No Is Patient Ambulatory and/or Out of Bed No [facility] 1507.764 Calculation Used for Recommendations [facility] Additional Notes Pro needs 1-1.2g/k-73g/ day Fluid needs 1ml/kcal Nutrition Intervention Change Diet Order: Continue current Add Supplement/Snack (indicate name/kcal Ensure Enlive TID (vanilla) /protein ) Provides kCal: 1,050 Provides Protein (gm) 60 Goal #1 Continue to meet at least 75% of calorie and protein needs via PO and ONS intakes Goal #2 Wt maintenance Anticipated Discharge Needs: Cardiac diet Follow-Up By: 11/14/18 Additional Comments Follow for PO and ONS intakes
[2018-11-13] MEDS: TYLENOL PO PRN (14:52)
--- NOTE | 2018-11-13 16:44 | XRay Report ---
FINAL REPORT EXAM: XR CHEST 1V AP HISTORY: fever COMPARISON: Chest radiograph performed 11/12/2018 TECHNIQUE: Single frontal view of the chest FINDINGS: Right upper extremity PICC line with tip of the catheter at the superior cavoatrial junction. The cardiomediastinal silhouette is normal in appearance. Again seen is right pleural thickening. Unchanged prominence of the interstitium. No acute bony or soft tissue abnormality. IMPRESSION: Right-sided pleural thickening, that may represent the loculated effusion. Unchanged interstitial prominence.
[2018-11-13] MEDS: VANCOMYCIN/NS 1 GM/250 ML 1 GM/250 ML BAG IV SCH (21:22)
[2018-11-14] MEDS: APRESOLINE PO SCH ×3 (08:14→21:48)
[2018-11-14] MEDS: SODIUM CHLORIDE FLUSH SYRINGE 10 ML IV SCH ×2 (09:42→21:49)
[2018-11-14] MEDS: PLAVIX PO SCH (09:42)
[2018-11-14] MEDS: LEVAQUIN PO SCH (09:42)
[2018-11-14] MEDS: ZESTRIL PO SCH (09:43)
[2018-11-14] MEDS: CATAPRES PO SCH ×2 (09:43→21:48)
[2018-11-14] MEDS: TOPROL XL PO SCH (09:44)
--- NOTE | 2018-11-14 15:01 | Progress Note ---
Assessment and Plan Assessment and plan: 78 YO Male with HTN, Nicotine Dependence pw gen weakness, , ams, malaise, x4 days. He fell on both his knees at home. -At time of admission, he met sepsis criteria and had bilat knee effusion and contusions - he was rx with broad spectrum abx -septic arthritis of R knee was suspected, sp tap, cx neg so far, AFB cx still pending -per ID upon discharge Cipro 500mg, PO BID and Vancomycin 1gm q 24 until 11/30/18 - He received IVF and has improvement in renal function - meds were optimized for chronic conditions -he c/o testicular swelling, US shows bilat hydrocele, ntd - He had worsening functional status, and debility and therefore was recommended to [facility] facility where he will complete his abx Diagnosis Sepsis secondary to septic arthritis of the right knee ARF (acute renal failure) with tubular necrosis Hypertension Metabolic Encephalopathy Dementia History Interval history: Review of systems Constitutional: had fever last night, no malaise, no joint pains CVS: No chest pain, no orthopnea, no dyspnea on exertion, no pedal edema GI: No abdominal pain, no diarrhea, no vomiting, no constipation Respiratory: No shortness of breath, no wheezing, no coughing Hospitalist Physical - Physical exam Narrative exam: General.: appears chronically ill HEENT: Moist mucous membranes, extraocular muscles intact, no lymphadenopathy Neck: supple Cardiac: S1-S2 heard Lungs: clear to auscultation bilaterally Abdomen: soft , nontender, nondistended, bowel sounds positive Extremities: no edema clubbing or cyanosis testicular edema Skin: no rash or lesions Neurologic: confused, gen weakness Psych: calm, and cooperative - Constitutional Vitals: Temp Pulse Resp BP Pulse Ox 98.6 F 87 20 145/76 91 11/14/18 13:07 11/14/18 13:07 11/14/18 13:07 11/14/18 13:07 11/14/18 13:07 General appearance: Present: mild distress Results - Labs CBC & Chem 7: 11/09/18 09:40 11/13/18 05:16 Labs: Laboratory Last Values WBC 17.4 K/mm3 (4.5-11.0) H 11/09/18 09:40 RBC 3.34 M/mm3 (3.65-5.03) L 11/09/18 09:40 Hgb 9.9 gm/dl (11.8-15.2) L 11/09/18 09:40 Hct 29.7 % (35.5-45.6) L 11/09/18 09:40 MCV 89 fl (84-94) 11/09/18 09:40 MCH 30 pg (28-32) 11/09/18 09:40 MCHC 33 % (32-34) 11/09/18 09:40 RDW 14.6 % (13.2-15.2) 11/09/18 09:40 Plt Count 486 K/mm3 (140-440) H 11/09/18 09:40 Add Manual Diff Complete 11/09/18 09:40 Total Counted 100 11/09/18 09:40 Seg Neuts % (Manual) 86.0 % (40.0-70.0) H 11/09/18 09:40 Band Neutrophils % 0 % 11/09/18 09:40 Lymphocytes % (Manual) 6.0 % (13.4-35.0) L 11/09/18 09:40 Reactive Lymphs % (Man) 0 % 11/09/18 09:40 Monocytes % (Manual) 3.0 % (0.0-7.3) 11/09/18 09:40 Eosinophils % (Manual) 4.0 % (0.0-4.3) 11/09/18 09:40 Basophils % (Manual) 0 % (0.0-1.8) 11/09/18 09:40 Metamyelocytes % 0 % 11/09/18 09:40 Myelocytes % 1.0 % 11/09/18 09:40 Promyelocytes % 0 % 11/09/18 09:40 Blast Cells % 0 % 11/09/18 09:40 Nucleated RBC % Not Reportable 11/09/18 09:40 Seg Neutrophils # Man 15.0 K/mm3 (1.8-7.7) H 11/09/18 09:40 Band Neutrophils # 0.0 K/mm3 11/09/18 09:40 Lymphocytes # (Manual) 1.0 K/mm3 (1.2-5.4) L 11/09/18 09:40 Abs React Lymphs (Man) 0.0 K/mm3 11/09/18 09:40 Monocytes # (Manual) 0.5 K/mm3 (0.0-0.8) 11/09/18 09:40 Eosinophils # (Manual) 0.7 K/mm3 (0.0-0.4) H 11/09/18 09:40 Basophils # (Manual) 0.0 K/mm3 (0.0-0.1) 11/09/18 09:40 Metamyelocytes # 0.0 K/mm3 11/09/18 09:40 Myelocytes # 0.2 K/mm3 11/09/18 09:40 Promyelocytes # 0.0 K/mm3 11/09/18 09:40 Blast Cells # 0.0 K/mm3 11/09/18 09:40 WBC Morphology Not Reportable 11/09/18 09:40 Hypersegmented Neuts Not Reportable 11/09/18 09:40 Hyposegmented Neuts Not Reportable 11/09/18 09:40 Hypogranular Neuts Not Reportable 11/09/18 09:40 Smudge Cells Not Reportable 11/09/18 09:40 Toxic Granulation Not Reportable 11/09/18 09:40 Toxic Vacuolation Not Reportable 11/09/18 09:40 Dohle Bodies Not Reportable 11/09/18 09:40 Pelger-Huet Anomaly Not Reportable 11/09/18 09:40 Swetha Rods Not Reportable 11/09/18 09:40 Platelet Estimate Consistent w auto 11/09/18 09:40 Clumped Platelets Not Reportable 11/09/18 09:40 Plt Clumps, EDTA Not Reportable 11/09/18 09:40 Large Platelets Not Reportable 11/09/18 09:40 Giant Platelets Not Reportable 11/09/18 09:40 Platelet Satelliting Not Reportable 11/09/18 09:40 Plt Morphology Comment Not Reportable 11/09/18 09:40 RBC Morphology Not Reportable 11/09/18 09:40 Dimorphic RBCs Not Reportable 11/09/18 09:40 Polychromasia Not Reportable 11/09/18 09:40 Hypochromasia Not Reportable 11/09/18 09:40 Poikilocytosis 1+ 11/09/18 09:40 Anisocytosis 1+ 11/09/18 09:40 Microcytosis Not Reportable 11/09/18 09:40 Macrocytosis Not Reportable 11/09/18 09:40 Spherocytes Not Reportable 11/09/18 09:40 Pappenheimer Bodies Not Reportable 11/09/18 09:40 Sickle Cells Not Reportable 11/09/18 09:40 Target Cells Not Reportable 11/09/18 09:40 Tear Drop Cells Not Reportable 11/09/18 09:40 Ovalocytes 1+ 11/09/18 09:40 Helmet Cells Not Reportable 11/09/18 09:40 Quiñones-[place] Bodies Not Reportable 11/09/18 09:40 [place] Rings Not Reportable 11/09/18 09:40 Kit Cells Not Reportable 11/09/18 09:40 Bite Cells Not Reportable 11/09/18 09:40 Crenated Cell Not Reportable 11/09/18 09:40 Elliptocytes Not Reportable 11/09/18 09:40 Acanthocytes (Spur) Not Reportable 11/09/18 09:40 Rouleaux Not Reportable 11/09/18 09:40 Hemoglobin C Crystals Not Reportable 11/09/18 09:40 Schistocytes Not Reportable 11/09/18 09:40 Malaria parasites Not Reportable 11/09/18 09:40 Catalino Bodies Not Reportable 11/09/18 09:40 Hem Pathologist Commnt No 11/09/18 09:40 Sodium 142 mmol/L (137-145) 11/13/18 05:16 Potassium 3.9 mmol/L (3.6-5.0) 11/13/18 05:16 Chloride 106.1 mmol/L (98-107) 11/13/18 05:16 Carbon Dioxide 26 mmol/L (22-30) 11/13/18 05:16 Anion Gap 14 mmol/L 11/13/18 05:16 BUN 23 mg/dL (9-20) H 11/13/18 05:16 Creatinine 1.5 mg/dL (0.8-1.5) 11/13/18 05:16 Estimated GFR 55 ml/min 11/13/18 05:16 BUN/Creatinine Ratio 15 % 11/13/18 05:16 Glucose 112 mg/dL (75-100) H 11/13/18 05:16 Lactic Acid 1.40 mmol/L (0.7-2.0) 10/26/18 06:05 Calcium 8.5 mg/dL (8.4-10.2) 11/13/18 05:16 Magnesium 1.90 mg/dL (1.7-2.3) 11/04/18 04:58 Total Bilirubin 0.40 mg/dL (0.1-1.2) 10/25/18 17:12 AST 34 units/L (5-40) 10/25/18 17:12 ALT 24 units/L (7-56) 10/25/18 17:12 Alkaline Phosphatase 101 units/L (35-129) 10/25/18 17:12 C-Reactive Protein 23.00 mg/dL (0.00-1.30) H 10/28/18 20:48 Total Protein 6.8 g/dL (6.3-8.2) 10/25/18 17:12 Albumin 2.9 g/dL (3.9-5) L 10/25/18 17:12 Albumin/Globulin Ratio 0.7 % 10/25/18 17:12 Urine Color Yellow (Yellow) 11/12/18 22:31 Urine Turbidity Slightly-cloudy (Clear) 11/12/18 22:31 Urine pH 6.0 (5.0-7.0) 11/12/18 22:31 Ur Specific [place] 1.009 (1.003-1.030) 11/12/18 22:31 Urine Protein 100 mg/dl mg/dL (Negative) 11/12/18 22:31 Urine Glucose (UA) Neg mg/dL (Negative) 11/12/18 22:31 Urine Ketones Neg mg/dL (Negative) 11/12/18 22:31 Urine Blood Sm (Negative) 11/12/18 22:31 Urine Nitrite Neg (Negative) 11/12/18 22:31 Urine Bilirubin Neg (Negative) 11/12/18 22:31 Urine Urobilinogen < 2.0 mg/dL (<2.0) 11/12/18 22:31 Ur Leukocyte Esterase Neg (Negative) 11/12/18 22:31 Urine WBC (Auto) 6.0 /HPF (0.0-6.0) 11/12/18 22:31 Urine RBC (Auto) 48.0 /HPF (0.0-6.0) 11/12/18 22:31 U Epithel Cells (Auto) < 1.0 /HPF (0-13.0) 11/12/18 22:31 Urine Bacteria (Auto) 1+ /HPF (Negative) 11/12/18 22:31 Amorphous Crystals Few 10/26/18 05:30 Hyaline Casts 9 /LPF 10/26/18 05:30 Urine Mucus Few /HPF 11/12/18 22:31 Fluid Type Synovial 11/02/18 10:15 Fluid Color Red 11/02/18 10:15 Fluid Appearance Turbid 11/02/18 10:15 Fluid WBC 74123 /mm3 11/02/18 10:15 Fluid RBC 8580 /mm3 11/02/18 10:15 Fluid Seg Neutrophils 93.0 % 11/02/18 10:15 Fluid Lymphocytes 7.0 % 11/02/18 10:15 Fluid Reactive Lymphs 0 % 11/02/18 10:15 Fluid Monocytes 0 % 11/02/18 10:15 Fluid Eosinophils 0 % 11/02/18 10:15 Fluid Basophils 0 % 11/02/18 10:15 Synovial Crystals Negative (NONE SEEN) 10/29/18 Unknown Vancomycin Trough 21.4 ug/mL (5.0-20.0) H 11/12/18 16:58 Influenza A (Rapid) Negative (Negative) 10/29/18 16:42 Influenza B (Rapid) Negative (Negative) 10/29/18 16:42 Nutrition/Malnutrition Assess - Dietary Evaluation Nutrition/Malnutrition Findings: Nutrition Notes Start: 11/01/18 12:03 Freq: Status: Active Protocol: Document 11/14/18 14:15 [facility] (Rec: 11/14/18 14:22 [facility] SRW- [id number]) Nutrition Notes Current Diagnosis Hypertension Other Pertinent Diagnosis (R) knee septic arthritis, Dementia Current Diet Cardiac mech soft with ground meats + Ensure Enlive TID Labs/Tests No current available Pertinent Medications Reviewed Height 5 ft 4 in Weight 61.9 kg [place] Body Weight (kg) 59.09 BMI 23.4 Subjective/Other Information Pt has consumed 23% of meals since last assessment. He drinks 100% ONS daily, per RN report. Percent of energy/protein needs met: 100% energy/pro (meals + ONS) 32% energy 37% pro (meals only) Burn Absent Trauma Absent #1 Nutrition Diagnosis Inadequate oral intake As Evidenced by Signs and Symptoms PO intake of meals (alone) meeting <50% energy and pro needs Diagnosis Progress(for reassessment Continues documentation) Is patient on ventilator? No Is Patient Ambulatory and/or Out of Bed No REE-([facility]-confined to bed) 1518.552 Calculation Used for Recommendations [facility] Additional Notes Pro needs 1-1.2g/k-74g/ day Fluid needs 1ml/kcal Nutrition Intervention Change Diet Order: Continue current diet order Add Supplement/Snack (indicate name/kcal Ensure Enlive TID (vanilla) /protein ) Provides kCal: 1,050 Provides Protein (gm) 60 Goal #1 Continue to meet at least 75% of calorie and protein needs via PO and ONS intakes Goal #2 Wt maintenance Anticipated Discharge Needs: Continue Ensure Enlive (or equivalent) 2-3 times daily if PO intakes remain suboptimal Follow-Up By: 11/21/18 Additional Comments F/U: intakes (meals/ONS), wt
[2018-11-15] MEDS: APRESOLINE IV PRN (06:32)
[2018-11-15] MEDS: TOPROL XL PO SCH (09:38)
[2018-11-15] MEDS: PLAVIX PO SCH (09:38)
[2018-11-15] MEDS: APRESOLINE PO SCH ×3 (09:39→20:23)
[2018-11-15] MEDS: CATAPRES PO SCH ×2 (09:39→22:05)
[2018-11-15] MEDS: ZESTRIL PO SCH (09:39)
[2018-11-15] MEDS: SODIUM CHLORIDE FLUSH SYRINGE 10 ML IV SCH ×2 (09:40→22:05)
[2018-11-15] MEDS: VANCOMYCIN/NS 1 GM/250 ML 1 GM/250 ML BAG IV SCH (09:45)
--- NOTE | 2018-11-15 16:23 | Progress Note ---
Assessment and Plan Assessment and plan: 78 YO Male with HTN, Nicotine Dependence pw gen weakness, , ams, malaise, x4 days. He fell on both his knees at home. -At time of admission, he met sepsis criteria and had bilat knee effusion and contusions - he was rx with broad spectrum abx -septic arthritis of R knee was suspected, sp tap, cx neg so far, AFB cx still pending -per ID upon discharge Cipro 500mg, PO BID and Vancomycin 1gm q 24 until 11/30/18 - He received IVF and has improvement in renal function - meds were optimized for chronic conditions -he c/o testicular swelling, US shows bilat hydrocele, ntd, scrotal elevation was done -now coughing with meals, consult SS, for MBS in am - He had worsening functional status, and debility and therefore was recommended to [facility] facility where he will complete his abx Diagnosis Sepsis secondary to septic arthritis of the right knee ARF (acute renal failure) with tubular necrosis Hypertension Metabolic Encephalopathy Dementia Dysphagia History Interval history: Review of systems Constitutional: no fever, no malaise, no joint pains CVS: No chest pain, no orthopnea, no dyspnea on exertion, no pedal edema GI: No abdominal pain, no diarrhea, no vomiting, no constipation Respiratory: No shortness of breath, no wheezing, no coughing Hospitalist Physical - Physical exam Narrative exam: General.: appears chronically ill HEENT: Moist mucous membranes, extraocular muscles intact, no lymphadenopathy Neck: supple Cardiac: S1-S2 heard Lungs: clear to auscultation bilaterally Abdomen: soft , nontender, nondistended, bowel sounds positive Extremities: no edema clubbing or cyanosis testicular edema Skin: no rash or lesions Neurologic: confused, gen weakness Psych: calm, and cooperative - Constitutional Vitals: Temp Pulse Resp BP Pulse Ox 98.2 F 96 H 18 111/71 95 11/15/18 13:30 11/15/18 13:30 11/15/18 13:30 11/15/18 13:30 11/15/18 13:30 General appearance: Present: mild distress Results - Labs CBC & Chem 7: 11/09/18 09:40 11/13/18 05:16 Labs: Laboratory Last Values WBC 17.4 K/mm3 (4.5-11.0) H 11/09/18 09:40 RBC 3.34 M/mm3 (3.65-5.03) L 11/09/18 09:40 Hgb 9.9 gm/dl (11.8-15.2) L 11/09/18 09:40 Hct 29.7 % (35.5-45.6) L 11/09/18 09:40 MCV 89 fl (84-94) 11/09/18 09:40 MCH 30 pg (28-32) 11/09/18 09:40 MCHC 33 % (32-34) 11/09/18 09:40 RDW 14.6 % (13.2-15.2) 11/09/18 09:40 Plt Count 486 K/mm3 (140-440) H 11/09/18 09:40 Add Manual Diff Complete 11/09/18 09:40 Total Counted 100 11/09/18 09:40 Seg Neuts % (Manual) 86.0 % (40.0-70.0) H 11/09/18 09:40 Band Neutrophils % 0 % 11/09/18 09:40 Lymphocytes % (Manual) 6.0 % (13.4-35.0) L 11/09/18 09:40 Reactive Lymphs % (Man) 0 % 11/09/18 09:40 Monocytes % (Manual) 3.0 % (0.0-7.3) 11/09/18 09:40 Eosinophils % (Manual) 4.0 % (0.0-4.3) 11/09/18 09:40 Basophils % (Manual) 0 % (0.0-1.8) 11/09/18 09:40 Metamyelocytes % 0 % 11/09/18 09:40 Myelocytes % 1.0 % 11/09/18 09:40 Promyelocytes % 0 % 11/09/18 09:40 Blast Cells % 0 % 11/09/18 09:40 Nucleated RBC % Not Reportable 11/09/18 09:40 Seg Neutrophils # Man 15.0 K/mm3 (1.8-7.7) H 11/09/18 09:40 Band Neutrophils # 0.0 K/mm3 11/09/18 09:40 Lymphocytes # (Manual) 1.0 K/mm3 (1.2-5.4) L 11/09/18 09:40 Abs React Lymphs (Man) 0.0 K/mm3 11/09/18 09:40 Monocytes # (Manual) 0.5 K/mm3 (0.0-0.8) 11/09/18 09:40 Eosinophils # (Manual) 0.7 K/mm3 (0.0-0.4) H 11/09/18 09:40 Basophils # (Manual) 0.0 K/mm3 (0.0-0.1) 11/09/18 09:40 Metamyelocytes # 0.0 K/mm3 11/09/18 09:40 Myelocytes # 0.2 K/mm3 11/09/18 09:40 Promyelocytes # 0.0 K/mm3 11/09/18 09:40 Blast Cells # 0.0 K/mm3 11/09/18 09:40 WBC Morphology Not Reportable 11/09/18 09:40 Hypersegmented Neuts Not Reportable 11/09/18 09:40 Hyposegmented Neuts Not Reportable 11/09/18 09:40 Hypogranular Neuts Not Reportable 11/09/18 09:40 Smudge Cells Not Reportable 11/09/18 09:40 Toxic Granulation Not Reportable 11/09/18 09:40 Toxic Vacuolation Not Reportable 11/09/18 09:40 Dohle Bodies Not Reportable 11/09/18 09:40 Pelger-Huet Anomaly Not Reportable 11/09/18 09:40 Swetha Rods Not Reportable 11/09/18 09:40 Platelet Estimate Consistent w auto 11/09/18 09:40 Clumped Platelets Not Reportable 11/09/18 09:40 Plt Clumps, EDTA Not Reportable 11/09/18 09:40 Large Platelets Not Reportable 11/09/18 09:40 Giant Platelets Not Reportable 11/09/18 09:40 Platelet Satelliting Not Reportable 11/09/18 09:40 Plt Morphology Comment Not Reportable 11/09/18 09:40 RBC Morphology Not Reportable 11/09/18 09:40 Dimorphic RBCs Not Reportable 11/09/18 09:40 Polychromasia Not Reportable 11/09/18 09:40 Hypochromasia Not Reportable 11/09/18 09:40 Poikilocytosis 1+ 11/09/18 09:40 Anisocytosis 1+ 11/09/18 09:40 Microcytosis Not Reportable 11/09/18 09:40 Macrocytosis Not Reportable 11/09/18 09:40 Spherocytes Not Reportable 11/09/18 09:40 Pappenheimer Bodies Not Reportable 11/09/18 09:40 Sickle Cells Not Reportable 11/09/18 09:40 Target Cells Not Reportable 11/09/18 09:40 Tear Drop Cells Not Reportable 11/09/18 09:40 Ovalocytes 1+ 11/09/18 09:40 Helmet Cells Not Reportable 11/09/18 09:40 Quiñones-[place] Bodies Not Reportable 11/09/18 09:40 [place] Rings Not Reportable 11/09/18 09:40 [place] Cells Not Reportable 11/09/18 09:40 Bite Cells Not Reportable 11/09/18 09:40 Crenated Cell Not Reportable 11/09/18 09:40 Elliptocytes Not Reportable 11/09/18 09:40 Acanthocytes (Spur) Not Reportable 11/09/18 09:40 Rouleaux Not Reportable 11/09/18 09:40 Hemoglobin C Crystals Not Reportable 11/09/18 09:40 Schistocytes Not Reportable 11/09/18 09:40 Malaria parasites Not Reportable 11/09/18 09:40 Catalino Bodies Not Reportable 11/09/18 09:40 Hem Pathologist Commnt No 11/09/18 09:40 Sodium 142 mmol/L (137-145) 11/13/18 05:16 Potassium 3.9 mmol/L (3.6-5.0) 11/13/18 05:16 Chloride 106.1 mmol/L (98-107) 11/13/18 05:16 Carbon Dioxide 26 mmol/L (22-30) 11/13/18 05:16 Anion Gap 14 mmol/L 11/13/18 05:16 BUN 23 mg/dL (9-20) H 11/13/18 05:16 Creatinine 1.5 mg/dL (0.8-1.5) 11/13/18 05:16 Estimated GFR 55 ml/min 11/13/18 05:16 BUN/Creatinine Ratio 15 % 11/13/18 05:16 Glucose 112 mg/dL (75-100) H 11/13/18 05:16 Lactic Acid 1.40 mmol/L (0.7-2.0) 10/26/18 06:05 Calcium 8.5 mg/dL (8.4-10.2) 11/13/18 05:16 Magnesium 1.90 mg/dL (1.7-2.3) 11/04/18 04:58 Total Bilirubin 0.40 mg/dL (0.1-1.2) 10/25/18 17:12 AST 34 units/L (5-40) 10/25/18 17:12 ALT 24 units/L (7-56) 10/25/18 17:12 Alkaline Phosphatase 101 units/L (35-129) 10/25/18 17:12 C-Reactive Protein 23.00 mg/dL (0.00-1.30) H 10/28/18 20:48 Total Protein 6.8 g/dL (6.3-8.2) 10/25/18 17:12 Albumin 2.9 g/dL (3.9-5) L 10/25/18 17:12 Albumin/Globulin Ratio 0.7 % 10/25/18 17:12 Urine Color Yellow (Yellow) 11/12/18 22:31 Urine Turbidity Slightly-cloudy (Clear) 11/12/18 22:31 Urine pH 6.0 (5.0-7.0) 11/12/18 22:31 Ur Specific [place] 1.009 (1.003-1.030) 11/12/18 22:31 Urine Protein 100 mg/dl mg/dL (Negative) 11/12/18 22:31 Urine Glucose (UA) Neg mg/dL (Negative) 11/12/18 22:31 Urine Ketones Neg mg/dL (Negative) 11/12/18 22:31 Urine Blood Sm (Negative) 11/12/18 22:31 Urine Nitrite Neg (Negative) 11/12/18 22:31 Urine Bilirubin Neg (Negative) 11/12/18 22:31 Urine Urobilinogen < 2.0 mg/dL (<2.0) 11/12/18 22:31 Ur Leukocyte Esterase Neg (Negative) 11/12/18 22:31 Urine WBC (Auto) 6.0 /HPF (0.0-6.0) 11/12/18 22:31 Urine RBC (Auto) 48.0 /HPF (0.0-6.0) 11/12/18 22:31 U Epithel Cells (Auto) < 1.0 /HPF (0-13.0) 11/12/18 22:31 Urine Bacteria (Auto) 1+ /HPF (Negative) 11/12/18 22:31 Amorphous Crystals Few 10/26/18 05:30 Hyaline Casts 9 /LPF 10/26/18 05:30 Urine Mucus Few /HPF 11/12/18 22:31 Fluid Type Synovial 11/02/18 10:15 Fluid Color Red 11/02/18 10:15 Fluid Appearance Turbid 11/02/18 10:15 Fluid WBC 89123 /mm3 11/02/18 10:15 Fluid RBC 8580 /mm3 11/02/18 10:15 Fluid Seg Neutrophils 93.0 % 11/02/18 10:15 Fluid Lymphocytes 7.0 % 11/02/18 10:15 Fluid Reactive Lymphs 0 % 11/02/18 10:15 Fluid Monocytes 0 % 11/02/18 10:15 Fluid Eosinophils 0 % 11/02/18 10:15 Fluid Basophils 0 % 11/02/18 10:15 Synovial Crystals Negative (NONE SEEN) 10/29/18 Unknown Vancomycin Trough 21.4 ug/mL (5.0-20.0) H 11/12/18 16:58 Influenza A (Rapid) Negative (Negative) 10/29/18 16:42 Influenza B (Rapid) Negative (Negative) 10/29/18 16:42 Nutrition/Malnutrition Assess - Dietary Evaluation Nutrition/Malnutrition Findings: Nutrition Notes Start: 11/01/18 12:03 Freq: Status: Active Protocol: Document 11/14/18 14:15 [facility] (Rec: 11/14/18 14:22 [facility] SRW- [id number]) Nutrition Notes Current Diagnosis Hypertension Other Pertinent Diagnosis (R) knee septic arthritis, Dementia Current Diet Cardiac mech soft with ground meats + Ensure Enlive TID Labs/Tests No current available Pertinent Medications Reviewed Height 5 ft 4 in Weight 61.9 kg [place] Body Weight (kg) 59.09 BMI 23.4 Subjective/Other Information Pt has consumed 23% of meals since last assessment. He drinks 100% ONS daily, per RN report. Percent of energy/protein needs met: 100% energy/pro (meals + ONS) 32% energy 37% pro (meals only) Burn Absent Trauma Absent #1 Nutrition Diagnosis Inadequate oral intake As Evidenced by Signs and Symptoms PO intake of meals (alone) meeting <50% energy and pro needs Diagnosis Progress(for reassessment Continues documentation) Is patient on ventilator? No Is Patient Ambulatory and/or Out of Bed No REE-([facility]-confined to bed) 1518.552 Calculation Used for Recommendations [facility] Additional Notes Pro needs 1-1.2g/k-74g/ day Fluid needs 1ml/kcal Nutrition Intervention Change Diet Order: Continue current diet order Add Supplement/Snack (indicate name/kcal Ensure Enlive TID (vanilla) /protein ) Provides kCal: 1,050 Provides Protein (gm) 60 Goal #1 Continue to meet at least 75% of calorie and protein needs via PO and ONS intakes Goal #2 Wt maintenance Anticipated Discharge Needs: Continue Ensure Enlive (or equivalent) 2-3 times daily if PO intakes remain suboptimal Follow-Up By: 11/21/18 Additional Comments F/U: intakes (meals/ONS), wt
[2018-11-15] MEDS: PROVENTIL IH PRN (23:59)
[2018-11-16] MEDS: APRESOLINE PO SCH ×3 (09:45→20:04)
[2018-11-16] MEDS: TOPROL XL PO SCH (10:00)
[2018-11-16] MEDS: CATAPRES PO SCH ×2 (10:00→21:32)
[2018-11-16] MEDS: ZESTRIL PO SCH (10:00)
--- NOTE | 2018-11-16 10:50 | Discharge Summary ---
Providers - Providers Date of Admission: 10/25/18 16:54 Attending physician: CARI FERGUSON MD 10/26/18 09:40 Consult to Physician [CONS] Routine Comment: called office/austen Consulting Provider: CLEMENTINE ALEXANDER Physician Instructions: Reason For Exam: septic knee vs arthirits induced effuison 10/27/18 10:06 Physical Therapy Evaluation and Treat [CONS] Routine Comment: Reason For Exam: Debility/Falls 10/27/18 15:49 Consult to Physician [CONS] Routine Comment: Consulting Provider: SHORTY GASPAR Physician Instructions: Reason For Exam: presumed septic knee 10/29/18 10:41 Consult to Interventional Radiology [CONS] Routine Consulting Provider: CANDY MERCEDES Reason For Exam: right knee joint aspiration Place consult to:: Notified:: Phone number called:: [phone] Was contact made?: Yes If yes, spoke with:: WILL SEE PATIENT IN THE MORNING Time called:: 16:59 Comment:: CRISPIN 11/06/18 11:34 Consult to Case Management [CONS] Stat Services Needed at Discharge: Other Notified:: yes Additional Physician Instructions: [facility] M [phone] O [phone] F [phone] OUTPATIENT PARENTERAL ANTIBIOTIC THERAPY ORDERS Diagnoses: Right Knee Septic Arthritis Antimicrobial administration: upon discharge Ciprofloxacin 500mg, PO BID and Vancomycin 1gm q 24 until 11/30/18 -f/u ID clinic 11/28/18 -Order placed with case management Remove PICC line after last dose unless otherwise instructed. Lines: PICC Lab monitoring: CBC, BUN, Creatinine, ALT, AST, CRP, ESR , vancomycin trough once a week preferly on Tuesday morning. Please fax results to [phone] and call [phone] for critical lab results. Lula Purdy NP/kavita Gaspar Date: 11/06/18 11/08/18 07:51 Consult to Physician [CONS] Routine Comment: called office spoke to tia/austen Consulting Provider: SULLY CARRASCO Physician Instructions: Reason For Exam: testicular and penile swelling 11/15/18 09:05 Speech Therapy Evaluation and Treat [CONS] Routine Reason For Exam: patient pocketing food in the mouth after eating Primary care physician: EMBROIDERER Hospitalization Condition: Serious Disposition: DC-30 STILL A PATIENT Exam - Constitutional Vitals: Temp Pulse Resp BP Pulse Ox 97.9 F 104 H 20 134/84 94 11/16/18 07:36 11/16/18 07:36 11/16/18 07:36 11/16/18 07:36 11/16/18 07:36 Plan Follow up with: SHORTY GASPAR MD [Staff Physician] - 7 Days PRIMARY CAREMD [Primary Care Provider] - 2-3 Days CLEMENTINE ALEXANDER MD [Staff Physician] - 2-3 Days Prescriptions: Ciprofloxacin HCl [Cipro] 500 mg PO BID 14 Days tablet cloNIDine [Catapres] 0.2 mg PO Q12HR #60 tablet hydrALAZINE [Apresoline TAB] 100 mg PO TID #90 tab Lisinopril [Zestril TAB] 20 mg PO QDAY #30 tablet Metoprolol Xl [Metoprolol SUCCINATE ER TAB] 100 mg PO QDAY #30 tablet
--- NOTE | 2018-11-16 12:54 | Fluoroscopy Report ---
MODIFIED BARIUM SWALLOW INDICATION: Rapid breathing when eating. Difficulty swallowing. COMPARISON: None similar. IMAGES/CINE CLIPS: 1 FINDINGS: Fluoroscopy with video provided by radiologist for speech therapist to assess the swallowing mechanism. Food items of various consistencies given. No aspiration or penetration. Partly edentulous jaw. IMPRESSION: Successful modified barium swallow. Please refer to detailed report from speech pathologist. Thank you for the opportunity to participate in this patient's care.
[2018-11-16] MEDS: PROVENTIL IH PRN (13:25)
[2018-11-16] MEDS ORDERED: LASIX IV STA (13:41)
--- NOTE | 2018-11-16 13:42 | Progress Note ---
Assessment and Plan Cultures: 10/25/2018 Blood Culture: no growth so far 10/30/2018 Synovial Left Knee: no growth 11/02/2018 Synovial Right Knee: no growth 11/04/2018 AFB Smear: negative Assessment: 78 y/o male with history of HTN; admitted on 10/25/2018 due to a-week history of generalized weakness and a recent fall to the ground injuring his knees:. 1) SIRS: Leukocytosis improved source unclear. ?right knee septic arthritis vs cellulitis after a fall. influenza negative. Blood cultures 10/27/2018 no growth, UA neg, CXR neg, LFTs normal, CT abd showed prior granulomatous disease, low-density nodule right lobe of the liver and lobulated contour of the kidneys, multiple small cortical nodule suspected in the kidneys which are not clearly defined by this exam. XR knee bilateral effusion. -Influenza negative 2) Acute encephalopathy: resolved. 3) Right knee cellulitis vs septic arthritis. s/p Right knee -aspirated 20 cc seropurulent fluid, sent for gram stain and analysis. s/p right knee joint washout, Synovial fluid analysis with 14K WBCs, could be reflective of partially treated septic arthritis Synovial right knee cultures show no growth. Follow up on AFB cultures. 4) AMANDA - Resolved 5) Aspiration pnuemonia?- increased respiratory distress, on BIPAP, on exam bilateral rales and wheezing. Repeat chest xray shows worsening left lung base opacity with obscured left hemidiaphragm. Subtle bilateral pleural effusions not excluded . Will start Cefepime and Flagyl, renally dosed. Recommendations: -continue vancomycin while inpatient -Start Cefepime 2 gm IV q 24Hh and Flagyl 500mg IV q 8h for aspiration pneumonia -discontinue levaquin -Upon Discharge will do Cipro 500mg PO BID and Vancomycin 1gm q 24 until 11/30/18 . - If discharged to Hospice care can do Cipro and doxycycline PO until 11/30/18 [facility] M: [phone] O:[phone] Subjective Date of service: 11/16/18 Principal diagnosis: SIRS Interval history: Patient seen and examined.. Primary language Cuban. at bedside, on Bipap, increased WOB. Acute distress observed. Objective - Exam Narrative Exam: General appearance: respiratory distress, on BIPAP Eyes: anicteric sclerae, moist conjunctivae; no lid-lag; PERRLA HENT: Atraumatic, old craneal frontal deformity; oropharynx limited Neck: Trachea midline; supple, no thyromegaly or lymphadenopathy Lungs: Bilateral wheezing and rales throughout. On BIPAP, increased WOB CV: tachycardia Abdomen: Soft, non-tender; no masses or hepatosplenomegaly Extremities: +right knee with surg dressings Skin: Normal temperature, turgor and texture; no rash, ulcers or subcutaneous nodules Psych: alert pleasant Neuro: alert oriented moving all extremities Lines: PICC - Constitutional Vitals: Vital Signs Temp Pulse Resp BP Pulse Ox 97.9 F 112 H 32 H 134/84 94 11/16/18 07:36 11/16/18 13:25 11/16/18 13:25 11/16/18 07:36 11/16/18 07:36 Temperature -Last 24 Hours Temperature 97.9 F Temperature 98.6 F - Labs CBC & Chem 7: 11/09/18 09:40 11/16/18 04:27 Labs: Abnormal lab results 11/16/18 Range/Units 04:27 Creatinine 2.4 H D (0.8-1.5) mg/dL
--- NOTE | 2018-11-16 13:46 | XRay Report ---
PORTABLE CHEST INDICATION: Shortness of breath, hypoxia. COMPARISON: 11/13/2018 FINDINGS: Portable, frontal chest radiograph demonstrates increased haziness/bronchovascular prominence, more so central/perihilar. Worsening left lung base opacity with obscured left hemidiaphragm. Subtle bilateral pleural effusions not excluded. Stable cardiomediastinal silhouette/mild cardiomegaly. Few aortic atherosclerotic calcifications. Stable right upper extremity PICC tip along the distal SVC. New small gastric contrast. Stable bony degenerative changes and old healed right midclavicular deformity. CONCLUSION: Interval radiographic worsening, suggesting pulmonary congestive/edema pattern, as detailed above. Please correlate. Thank you for the opportunity to participate in this patient's care.
[2018-11-16] MEDS: APRESOLINE IV PRN (13:49)
[2018-11-16] MEDS ORDERED: LOPRESSOR IV STA (13:51)
[2018-11-16] MEDS ORDERED: ATIVAN IV STA (13:57)
[2018-11-16] MEDS: LEVAQUIN PO SCH (14:01)
[2018-11-16] MEDS: PLAVIX PO SCH (14:01)
[2018-11-16] MEDS: SODIUM CHLORIDE FLUSH SYRINGE 10 ML IV SCH ×2 (14:08→21:32)
[2018-11-16] MEDS ORDERED: SOLU-Medrol IV ONE (14:30)
[2018-11-16] MEDS ORDERED: LEVAQUIN 500MG/100ML 500 MG/100 ML BAG IV SCH (15:00)
[2018-11-16] MEDS ORDERED: APRESOLINE IV PRN (16:12)
--- NOTE | 2018-11-16 16:19 | Progress Note ---
Assessment and Plan Assessment and plan: 78 YO Male with HTN, Nicotine Dependence pw gen weakness, , ams, malaise, x4 days. He fell on both his knees at home. -At time of admission, he met sepsis criteria and had bilat knee effusion and contusions - he was rx with broad spectrum abx -septic arthritis of R knee was suspected, sp tap, cx neg so far, AFB cx still pending -per ID upon discharge Cipro 500mg, PO BID and Vancomycin 1gm q 24 until 11/30/18 - He received IVF and has improvement in renal function, creat now elevated again today - meds were optimized for chronic conditions -he c/o testicular swelling, US shows bilat hydrocele, ntd, scrotal elevation was done -now coughing with meals, MBS done, advised for Pureed diet and thin lilquis - he had worsening sob, and pulmonary edema, received lasix and put on bipap, fup echo, IVF were dc, CXR showed bibasilar crackles and pulm edema - He had worsening functional status, and debility and therefore was recommended to [facility] facility but he did not participate with PT, and his insurance denied him. Therefore he will be dc home with services when medically ready Diagnosis Sepsis secondary to septic arthritis of the right knee ARF (acute renal failure) with tubular necrosis Hypertension Metabolic Encephalopathy Dementia Dysphagia Acute respiratory failure with hypoxia Pulmonary edema History Interval history: Review of systems Constitutional: no fever, no malaise, no joint pains CVS: No chest pain, c.o orthopnea GI: No abdominal pain, no diarrhea, no vomiting, no constipation Respiratory: c/o severe sob Hospitalist Physical - Physical exam Narrative exam: General.: severe distress HEENT: Moist mucous membranes, extraocular muscles intact, no lymphadenopathy Neck: supple Cardiac: S1-S2 heard Lungs: bibasilar crackles Abdomen: soft , nontender, nondistended, bowel sounds positive Extremities: no edema clubbing or cyanosis testicular edema Skin: no rash or lesions Neurologic: confused, gen weakness Psych: calm, and cooperative - Constitutional Vitals: Temp Pulse Resp BP Pulse Ox 100.0 F H 159 H 44 H 182/125 88 11/16/18 13:24 11/16/18 13:49 11/16/18 13:45 11/16/18 13:49 11/16/18 13:45 General appearance: Present: mild distress Results - Labs CBC & Chem 7: 11/09/18 09:40 11/16/18 04:27 Labs: Laboratory Last Values WBC 17.4 K/mm3 (4.5-11.0) H 11/09/18 09:40 RBC 3.34 M/mm3 (3.65-5.03) L 11/09/18 09:40 Hgb 9.9 gm/dl (11.8-15.2) L 11/09/18 09:40 Hct 29.7 % (35.5-45.6) L 11/09/18 09:40 MCV 89 fl (84-94) 11/09/18 09:40 MCH 30 pg (28-32) 11/09/18 09:40 MCHC 33 % (32-34) 11/09/18 09:40 RDW 14.6 % (13.2-15.2) 11/09/18 09:40 Plt Count 486 K/mm3 (140-440) H 11/09/18 09:40 Add Manual Diff Complete 11/09/18 09:40 Total Counted 100 11/09/18 09:40 Seg Neuts % (Manual) 86.0 % (40.0-70.0) H 11/09/18 09:40 Band Neutrophils % 0 % 11/09/18 09:40 Lymphocytes % (Manual) 6.0 % (13.4-35.0) L 11/09/18 09:40 Reactive Lymphs % (Man) 0 % 11/09/18 09:40 Monocytes % (Manual) 3.0 % (0.0-7.3) 11/09/18 09:40 Eosinophils % (Manual) 4.0 % (0.0-4.3) 11/09/18 09:40 Basophils % (Manual) 0 % (0.0-1.8) 11/09/18 09:40 Metamyelocytes % 0 % 11/09/18 09:40 Myelocytes % 1.0 % 11/09/18 09:40 Promyelocytes % 0 % 11/09/18 09:40 Blast Cells % 0 % 11/09/18 09:40 Nucleated RBC % Not Reportable 11/09/18 09:40 Seg Neutrophils # Man 15.0 K/mm3 (1.8-7.7) H 11/09/18 09:40 Band Neutrophils # 0.0 K/mm3 11/09/18 09:40 Lymphocytes # (Manual) 1.0 K/mm3 (1.2-5.4) L 11/09/18 09:40 Abs React Lymphs (Man) 0.0 K/mm3 11/09/18 09:40 Monocytes # (Manual) 0.5 K/mm3 (0.0-0.8) 11/09/18 09:40 Eosinophils # (Manual) 0.7 K/mm3 (0.0-0.4) H 11/09/18 09:40 Basophils # (Manual) 0.0 K/mm3 (0.0-0.1) 11/09/18 09:40 Metamyelocytes # 0.0 K/mm3 11/09/18 09:40 Myelocytes # 0.2 K/mm3 11/09/18 09:40 Promyelocytes # 0.0 K/mm3 11/09/18 09:40 Blast Cells # 0.0 K/mm3 11/09/18 09:40 WBC Morphology Not Reportable 11/09/18 09:40 Hypersegmented Neuts Not Reportable 11/09/18 09:40 Hyposegmented Neuts Not Reportable 11/09/18 09:40 Hypogranular Neuts Not Reportable 11/09/18 09:40 Smudge Cells Not Reportable 11/09/18 09:40 Toxic Granulation Not Reportable 11/09/18 09:40 Toxic Vacuolation Not Reportable 11/09/18 09:40 Dohle Bodies Not Reportable 11/09/18 09:40 Pelger-Huet Anomaly Not Reportable 11/09/18 09:40 Swetha Rods Not Reportable 11/09/18 09:40 Platelet Estimate Consistent w auto 11/09/18 09:40 Clumped Platelets Not Reportable 11/09/18 09:40 Plt Clumps, EDTA Not Reportable 11/09/18 09:40 Large Platelets Not Reportable 11/09/18 09:40 Giant Platelets Not Reportable 11/09/18 09:40 Platelet Satelliting Not Reportable 11/09/18 09:40 Plt Morphology Comment Not Reportable 11/09/18 09:40 RBC Morphology Not Reportable 11/09/18 09:40 Dimorphic RBCs Not Reportable 11/09/18 09:40 Polychromasia Not Reportable 11/09/18 09:40 Hypochromasia Not Reportable 11/09/18 09:40 Poikilocytosis 1+ 11/09/18 09:40 Anisocytosis 1+ 11/09/18 09:40 Microcytosis Not Reportable 11/09/18 09:40 Macrocytosis Not Reportable 11/09/18 09:40 Spherocytes Not Reportable 11/09/18 09:40 Pappenheimer Bodies Not Reportable 11/09/18 09:40 Sickle Cells Not Reportable 11/09/18 09:40 Target Cells Not Reportable 11/09/18 09:40 Tear Drop Cells Not Reportable 11/09/18 09:40 Ovalocytes 1+ 11/09/18 09:40 Helmet Cells Not Reportable 11/09/18 09:40 [place] Bodies Not Reportable 11/09/18 09:40 [place] Rings Not Reportable 11/09/18 09:40 [place] Cells Not Reportable 11/09/18 09:40 Bite Cells Not Reportable 11/09/18 09:40 Crenated Cell Not Reportable 11/09/18 09:40 Elliptocytes Not Reportable 11/09/18 09:40 Acanthocytes (Spur) Not Reportable 11/09/18 09:40 Rouleaux Not Reportable 11/09/18 09:40 Hemoglobin C Crystals Not Reportable 11/09/18 09:40 Schistocytes Not Reportable 11/09/18 09:40 Malaria parasites Not Reportable 11/09/18 09:40 [place] Bodies Not Reportable 11/09/18 09:40 Hem Pathologist Commnt No 11/09/18 09:40 Sodium 142 mmol/L (137-145) 11/13/18 05:16 Potassium 3.9 mmol/L (3.6-5.0) 11/13/18 05:16 Chloride 106.1 mmol/L (98-107) 11/13/18 05:16 Carbon Dioxide 26 mmol/L (22-30) 11/13/18 05:16 Anion Gap 14 mmol/L 11/13/18 05:16 BUN 23 mg/dL (9-20) H 11/13/18 05:16 Creatinine 2.4 mg/dL (0.8-1.5) H D 11/16/18 04:27 Estimated GFR 32 ml/min 11/16/18 04:27 BUN/Creatinine Ratio 15 % 11/13/18 05:16 Glucose 112 mg/dL (75-100) H 11/13/18 05:16 Lactic Acid 1.40 mmol/L (0.7-2.0) 10/26/18 06:05 Calcium 8.5 mg/dL (8.4-10.2) 11/13/18 05:16 Magnesium 1.90 mg/dL (1.7-2.3) 11/04/18 04:58 Total Bilirubin 0.40 mg/dL (0.1-1.2) 10/25/18 17:12 AST 34 units/L (5-40) 10/25/18 17:12 ALT 24 units/L (7-56) 10/25/18 17:12 Alkaline Phosphatase 101 units/L (35-129) 10/25/18 17:12 C-Reactive Protein 23.00 mg/dL (0.00-1.30) H 10/28/18 20:48 Total Protein 6.8 g/dL (6.3-8.2) 10/25/18 17:12 Albumin 2.9 g/dL (3.9-5) L 10/25/18 17:12 Albumin/Globulin Ratio 0.7 % 10/25/18 17:12 Urine Color Yellow (Yellow) 11/12/18 22:31 Urine Turbidity Slightly-cloudy (Clear) 11/12/18 22:31 Urine pH 6.0 (5.0-7.0) 11/12/18 22:31 Ur Specific [place] 1.009 (1.003-1.030) 11/12/18 22:31 Urine Protein 100 mg/dl mg/dL (Negative) 11/12/18 22:31 Urine Glucose (UA) Neg mg/dL (Negative) 11/12/18 22:31 Urine Ketones Neg mg/dL (Negative) 11/12/18 22:31 Urine Blood Sm (Negative) 11/12/18 22:31 Urine Nitrite Neg (Negative) 11/12/18 22:31 Urine Bilirubin Neg (Negative) 11/12/18 22:31 Urine Urobilinogen < 2.0 mg/dL (<2.0) 11/12/18 22:31 Ur Leukocyte Esterase Neg (Negative) 11/12/18 22:31 Urine WBC (Auto) 6.0 /HPF (0.0-6.0) 11/12/18 22:31 Urine RBC (Auto) 48.0 /HPF (0.0-6.0) 11/12/18 22:31 U Epithel Cells (Auto) < 1.0 /HPF (0-13.0) 11/12/18 22:31 Urine Bacteria (Auto) 1+ /HPF (Negative) 11/12/18 22:31 Amorphous Crystals Few 10/26/18 05:30 Hyaline Casts 9 /LPF 10/26/18 05:30 Urine Mucus Few /HPF 11/12/18 22:31 Fluid Type Synovial 11/02/18 10:15 Fluid Color Red 11/02/18 10:15 Fluid Appearance Turbid 11/02/18 10:15 Fluid WBC 28674 /mm3 11/02/18 10:15 Fluid RBC 8580 /mm3 11/02/18 10:15 Fluid Seg Neutrophils 93.0 % 11/02/18 10:15 Fluid Lymphocytes 7.0 % 11/02/18 10:15 Fluid Reactive Lymphs 0 % 11/02/18 10:15 Fluid Monocytes 0 % 11/02/18 10:15 Fluid Eosinophils 0 % 11/02/18 10:15 Fluid Basophils 0 % 11/02/18 10:15 Synovial Crystals Negative (NONE SEEN) 10/29/18 Unknown Vancomycin Trough 21.4 ug/mL (5.0-20.0) H 11/12/18 16:58 Influenza A (Rapid) Negative (Negative) 10/29/18 16:42 Influenza B (Rapid) Negative (Negative) 10/29/18 16:42 Nutrition/Malnutrition Assess - Dietary Evaluation Nutrition/Malnutrition Findings: Nutrition Notes Start: 11/01/18 12:03 Freq: Status: Active Protocol: Document 11/14/18 14:15 GEOFFREY (Rec: 11/14/18 14:22 GEOFFREY [id number] [email or web address]) Nutrition Notes Current Diagnosis Hypertension Other Pertinent Diagnosis (R) knee septic arthritis, Dementia Current Diet Cardiac mech soft with ground meats + Ensure Enlive TID Labs/Tests No current available Pertinent Medications Reviewed Height 5 ft 4 in Weight 61.9 kg [place] Body Weight (kg) 59.09 BMI 23.4 Subjective/Other Information Pt has consumed 23% of meals since last assessment. He drinks 100% ONS daily, per RN report. Percent of energy/protein needs met: 100% energy/pro (meals + ONS) 32% energy 37% pro (meals only) Burn Absent Trauma Absent #1 Nutrition Diagnosis Inadequate oral intake As Evidenced by Signs and Symptoms PO intake of meals (alone) meeting <50% energy and pro needs Diagnosis Progress(for reassessment Continues documentation) Is patient on ventilator? No Is Patient Ambulatory and/or Out of Bed No REE-([facility] Jeor-confined to bed) [phone] Calculation Used for Recommendations [facility] Additional Notes Pro needs 1-1.2g/k-74g/ day Fluid needs 1ml/kcal Nutrition Intervention Change Diet Order: Continue current diet order Add Supplement/Snack (indicate name/kcal Ensure Enlive TID (vanilla) /protein ) Provides kCal: 1,050 Provides Protein (gm) 60 Goal #1 Continue to meet at least 75% of calorie and protein needs via PO and ONS intakes Goal #2 Wt maintenance Anticipated Discharge Needs: Continue Ensure Enlive (or equivalent) 2-3 times daily if PO intakes remain suboptimal Follow-Up By: 11/21/18 Additional Comments F/U: intakes (meals/ONS), wt
[2018-11-16] MEDS: LASIX PO SCH (18:40)
[2018-11-16] MEDS: FLAGYL 500 MG/100 ML 500 MG/100 ML BAG IV SCH ×2 (19:07→21:37)
[2018-11-16] MEDS ORDERED: TYLENOL PR ONE (20:32)
[2018-11-16] MEDS: MAXIPIME/NS 1 GM/100 ML 1 GM/100 ML BAG IV SCH (21:31)
[2018-11-17] MEDS: LASIX PO SCH (05:27)
[2018-11-17] MEDS: FLAGYL 500 MG/100 ML 500 MG/100 ML BAG IV SCH ×3 (05:28→21:16)
[2018-11-17] MEDS ORDERED: LASIX IV ONE (06:00)
[2018-11-17] MEDS: APRESOLINE PO SCH ×4 (07:38→19:31)
[2018-11-17] MEDS: SODIUM CHLORIDE FLUSH SYRINGE 10 ML IV SCH ×2 (09:22→21:20)
[2018-11-17] MEDS: MAXIPIME/NS 1 GM/100 ML 1 GM/100 ML BAG IV SCH (09:22)
[2018-11-17] MEDS: CATAPRES PO SCH ×2 (09:33→21:16)
[2018-11-17] MEDS: PLAVIX PO SCH (09:33)
[2018-11-17] MEDS: TOPROL XL PO SCH (09:33)
[2018-11-17] MEDS: VIBRAMYCIN PO SCH ×2 (09:34→21:20)
[2018-11-17] MEDS ORDERED: MAXIPIME/NS 2 GM/100 ML 2 GM/100 ML BAG IV SCH (10:00)
[2018-11-17 10:05] LABS: Basophils % (Auto) 0.2 % (0.0-1.8); Hematocrit 26.1 % (35.5-45.6); Hemoglobin 8.7 gm/dl (11.8-15.2); Lymphocytes # (Auto) 0.4 K/mm3 (1.2-5.4); Lymphocytes % (Auto) 4.3 % (13.4-35.0); Mean Corpuscular HGB Conc 33 % (32-34); Mean Corpuscular Volume 88 fl (84-94); Monocytes # (Auto) 0.7 K/mm3 (0.0-0.8); Monocytes % (Auto) 6.5 % (0.0-7.3); Platelet Count 343 K/mm3 (140-440); Red Blood Count 2.95 M/mm3 (3.65-5.03); Red Cell Distribution Width 15.1 % (13.2-15.2)
[2018-11-17 10:10] LABS: Calcium 8.9 mg/dL (8.4-10.2)
--- NOTE | 2018-11-17 10:10 | Progress Note ---
Assessment and Plan Cultures: 10/25/2018 Blood Culture: no growth so far 10/30/2018 Synovial Left Knee: no growth 11/02/2018 Synovial Right Knee: no growth 11/04/2018 AFB Smear: negative Assessment: 78 y/o male with history of HTN; admitted on 10/25/2018 due to a-week history of generalized weakness and a recent fall to the ground injuring his knees:. 1) SIRS: Leukocytosis is up and new fever. Initially due to right knee septic arthritis; recent SIRS ? aspiration pneumonia vs volume overload. - Blood cultures 10/27/2018 no growth, UA neg, CXR neg, LFTs normal, CT abd showed prior granulomatous disease, low-density nodule right lobe of the liver and lobulated contour of the kidneys, multiple small cortical nodule suspected in the kidneys which are not clearly defined by this exam. XR knee bilateral effusion. Influenza negative - repeat CXR 11/16 +cayden pulmonary edema 2) Acute encephalopathy: now resolved. Today is better 3) Right knee septic arthritis: s/p Right knee -aspirated 20 cc seropurulent fluid, sent for gram stain and analysis. s/p right knee joint washout, Synovial fluid analysis with 14K WBCs, could be reflective of partially treated septic arthritis Synovial right knee cultures show no growth. Follow up on AFB cultures. 4) AMANDA - Resolved Recommendations: - continue cefepime, flagyl and doxycycline for now - reportedly he is going to hospice - If discharged to Hospice care can do Cipro and doxycycline PO until 11/30/18 Rosita Couch MD Infectious Diseases [employer] [facility] M [phone] O [phone] Subjective Date of service: 11/17/18 Principal diagnosis: SIRS Interval history: Patient is alert, answering questions, tmax 101 yesterday night but no fever since then, family at bedside. No pain. Objective - Exam Narrative Exam: General appearance: alert in NAD, onversant Eyes: anicteric sclerae, moist conjunctivae; no lid-lag; PERRLA HENT: Atraumatic, old craneal frontal deformity; oropharynx limited Neck: Trachea midline; supple, no thyromegaly or lymphadenopathy Lungs: scattered cayden rhonchi CV: RRR Abdomen: Soft, non-tender; no masses or hepatosplenomegaly Extremities: right knee no edema no erythama Skin: Normal temperature, turgor and texture; no rash, ulcers or subcutaneous nodules Psych: alert pleasant Neuro: alert oriented moving all extremities Lines: - Constitutional Vitals: Vital Signs Temp Pulse Resp BP Pulse Ox 98.2 F 104 H 20 139/90 96 11/17/18 07:30 11/17/18 09:33 11/17/18 07:53 11/17/18 09:33 11/17/18 09:30 Temperature -Last 24 Hours Temperature 98.2 F Temperature 98.8 F Temperature 99.4 F Temperature 101.0 F Temperature 100.0 F - Labs CBC & Chem 7: 11/17/18 09:22 11/17/18 09:22
[2018-11-17] MEDS: D5W 1,000 ML IV SCH (12:06)
[2018-11-17] MEDS: LASIX IV SCH ×2 (12:12→23:27)
--- NOTE | 2018-11-17 12:31 | Progress Note ---
Assessment and Plan Assessment and plan: 78 YO Male with HTN, Nicotine Dependence pw gen weakness, , ams, malaise, x4 days. He fell on both his knees at home. -At time of admission, he met sepsis criteria and had bilat knee effusion and contusions - he was rx with broad spectrum abx -septic arthritis of R knee was suspected, sp tap, cx neg so far, AFB cx still pending -per ID upon discharge Cipro 500mg, PO BID and Vancomycin 1gm q 24 until 11/30/18 - meds were optimized for chronic conditions -he c/o testicular swelling, US shows bilat hydrocele, ntd, scrotal elevation was done -now coughing with meals, MBS done, advised for Pureed diet and thin liquids -- He had worsening functional status, and debility and therefore was recommende d to [facility] facility but he did not participate with PT, and his insurance denied him. Therefore he will be dc home with services when medically ready - he had sob, and pulmonary edema, received lasix and now weaned off bipap on NC, fup echo, IVF were dc, CXR showed bibasilar crackles and pulm edema -- He received IVF and has improvement in renal function, creat now elevated again since 11/17, nephrology consult, Renal US --judicious use of D5W given hypernatremia Diagnosis Sepsis secondary to septic arthritis of the right knee ARF (acute renal failure) with tubular necrosis, vasomotor nephropathy Hypertension Metabolic Encephalopathy Dementia Dysphagia Acute respiratory failure with hypoxia Pulmonary edema Hypernatremia History Interval history: Review of systems Constitutional: no fever, no malaise, no joint pains CVS: No chest pain, c.o orthopnea GI: No abdominal pain, no diarrhea, no vomiting, no constipation Respiratory: sob is improved Hospitalist Physical - Physical exam Narrative exam: General.: no distress HEENT: Moist mucous membranes, extraocular muscles intact, no lymphadenopathy Neck: supple Cardiac: S1-S2 heard Lungs: bibasilar crackles Abdomen: soft , nontender, nondistended, bowel sounds positive Extremities: no edema clubbing or cyanosis testicular edema Skin: no rash or lesions Neurologic: confused, gen weakness Psych: calm, and cooperative - Constitutional Vitals: Temp Pulse Resp BP Pulse Ox 98.2 F 104 H 20 139/90 96 11/17/18 07:30 11/17/18 09:33 11/17/18 07:53 11/17/18 09:33 11/17/18 09:30 General appearance: Present: mild distress Results - Labs CBC & Chem 7: 11/17/18 09:22 11/17/18 09:22 Labs: Laboratory Last Values WBC 10.1 K/mm3 (4.5-11.0) 11/17/18 09:22 RBC 2.95 M/mm3 (3.65-5.03) L 11/17/18 09:22 Hgb 8.7 gm/dl (11.8-15.2) L 11/17/18 09:22 Hct 26.1 % (35.5-45.6) L 11/17/18 09:22 MCV 88 fl (84-94) 11/17/18 09:22 MCH 30 pg (28-32) 11/17/18 09:22 MCHC 33 % (32-34) 11/17/18 09:22 RDW 15.1 % (13.2-15.2) 11/17/18 09:22 Plt Count 343 K/mm3 (140-440) 11/17/18 09:22 Lymph % (Auto) 4.3 % (13.4-35.0) L 11/17/18 09:22 [place] % (Auto) 6.5 % (0.0-7.3) 11/17/18 09:22 Eos % (Auto) 0.0 % (0.0-4.3) 11/17/18 09:22 Baso % (Auto) 0.2 % (0.0-1.8) 11/17/18 09:22 Lymph # 0.4 K/mm3 (1.2-5.4) L 11/17/18 09:22 [place] # 0.7 K/mm3 (0.0-0.8) 11/17/18 09:22 Eos # 0.0 K/mm3 (0.0-0.4) 11/17/18 09:22 Baso # 0.0 K/mm3 (0.0-0.1) 11/17/18 09:22 Add Manual Diff Complete 11/09/18 09:40 Total Counted 100 11/09/18 09:40 Seg Neutrophils % 89.0 % (40.0-70.0) H 11/17/18 09:22 Seg Neuts % (Manual) 86.0 % (40.0-70.0) H 11/09/18 09:40 Band Neutrophils % 0 % 11/09/18 09:40 Lymphocytes % (Manual) 6.0 % (13.4-35.0) L 11/09/18 09:40 Reactive Lymphs % (Man) 0 % 11/09/18 09:40 Monocytes % (Manual) 3.0 % (0.0-7.3) 11/09/18 09:40 Eosinophils % (Manual) 4.0 % (0.0-4.3) 11/09/18 09:40 Basophils % (Manual) 0 % (0.0-1.8) 11/09/18 09:40 Metamyelocytes % 0 % 11/09/18 09:40 Myelocytes % 1.0 % 11/09/18 09:40 Promyelocytes % 0 % 11/09/18 09:40 Blast Cells % 0 % 11/09/18 09:40 Nucleated RBC % Not Reportable 11/09/18 09:40 Seg Neutrophils # 9.0 K/mm3 (1.8-7.7) H 11/17/18 09:22 Seg Neutrophils # Man 15.0 K/mm3 (1.8-7.7) H 11/09/18 09:40 Band Neutrophils # 0.0 K/mm3 11/09/18 09:40 Lymphocytes # (Manual) 1.0 K/mm3 (1.2-5.4) L 11/09/18 09:40 Abs React Lymphs (Man) 0.0 K/mm3 11/09/18 09:40 Monocytes # (Manual) 0.5 K/mm3 (0.0-0.8) 11/09/18 09:40 Eosinophils # (Manual) 0.7 K/mm3 (0.0-0.4) H 11/09/18 09:40 Basophils # (Manual) 0.0 K/mm3 (0.0-0.1) 11/09/18 09:40 Metamyelocytes # 0.0 K/mm3 11/09/18 09:40 Myelocytes # 0.2 K/mm3 11/09/18 09:40 Promyelocytes # 0.0 K/mm3 11/09/18 09:40 Blast Cells # 0.0 K/mm3 11/09/18 09:40 WBC Morphology Not Reportable 11/09/18 09:40 Hypersegmented Neuts Not Reportable 11/09/18 09:40 Hyposegmented Neuts Not Reportable 11/09/18 09:40 Hypogranular Neuts Not Reportable 11/09/18 09:40 Smudge Cells Not Reportable 11/09/18 09:40 Toxic Granulation Not Reportable 11/09/18 09:40 Toxic Vacuolation Not Reportable 11/09/18 09:40 Dohle Bodies Not Reportable 11/09/18 09:40 Pelger-Huet Anomaly Not Reportable 11/09/18 09:40 Swetha Rods Not Reportable 11/09/18 09:40 Platelet Estimate Consistent w auto 11/09/18 09:40 Clumped Platelets Not Reportable 11/09/18 09:40 Plt Clumps, EDTA Not Reportable 11/09/18 09:40 Large Platelets Not Reportable 11/09/18 09:40 Giant Platelets Not Reportable 11/09/18 09:40 Platelet Satelliting Not Reportable 11/09/18 09:40 Plt Morphology Comment Not Reportable 11/09/18 09:40 RBC Morphology Not Reportable 11/09/18 09:40 Dimorphic RBCs Not Reportable 11/09/18 09:40 Polychromasia Not Reportable 11/09/18 09:40 Hypochromasia Not Reportable 11/09/18 09:40 Poikilocytosis 1+ 11/09/18 09:40 Anisocytosis 1+ 11/09/18 09:40 Microcytosis Not Reportable 11/09/18 09:40 Macrocytosis Not Reportable 11/09/18 09:40 Spherocytes Not Reportable 11/09/18 09:40 Pappenheimer Bodies Not Reportable 11/09/18 09:40 Sickle Cells Not Reportable 11/09/18 09:40 Target Cells Not Reportable 11/09/18 09:40 Tear Drop Cells Not Reportable 11/09/18 09:40 Ovalocytes 1+ 11/09/18 09:40 Helmet Cells Not Reportable 11/09/18 09:40 [place] Bodies Not Reportable 11/09/18 09:40 [place] Rings Not Reportable 11/09/18 09:40 Kit Cells Not Reportable 11/09/18 09:40 Bite Cells Not Reportable 11/09/18 09:40 Crenated Cell Not Reportable 11/09/18 09:40 Elliptocytes Not Reportable 11/09/18 09:40 Acanthocytes (Spur) Not Reportable 11/09/18 09:40 Rouleaux Not Reportable 11/09/18 09:40 Hemoglobin C Crystals Not Reportable 11/09/18 09:40 Schistocytes Not Reportable 11/09/18 09:40 Malaria parasites Not Reportable 11/09/18 09:40 [place] Bodies Not Reportable 11/09/18 09:40 Hem Pathologist Commnt No 11/09/18 09:40 Sodium 152 mmol/L (137-145) H D 11/17/18 09:22 Potassium 3.7 mmol/L (3.6-5.0) 11/17/18 09:22 Chloride 108.9 mmol/L (98-107) H 11/17/18 09:22 Carbon Dioxide 24 mmol/L (22-30) 11/17/18 09:22 Anion Gap 23 mmol/L 11/17/18 09:22 BUN 67 mg/dL (9-20) H 11/17/18 09:22 Creatinine 2.5 mg/dL (0.8-1.5) H 11/17/18 09:22 Estimated GFR 31 ml/min 11/17/18 09:22 BUN/Creatinine Ratio 27 % 11/17/18 09:22 Glucose 145 mg/dL (75-100) H 11/17/18 09:22 Lactic Acid 1.40 mmol/L (0.7-2.0) 10/26/18 06:05 Calcium 8.9 mg/dL (8.4-10.2) 11/17/18 09:22 Magnesium 1.90 mg/dL (1.7-2.3) 11/04/18 04:58 Total Bilirubin 0.40 mg/dL (0.1-1.2) 10/25/18 17:12 AST 34 units/L (5-40) 10/25/18 17:12 ALT 24 units/L (7-56) 10/25/18 17:12 Alkaline Phosphatase 101 units/L (35-129) 10/25/18 17:12 C-Reactive Protein 23.00 mg/dL (0.00-1.30) H 10/28/18 20:48 Total Protein 6.8 g/dL (6.3-8.2) 10/25/18 17:12 Albumin 2.9 g/dL (3.9-5) L 10/25/18 17:12 Albumin/Globulin Ratio 0.7 % 10/25/18 17:12 Urine Color Yellow (Yellow) 11/12/18 22:31 Urine Turbidity Slightly-cloudy (Clear) 11/12/18 22:31 Urine pH 6.0 (5.0-7.0) 11/12/18 22:31 Ur Specific [place] 1.009 (1.003-1.030) 11/12/18 22:31 Urine Protein 100 mg/dl mg/dL (Negative) 11/12/18 22:31 Urine Glucose (UA) Neg mg/dL (Negative) 11/12/18 22:31 Urine Ketones Neg mg/dL (Negative) 11/12/18 22:31 Urine Blood Sm (Negative) 11/12/18 22:31 Urine Nitrite Neg (Negative) 11/12/18 22:31 Urine Bilirubin Neg (Negative) 11/12/18 22:31 Urine Urobilinogen < 2.0 mg/dL (<2.0) 11/12/18 22:31 Ur Leukocyte Esterase Neg (Negative) 11/12/18 22:31 Urine WBC (Auto) 6.0 /HPF (0.0-6.0) 11/12/18 22:31 Urine RBC (Auto) 48.0 /HPF (0.0-6.0) 11/12/18 22:31 U Epithel Cells (Auto) < 1.0 /HPF (0-13.0) 11/12/18 22:31 Urine Bacteria (Auto) 1+ /HPF (Negative) 11/12/18 22:31 Amorphous Crystals Few 10/26/18 05:30 Hyaline Casts 9 /LPF 10/26/18 05:30 Urine Mucus Few /HPF 11/12/18 22:31 Fluid Type Synovial 11/02/18 10:15 Fluid Color Red 11/02/18 10:15 Fluid Appearance Turbid 11/02/18 10:15 Fluid WBC 06009 /mm3 11/02/18 10:15 Fluid RBC 8580 /mm3 11/02/18 10:15 Fluid Seg Neutrophils 93.0 % 11/02/18 10:15 Fluid Lymphocytes 7.0 % 11/02/18 10:15 Fluid Reactive Lymphs 0 % 11/02/18 10:15 Fluid Monocytes 0 % 11/02/18 10:15 Fluid Eosinophils 0 % 11/02/18 10:15 Fluid Basophils 0 % 11/02/18 10:15 Synovial Crystals Negative (NONE SEEN) 10/29/18 Unknown Vancomycin Trough 21.4 ug/mL (5.0-20.0) H 11/12/18 16:58 Random Vancomycin 20.0 ug/mL (0-40.0) 11/17/18 05:27 Influenza A (Rapid) Negative (Negative) 10/29/18 16:42 Influenza B (Rapid) Negative (Negative) 10/29/18 16:42 Nutrition/Malnutrition Assess - Dietary Evaluation Nutrition/Malnutrition Findings: Nutrition Notes Start: 11/01/18 12:03 Freq: Status: Active Protocol: Document 11/14/18 14:15 [place] (Rec: 11/14/18 14:22 COUNTS INCLUDE 234 BEDS AT [facility] SRW-FNSERVICES 1) Nutrition Notes Current Diagnosis Hypertension Other Pertinent Diagnosis (R) knee septic arthritis, Dementia Current Diet Cardiac mech soft with ground meats + Ensure Enlive TID Labs/Tests No current available Pertinent Medications Reviewed Height 5 ft 4 in Weight 61.9 kg [place] Body Weight (kg) 59.09 BMI 23.4 Subjective/Other Information Pt has consumed 23% of meals since last assessment. He drinks 100% ONS daily, per RN report. Percent of energy/protein needs met: 100% energy/pro (meals + ONS) 32% energy 37% pro (meals only) Burn Absent Trauma Absent #1 Nutrition Diagnosis Inadequate oral intake As Evidenced by Signs and Symptoms PO intake of meals (alone) meeting <50% energy and pro needs Diagnosis Progress(for reassessment Continues documentation) Is patient on ventilator? No Is Patient Ambulatory and/or Out of Bed No [facility] [phone] Calculation Used for Recommendations [facility] Additional Notes Pro needs 1-1.2g/k-74g/ day Fluid needs 1ml/kcal Nutrition Intervention Change Diet Order: Continue current diet order Add Supplement/Snack (indicate name/kcal Ensure Enlive TID (vanilla) /protein ) Provides kCal: 1,050 Provides Protein (gm) 60 Goal #1 Continue to meet at least 75% of calorie and protein needs via PO and ONS intakes Goal #2 Wt maintenance Anticipated Discharge Needs: Continue Ensure Enlive (or equivalent) 2-3 times daily if PO intakes remain suboptimal Follow-Up By: 11/21/18 Additional Comments F/U: intakes (meals/ONS), wt
--- NOTE | 2018-11-18 00:45 | Ultrasound Report ---
FINAL REPORT EXAM: US RENAL BILAT HISTORY: masood TECHNIQUE: Routine imaging was obtained of the kidneys and bladder. Comparison is made to the study of 10/28/2018. FINDINGS: The right kidney measures 10 cm x 5.9 cm x 4.7 cm. The cortical thickness is 8 mm. The kidney has a l obulated contour. There are nonobstructing calcifications in the right kidney. There is no evidence o f hydronephrosis. There is a small cortical cyst in the right kidney. The left kidney measures 9.4 cm x 5.5 cm x 5.8 cm. There are nonobstructing calcifications in left ki dney. There is no evidence of hydronephrosis. The contour has a lobulated appearance. Imaging the bladder shows generalized bladder wall thickening. IMPRESSION: Nonobstructing calcifications and small cortical cysts in both kidneys with atrophic changes. No evid ence of hydronephrosis. Nonspecific thickening of the bladder wall. Underlying cystitis/bladder wall hypertrophy cannot be ex cluded.
[2018-11-18] MEDS: PROVENTIL IH PRN ×2 (05:29→14:04)
[2018-11-18] MEDS: FLAGYL 500 MG/100 ML 500 MG/100 ML BAG IV SCH ×3 (05:43→21:10)
[2018-11-18 06:17] LABS: Calcium 8.4 mg/dL (8.4-10.2)
[2018-11-18] MEDS: APRESOLINE PO SCH ×3 (08:45→21:14)
[2018-11-18] MEDS ORDERED: KCL 40 MEQ in NACL 0.45% 500 ML IV SCH (09:15)
[2018-11-18] MEDS: MAXIPIME/NS 1 GM/100 ML 1 GM/100 ML BAG IV SCH (10:10)
[2018-11-18] MEDS: KCL 10MEQ/100ML 10 MEQ/100 ML BAG IV SCH ×4 (10:11→14:16)
[2018-11-18] MEDS: TOPROL XL PO SCH (10:12)
[2018-11-18] MEDS: VIBRAMYCIN PO SCH ×2 (10:13→21:11)
[2018-11-18] MEDS: SODIUM CHLORIDE FLUSH SYRINGE 10 ML IV SCH ×2 (10:13→21:15)
[2018-11-18] MEDS: PLAVIX PO SCH (10:13)
[2018-11-18] MEDS: CATAPRES PO SCH ×2 (10:13→21:14)
--- NOTE | 2018-11-18 11:01 | XRay Report ---
FINAL REPORT EXAM: XR CHEST 1V AP HISTORY: sob COMPARISON: Chest radiograph performed on 11/13/2018 TECHNIQUE: Single frontal view of the chest FINDINGS: Right upper extremity PICC line with tip at the superior cavoatrial junction. The cardiomediastinal silhouette is normal in appearance. Unchanged right-sided pleural thickening. Unchanged interstitial prominence. Unchanged blunting of the left costophrenic angle. No acute bony or soft tissue abnormality. IMPRESSION: Stable chest with unchanged right-sided pleural thickening, interstitial prominence, and blunting of the left costophrenic angle that may represent a small pleural effusion.
--- NOTE | 2018-11-18 14:14 | Consultation ---
History of Present Illness - Reason for Consult Consult date: 11/18/18 acute renal failure Requesting physician: CARI FERGUSON - History of Present Illness This is a 78 yo M with past medical history of hypertension, nicotine dependance, who was initially admitted on 10/25/18 after presenting with generalized weakness and recent fall to the ground with knee injury, septic arthritis of R knee was suspected, sp tap, cx neg so far, AFB cx still pending. also on ABXs treatment for possible PNA, currently on cefepime, flagyl and doxycycline. Pt' course has been complicated by pulmonary edema requiring IV diuresis. Pt's Cr has been fluctuating during the hospitalization course, with baseline Cr around 1.1- 1.3mg/dl gradually rising to 1.5mg/dl on 11/13/18 then jumping to 2.4 on 11/17 for which renal consult is requested. Renal US showed nonobstructing calcifications and small cortical cysts in both kidneys with atrophic changes, however without hydroneprhosis. no recent NSAIDs or IV contrast exposure. Past History Past Medical History: hypertension Past Surgical History: Other (Hand, Ear surgery) Social history: , smoking Family history: hypertension Medications and Allergies Allergies Allergy/AdvReac Type Severity Reaction Status Date / Time No Known Allergies Allergy Verified 10/25/18 17:04 Home Medications Medication Instructions Recorded Confirmed Last Taken Type Atorvastatin Calcium 40 mg PO DAILY 10/25/18 10/25/18 Unknown History Clopidogrel [Plavix] 75 mg PO QDAY 10/25/18 10/25/18 Unknown History Lisinopril [Zestril TAB] 20 mg PO QDAY #30 tablet 11/09/18 Unknown Rx Metoprolol Xl [Metoprolol 100 mg PO QDAY #30 tablet 11/09/18 Unknown Rx SUCCINATE ER TAB] Vancomycin 750 mg IV Q24H 21 Days mg 11/09/18 Unknown Rx cloNIDine [Catapres] 0.2 mg PO Q12HR #60 tablet 11/09/18 Unknown Rx hydrALAZINE [Apresoline TAB] 100 mg PO TID #90 tab 11/09/18 Unknown Rx Ciprofloxacin HCl [Cipro] 500 mg PO BID 14 Days tablet 11/16/18 Unknown Rx Active Meds: Active Medications Acetaminophen (Tylenol) 650 mg PO Q4H PRN PRN Reason: Pain MILD(1-3)/Fever >100.5/PARIKH Last Admin: 11/13/18 14:52 Dose: 650 mg Documented by: Albuterol (Proventil) 2.5 mg IH Q4HRT PRN PRN Reason: Shortness Of Breath Last Admin: 11/18/18 14:04 Dose: 2.5 mg Documented by: Atorvastatin Calcium (Lipitor) 40 mg PO DAILY [facility] Last Admin: 11/18/18 10:13 Dose: 40 mg Documented by: Clonidine HCl (Catapres) 0.2 mg PO Q12HR [facility] Last Admin: 11/18/18 10:13 Dose: 0.2 mg Documented by: Clopidogrel Bisulfate (Plavix) 75 mg PO QDAY [facility] Last Admin: 11/18/18 10:13 Dose: 75 mg Documented by: Doxycycline Hyclate (Vibramycin) 100 mg PO Q12HR [facility] Last Admin: 11/18/18 10:13 Dose: 100 mg Documented by: Hydralazine HCl (Apresoline) 100 mg PO TID [facility] Last Admin: 11/18/18 08:45 Dose: 100 mg Documented by: Hydralazine HCl (Apresoline) 20 mg IV Q4HR PRN PRN Reason: Hypertension Metronidazole (Flagyl 500 Mg/100 Ml) 500 mg in 100 mls @ 100 mls/hr IV Q8HR [facility]; Protocol Last Infusion: 11/18/18 06:45 Dose: Infused Documented by: Dextrose (D5w) 1,000 mls @ 42 mls/hr IV DIRECT [facility] Last Admin: 11/17/18 12:06 Dose: 42 mls/hr Documented by: Cefepime HCl (Maxipime/Ns 1 Gm/100 Ml) 1 gm in 100 mls @ 200 mls/hr IV Q24HR [facility] Last Admin: 11/18/18 10:10 Dose: 200 mls/hr Documented by: Metoprolol Succinate (Toprol Xl) 100 mg PO QDAY [facility] Last Admin: 11/18/18 10:12 Dose: 100 mg Documented by: Ondansetron HCl (Zofran) 4 mg IV Q8H PRN PRN Reason: Nausea And Vomiting Last Admin: 11/16/18 13:49 Dose: 4 mg Documented by: Sodium Chloride (Sodium Chloride Flush Syringe 10 Ml) 10 ml IV BID [facility] Last Admin: 11/18/18 10:13 Dose: 10 ml Documented by: Sodium Chloride (Sodium Chloride Flush Syringe 10 Ml) 10 ml IV PRN PRN PRN Reason: LINE FLUSH Sodium Chloride (Sodium Chloride Flush Syringe 10 Ml) 10 ml IV PRN LOUIE Last Admin: 11/09/18 17:18 Dose: 10 ml Documented by: Review of Systems All systems: negative Constitutional: anorexia, fatigue, weakness Exam - Vital Signs Vital signs: Vital Signs Pulse Ox 95 10/25/18 12:05 - General Appearance General appearance: appears stated age, chronically ill EENT: ATNC, PERRL, mucous membranes dry Neck: Present: neck supple Respiratory: Decreased Breath Sounds Heart: regular, S1S2 Gastrointestinal: Present: normoactive bowel sounds Integumentary: no rash, other (no edema ) Neurologic: no focal deficit, strength 5/5, CN 3-12 intact Psychiatric: mood/affect appropriate, cooperative Results - Lab Results 11/17/18 09:22 11/18/18 05:22 Most recent lab results Calcium 8.4 mg/dL (8.4-10.2) 11/18/18 05:22 Magnesium 1.90 mg/dL (1.7-2.3) 11/04/18 04:58 Assessment and Plan - Patient Problems (1) Acute kidney injury Current Visit: Yes Status: Acute Plan to address problem: suspect pre-renal azotemia in the setting of IV diuretic therapy along with decreased po intake. to rule out acute insterstitial nephritis in the setting of multiple ABXs treatment. check UA, urine lytes, urine protein/cr ratio, urine eos. Renal US showed nonobstructing calcifications and small cortical cysts in both kidneys with atrophic changes, however without hydroneprhosis. start IV D5W to correct free water deficit > 3L and hold IV lasix for now. avoid nephrotoxins, NSAID, IV contrast will monitor lytes/renal parameters closely and make further recommendations. (2) Hypernatremia Current Visit: Yes Status: Acute Plan to address problem: started on D5W, encouraged pt to increase oral water intake (3) Septic arthritis Current Visit: Yes Status: Acute Plan to address problem: cont ABX as per ID, dose for eGFR of ~30mls/min (4) Hypertension Current Visit: Yes Status: Acute Plan to address problem: BP controlled on current meds, incl. hydralazine, metoprolol and clonidine. will monitor BP and adjust meds accordingly
[2018-11-18] MEDS: LASIX IV SCH (14:35)
--- NOTE | 2018-11-18 14:37 | Progress Note ---
Assessment and Plan Assessment and plan: 78 YO Male with HTN, Nicotine Dependence pw gen weakness, , ams, malaise, x4 days. He fell on both his knees at home. -At time of admission, he met sepsis criteria and had bilat knee effusion and contusions - he was rx with broad spectrum abx -septic arthritis of R knee was suspected, sp tap, cx neg so far, AFB cx still pending -per ID upon discharge Cipro 500mg, PO BID and Vancomycin 1gm q 24 until 11/30/18 - meds were optimized for chronic conditions -he c/o testicular swelling, US shows bilat hydrocele, ntd, scrotal elevation was done -now coughing with meals, MBS done, advised for Pureed diet and thin liquids -- He had worsening functional status, and debility and therefore was recommende d to [facility] facility but he did not participate with PT, and his insurance denied him. Therefore he will be dc home with services when medically ready - he had severe sob on , due to pulmonary edema, received lasix and bipap and now weaned off bipap on NC, fup echo, IVF were dc, CXR showed bibasilar crackles and pulm edema -- He initially received IVF and has improvement in renal function, creat now elevated again since 11/17, nephrology consult appreciated, Renal US wnl --judicious use of D5W given hypernatremia to correct free water deficit, lasix now on hold -echo showed EF of 30%, optimize meds, and consult Cardiology -patient may be suffering cardiorenal syndrome? Diagnosis Sepsis secondary to septic arthritis of the right knee ARF (acute renal failure) with tubular necrosis, vasomotor nephropathy Hypertension Metabolic Encephalopathy Dementia Dysphagia Acute respiratory failure with hypoxia Pulmonary edema Hypernatremia acute on chronic systolic CHF History Interval history: Review of systems Constitutional: no fever, no malaise, no joint pains CVS: No chest pain, c.o orthopnea GI: No abdominal pain, no diarrhea, no vomiting, no constipation Respiratory: sob is improved Hospitalist Physical - Physical exam Narrative exam: General.: no distress HEENT: Moist mucous membranes, extraocular muscles intact, no lymphadenopathy Neck: supple Cardiac: S1-S2 heard Lungs: bibasilar crackles Abdomen: soft , nontender, nondistended, bowel sounds positive Extremities: no edema clubbing or cyanosis testicular edema Skin: no rash or lesions Neurologic: confused, gen weakness Psych: calm, and cooperative - Constitutional Vitals: Temp Pulse Resp BP Pulse Ox 98.9 F 110 H 20 146/94 94 11/18/18 07:58 11/18/18 07:58 11/18/18 07:58 11/18/18 10:13 11/18/18 07:58 General appearance: Present: mild distress Results - Labs CBC & Chem 7: 11/17/18 09:22 11/18/18 05:22 Labs: Laboratory Last Values WBC 10.1 K/mm3 (4.5-11.0) 11/17/18 09:22 RBC 2.95 M/mm3 (3.65-5.03) L 11/17/18 09:22 Hgb 8.7 gm/dl (11.8-15.2) L 11/17/18 09:22 Hct 26.1 % (35.5-45.6) L 11/17/18 09:22 MCV 88 fl (84-94) 11/17/18 09:22 MCH 30 pg (28-32) 11/17/18 09:22 MCHC 33 % (32-34) 11/17/18 09:22 RDW 15.1 % (13.2-15.2) 11/17/18 09:22 Plt Count 343 K/mm3 (140-440) 11/17/18 09:22 Lymph % (Auto) 4.3 % (13.4-35.0) L 11/17/18 09:22 [place] % (Auto) 6.5 % (0.0-7.3) 11/17/18 09:22 Eos % (Auto) 0.0 % (0.0-4.3) 11/17/18 09:22 Baso % (Auto) 0.2 % (0.0-1.8) 11/17/18 09:22 Lymph # 0.4 K/mm3 (1.2-5.4) L 11/17/18 09:22 [place] # 0.7 K/mm3 (0.0-0.8) 11/17/18 09:22 Eos # 0.0 K/mm3 (0.0-0.4) 11/17/18 09:22 Baso # 0.0 K/mm3 (0.0-0.1) 11/17/18 09:22 Add Manual Diff Complete 11/09/18 09:40 Total Counted 100 11/09/18 09:40 Seg Neutrophils % 89.0 % (40.0-70.0) H 11/17/18 09:22 Seg Neuts % (Manual) 86.0 % (40.0-70.0) H 11/09/18 09:40 Band Neutrophils % 0 % 11/09/18 09:40 Lymphocytes % (Manual) 6.0 % (13.4-35.0) L 11/09/18 09:40 Reactive Lymphs % (Man) 0 % 11/09/18 09:40 Monocytes % (Manual) 3.0 % (0.0-7.3) 11/09/18 09:40 Eosinophils % (Manual) 4.0 % (0.0-4.3) 11/09/18 09:40 Basophils % (Manual) 0 % (0.0-1.8) 11/09/18 09:40 Metamyelocytes % 0 % 11/09/18 09:40 Myelocytes % 1.0 % 11/09/18 09:40 Promyelocytes % 0 % 11/09/18 09:40 Blast Cells % 0 % 11/09/18 09:40 Nucleated RBC % Not Reportable 11/09/18 09:40 Seg Neutrophils # 9.0 K/mm3 (1.8-7.7) H 11/17/18 09:22 Seg Neutrophils # Man 15.0 K/mm3 (1.8-7.7) H 11/09/18 09:40 Band Neutrophils # 0.0 K/mm3 11/09/18 09:40 Lymphocytes # (Manual) 1.0 K/mm3 (1.2-5.4) L 11/09/18 09:40 Abs React Lymphs (Man) 0.0 K/mm3 11/09/18 09:40 Monocytes # (Manual) 0.5 K/mm3 (0.0-0.8) 11/09/18 09:40 Eosinophils # (Manual) 0.7 K/mm3 (0.0-0.4) H 11/09/18 09:40 Basophils # (Manual) 0.0 K/mm3 (0.0-0.1) 11/09/18 09:40 Metamyelocytes # 0.0 K/mm3 11/09/18 09:40 Myelocytes # 0.2 K/mm3 11/09/18 09:40 Promyelocytes # 0.0 K/mm3 11/09/18 09:40 Blast Cells # 0.0 K/mm3 11/09/18 09:40 WBC Morphology Not Reportable 11/09/18 09:40 Hypersegmented Neuts Not Reportable 11/09/18 09:40 Hyposegmented Neuts Not Reportable 11/09/18 09:40 Hypogranular Neuts Not Reportable 11/09/18 09:40 Smudge Cells Not Reportable 11/09/18 09:40 Toxic Granulation Not Reportable 11/09/18 09:40 Toxic Vacuolation Not Reportable 11/09/18 09:40 Dohle Bodies Not Reportable 11/09/18 09:40 Pelger-Huet Anomaly Not Reportable 11/09/18 09:40 Swetha Rods Not Reportable 11/09/18 09:40 Platelet Estimate Consistent w auto 11/09/18 09:40 Clumped Platelets Not Reportable 11/09/18 09:40 Plt Clumps, EDTA Not Reportable 11/09/18 09:40 Large Platelets Not Reportable 11/09/18 09:40 Giant Platelets Not Reportable 11/09/18 09:40 Platelet Satelliting Not Reportable 11/09/18 09:40 Plt Morphology Comment Not Reportable 11/09/18 09:40 RBC Morphology Not Reportable 11/09/18 09:40 Dimorphic RBCs Not Reportable 11/09/18 09:40 Polychromasia Not Reportable 11/09/18 09:40 Hypochromasia Not Reportable 11/09/18 09:40 Poikilocytosis 1+ 11/09/18 09:40 Anisocytosis 1+ 11/09/18 09:40 Microcytosis Not Reportable 11/09/18 09:40 Macrocytosis Not Reportable 11/09/18 09:40 Spherocytes Not Reportable 11/09/18 09:40 Pappenheimer Bodies Not Reportable 11/09/18 09:40 Sickle Cells Not Reportable 11/09/18 09:40 Target Cells Not Reportable 11/09/18 09:40 Tear Drop Cells Not Reportable 11/09/18 09:40 Ovalocytes 1+ 01/24/19 09:40 Helmet Cells Not Reportable 11/09/18 09:40 [place] Bodies Not Reportable 11/09/18 09:40 [place] Rings Not Reportable 11/09/18 09:40 [place] Cells Not Reportable 11/09/18 09:40 Bite Cells Not Reportable 11/09/18 09:40 Crenated Cell Not Reportable 11/09/18 09:40 Elliptocytes Not Reportable 11/09/18 09:40 Acanthocytes (Spur) Not Reportable 11/09/18 09:40 Rouleaux Not Reportable 11/09/18 09:40 Hemoglobin C Crystals Not Reportable 11/09/18 09:40 Schistocytes Not Reportable 11/09/18 09:40 Malaria parasites Not Reportable 11/09/18 09:40 [place] Bodies Not Reportable 11/09/18 09:40 Hem Pathologist Commnt No 11/09/18 09:40 Sodium 148 mmol/L (137-145) H 11/18/18 05:22 Potassium 3.1 mmol/L (3.6-5.0) L 11/18/18 05:22 Chloride 105.7 mmol/L (98-107) 11/18/18 05:22 Carbon Dioxide 24 mmol/L (22-30) 11/18/18 05:22 Anion Gap 21 mmol/L 11/18/18 05:22 BUN 70 mg/dL (9-20) H 11/18/18 05:22 Creatinine 2.4 mg/dL (0.8-1.5) H 11/18/18 05:22 Estimated GFR 32 ml/min 11/18/18 05:22 BUN/Creatinine Ratio 29 % 11/18/18 05:22 Glucose 147 mg/dL (75-100) H 11/18/18 05:22 Lactic Acid 1.40 mmol/L (0.7-2.0) 10/26/18 06:05 Calcium 8.4 mg/dL (8.4-10.2) 11/18/18 05:22 Magnesium 1.90 mg/dL (1.7-2.3) 11/04/18 04:58 Total Bilirubin 0.40 mg/dL (0.1-1.2) 10/25/18 17:12 AST 34 units/L (5-40) 10/25/18 17:12 ALT 24 units/L (7-56) 10/25/18 17:12 Alkaline Phosphatase 101 units/L (35-129) 10/25/18 17:12 C-Reactive Protein 23.00 mg/dL (0.00-1.30) H 10/28/18 20:48 Total Protein 6.8 g/dL (6.3-8.2) 10/25/18 17:12 Albumin 2.9 g/dL (3.9-5) L 10/25/18 17:12 Albumin/Globulin Ratio 0.7 % 10/25/18 17:12 Urine Color Yellow (Yellow) 11/12/18 22:31 Urine Turbidity Slightly-cloudy (Clear) 11/12/18 22:31 Urine pH 6.0 (5.0-7.0) 11/12/18 22:31 Ur Specific [place] 1.009 (1.003-1.030) 11/12/18 22:31 Urine Protein 100 mg/dl mg/dL (Negative) 11/12/18 22:31 Urine Glucose (UA) Neg mg/dL (Negative) 11/12/18 22:31 Urine Ketones Neg mg/dL (Negative) 11/12/18 22:31 Urine Blood Sm (Negative) 11/12/18 22:31 Urine Nitrite Neg (Negative) 11/12/18 22:31 Urine Bilirubin Neg (Negative) 11/12/18 22:31 Urine Urobilinogen < 2.0 mg/dL (<2.0) 11/12/18 22:31 Ur Leukocyte Esterase Neg (Negative) 11/12/18 22:31 Urine WBC (Auto) 6.0 /HPF (0.0-6.0) 11/12/18 22:31 Urine RBC (Auto) 48.0 /HPF (0.0-6.0) 11/12/18 22:31 U Epithel Cells (Auto) < 1.0 /HPF (0-13.0) 11/12/18 22:31 Urine Bacteria (Auto) 1+ /HPF (Negative) 11/12/18 22:31 Amorphous Crystals Few 10/26/18 05:30 Hyaline Casts 9 /LPF 10/26/18 05:30 Urine Mucus Few /HPF 11/12/18 22:31 Fluid Type Synovial 11/02/18 10:15 Fluid Color Red 11/02/18 10:15 Fluid Appearance Turbid 11/02/18 10:15 Fluid WBC 19477 /mm3 11/02/18 10:15 Fluid RBC 8580 /mm3 11/02/18 10:15 Fluid Seg Neutrophils 93.0 % 11/02/18 10:15 Fluid Lymphocytes 7.0 % 11/02/18 10:15 Fluid Reactive Lymphs 0 % 11/02/18 10:15 Fluid Monocytes 0 % 11/02/18 10:15 Fluid Eosinophils 0 % 11/02/18 10:15 Fluid Basophils 0 % 11/02/18 10:15 Synovial Crystals Negative (NONE SEEN) 10/29/18 Unknown Vancomycin Trough 21.4 ug/mL (5.0-20.0) H 11/12/18 16:58 Random Vancomycin 20.0 ug/mL (0-40.0) 11/17/18 05:27 Influenza A (Rapid) Negative (Negative) 10/29/18 16:42 Influenza B (Rapid) Negative (Negative) 10/29/18 16:42 Nutrition/Malnutrition Assess - Dietary Evaluation Nutrition/Malnutrition Findings: Nutrition Notes Start: 11/01/18 12:03 Freq: Status: Active Protocol: Document 11/14/18 14:15 GEOFFREY (Rec: 11/14/18 14:22 GEOFFREY [id number] [email or web address]) Nutrition Notes Current Diagnosis Hypertension Other Pertinent Diagnosis (R) knee septic arthritis, Dementia Current Diet Cardiac mech soft with ground meats + Ensure Enlive TID Labs/Tests No current available Pertinent Medications Reviewed Height 5 ft 4 in Weight 61.9 kg [place] Body Weight (kg) 59.09 BMI 23.4 Subjective/Other Information Pt has consumed 23% of meals since last assessment. He drinks 100% ONS daily, per RN report. Percent of energy/protein needs met: 100% energy/pro (meals + ONS) 32% energy 37% pro (meals only) Burn Absent Trauma Absent #1 Nutrition Diagnosis Inadequate oral intake As Evidenced by Signs and Symptoms PO intake of meals (alone) meeting <50% energy and pro needs Diagnosis Progress(for reassessment Continues documentation) Is patient on ventilator? No Is Patient Ambulatory and/or Out of Bed No REE-([facility]-confined to bed) [phone] Calculation Used for Recommendations Reed Obrien Additional Notes Pro needs 1-1.2g/k-74g/ day Fluid needs 1ml/kcal Nutrition Intervention Change Diet Order: Continue current diet order Add Supplement/Snack (indicate name/kcal Ensure Enlive TID (vanilla) /protein ) Provides kCal: 1,050 Provides Protein (gm) 60 Goal #1 Continue to meet at least 75% of calorie and protein needs via PO and ONS intakes Goal #2 Wt maintenance Anticipated Discharge Needs: Continue Ensure Enlive (or equivalent) 2-3 times daily if PO intakes remain suboptimal Follow-Up By: 11/21/18 Additional Comments F/U: intakes (meals/ONS), wt
[2018-11-18] MEDS: LOPRESSOR PO SCH (21:14)
[2018-11-19 01:55] LABS: Creatinine,Urine 67.4 mg/dL (0.1-20.0)
[2018-11-19 05:10] LABS: Calcium 8.2 mg/dL (8.4-10.2)
[2018-11-19] MEDS: FLAGYL 500 MG/100 ML 500 MG/100 ML BAG IV SCH ×3 (05:47→21:30)
[2018-11-19] MEDS: APRESOLINE PO SCH ×3 (07:07→21:34)
--- NOTE | 2018-11-19 07:17 | Progress Note ---
Assessment and Plan - Patient Problems (1) Acute kidney injury Current Visit: Yes Status: Acute Plan to address problem: suspect pre-renal azotemia in the setting of IV diuretic therapy along with decreased po intake. to rule out acute insterstitial nephritis in the setting of multiple ABXs treatment. FeNA was measured to be 1.2%, no urine eos seen. Renal US showed nonobstructing calcifications and small cortical cysts in both kidneys with atrophic changes, however without hydroneprhosis. start IV D5W to correct free water deficit and hold IV lasix for now. avoid nephrotoxins, NSAID, IV contrast will monitor lytes/renal parameters closely and make further recommendations. (2) Hypernatremia Current Visit: Yes Status: Acute Plan to address problem: started on D5W, na improving. encouraged pt to increase oral water intake (3) Septic arthritis Current Visit: Yes Status: Acute Plan to address problem: cont ABX as per ID, dose for eGFR of ~30mls/min (4) Hypertension Current Visit: Yes Status: Acute Plan to address problem: BP controlled on current meds, incl. hydralazine, metoprolol and clonidine. will monitor BP and adjust meds accordingly Subjective Date of service: 11/19/18 Principal diagnosis: SIRS Interval history: Pt awake, alert, on BIPAP overnight, reported to wet diaper significantly Objective - Vital Signs Vital signs: Vital Signs - 12hr 11/18/18 11/18/18 11/18/18 19:50 21:14 22:47 Temperature 97.8 F Pulse Rate 89 89 88 Respiratory 20 27 H Rate Blood Pressure 116/83 116/83 O2 Sat by Pulse 99 98 Oximetry - General Appearance General appearance: appears stated age, chronically ill, other (on BIPAP) EENT: ATNC, PERRL, mucous membranes moist Neck: no JVD Respiratory: Present: Decreased Breath Sounds Cardiology: regular, S1S2 Gastrointestinal: normoactive bowel sounds Integumentary: no rash, other (no edema ) Neurologic: no focal deficit, strength 5/5, CN 3-12 intact Psychiatric: mood/affect appropriate, cooperative - Lab 11/17/18 09:22 11/19/18 04:19 Most recent lab results Calcium 8.2 mg/dL (8.4-10.2) L 11/19/18 04:19 Magnesium 2.20 mg/dL (1.7-2.3) 11/19/18 04:19 Urine Creatinine 67.4 mg/dL (0.1-20.0) H 11/19/18 01:10 Urine Sodium 50 mmol/L 11/19/18 01:10 Urine Total Protein 23 mg/dL (5-11.8) H 11/19/18 01:10 Medications & Allergies - Medications Allergies/Adverse Reactions: Allergies No Known Allergies Allergy (Verified 10/25/18 17:04) Home Medications: Home Medications Medication Instructions Recorded Confirmed Last Taken Type Atorvastatin Calcium 40 mg PO DAILY 10/25/18 10/25/18 Unknown History Clopidogrel [Plavix] 75 mg PO QDAY 10/25/18 10/25/18 Unknown History Lisinopril [Zestril TAB] 20 mg PO QDAY #30 tablet 11/09/18 Unknown Rx Metoprolol Xl [Metoprolol 100 mg PO QDAY #30 tablet 11/09/18 Unknown Rx SUCCINATE ER TAB] Vancomycin 750 mg IV Q24H 21 Days mg 11/09/18 Unknown Rx cloNIDine [Catapres] 0.2 mg PO Q12HR #60 tablet 11/09/18 Unknown Rx hydrALAZINE [Apresoline TAB] 100 mg PO TID #90 tab 11/09/18 Unknown Rx Ciprofloxacin HCl [Cipro] 500 mg PO BID 14 Days tablet 11/16/18 Unknown Rx Active Medications: Generic Name Dose Route Start Last Admin Trade Name Freq PRN Reason Stop Dose Admin Acetaminophen 650 mg 10/25/18 16:54 11/13/18 14:52 Tylenol PO 650 mg Q4H PRN Administration Pain MILD(1-3)/Fever >100.5/PARIKH Albuterol 2.5 mg 10/25/18 16:54 11/18/18 14:04 Proventil IH 2.5 mg Q4HRT PRN Administration Shortness Of Breath Atorvastatin Calcium 40 mg 10/26/18 10:00 11/18/18 10:13 Lipitor PO 40 mg DAILY LOUIE Administration Clonidine HCl 0.2 mg 11/05/18 10:00 11/18/18 21:14 Catapres PO Not Given Q12HR LOUIE Clopidogrel Bisulfate 75 mg 10/26/18 10:00 11/18/18 10:13 Plavix PO 75 mg QDAY LOUIE Administration Doxycycline Hyclate 100 mg 11/17/18 10:00 11/18/18 21:11 Vibramycin PO 100 mg Q12HR LOUIE Administration Hydralazine HCl 100 mg 11/02/18 08:30 11/19/18 07:07 Apresoline PO 100 mg TID LOUIE Administration Hydralazine HCl 20 mg 11/16/18 16:12 Apresoline IV Q4HR PRN Hypertension Metronidazole 500 mg in 100 mls @ 100 mls/hr 11/16/18 17:00 11/19/18 05:47 Flagyl 500 Mg/100 Ml IV 100 mls/hr Q8HR LOUIE Administration Protocol Dextrose 1,000 mls @ 42 mls/hr 11/17/18 11:00 11/17/18 12:06 D5w IV 42 mls/hr DIRECT LOUIE Administration Cefepime HCl 1 gm in 100 mls @ 200 mls/hr 11/18/18 10:00 11/18/18 10:10 Maxipime/Ns 1 Gm/100 Ml IV 200 mls/hr Q24HR LOUIE Administration Losartan Potassium 25 mg 11/19/18 10:00 Cozaar PO QDAY LOUIE Metoprolol Succinate 100 mg 10/26/18 11:00 11/18/18 10:12 Toprol Xl PO 100 mg QDAY LOUIE Administration Metoprolol Tartrate 12.5 mg 11/18/18 22:00 11/18/18 21:14 Lopressor PO Not Given BID LOUIE Ondansetron HCl 4 mg 10/25/18 16:54 11/16/18 13:49 Zofran IV 4 mg Q8H PRN Administration Nausea And Vomiting Sodium Chloride 10 ml 10/25/18 22:00 11/18/18 21:15 Sodium Chloride Flush Syringe 10 Ml IV 10 ml BID LOUIE Administration Sodium Chloride 10 ml 10/25/18 16:54 Sodium Chloride Flush Syringe 10 Ml IV PRN PRN LINE FLUSH Sodium Chloride 10 ml 11/02/18 16:00 11/09/18 17:18 Sodium Chloride Flush Syringe 10 Ml IV 10 ml PRN LOUIE Administration
[2018-11-19] MEDS: PLAVIX PO SCH (09:59)
[2018-11-19] MEDS: LOPRESSOR PO SCH ×2 (09:59→21:31)
[2018-11-19] MEDS: CATAPRES PO SCH ×2 (10:00→21:30)
[2018-11-19] MEDS ORDERED: COZAAR PO SCH (10:00)
[2018-11-19] MEDS: TOPROL XL PO SCH (10:01)
[2018-11-19] MEDS: SODIUM CHLORIDE FLUSH SYRINGE 10 ML IV SCH ×2 (10:01→21:33)
--- NOTE | 2018-11-19 10:09 | Progress Note ---
Assessment and Plan Cultures: 10/25/2018 Blood Culture: no growth so far 10/30/2018 Synovial Left Knee: no growth 11/02/2018 Synovial Right Knee: no growth 11/04/2018 AFB Smear: negative Assessment: 78 y/o male with history of HTN; admitted on 10/25/2018 due to a-week history of generalized weakness and a recent fall to the ground injuring his knees:. 1) SIRS: Resolved. Initially due to right knee septic arthritis; recent SIRS ? aspiration pneumonia vs volume overload. - Blood cultures 10/27/2018 no growth, UA neg, CXR neg, LFTs normal, CT abd showed prior granulomatous disease, low-density nodule right lobe of the liver and lobulated contour of the kidneys, multiple small cortical nodule suspected in the kidneys which are not clearly defined by this exam. XR knee bilateral effusion. Influenza negative - repeat CXR 11/16 +cayden pulmonary edema 2) Acute encephalopathy: now resolved. Today is better 3) Right knee septic arthritis: s/p Right knee -aspirated 20 cc seropurulent fluid, sent for gram stain and analysis. s/p right knee joint washout, Synovial fluid analysis with 14K WBCs, could be reflective of partially treated septic arthritis Synovial right knee cultures show no growth. Follow up on AFB cultures. 4) AMANDA - continuing. Antimicrobials renally dosed Recommendations: - continue cefepime, flagyl and doxycycline for now - reportedly he is going to hospice - If discharged to Hospice care can do Cipro and doxycycline PO until 11/30/18 -If not discharged to hospice, will do Cipro 500mg PO BID and Vancomycin 1gm q 24 until 11/30/18. Lula Purdy NP [facility] M: [id number] O:[phone] Subjective Date of service: 11/19/18 Principal diagnosis: SIRS Interval history: Patient seen and examined.. Primary language [place]. at bedside, on , 3L/NC. Awake, alert, no acute distress observed. Objective - Exam Narrative Exam: General appearance: alert in NAD, onversant no acute distress Eyes: anicteric sclerae, moist conjunctivae; no lid-lag; PERRLA HENT: Atraumatic, old craneal frontal deformity; oropharynx limited Neck: Trachea midline; supple, no thyromegaly or lymphadenopathy Lungs: clear to auscultation CV: RRR Abdomen: Soft, non-tender; no masses or hepatosplenomegaly Extremities: right knee no edema no erythama Skin: Normal temperature, turgor and texture; no rash, ulcers or subcutaneous nodules Psych: alert pleasant Neuro: alert oriented moving all extremities Lines - Constitutional Vitals: Vital Signs Temp Pulse Resp BP Pulse Ox 97.8 F 84 18 116/83 98 11/18/18 19:50 11/19/18 07:57 11/19/18 07:57 11/18/18 21:14 11/18/18 22:47 Temperature -Last 24 Hours Temperature 97.8 F Temperature 97.6 F - Labs CBC & Chem 7: 11/17/18 09:22 11/19/18 04:19 Labs: Abnormal lab results 11/18/18 11/18/18 11/19/18 Range/Units 16:35 23:42 01:10 Sodium (137-145) mmol/L Potassium 3.5 L (3.6-5.0) mmol/L Chloride (98-107) mmol/L BUN (9-20) mg/dL Creatinine (0.8-1.5) mg/dL Glucose (75-100) mg/dL POC Glucose 135 H (70-105) Calcium (8.4-10.2) mg/dL Urine Creatinine 67.4 H (0.1-20.0) mg/dL Urine Total Protein 23 H (5-11.8) mg/dL 11/19/18 Range/Units 04:19 Sodium 146 H (137-145) mmol/L Potassium (3.6-5.0) mmol/L Chloride 108.5 H (98-107) mmol/L BUN 66 H (9-20) mg/dL Creatinine 2.3 H (0.8-1.5) mg/dL Glucose 123 H (75-100) mg/dL POC Glucose (70-105) Calcium 8.2 L (8.4-10.2) mg/dL Urine Creatinine (0.1-20.0) mg/dL Urine Total Protein (5-11.8) mg/dL
--- NOTE | 2018-11-19 10:41 | Progress Note ---
Assessment and Plan Assessment and plan: 78 YO Male with HTN, Nicotine Dependence pw gen weakness, , ams, malaise, x4 days. He fell on both his knees at home. -At time of admission, he met sepsis criteria and had bilat knee effusion and contusions - he was rx with broad spectrum abx -septic arthritis of R knee was suspected, sp tap, cx neg so far, AFB cx still pending -per ID upon discharge Cipro 500mg, PO BID and Vancomycin 1gm q 24 until 11/30/18 - meds were optimized for chronic conditions -he c/o testicular swelling, US shows bilat hydrocele, ntd, scrotal elevation was done -now coughing with meals, MBS done, advised for Pureed diet and thin liquids -- He had worsening functional status, and debility and therefore was recommende d to [facility] facility but he did not participate with PT, and his insurance denied him. Therefore he will be dc home with services when medically ready - he had severe sob on , due to pulmonary edema, received lasix and bipap and now weaned off bipap on NC, fup echo, IVF were dc, CXR showed bibasilar crackles and pulm edema, was put back on bipap last night -- He initially received IVF and has improvement in renal function, creat now elevated again since 11/17, nephrology consult appreciated, Renal US wnl --judicious use of D5W given hypernatremia to correct free water deficit, cont lasix -echo showed EF of 30%, optimize meds, and consult Cardiology -patient may be suffering cardiorenal syndrome? Diagnosis Sepsis secondary to septic arthritis of the right knee ARF (acute renal failure) with tubular necrosis, vasomotor nephropathy Hypertension Metabolic Encephalopathy Dementia Dysphagia Acute respiratory failure with hypoxia Pulmonary edema Hypernatremia acute on chronic systolic CHF History Interval history: Review of systems Constitutional: no fever, no malaise, no joint pains CVS: No chest pain, c.o orthopnea GI: No abdominal pain, no diarrhea, no vomiting, no constipation Respiratory: sob is improved Hospitalist Physical - Physical exam Narrative exam: General.: no distress HEENT: Moist mucous membranes, extraocular muscles intact, no lymphadenopathy Neck: supple Cardiac: S1-S2 heard Lungs: bibasilar crackles Abdomen: soft , nontender, nondistended, bowel sounds positive Extremities: no edema clubbing or cyanosis testicular edema Skin: no rash or lesions Neurologic: confused, gen weakness Psych: calm, and cooperative - Constitutional Vitals: Temp Pulse Resp BP Pulse Ox 97.8 F 84 18 116/83 98 11/18/18 19:50 11/19/18 07:57 11/19/18 07:57 11/18/18 21:14 11/18/18 22:47 General appearance: Present: mild distress Results - Labs CBC & Chem 7: 11/17/18 09:22 11/19/18 04:19 Labs: Laboratory Last Values WBC 10.1 K/mm3 (4.5-11.0) 11/17/18 09:22 RBC 2.95 M/mm3 (3.65-5.03) L 11/17/18 09:22 Hgb 8.7 gm/dl (11.8-15.2) L 11/17/18 09:22 Hct 26.1 % (35.5-45.6) L 11/17/18 09:22 MCV 88 fl (84-94) 11/17/18 09:22 MCH 30 pg (28-32) 11/17/18 09:22 MCHC 33 % (32-34) 11/17/18 09:22 RDW 15.1 % (13.2-15.2) 11/17/18 09:22 Plt Count 343 K/mm3 (140-440) 11/17/18 09:22 Lymph % (Auto) 4.3 % (13.4-35.0) L 11/17/18 09:22 [place] % (Auto) 6.5 % (0.0-7.3) 11/17/18 09:22 Eos % (Auto) 0.0 % (0.0-4.3) 11/17/18 09:22 Baso % (Auto) 0.2 % (0.0-1.8) 11/17/18 09:22 Lymph # 0.4 K/mm3 (1.2-5.4) L 11/17/18 09:22 [place] # 0.7 K/mm3 (0.0-0.8) 11/17/18 09:22 Eos # 0.0 K/mm3 (0.0-0.4) 11/17/18 09:22 Baso # 0.0 K/mm3 (0.0-0.1) 11/17/18 09:22 Add Manual Diff Complete 11/09/18 09:40 Total Counted 100 11/09/18 09:40 Seg Neutrophils % 89.0 % (40.0-70.0) H 11/17/18 09:22 Seg Neuts % (Manual) 86.0 % (40.0-70.0) H 11/09/18 09:40 Band Neutrophils % 0 % 11/09/18 09:40 Lymphocytes % (Manual) 6.0 % (13.4-35.0) L 11/09/18 09:40 Reactive Lymphs % (Man) 0 % 11/09/18 09:40 Monocytes % (Manual) 3.0 % (0.0-7.3) 11/09/18 09:40 Eosinophils % (Manual) 4.0 % (0.0-4.3) 11/09/18 09:40 Basophils % (Manual) 0 % (0.0-1.8) 11/09/18 09:40 Metamyelocytes % 0 % 11/09/18 09:40 Myelocytes % 1.0 % 11/09/18 09:40 Promyelocytes % 0 % 11/09/18 09:40 Blast Cells % 0 % 11/09/18 09:40 Nucleated RBC % Not Reportable 11/09/18 09:40 Seg Neutrophils # 9.0 K/mm3 (1.8-7.7) H 11/17/18 09:22 Seg Neutrophils # Man 15.0 K/mm3 (1.8-7.7) H 11/09/18 09:40 Band Neutrophils # 0.0 K/mm3 11/09/18 09:40 Lymphocytes # (Manual) 1.0 K/mm3 (1.2-5.4) L 11/09/18 09:40 Abs React Lymphs (Man) 0.0 K/mm3 11/09/18 09:40 Monocytes # (Manual) 0.5 K/mm3 (0.0-0.8) 11/09/18 09:40 Eosinophils # (Manual) 0.7 K/mm3 (0.0-0.4) H 11/09/18 09:40 Basophils # (Manual) 0.0 K/mm3 (0.0-0.1) 11/09/18 09:40 Metamyelocytes # 0.0 K/mm3 11/09/18 09:40 Myelocytes # 0.2 K/mm3 11/09/18 09:40 Promyelocytes # 0.0 K/mm3 11/09/18 09:40 Blast Cells # 0.0 K/mm3 11/09/18 09:40 WBC Morphology Not Reportable 11/09/18 09:40 Hypersegmented Neuts Not Reportable 11/09/18 09:40 Hyposegmented Neuts Not Reportable 11/09/18 09:40 Hypogranular Neuts Not Reportable 11/09/18 09:40 Smudge Cells Not Reportable 11/09/18 09:40 Toxic Granulation Not Reportable 11/09/18 09:40 Toxic Vacuolation Not Reportable 11/09/18 09:40 Dohle Bodies Not Reportable 11/09/18 09:40 Pelger-Huet Anomaly Not Reportable 11/09/18 09:40 Swetha Rods Not Reportable 11/09/18 09:40 Platelet Estimate Consistent w auto 11/09/18 09:40 Clumped Platelets Not Reportable 11/09/18 09:40 Plt Clumps, EDTA Not Reportable 11/09/18 09:40 Large Platelets Not Reportable 11/09/18 09:40 Giant Platelets Not Reportable 11/09/18 09:40 Platelet Satelliting Not Reportable 11/09/18 09:40 Plt Morphology Comment Not Reportable 11/09/18 09:40 RBC Morphology Not Reportable 11/09/18 09:40 Dimorphic RBCs Not Reportable 11/09/18 09:40 Polychromasia Not Reportable 11/09/18 09:40 Hypochromasia Not Reportable 11/09/18 09:40 Poikilocytosis 1+ 11/09/18 09:40 Anisocytosis 1+ 11/09/18 09:40 Microcytosis Not Reportable 11/09/18 09:40 Macrocytosis Not Reportable 11/09/18 09:40 Spherocytes Not Reportable 11/09/18 09:40 Pappenheimer Bodies Not Reportable 11/09/18 09:40 Sickle Cells Not Reportable 11/09/18 09:40 Target Cells Not Reportable 11/09/18 09:40 Tear Drop Cells Not Reportable 11/09/18 09:40 Ovalocytes 1+ 11/09/18 09:40 Helmet Cells Not Reportable 11/09/18 09:40 [place] Bodies Not Reportable 11/09/18 09:40 Theodosia Rings Not Reportable 11/09/18 09:40 Kit Cells Not Reportable 11/09/18 09:40 Bite Cells Not Reportable 11/09/18 09:40 Crenated Cell Not Reportable 11/09/18 09:40 Elliptocytes Not Reportable 11/09/18 09:40 Acanthocytes (Spur) Not Reportable 11/09/18 09:40 Rouleaux Not Reportable 11/09/18 09:40 Hemoglobin C Crystals Not Reportable 11/09/18 09:40 Schistocytes Not Reportable 11/09/18 09:40 Malaria parasites Not Reportable 11/09/18 09:40 [place] Bodies Not Reportable 11/09/18 09:40 Hem Pathologist Commnt No 11/09/18 09:40 Sodium 146 mmol/L (137-145) H 11/19/18 04:19 Potassium 3.6 mmol/L (3.6-5.0) 11/19/18 04:19 Chloride 108.5 mmol/L (98-107) H 11/19/18 04:19 Carbon Dioxide 25 mmol/L (22-30) 11/19/18 04:19 Anion Gap 16 mmol/L 11/19/18 04:19 BUN 66 mg/dL (9-20) H 11/19/18 04:19 Creatinine 2.3 mg/dL (0.8-1.5) H 11/19/18 04:19 Estimated GFR 34 ml/min 11/19/18 04:19 BUN/Creatinine Ratio 29 % 11/19/18 04:19 Glucose 123 mg/dL (75-100) H 11/19/18 04:19 POC Glucose 135 (70-105) H 11/18/18 23:42 Lactic Acid 1.40 mmol/L (0.7-2.0) 10/26/18 06:05 Calcium 8.2 mg/dL (8.4-10.2) L 11/19/18 04:19 Magnesium 2.20 mg/dL (1.7-2.3) 11/19/18 04:19 Total Bilirubin 0.40 mg/dL (0.1-1.2) 10/25/18 17:12 AST 34 units/L (5-40) 10/25/18 17:12 ALT 24 units/L (7-56) 10/25/18 17:12 Alkaline Phosphatase 101 units/L (35-129) 10/25/18 17:12 C-Reactive Protein 23.00 mg/dL (0.00-1.30) H 10/28/18 20:48 Total Protein 6.8 g/dL (6.3-8.2) 10/25/18 17:12 Albumin 2.9 g/dL (3.9-5) L 10/25/18 17:12 Albumin/Globulin Ratio 0.7 % 10/25/18 17:12 Urine Color Yellow (Yellow) 11/12/18 22:31 Urine Turbidity Slightly-cloudy (Clear) 11/12/18 22:31 Urine pH 6.0 (5.0-7.0) 11/12/18 22:31 Ur Specific [place] 1.009 (1.003-1.030) 11/12/18 22:31 Urine Protein 100 mg/dl mg/dL (Negative) 11/12/18 22:31 Urine Glucose (UA) Neg mg/dL (Negative) 11/12/18 22:31 Urine Ketones Neg mg/dL (Negative) 11/12/18 22:31 Urine Blood Sm (Negative) 11/12/18 22:31 Urine Nitrite Neg (Negative) 11/12/18 22:31 Urine Bilirubin Neg (Negative) 11/12/18 22:31 Urine Urobilinogen < 2.0 mg/dL (<2.0) 11/12/18 22:31 Ur Leukocyte Esterase Neg (Negative) 11/12/18 22:31 Urine WBC (Auto) 6.0 /HPF (0.0-6.0) 11/12/18 22:31 Urine RBC (Auto) 48.0 /HPF (0.0-6.0) 11/12/18 22:31 U Epithel Cells (Auto) < 1.0 /HPF (0-13.0) 11/12/18 22:31 Urine Bacteria (Auto) 1+ /HPF (Negative) 11/12/18 22:31 Amorphous Crystals Few 10/26/18 05:30 Hyaline Casts 9 /LPF 10/26/18 05:30 Urine Mucus Few /HPF 11/12/18 22:31 Urine Eosinophils None seen (None Seen) 11/19/18 01:10 Urine Creatinine 67.4 mg/dL (0.1-20.0) H 11/19/18 01:10 Urine Sodium 50 mmol/L 11/19/18 01:10 Urine Total Protein 23 mg/dL (5-11.8) H 11/19/18 01:10 Fluid Type Synovial 11/02/18 10:15 Fluid Color Red 11/02/18 10:15 Fluid Appearance Turbid 11/02/18 10:15 Fluid WBC 83285 /mm3 11/02/18 10:15 Fluid RBC 8580 /mm3 11/02/18 10:15 Fluid Seg Neutrophils 93.0 % 11/02/18 10:15 Fluid Lymphocytes 7.0 % 11/02/18 10:15 Fluid Reactive Lymphs 0 % 11/02/18 10:15 Fluid Monocytes 0 % 11/02/18 10:15 Fluid Eosinophils 0 % 11/02/18 10:15 Fluid Basophils 0 % 11/02/18 10:15 Synovial Crystals Negative (NONE SEEN) 10/29/18 Unknown Vancomycin Trough 21.4 ug/mL (5.0-20.0) H 11/12/18 16:58 Random Vancomycin 20.0 ug/mL (0-40.0) 11/17/18 05:27 Influenza A (Rapid) Negative (Negative) 10/29/18 16:42 Influenza B (Rapid) Negative (Negative) 10/29/18 16:42 Nutrition/Malnutrition Assess - Dietary Evaluation Nutrition/Malnutrition Findings: Nutrition Notes Start: 11/01/18 12:03 Freq: Status: Active Protocol: Document 11/14/18 14:15 [facility] (Rec: 11/14/18 14:22 [facility] SRW- [id number]) Nutrition Notes Current Diagnosis Hypertension Other Pertinent Diagnosis (R) knee septic arthritis, Dementia Current Diet Cardiac mech soft with ground meats + Ensure Enlive TID Labs/Tests No current available Pertinent Medications Reviewed Height 5 ft 4 in Weight 61.9 kg [place] Body Weight (kg) 59.09 BMI 23.4 Subjective/Other Information Pt has consumed 23% of meals since last assessment. He drinks 100% ONS daily, per RN report. Percent of energy/protein needs met: 100% energy/pro (meals + ONS) 32% energy 37% pro (meals only) Burn Absent Trauma Absent #1 Nutrition Diagnosis Inadequate oral intake As Evidenced by Signs and Symptoms PO intake of meals (alone) meeting <50% energy and pro needs Diagnosis Progress(for reassessment Continues documentation) Is patient on ventilator? No Is Patient Ambulatory and/or Out of Bed No REE-([facility]-confined to bed) [phone] Calculation Used for Recommendations [facility] Additional Notes Pro needs 1-1.2g/k-74g/ day Fluid needs 1ml/kcal Nutrition Intervention Change Diet Order: Continue current diet order Add Supplement/Snack (indicate name/kcal Ensure Enlive TID (vanilla) /protein ) Provides kCal: 1,050 Provides Protein (gm) 60 Goal #1 Continue to meet at least 75% of calorie and protein needs via PO and ONS intakes Goal #2 Wt maintenance Anticipated Discharge Needs: Continue Ensure Enlive (or equivalent) 2-3 times daily if PO intakes remain suboptimal Follow-Up By: 11/21/18 Additional Comments F/U: intakes (meals/ONS), wt
[2018-11-19] MEDS: MAXIPIME/NS 1 GM/100 ML 1 GM/100 ML BAG IV SCH (12:53)
[2018-11-19] MEDS: LASIX IV SCH (12:53)
--- NOTE | 2018-11-19 13:33 | XRay Report ---
FINAL REPORT EXAM: XR CHEST 1V AP HISTORY: sob TECHNIQUE: Chest, portable semi upright PRIORS: 11/18/2018 FINDINGS: There is borderline cardiac enlargement. There increased left perihilar and left lower lobe infiltration. There is new infiltrate in the lower right lung. Findings could represent pneumonia or edema There is unchanged pleural thickening on the right. There is no pneumothorax. I cannot exclude small pleural effusions. IMPRESSION: Increased infiltrates which could be pulmonary edema or pneumonia.
[2018-11-19] MEDS: VIBRAMYCIN PO SCH ×2 (16:41→21:30)
[2018-11-19] MEDS: D5W 1,000 ML IV SCH (20:00)
[2018-11-19] MEDS: TYLENOL PO PRN (21:36)
[2018-11-20] MEDS: FLAGYL 500 MG/100 ML 500 MG/100 ML BAG IV SCH ×3 (05:10→21:22)
[2018-11-20 07:01] LABS: Calcium 8.2 mg/dL (8.4-10.2)
--- NOTE | 2018-11-20 08:23 | Progress Note ---
Assessment and Plan Cultures: 10/25/2018 Blood Culture: no growth so far 10/30/2018 Synovial Left Knee: no growth 11/02/2018 Synovial Right Knee: no growth 11/04/2018 AFB Smear: negative Assessment: 78 y/o male with history of HTN; admitted on 10/25/2018 due to a-week history of generalized weakness and a recent fall to the ground injuring his knees:. 1) SIRS: Resolved. Initially due to right knee septic arthritis; recent SIRS ? aspiration pneumonia vs volume overload. - Blood cultures 10/27/2018 no growth, UA neg, CXR neg, LFTs normal, CT abd showed prior granulomatous disease, low-density nodule right lobe of the liver and lobulated contour of the kidneys, multiple small cortical nodule suspected in the kidneys which are not clearly defined by this exam. XR knee bilateral effusion. Influenza negative - repeat CXR 11/16 +cayden pulmonary edema 2) Acute encephalopathy: now resolved. Today is better 3) Right knee septic arthritis: s/p Right knee -aspirated 20 cc seropurulent fluid, sent for gram stain and analysis. s/p right knee joint washout, Synovial fluid analysis with 14K WBCs, could be reflective of partially treated septic arthritis Synovial right knee cultures show no growth. Follow up on AFB cultures. 4) AMANDA - continuing. Antimicrobials renally dosed Recommendations: - continue cefepime, flagyl and doxycycline for now - Patient reportedly not going to hospice - will do Cipro 500mg PO BID and Vancomycin 1gm q 24 until 11/30/18. -case management consult placed Lula Purdy NP [facility] M: [id number] O:[phone] Subjective Date of service: 11/20/18 Principal diagnosis: SIRS Interval history: Patient seen and examined.. Primary language Maltese. Somnolent. 02 3L/NC No family at bedside. Objective - Exam Narrative Exam: General appearance: alert in NAD, onversant no acute distress Eyes: anicteric sclerae, moist conjunctivae; no lid-lag; PERRLA HENT: Atraumatic, old craneal frontal deformity; oropharynx limited Neck: Trachea midline; supple, no thyromegaly or lymphadenopathy Lungs: clear to auscultation, 02 3L NC CV: RRR Abdomen: Soft, non-tender; no masses or hepatosplenomegaly Extremities: right knee no edema no erythama Skin: Normal temperature, turgor and texture; no rash, ulcers or subcutaneous nodules Psych: alert pleasant Neuro: alert oriented moving all extremities Lines PICC - Constitutional Vitals: Vital Signs Temp Pulse Resp BP Pulse Ox 98.2 F 80 22 116/72 100 11/20/18 02:41 11/20/18 02:41 11/20/18 02:41 11/20/18 02:41 11/20/18 02:41 Temperature -Last 24 Hours Temperature 98.2 F Temperature 97.3 F - Labs CBC & Chem 7: 11/20/18 08:31 11/20/18 06:09 Labs: Abnormal lab results 11/20/18 Range/Units 06:09 Potassium 3.4 L (3.6-5.0) mmol/L BUN 55 H (9-20) mg/dL Creatinine 2.1 H (0.8-1.5) mg/dL Glucose 112 H (75-100) mg/dL Calcium 8.2 L (8.4-10.2) mg/dL
[2018-11-20] MEDS: APRESOLINE PO SCH ×3 (08:55→21:26)
--- NOTE | 2018-11-20 09:30 | Progress Note ---
Assessment and Plan Assessment and plan: 78 YO Male with HTN, Nicotine Dependence pw gen weakness, , ams, malaise, x4 days. He fell on both his knees at home. -At time of admission, he met sepsis criteria and had bilat knee effusion and contusions - he was rx with broad spectrum abx -septic arthritis of R knee was suspected, sp tap, cx neg so far, AFB cx still pending -per ID upon discharge Cipro 500mg, PO BID and Vancomycin 1gm q 24 until 11/30/18 - meds were optimized for chronic conditions -he c/o testicular swelling, US shows bilat hydrocele, ntd, scrotal elevation was done -now coughing with meals, MBS done, advised for Pureed diet and thin liquids -- He had worsening functional status, and debility and therefore was recommende d to [facility] facility but he did not participate with PT, and his insurance denied him. Therefore he will be dc home with services when medically ready - he had severe sob on , due to pulmonary edema, received lasix and bipap and now weaned off bipap on NC, fup echo, IVF were dc, CXR showed bibasilar crackles and pulm edema, was put back on bipap last night -- He initially received IVF and has improvement in renal function, creat now elevated again since 11/17, nephrology consult appreciated, Renal US wnl --judicious use of D5W given hypernatremia to correct free water deficit, cont lasix -echo showed EF of 30%, optimize meds, and consult Cardiology -patient may be suffering cardiorenal syndrome? -K was repleted Diagnosis Sepsis secondary to septic arthritis of the right knee ARF (acute renal failure) with tubular necrosis, vasomotor nephropathy Hypertension Metabolic Encephalopathy Dementia Dysphagia Acute respiratory failure with hypoxia Pulmonary edema Hypernatremia acute on chronic systolic CHF hypokalemia History Interval history: Review of systems Constitutional: no fever, no malaise, no joint pains CVS: No chest pain, c.o orthopnea GI: No abdominal pain, no diarrhea, no vomiting, no constipation Respiratory: sob is improved Hospitalist Physical - Physical exam Narrative exam: General.: no distress HEENT: Moist mucous membranes, extraocular muscles intact, no lymphadenopathy Neck: supple Cardiac: S1-S2 heard Lungs: bibasilar crackles Abdomen: soft , nontender, nondistended, bowel sounds positive Extremities: no edema clubbing or cyanosis testicular edema Skin: no rash or lesions Neurologic: confused, gen weakness Psych: calm, and cooperative - Constitutional Vitals: Temp Pulse Resp BP Pulse Ox 97.6 F 85 18 130/82 96 11/20/18 08:20 11/20/18 08:20 11/20/18 08:20 11/20/18 08:20 11/20/18 08:20 General appearance: Present: mild distress Results - Labs CBC & Chem 7: 11/17/18 09:22 11/20/18 06:09 Labs: Laboratory Last Values WBC 10.1 K/mm3 (4.5-11.0) 11/17/18 09:22 RBC 2.95 M/mm3 (3.65-5.03) L 11/17/18 09:22 Hgb 8.7 gm/dl (11.8-15.2) L 11/17/18 09:22 Hct 26.1 % (35.5-45.6) L 11/17/18 09:22 MCV 88 fl (84-94) 11/17/18 09:22 MCH 30 pg (28-32) 11/17/18 09:22 MCHC 33 % (32-34) 11/17/18 09:22 RDW 15.1 % (13.2-15.2) 11/17/18 09:22 Plt Count 343 K/mm3 (140-440) 11/17/18 09:22 Lymph % (Auto) 4.3 % (13.4-35.0) L 11/17/18 09:22 [place] % (Auto) 6.5 % (0.0-7.3) 11/17/18 09:22 Eos % (Auto) 0.0 % (0.0-4.3) 11/17/18 09:22 Baso % (Auto) 0.2 % (0.0-1.8) 11/17/18 09:22 Lymph # 0.4 K/mm3 (1.2-5.4) L 11/17/18 09:22 [place] # 0.7 K/mm3 (0.0-0.8) 11/17/18 09:22 Eos # 0.0 K/mm3 (0.0-0.4) 11/17/18 09:22 Baso # 0.0 K/mm3 (0.0-0.1) 11/17/18 09:22 Add Manual Diff Complete 11/09/18 09:40 Total Counted 100 11/09/18 09:40 Seg Neutrophils % 89.0 % (40.0-70.0) H 11/17/18 09:22 Seg Neuts % (Manual) 86.0 % (40.0-70.0) H 11/09/18 09:40 Band Neutrophils % 0 % 11/09/18 09:40 Lymphocytes % (Manual) 6.0 % (13.4-35.0) L 11/09/18 09:40 Reactive Lymphs % (Man) 0 % 11/09/18 09:40 Monocytes % (Manual) 3.0 % (0.0-7.3) 11/09/18 09:40 Eosinophils % (Manual) 4.0 % (0.0-4.3) 11/09/18 09:40 Basophils % (Manual) 0 % (0.0-1.8) 11/09/18 09:40 Metamyelocytes % 0 % 11/09/18 09:40 Myelocytes % 1.0 % 11/09/18 09:40 Promyelocytes % 0 % 11/09/18 09:40 Blast Cells % 0 % 11/09/18 09:40 Nucleated RBC % Not Reportable 11/09/18 09:40 Seg Neutrophils # 9.0 K/mm3 (1.8-7.7) H 11/17/18 09:22 Seg Neutrophils # Man 15.0 K/mm3 (1.8-7.7) H 11/09/18 09:40 Band Neutrophils # 0.0 K/mm3 11/09/18 09:40 Lymphocytes # (Manual) 1.0 K/mm3 (1.2-5.4) L 11/09/18 09:40 Abs React Lymphs (Man) 0.0 K/mm3 11/09/18 09:40 Monocytes # (Manual) 0.5 K/mm3 (0.0-0.8) 11/09/18 09:40 Eosinophils # (Manual) 0.7 K/mm3 (0.0-0.4) H 11/09/18 09:40 Basophils # (Manual) 0.0 K/mm3 (0.0-0.1) 11/09/18 09:40 Metamyelocytes # 0.0 K/mm3 11/09/18 09:40 Myelocytes # 0.2 K/mm3 11/09/18 09:40 Promyelocytes # 0.0 K/mm3 11/09/18 09:40 Blast Cells # 0.0 K/mm3 11/09/18 09:40 WBC Morphology Not Reportable 11/09/18 09:40 Hypersegmented Neuts Not Reportable 11/09/18 09:40 Hyposegmented Neuts Not Reportable 11/09/18 09:40 Hypogranular Neuts Not Reportable 11/09/18 09:40 Smudge Cells Not Reportable 11/09/18 09:40 Toxic Granulation Not Reportable 11/09/18 09:40 Toxic Vacuolation Not Reportable 11/09/18 09:40 Dohle Bodies Not Reportable 11/09/18 09:40 Pelger-Huet Anomaly Not Reportable 11/09/18 09:40 Swetha Rods Not Reportable 11/09/18 09:40 Platelet Estimate Consistent w auto 11/09/18 09:40 Clumped Platelets Not Reportable 11/09/18 09:40 Plt Clumps, EDTA Not Reportable 11/09/18 09:40 Large Platelets Not Reportable 11/09/18 09:40 Giant Platelets Not Reportable 11/09/18 09:40 Platelet Satelliting Not Reportable 11/09/18 09:40 Plt Morphology Comment Not Reportable 11/09/18 09:40 RBC Morphology Not Reportable 11/09/18 09:40 Dimorphic RBCs Not Reportable 11/09/18 09:40 Polychromasia Not Reportable 11/09/18 09:40 Hypochromasia Not Reportable 11/09/18 09:40 Poikilocytosis 1+ 11/09/18 09:40 Anisocytosis 1+ 11/09/18 09:40 Microcytosis Not Reportable 11/09/18 09:40 Macrocytosis Not Reportable 11/09/18 09:40 Spherocytes Not Reportable 11/09/18 09:40 Pappenheimer Bodies Not Reportable 11/09/18 09:40 Sickle Cells Not Reportable 11/09/18 09:40 Target Cells Not Reportable 11/09/18 09:40 Tear Drop Cells Not Reportable 11/09/18 09:40 Ovalocytes 1+ 11/09/18 09:40 Helmet Cells Not Reportable 11/09/18 09:40 [place] Bodies Not Reportable 11/09/18 09:40 [place] Rings Not Reportable 11/09/18 09:40 [place] Cells Not Reportable 11/09/18 09:40 Bite Cells Not Reportable 11/09/18 09:40 Crenated Cell Not Reportable 11/09/18 09:40 Elliptocytes Not Reportable 11/09/18 09:40 Acanthocytes (Spur) Not Reportable 11/09/18 09:40 Rouleaux Not Reportable 11/09/18 09:40 Hemoglobin C Crystals Not Reportable 11/09/18 09:40 Schistocytes Not Reportable 11/09/18 09:40 Malaria parasites Not Reportable 11/09/18 09:40 [place] Bodies Not Reportable 11/09/18 09:40 Hem Pathologist Commnt No 11/09/18 09:40 Sodium 144 mmol/L (137-145) 11/20/18 06:09 Potassium 3.4 mmol/L (3.6-5.0) L 11/20/18 06:09 Chloride 105.7 mmol/L (98-107) 11/20/18 06:09 Carbon Dioxide 25 mmol/L (22-30) 11/20/18 06:09 Anion Gap 17 mmol/L 11/20/18 06:09 BUN 55 mg/dL (9-20) H 11/20/18 06:09 Creatinine 2.1 mg/dL (0.8-1.5) H 11/20/18 06:09 Estimated GFR 37 ml/min 11/20/18 06:09 BUN/Creatinine Ratio 26 % 11/20/18 06:09 Glucose 112 mg/dL (75-100) H 11/20/18 06:09 POC Glucose 135 (70-105) H 11/18/18 23:42 Lactic Acid 1.40 mmol/L (0.7-2.0) 10/26/18 06:05 Calcium 8.2 mg/dL (8.4-10.2) L 11/20/18 06:09 Magnesium 2.20 mg/dL (1.7-2.3) 11/19/18 04:19 Total Bilirubin 0.40 mg/dL (0.1-1.2) 10/25/18 17:12 AST 34 units/L (5-40) 10/25/18 17:12 ALT 24 units/L (7-56) 10/25/18 17:12 Alkaline Phosphatase 101 units/L (35-129) 10/25/18 17:12 C-Reactive Protein 23.00 mg/dL (0.00-1.30) H 10/28/18 20:48 Total Protein 6.8 g/dL (6.3-8.2) 10/25/18 17:12 Albumin 2.9 g/dL (3.9-5) L 10/25/18 17:12 Albumin/Globulin Ratio 0.7 % 10/25/18 17:12 Urine Color Yellow (Yellow) 11/12/18 22:31 Urine Turbidity Slightly-cloudy (Clear) 11/12/18 22:31 Urine pH 6.0 (5.0-7.0) 11/12/18 22:31 Ur Specific [place] 1.009 (1.003-1.030) 11/12/18 22:31 Urine Protein 100 mg/dl mg/dL (Negative) 11/12/18 22:31 Urine Glucose (UA) Neg mg/dL (Negative) 11/12/18 22:31 Urine Ketones Neg mg/dL (Negative) 11/12/18 22:31 Urine Blood Sm (Negative) 11/12/18 22:31 Urine Nitrite Neg (Negative) 11/12/18 22:31 Urine Bilirubin Neg (Negative) 11/12/18 22:31 Urine Urobilinogen < 2.0 mg/dL (<2.0) 11/12/18 22:31 Ur Leukocyte Esterase Neg (Negative) 11/12/18 22:31 Urine WBC (Auto) 6.0 /HPF (0.0-6.0) 11/12/18 22:31 Urine RBC (Auto) 48.0 /HPF (0.0-6.0) 11/12/18 22:31 U Epithel Cells (Auto) < 1.0 /HPF (0-13.0) 11/12/18 22:31 Urine Bacteria (Auto) 1+ /HPF (Negative) 11/12/18 22:31 Amorphous Crystals Few 10/26/18 05:30 Hyaline Casts 9 /LPF 10/26/18 05:30 Urine Mucus Few /HPF 11/12/18 22:31 Urine Eosinophils None seen (None Seen) 11/19/18 01:10 Urine Creatinine 67.4 mg/dL (0.1-20.0) H 11/19/18 01:10 Urine Sodium 50 mmol/L 11/19/18 01:10 Urine Total Protein 23 mg/dL (5-11.8) H 11/19/18 01:10 Fluid Type Synovial 11/02/18 10:15 Fluid Color Red 11/02/18 10:15 Fluid Appearance Turbid 11/02/18 10:15 Fluid WBC 76854 /mm3 11/02/18 10:15 Fluid RBC 8580 /mm3 11/02/18 10:15 Fluid Seg Neutrophils 93.0 % 11/02/18 10:15 Fluid Lymphocytes 7.0 % 11/02/18 10:15 Fluid Reactive Lymphs 0 % 11/02/18 10:15 Fluid Monocytes 0 % 11/02/18 10:15 Fluid Eosinophils 0 % 11/02/18 10:15 Fluid Basophils 0 % 11/02/18 10:15 Synovial Crystals Negative (NONE SEEN) 10/29/18 Unknown Vancomycin Trough 21.4 ug/mL (5.0-20.0) H 11/12/18 16:58 Random Vancomycin 20.0 ug/mL (0-40.0) 11/17/18 05:27 Influenza A (Rapid) Negative (Negative) 10/29/18 16:42 Influenza B (Rapid) Negative (Negative) 10/29/18 16:42 Nutrition/Malnutrition Assess - Dietary Evaluation Nutrition/Malnutrition Findings: Nutrition Notes Start: 11/01/18 12:03 Freq: Status: Active Protocol: Document 11/14/18 14:15 [facility] (Rec: 11/14/18 14:22 [facility] [id number]) Nutrition Notes Current Diagnosis Hypertension Other Pertinent Diagnosis (R) knee septic arthritis, Dementia Current Diet Cardiac mech soft with ground meats + Ensure Enlive TID Labs/Tests No current available Pertinent Medications Reviewed Height 5 ft 4 in Weight 61.9 kg [place] Body Weight (kg) 59.09 BMI 23.4 Subjective/Other Information Pt has consumed 23% of meals since last assessment. He drinks 100% ONS daily, per RN report. Percent of energy/protein needs met: 100% energy/pro (meals + ONS) 32% energy 37% pro (meals only) Burn Absent Trauma Absent #1 Nutrition Diagnosis Inadequate oral intake As Evidenced by Signs and Symptoms PO intake of meals (alone) meeting <50% energy and pro needs Diagnosis Progress(for reassessment Continues documentation) Is patient on ventilator? No Is Patient Ambulatory and/or Out of Bed No REE-([facility]-confined to bed) 1518.552 Calculation Used for Recommendations [facility] Additional Notes Pro needs 1-1.2g/k-74g/ day Fluid needs 1ml/kcal Nutrition Intervention Change Diet Order: Continue current diet order Add Supplement/Snack (indicate name/kcal Ensure Enlive TID (vanilla) /protein ) Provides kCal: 1,050 Provides Protein (gm) 60 Goal #1 Continue to meet at least 75% of calorie and protein needs via PO and ONS intakes Goal #2 Wt maintenance Anticipated Discharge Needs: Continue Ensure Enlive (or equivalent) 2-3 times daily if PO intakes remain suboptimal Follow-Up By: 11/21/18 Additional Comments F/U: intakes (meals/ONS), wt
[2018-11-20 09:40] LABS: Hemoglobin 9.7 gm/dl (11.8-15.2); Mean Corpuscular HGB Conc 32 % (32-34); Mean Corpuscular Volume 89 fl (84-94); Platelet Count 419 K/mm3 (140-440); Red Cell Distribution Width 15.2 % (13.2-15.2)
--- NOTE | 2018-11-20 10:25 | Consultation ---
Addendum entered and electronically signed by CHLOE FISCHER MD 11/20/18 17:51: 78-year-old speaking male, hospitalized for the past 4 weeks, with multipl e medical problems including septic arthritis, acute renal failure and urosepsis. Cardiology consultation was requested at this time for the development of progressive heart failure, rapid atrial fibrillation and an abnormal echocardiogram which was ordered 3 days ago and revealed a severe dilated cardiomyopathy, biventricular heart failure, and moderate to severe regurgitation of both atrioventricular valves. No evident valvular vegetations on a less than optimal quality transthoracic echocardiogram. The patient is a poor historian, unable to articulate any prior cardiac history or prior cardiac workup. The chronicity of the cardiomyopathy and valvular regurgitation is therefore unclear at this time. There are no previous records in our medical system. The patient on presentation is listed as being on Plavix, but the indication for this is not clear, whether for a previous coronar y stent or neurovascular disease. With regards to the heart failure, my review of the chest x-rays shows essentially clear lungs on the patient's presentation on October 25, and progressive development of worsening bilateral pulmonary edema during the hospitalization. He is currently on furosemide 40 mg IV daily, but the effectiveness of diuresis is uncertain with his renal failure, creatinine 2.3. With regards to the atrial fibrillation, the patient was in sinus rhythm on ECGs earlier in the hospitalization, until 3 days ago on November 16 when the ECG showed rapid atrial fibrillation, with left bundle-branch block. Recommendations: 1. We will discuss further with nephrology, regarding optimal diuretic therapy for pulmonary edema in the setting of advanced renal disease. We may also co nsider IV inotropic therapy for heart failure management. 2. Atrial fibrillation will be treated with rate control agents including carvedilol, digoxin, and possible additional AV bradley blockers as tolerated. The patient will ultimately benefit from long-term oral anticoagulation after the acute medical and surgical issues are resolved. 3. Additional guidelines directed medical therapy for left ventricular systolic dysfunction will be initiated. Patient is not a candidate for CHELLE inhibitor the rap, so we'll treat with hydralazine and isosorbide dinitrate. Original Note: History of Present Illness Consult date: 11/20/18 Consult reason: congestive heart failure History of present illness: This is a 78 year old [place]ian male who was admitted October 25 with acute renal failure and septic right knee following a fall. Over his hospital course an echocardiogram was done which documents prolaspe of the tricuspid valve leaflets with severe tricuspid regurgitation. There is moderate MR, moderate pulmonary hypertension and at least moderate pleural effusion with a decreased left venticular systolic function, ejection fraction 25-30%. Cardiac consultation was requested. Patient speaks little Wallisian but reports he does not see a recovery advocate as an outpatient. History is unobtainable. Although plavix is listed as home medication, reasonv is unclear at this time. He denies chest pain and reports his breathing is better. There is no lower extremity edema. An EKG done 11/16 notable for supraventricular tachycardia, rate 171. Patient was treated with IV lopressor but cardiology was not consulted at that time and he is not on telemetry monitoring. Past History Past Medical History: hypertension Past Surgical History: Other (Hand, Ear surgery) Social history: , smoking Family history: hypertension Medications and Allergies Allergies Allergy/AdvReac Type Severity Reaction Status Date / Time No Known Allergies Allergy Verified 10/25/18 17:04 Home Medications Medication Instructions Recorded Confirmed Last Taken Type Atorvastatin Calcium 40 mg PO DAILY 10/25/18 10/25/18 Unknown History Clopidogrel [Plavix] 75 mg PO QDAY 10/25/18 10/25/18 Unknown History Lisinopril [Zestril TAB] 20 mg PO QDAY #30 tablet 11/09/18 Unknown Rx Metoprolol Xl [Metoprolol 100 mg PO QDAY #30 tablet 11/09/18 Unknown Rx SUCCINATE ER TAB] Vancomycin 750 mg IV Q24H 21 Days mg 11/09/18 Unknown Rx cloNIDine [Catapres] 0.2 mg PO Q12HR #60 tablet 11/09/18 Unknown Rx hydrALAZINE [Apresoline TAB] 100 mg PO TID #90 tab 11/09/18 Unknown Rx Ciprofloxacin HCl [Cipro] 500 mg PO BID 14 Days tablet 11/16/18 Unknown Rx Active Meds: Active Medications Acetaminophen (Tylenol) 650 mg PO Q4H PRN PRN Reason: Pain MILD(1-3)/Fever >100.5/PARIKH Last Admin: 11/19/18 21:36 Dose: 650 mg Documented by: Albuterol (Proventil) 2.5 mg IH Q4HRT PRN PRN Reason: Shortness Of Breath Last Admin: 11/18/18 14:04 Dose: 2.5 mg Documented by: Atorvastatin Calcium (Lipitor) 40 mg PO DAILY [facility] Last Admin: 11/19/18 09:59 Dose: 40 mg Documented by: Clonidine HCl (Catapres) 0.2 mg PO Q12HR [facility] Last Admin: 11/19/18 21:30 Dose: 0.2 mg Documented by: Clopidogrel Bisulfate (Plavix) 75 mg PO QDAY [facility] Last Admin: 11/19/18 09:59 Dose: 75 mg Documented by: Doxycycline Hyclate (Vibramycin) 100 mg PO Q12HR [facility] Last Admin: 11/19/18 21:30 Dose: 100 mg Documented by: Furosemide (Lasix) 40 mg IV QDAY [facility] Last Admin: 11/19/18 12:53 Dose: 40 mg Documented by: Hydralazine HCl (Apresoline) 100 mg PO TID [facility] Last Admin: 11/19/18 21:34 Dose: Not Given Documented by: Hydralazine HCl (Apresoline) 20 mg IV Q4HR PRN PRN Reason: Hypertension Metronidazole (Flagyl 500 Mg/100 Ml) 500 mg in 100 mls @ 100 mls/hr IV Q8HR [facility]; Protocol Last Admin: 11/20/18 05:10 Dose: 100 mls/hr Documented by: Dextrose (D5w) 1,000 mls @ 42 mls/hr IV DIRECT [facility] Last Admin: 11/19/18 20:00 Dose: 42 mls/hr Documented by: Cefepime HCl (Maxipime/Ns 1 Gm/100 Ml) 1 gm in 100 mls @ 200 mls/hr IV Q24HR [facility] Last Admin: 11/19/18 12:53 Dose: 200 mls/hr Documented by: Metoprolol Tartrate (Lopressor) 12.5 mg PO BID [facility] Last Admin: 11/19/18 21:31 Dose: 12.5 mg Documented by: Ondansetron HCl (Zofran) 4 mg IV Q8H PRN PRN Reason: Nausea And Vomiting Last Admin: 11/16/18 13:49 Dose: 4 mg Documented by: Potassium Chloride (K-Dur) 20 meq PO QDAY [facility] Sodium Chloride (Sodium Chloride Flush Syringe 10 Ml) 10 ml IV BID [facility] Last Admin: 11/19/18 21:33 Dose: 10 ml Documented by: Sodium Chloride (Sodium Chloride Flush Syringe 10 Ml) 10 ml IV PRN PRN PRN Reason: LINE FLUSH Sodium Chloride (Sodium Chloride Flush Syringe 10 Ml) 10 ml IV PRN LOUIE Last Admin: 11/09/18 17:18 Dose: 10 ml Documented by: Physical Examination Vital Signs Pulse Ox 95 10/25/18 12:05 General appearance: no acute distress HEENT: Positive: PERRL Cardiac: Positive: Reg Rate and Rhythm Lungs: Positive: Decreased Breath Sounds Neuro: Positive: Weakness Extremities: Absent: edema Results 11/20/18 08:31 11/20/18 06:09 CBC 11/20/18 Range/Units 08:31 WBC 10.1 (4.5-11.0) K/mm3 RBC 3.40 L (3.65-5.03) M/mm3 Hgb 9.7 L (11.8-15.2) gm/dl Hct 30.0 L (35.5-45.6) % Plt Count 419 (140-440) K/mm3 Comprehensive Metabolic Panel 11/20/18 Range/Units 06:09 Sodium 144 (137-145) mmol/L Potassium 3.4 L (3.6-5.0) mmol/L Chloride 105.7 (98-107) mmol/L Carbon Dioxide 25 (22-30) mmol/L BUN 55 H (9-20) mg/dL Creatinine 2.1 H (0.8-1.5) mg/dL Glucose 112 H (75-100) mg/dL Calcium 8.2 L (8.4-10.2) mg/dL Assessment and Plan Septic right knee Acute renal failure Acute systolic heart failure Paroxysmal SVT on metoprolol for suppression An echocardiogram this admission documents prolaspe of the tricuspid valve leaflets with severe tricuspid regurgitation. There is moderate MR, moderate pulmonary hypertension and at least moderate pleural effusion with a decreased left venticular systolic function, ejection fraction 25-30%.
[2018-11-20 10:26] LABS: Basophils % (Manual) 0 % (0.0-1.8); Myelocytes # (Manual) 0.3 K/mm3; Total Cells Counted 100
[2018-11-20 10:28] LABS: Anisocytosis 1+; Poikilocytosis 1+
[2018-11-20 10:29] LABS: Ovalocytes 1+; Platelet Estimate Consistent w Auto
[2018-11-20] MEDS: MAXIPIME/NS 1 GM/100 ML 1 GM/100 ML BAG IV SCH (10:52)
[2018-11-20] MEDS: PLAVIX PO SCH (10:53)
[2018-11-20] MEDS: K-DUR PO SCH (10:54)
[2018-11-20] MEDS: SODIUM CHLORIDE FLUSH SYRINGE 10 ML IV SCH ×2 (10:54→21:23)
[2018-11-20] MEDS: LASIX IV SCH (10:59)
[2018-11-20] MEDS: CATAPRES PO SCH ×2 (10:59→21:23)
[2018-11-20] MEDS: LOPRESSOR PO SCH (10:59)
[2018-11-20] MEDS: VIBRAMYCIN PO SCH ×2 (11:00→21:22)
--- NOTE | 2018-11-20 11:02 | Progress Note ---
Assessment and Plan - Patient Problems (1) Acute kidney injury Current Visit: Yes Status: Acute Plan to address problem: suspect pre-renal azotemia in the setting of IV diuretic therapy along with decreased po intake. to rule out acute insterstitial nephritis in the setting of multiple ABXs treatment. FeNA was measured to be 1.2%, no urine eos seen. Renal US showed nonobstructing calcifications and small cortical cysts in both kidneys with atrophic changes, however without hydroneprhosis. ' cont lasix 40mg daily for volume control cont maintenance D5W given poor po intake. avoid nephrotoxins, NSAID, IV contrast will monitor lytes/renal parameters closely and make further recommendations. (2) Hypernatremia Current Visit: Yes Status: Acute Plan to address problem: na improving on D5W. encouraged pt to increase oral water intake (3) Septic arthritis Current Visit: Yes Status: Acute Plan to address problem: cont ABX as per ID, dose for eGFR of ~30mls/min (4) Hypertension Current Visit: Yes Status: Acute Plan to address problem: BP controlled on current meds, incl. hydralazine, metoprolol and clonidine. will monitor BP and adjust meds accordingly Subjective Date of service: 11/20/18 Principal diagnosis: SIRS Interval history: Pt awake, alert, in no acute respiratory distress this AM Objective - Vital Signs Vital signs: Vital Signs - 12hr 11/19/18 11/20/18 11/20/18 23:50 02:41 07:41 Temperature 98.2 F Pulse Rate 93 H 80 Respiratory 20 22 Rate Blood Pressure 116/72 O2 Sat by Pulse 99 100 100 Oximetry 11/20/18 11/20/18 11/20/18 08:20 10:58 10:59 Temperature 97.6 F Pulse Rate 85 89 89 Respiratory 18 Rate Blood Pressure 130/82 139/83 139/83 O2 Sat by Pulse 96 99 Oximetry - General Appearance General appearance: well-developed, appears stated age, chronically ill EENT: ATNC, PERRL, mucous membranes moist Neck: no JVD Respiratory: Present: Clear to Ascultation Cardiology: regular, S1S2 Gastrointestinal: normoactive bowel sounds Integumentary: no rash, other (no edema ) Neurologic: no focal deficit, alert and oriented x3, strength 5/5, CN 3-12 intact Psychiatric: mood/affect appropriate, cooperative - Lab 11/20/18 08:31 11/20/18 06:09 Most recent lab results Calcium 8.2 mg/dL (8.4-10.2) L 11/20/18 06:09 Magnesium 2.20 mg/dL (1.7-2.3) 11/19/18 04:19 Urine Creatinine 67.4 mg/dL (0.1-20.0) H 11/19/18 01:10 Urine Sodium 50 mmol/L 11/19/18 01:10 Urine Total Protein 23 mg/dL (5-11.8) H 11/19/18 01:10 Medications & Allergies - Medications Allergies/Adverse Reactions: Allergies No Known Allergies Allergy (Verified 10/25/18 17:04) Home Medications: Home Medications Medication Instructions Recorded Confirmed Last Taken Type Atorvastatin Calcium 40 mg PO DAILY 10/25/18 10/25/18 Unknown History Clopidogrel [Plavix] 75 mg PO QDAY 10/25/18 10/25/18 Unknown History Lisinopril [Zestril TAB] 20 mg PO QDAY #30 tablet 11/09/18 Unknown Rx Metoprolol Xl [Metoprolol 100 mg PO QDAY #30 tablet 11/09/18 Unknown Rx SUCCINATE ER TAB] Vancomycin 750 mg IV Q24H 21 Days mg 11/09/18 Unknown Rx cloNIDine [Catapres] 0.2 mg PO Q12HR #60 tablet 11/09/18 Unknown Rx hydrALAZINE [Apresoline TAB] 100 mg PO TID #90 tab 11/09/18 Unknown Rx Ciprofloxacin HCl [Cipro] 500 mg PO BID 14 Days tablet 11/16/18 Unknown Rx Active Medications: Generic Name Dose Route Start Last Admin Trade Name Freq PRN Reason Stop Dose Admin Acetaminophen 650 mg 10/25/18 16:54 11/19/18 21:36 Tylenol PO 650 mg Q4H PRN Administration Pain MILD(1-3)/Fever >100.5/PARIKH Albuterol 2.5 mg 10/25/18 16:54 11/18/18 14:04 Proventil IH 2.5 mg Q4HRT PRN Administration Shortness Of Breath Atorvastatin Calcium 40 mg 10/26/18 10:00 11/20/18 10:54 Lipitor PO 40 mg DAILY LOUIE Administration Clonidine HCl 0.2 mg 11/05/18 10:00 11/20/18 10:59 Catapres PO 0.2 mg Q12HR LOUIE Administration Clopidogrel Bisulfate 75 mg 10/26/18 10:00 11/20/18 10:53 Plavix PO 75 mg QDAY LOUIE Administration Doxycycline Hyclate 100 mg 11/17/18 10:00 11/19/18 21:30 Vibramycin PO 100 mg Q12HR LOUIE Administration Furosemide 40 mg 11/19/18 12:00 11/20/18 10:59 Lasix IV 40 mg QDAY LOUIE Administration Hydralazine HCl 100 mg 11/02/18 08:30 11/20/18 08:55 Apresoline PO 100 mg TID LOUIE Administration Hydralazine HCl 20 mg 11/16/18 16:12 Apresoline IV Q4HR PRN Hypertension Metronidazole 500 mg in 100 mls @ 100 mls/hr 11/16/18 17:00 11/20/18 05:10 Flagyl 500 Mg/100 Ml IV 100 mls/hr Q8HR LOUIE Administration Protocol Dextrose 1,000 mls @ 42 mls/hr 11/17/18 11:00 11/19/18 20:00 D5w IV 42 mls/hr DIRECT LOUIE Administration Cefepime HCl 1 gm in 100 mls @ 200 mls/hr 11/18/18 10:00 11/20/18 10:52 Maxipime/Ns 1 Gm/100 Ml IV 200 mls/hr Q24HR LOUIE Administration Metoprolol Tartrate 12.5 mg 11/18/18 22:00 11/20/18 10:59 Lopressor PO 12.5 mg BID LOUIE Administration Ondansetron HCl 4 mg 10/25/18 16:54 11/16/18 13:49 Zofran IV 4 mg Q8H PRN Administration Nausea And Vomiting Potassium Chloride 20 meq 11/20/18 10:00 11/20/18 10:54 K-Dur PO 20 meq QDAY LOUIE Administration Sodium Chloride 10 ml 10/25/18 22:00 11/20/18 10:54 Sodium Chloride Flush Syringe 10 Ml IV 10 ml BID LOUIE Administration Sodium Chloride 10 ml 10/25/18 16:54 Sodium Chloride Flush Syringe 10 Ml IV PRN PRN LINE FLUSH Sodium Chloride 10 ml 11/02/18 16:00 11/09/18 17:18 Sodium Chloride Flush Syringe 10 Ml IV 10 ml PRN LOUIE Administration
[2018-11-20] MEDS: D5W 1,000 ML IV SCH (21:22)
[2018-11-20] MEDS: COREG PO SCH (21:25)
[2018-11-20] MEDS: ISORDIL TITRADOSE PO SCH ×2 (21:26→21:27)
[2018-11-20] MEDS: HALFPRIN EC PO SCH (21:26)
[2018-11-20] MEDS: LANOXIN IV SCH (21:27)
[2018-11-21] MEDS: LANOXIN IV SCH (01:33)
[2018-11-21 05:34] LABS: Calcium 8.2 mg/dL (8.4-10.2)
[2018-11-21] MEDS: ISORDIL TITRADOSE PO SCH ×3 (05:38→21:36)
[2018-11-21] MEDS: FLAGYL 500 MG/100 ML 500 MG/100 ML BAG IV SCH ×3 (05:38→21:35)
[2018-11-21] MEDS: APRESOLINE PO SCH ×3 (07:57→21:37)
--- NOTE | 2018-11-21 09:33 | Progress Note ---
Assessment and Plan Cultures: 10/25/2018 Blood Culture: no growth so far 10/30/2018 Synovial Left Knee: no growth 11/02/2018 Synovial Right Knee: no growth 11/04/2018 AFB Smear: negative Assessment: 78 y/o male with history of HTN; admitted on 10/25/2018 due to a-week history of generalized weakness and a recent fall to the ground injuring his knees:. 1) SIRS: Resolved. Initially due to right knee septic arthritis; recent SIRS ? aspiration pneumonia vs volume overload. - Blood cultures 10/27/2018 no growth, UA neg, CXR neg, LFTs normal, CT abd showed prior granulomatous disease, low-density nodule right lobe of the liver and lobulated contour of the kidneys, multiple small cortical nodule suspected in the kidneys which are not clearly defined by this exam. XR knee bilateral effusion. Influenza negative - repeat CXR 11/16 +cayden pulmonary edema 2) Acute encephalopathy: now resolved. Today is better 3) Right knee septic arthritis: s/p Right knee -aspirated 20 cc seropurulent fluid, sent for gram stain and analysis. s/p right knee joint washout, Synovial fluid analysis with 14K WBCs, could be reflective of partially treated septic arthritis Synovial right knee cultures show no growth. Follow up on AFB cultures. 4) AMANDA - continuing. Antimicrobials renally dosed Recommendations: - continue cefepime, flagyl and doxycycline for now - Patient reportedly not going to hospice - will do Cipro 500mg PO BID and Vancomycin 1gm q 24, total 4 weeks until 11/30/18. -case management consult placed ID is signing off [facility] M: [id number] O:[phone] Subjective Date of service: 11/21/18 Principal diagnosis: SIRS Interval history: Patient seen and examined.. Primary language Yakut. at bedside. Patient awake and oriented. 02 4L/NC. Objective - Exam Narrative Exam: General appearance: alert in NAD, onversant no acute distress Eyes: anicteric sclerae, moist conjunctivae; no lid-lag; PERRLA HENT: Atraumatic, old craneal frontal deformity; oropharynx limited Neck: Trachea midline; supple, no thyromegaly or lymphadenopathy Lungs: clear to auscultation, 02 3L NC CV: RRR Abdomen: Soft, non-tender; no masses or hepatosplenomegaly Extremities: right knee no edema no erythama Skin: Normal temperature, turgor and texture; no rash, ulcers or subcutaneous nodules Psych: alert pleasant Neuro: alert oriented moving all extremities Lines PICC - Constitutional Vitals: Vital Signs Temp Pulse Resp BP Pulse Ox 98.0 F 104 H 18 84/56 98 11/21/18 07:22 11/21/18 07:22 11/21/18 07:22 11/21/18 07:22 11/21/18 07:50 Temperature -Last 24 Hours Temperature 98.0 F Temperature 98.4 F Temperature 98.8 F Temperature 98.2 F - Labs CBC & Chem 7: 11/20/18 08:31 11/21/18 04:25 Labs: Abnormal lab results 11/20/18 11/21/18 Range/Units 08:31 04:25 RBC 3.40 L (3.65-5.03) M/mm3 Hgb 9.7 L (11.8-15.2) gm/dl Hct 30.0 L (35.5-45.6) % Lymphocytes % (Manual) 10.0 L (13.4-35.0) % Monocytes % (Manual) 13.0 H (0.0-7.3) % Eosinophils % (Manual) 7.0 H (0.0-4.3) % Lymphocytes # (Manual) 1.0 L (1.2-5.4) K/mm3 Monocytes # (Manual) 1.3 H (0.0-0.8) K/mm3 Eosinophils # (Manual) 0.7 H (0.0-0.4) K/mm3 Sodium 146 H (137-145) mmol/L BUN 46 H (9-20) mg/dL Creatinine 1.9 H (0.8-1.5) mg/dL Glucose 113 H (75-100) mg/dL Calcium 8.2 L (8.4-10.2) mg/dL
--- NOTE | 2018-11-21 09:44 | Progress Note ---
Addendum entered and electronically signed by CHLOE FISCHER MD 11/21/18 11:31: Recommend transfer to telemetry, initiation of IV milrinone at 0.25 g for manag ement of systolic heart failure and fluid overload. Original Note: Assessment and Plan Septic arthritic right knee Acute renal failure Acute systolic heart failure Paroxysmal Afib on carvedilol and digoxin for suppression An echocardiogram this admission revealed a severe dilated cardiomyopathy, biventricular heart failure, and moderate to severe regurgitation of both atrioventricular valves. No evident valvular vegetations on a less than optimal quality transthoracic echocardiogram. Recommendations: Remote telemetry monitoring. Medical therapy for systolic heart failure as tolerated. Medical therapy for paroxysmal atrial fibrillation with carvedilol and digoxin as tolerated. The patient will ultimately benefit from long-term oral anticoagulation after the acute medical and surgical issues are resolved. Subjective Date of service: 11/21/18 Principal diagnosis: SIRS Interval history: Patient is resting in bed comfortably. Objective Vital Signs Temp Pulse Pulse Resp BP Pulse Ox 11/21/18 07:50 98 11/21/18 07:22 98.0 F 104 H 18 84/56 99 11/21/18 05:38 92 H 133/78 11/21/18 02:20 98.4 F 92 H 22 133/78 98 11/20/18 22:00 82 11/20/18 21:29 100 11/20/18 21:26 82 108/59 11/20/18 21:25 82 108/59 11/20/18 21:23 82 108/59 11/20/18 19:52 98.8 F 82 18 108/59 99 11/20/18 13:25 98.2 F 84 18 127/78 98 11/20/18 10:59 89 139/83 11/20/18 10:58 89 139/83 99 - Physical Examination General: No Apparent Distress HEENT: Positive: PERRL Neck: Positive: trachea midline Cardiac: Positive: Tachycardia Lungs: Positive: Decreased Breath Sounds Neuro: Positive: Weakness Extremities: Absent: edema - Labs and Meds CBC 11/20/18 Range/Units 08:31 WBC 10.1 (4.5-11.0) K/mm3 RBC 3.40 L (3.65-5.03) M/mm3 Hgb 9.7 L (11.8-15.2) gm/dl Hct 30.0 L (35.5-45.6) % Plt Count 419 (140-440) K/mm3 Comprehensive Metabolic Panel 11/21/18 Range/Units 04:25 Sodium 146 H (137-145) mmol/L Potassium 3.6 (3.6-5.0) mmol/L Chloride 105.1 (98-107) mmol/L Carbon Dioxide 26 (22-30) mmol/L BUN 46 H (9-20) mg/dL Creatinine 1.9 H (0.8-1.5) mg/dL Glucose 113 H (75-100) mg/dL Calcium 8.2 L (8.4-10.2) mg/dL
[2018-11-21] MEDS: MAXIPIME/NS 1 GM/100 ML 1 GM/100 ML BAG IV SCH (10:43)
[2018-11-21] MEDS: VIBRAMYCIN PO SCH ×2 (10:48→21:36)
[2018-11-21] MEDS: K-DUR PO SCH (10:49)
[2018-11-21] MEDS: COREG PO SCH ×2 (10:49→21:35)
[2018-11-21] MEDS: HALFPRIN EC PO SCH (10:49)
[2018-11-21] MEDS: PLAVIX PO SCH (10:49)
[2018-11-21] MEDS: CATAPRES PO SCH ×2 (10:49→21:37)
[2018-11-21] MEDS: LASIX IV SCH (10:50)
[2018-11-21] MEDS: SODIUM CHLORIDE FLUSH SYRINGE 10 ML IV SCH ×2 (10:50→21:37)
--- NOTE | 2018-11-21 14:51 | Progress Note ---
Assessment and Plan Assessment and plan: 78 YO Male with HTN, Nicotine Dependence pw gen weakness, , ams, malaise, x4 days. He fell on both his knees at home. -At time of admission, he met sepsis criteria and had bilat knee effusion and contusions - he was rx with broad spectrum abx, -K was repleted -septic arthritis of R knee was suspected, sp tap, cx neg so far, AFB cx still pending -per ID upon discharge Cipro 500mg, PO BID and Vancomycin 1gm q 24 until 11/30/18 - meds were optimized for chronic conditions -he c/o testicular swelling, US shows bilat hydrocele, ntd, scrotal elevation was done -now coughing with meals, MBS done, advised for Pureed diet and thin liquids -- He had worsening functional status, and debility and therefore was recommended to [facility] facility but he did not participate with PT, and his insurance denied him. Therefore he will be dc home with services when medically ready - he had severe sob on 11/16/18, due to pulmonary edema, received lasix and bipap and now weaned off bipap on NC,, IVF were dc, CXR showed bibasilar crackles and pulm edema, -- He initially received IVF and has improvement in renal function, creat now elevated again since 11/17, nephrology consult appreciated, Renal US wnl --judicious use of D5W given hypernatremia to correct free water deficit, cont lasix -echo showed EF of 30%, optimize meds -he is likely cardiorenal syndrome?, transfer to Tele unit and start milrinone drip per cardiology -He will need anticoagulation sometime in the future, that is to be determined by cardiology Diagnosis Sepsis secondary to septic arthritis of the right knee ARF (acute renal failure) with tubular necrosis, vasomotor nephropathy Hypertension Metabolic Encephalopathy Dementia Dysphagia Acute respiratory failure with hypoxia Pulmonary edema Hypernatremia acute on chronic systolic CHF, EF 30% hypokalemia afib with rvr Hypercoagulable states History Interval history: Review of systems Constitutional: no fever, no malaise, no joint pains CVS: No chest pain, c.o orthopnea GI: No abdominal pain, no diarrhea, no vomiting, no constipation Respiratory: sob is improved Hospitalist Physical - Physical exam Narrative exam: General.: no distress HEENT: Moist mucous membranes, extraocular muscles intact, no lymphadenopathy Neck: supple Cardiac: S1-S2 heard Lungs: bibasilar crackles Abdomen: soft , nontender, nondistended, bowel sounds positive Extremities: no edema clubbing or cyanosis testicular edema Skin: no rash or lesions Neurologic: confused, gen weakness Psych: calm, and cooperative - Constitutional Vitals: Temp Pulse Resp BP Pulse Ox 98.5 F 110 H 18 125/68 98 11/21/18 13:41 11/21/18 14:10 11/21/18 13:41 11/21/18 14:10 11/21/18 13:41 General appearance: Present: no acute distress Results - Labs CBC & Chem 7: 11/20/18 08:31 11/21/18 04:25 Labs: Laboratory Last Values WBC 10.1 K/mm3 (4.5-11.0) 11/20/18 08:31 RBC 3.40 M/mm3 (3.65-5.03) L 11/20/18 08:31 Hgb 9.7 gm/dl (11.8-15.2) L 11/20/18 08:31 Hct 30.0 % (35.5-45.6) L 11/20/18 08:31 MCV 89 fl (84-94) 11/20/18 08:31 MCH 29 pg (28-32) 11/20/18 08:31 MCHC 32 % (32-34) 11/20/18 08:31 RDW 15.2 % (13.2-15.2) 11/20/18 08:31 Plt Count 419 K/mm3 (140-440) 11/20/18 08:31 Lymph % (Auto) 4.3 % (13.4-35.0) L 11/17/18 09:22 [place] % (Auto) 6.5 % (0.0-7.3) 11/17/18 09:22 Eos % (Auto) 0.0 % (0.0-4.3) 11/17/18 09:22 Baso % (Auto) 0.2 % (0.0-1.8) 11/17/18 09:22 Lymph # 0.4 K/mm3 (1.2-5.4) L 11/17/18 09:22 [place] # 0.7 K/mm3 (0.0-0.8) 11/17/18 09:22 Eos # 0.0 K/mm3 (0.0-0.4) 11/17/18 09:22 Baso # 0.0 K/mm3 (0.0-0.1) 11/17/18 09:22 Add Manual Diff Complete 11/20/18 08:31 Total Counted 100 11/20/18 08:31 Seg Neutrophils % 89.0 % (40.0-70.0) H 11/17/18 09:22 Seg Neuts % (Manual) 67.0 % (40.0-70.0) 11/20/18 08:31 Band Neutrophils % 0 % 11/20/18 08:31 Lymphocytes % (Manual) 10.0 % (13.4-35.0) L 11/20/18 08:31 Reactive Lymphs % (Man) 0 % 11/20/18 08:31 Monocytes % (Manual) 13.0 % (0.0-7.3) H 11/20/18 08:31 Eosinophils % (Manual) 7.0 % (0.0-4.3) H 11/20/18 08:31 Basophils % (Manual) 0 % (0.0-1.8) 11/20/18 08:31 Metamyelocytes % 0 % 11/20/18 08:31 Myelocytes % 3.0 % 11/20/18 08:31 Promyelocytes % 0 % 11/20/18 08:31 Blast Cells % 0 % 11/20/18 08:31 Nucleated RBC % Not Reportable 11/20/18 08:31 Seg Neutrophils # 9.0 K/mm3 (1.8-7.7) H 11/17/18 09:22 Seg Neutrophils # Man 6.8 K/mm3 (1.8-7.7) 11/20/18 08:31 Band Neutrophils # 0.0 K/mm3 11/20/18 08:31 Lymphocytes # (Manual) 1.0 K/mm3 (1.2-5.4) L 11/20/18 08:31 Abs React Lymphs (Man) 0.0 K/mm3 11/20/18 08:31 Monocytes # (Manual) 1.3 K/mm3 (0.0-0.8) H 11/20/18 08:31 Eosinophils # (Manual) 0.7 K/mm3 (0.0-0.4) H 11/20/18 08:31 Basophils # (Manual) 0.0 K/mm3 (0.0-0.1) 11/20/18 08:31 Metamyelocytes # 0.0 K/mm3 11/20/18 08:31 Myelocytes # 0.3 K/mm3 11/20/18 08:31 Promyelocytes # 0.0 K/mm3 11/20/18 08:31 Blast Cells # 0.0 K/mm3 11/20/18 08:31 WBC Morphology Not Reportable 11/20/18 08:31 Hypersegmented Neuts Not Reportable 11/20/18 08:31 Hyposegmented Neuts Not Reportable 11/20/18 08:31 Hypogranular Neuts Not Reportable 11/20/18 08:31 Smudge Cells Not Reportable 11/20/18 08:31 Toxic Granulation Not Reportable 11/20/18 08:31 Toxic Vacuolation Not Reportable 11/20/18 08:31 Dohle Bodies Not Reportable 11/20/18 08:31 Pelger-Huet Anomaly Not Reportable 11/20/18 08:31 Swetha Rods Not Reportable 11/20/18 08:31 Platelet Estimate Consistent w auto 11/20/18 08:31 Clumped Platelets Not Reportable 11/20/18 08:31 Plt Clumps, EDTA Not Reportable 11/20/18 08:31 Large Platelets Not Reportable 11/20/18 08:31 Giant Platelets Not Reportable 11/20/18 08:31 Platelet Satelliting Not Reportable 11/20/18 08:31 Plt Morphology Comment Not Reportable 11/20/18 08:31 RBC Morphology Not Reportable 11/20/18 08:31 Dimorphic RBCs Not Reportable 11/20/18 08:31 Polychromasia Few 11/20/18 08:31 Hypochromasia Not Reportable 11/20/18 08:31 Poikilocytosis 1+ 11/20/18 08:31 Anisocytosis 1+ 11/20/18 08:31 Microcytosis Not Reportable 11/20/18 08:31 Macrocytosis Not Reportable 11/20/18 08:31 Spherocytes Not Reportable 11/20/18 08:31 Pappenheimer Bodies Not Reportable 11/20/18 08:31 Sickle Cells Not Reportable 11/20/18 08:31 Target Cells Not Reportable 11/20/18 08:31 Tear Drop Cells Not Reportable 11/20/18 08:31 Ovalocytes 1+ 11/20/18 08:31 Helmet Cells Not Reportable 11/20/18 08:31 Quiñones-[place] Bodies Not Reportable 11/20/18 08:31 [place] Rings Not Reportable 11/20/18 08:31 Tangent Cells Not Reportable 11/20/18 08:31 Bite Cells Not Reportable 11/20/18 08:31 Crenated Cell Not Reportable 11/20/18 08:31 Elliptocytes Not Reportable 11/20/18 08:31 Acanthocytes (Spur) Not Reportable 11/20/18 08:31 Rouleaux Not Reportable 11/20/18 08:31 Hemoglobin C Crystals Not Reportable 11/20/18 08:31 Schistocytes Not Reportable 11/20/18 08:31 Malaria parasites Not Reportable 11/20/18 08:31 Catalino Bodies Not Reportable 11/20/18 08:31 Hem Pathologist Commnt No 11/20/18 08:31 Sodium 146 mmol/L (137-145) H 11/21/18 04:25 Potassium 3.6 mmol/L (3.6-5.0) 11/21/18 04:25 Chloride 105.1 mmol/L (98-107) 11/21/18 04:25 Carbon Dioxide 26 mmol/L (22-30) 11/21/18 04:25 Anion Gap 19 mmol/L 11/21/18 04:25 BUN 46 mg/dL (9-20) H 11/21/18 04:25 Creatinine 1.9 mg/dL (0.8-1.5) H 11/21/18 04:25 Estimated GFR 42 ml/min 11/21/18 04:25 BUN/Creatinine Ratio 24 % 11/21/18 04:25 Glucose 113 mg/dL (75-100) H 11/21/18 04:25 POC Glucose 135 (70-105) H 11/18/18 23:42 Lactic Acid 1.40 mmol/L (0.7-2.0) 10/26/18 06:05 Calcium 8.2 mg/dL (8.4-10.2) L 11/21/18 04:25 Magnesium 2.20 mg/dL (1.7-2.3) 11/19/18 04:19 Total Bilirubin 0.40 mg/dL (0.1-1.2) 10/25/18 17:12 AST 34 units/L (5-40) 10/25/18 17:12 ALT 24 units/L (7-56) 10/25/18 17:12 Alkaline Phosphatase 101 units/L (35-129) 10/25/18 17:12 C-Reactive Protein 23.00 mg/dL (0.00-1.30) H 10/28/18 20:48 Total Protein 6.8 g/dL (6.3-8.2) 10/25/18 17:12 Albumin 2.9 g/dL (3.9-5) L 10/25/18 17:12 Albumin/Globulin Ratio 0.7 % 10/25/18 17:12 Urine Color Yellow (Yellow) 11/12/18 22:31 Urine Turbidity Slightly-cloudy (Clear) 11/12/18 22:31 Urine pH 6.0 (5.0-7.0) 11/12/18 22:31 Ur Specific [place] 1.009 (1.003-1.030) 11/12/18 22:31 Urine Protein 100 mg/dl mg/dL (Negative) 11/12/18 22:31 Urine Glucose (UA) Neg mg/dL (Negative) 11/12/18 22:31 Urine Ketones Neg mg/dL (Negative) 11/12/18 22:31 Urine Blood Sm (Negative) 11/12/18 22:31 Urine Nitrite Neg (Negative) 11/12/18 22:31 Urine Bilirubin Neg (Negative) 11/12/18 22:31 Urine Urobilinogen < 2.0 mg/dL (<2.0) 11/12/18 22:31 Ur Leukocyte Esterase Neg (Negative) 11/12/18 22:31 Urine WBC (Auto) 6.0 /HPF (0.0-6.0) 11/12/18 22:31 Urine RBC (Auto) 48.0 /HPF (0.0-6.0) 11/12/18 22:31 U Epithel Cells (Auto) < 1.0 /HPF (0-13.0) 11/12/18 22:31 Urine Bacteria (Auto) 1+ /HPF (Negative) 11/12/18 22:31 Amorphous Crystals Few 10/26/18 05:30 Hyaline Casts 9 /LPF 10/26/18 05:30 Urine Mucus Few /HPF 11/12/18 22:31 Urine Eosinophils None seen (None Seen) 11/19/18 01:10 Urine Creatinine 67.4 mg/dL (0.1-20.0) H 11/19/18 01:10 Urine Sodium 50 mmol/L 11/19/18 01:10 Urine Total Protein 23 mg/dL (5-11.8) H 11/19/18 01:10 Fluid Type Synovial 11/02/18 10:15 Fluid Color Red 11/02/18 10:15 Fluid Appearance Turbid 11/02/18 10:15 Fluid WBC 17311 /mm3 11/02/18 10:15 Fluid RBC 8580 /mm3 11/02/18 10:15 Fluid Seg Neutrophils 93.0 % 11/02/18 10:15 Fluid Lymphocytes 7.0 % 11/02/18 10:15 Fluid Reactive Lymphs 0 % 11/02/18 10:15 Fluid Monocytes 0 % 11/02/18 10:15 Fluid Eosinophils 0 % 11/02/18 10:15 Fluid Basophils 0 % 11/02/18 10:15 Synovial Crystals Negative (NONE SEEN) 10/29/18 Unknown Vancomycin Trough 21.4 ug/mL (5.0-20.0) H 11/12/18 16:58 Random Vancomycin 20.0 ug/mL (0-40.0) 11/17/18 05:27 Influenza A (Rapid) Negative (Negative) 10/29/18 16:42 Influenza B (Rapid) Negative (Negative) 10/29/18 16:42 Nutrition/Malnutrition Assess - Dietary Evaluation Nutrition/Malnutrition Findings: Nutrition Notes Start: 11/01/18 12:03 Freq: Status: Active Protocol: Document 11/14/18 14:15 GEOFFREY (Rec: 11/14/18 14:22 GEOFFREY [email or web address]) Nutrition Notes Current Diagnosis Hypertension Other Pertinent Diagnosis (R) knee septic arthritis, Dementia Current Diet Cardiac mech soft with ground meats + Ensure Enlive TID Labs/Tests No current available Pertinent Medications Reviewed Height 5 ft 4 in Weight 61.9 kg [place] Body Weight (kg) 59.09 BMI 23.4 Subjective/Other Information Pt has consumed 23% of meals since last assessment. He drinks 100% ONS daily, per RN report. Percent of energy/protein needs met: 100% energy/pro (meals + ONS) 32% energy 37% pro (meals only) Burn Absent Trauma Absent #1 Nutrition Diagnosis Inadequate oral intake As Evidenced by Signs and Symptoms PO intake of meals (alone) meeting <50% energy and pro needs Diagnosis Progress(for reassessment Continues documentation) Is patient on ventilator? No Is Patient Ambulatory and/or Out of Bed No REE-([facility]-confined to bed) 3548.552 Calculation Used for Recommendations [facility] Additional Notes Pro needs 1-1.2g/k-74g/ day Fluid needs 1ml/kcal Nutrition Intervention Change Diet Order: Continue current diet order Add Supplement/Snack (indicate name/kcal Ensure Enlive TID (vanilla) /protein ) Provides kCal: 1,050 Provides Protein (gm) 60 Goal #1 Continue to meet at least 75% of calorie and protein needs via PO and ONS intakes Goal #2 Wt maintenance Anticipated Discharge Needs: Continue Ensure Enlive (or equivalent) 2-3 times daily if PO intakes remain suboptimal Follow-Up By: 11/21/18 Additional Comments F/U: intakes (meals/ONS), wt
[2018-11-21] MEDS: LANOXIN PO SCH (16:44)
[2018-11-21] MEDS ORDERED: LANOXIN PO SCH (17:00)
[2018-11-21] MEDS: MILRINONE-D5W 20 MG/100 ML 20 MG/100 ML BAG IV SCH (18:02)
[2018-11-21] MEDS: D5W 1,000 ML IV SCH (21:54)
[2018-11-22] MEDS: ISORDIL TITRADOSE PO SCH ×3 (05:21→21:15)
[2018-11-22] MEDS: FLAGYL 500 MG/100 ML 500 MG/100 ML BAG IV SCH ×3 (05:21→21:14)
--- NOTE | 2018-11-22 09:25 | Progress Note ---
Assessment and Plan Assessment and plan: 78 YO Male with HTN, Nicotine Dependence pw gen weakness, , ams, malaise, x4 days. He fell on both his knees at home. -At time of admission, he met sepsis criteria and had bilat knee effusion and contusions - he was rx with broad spectrum abx, -K was repleted -septic arthritis of R knee was suspected, sp tap, cx neg so far, AFB cx still pending -per ID upon discharge Cipro 500mg, PO BID and Vancomycin 1gm q 24 until 11/30/18 - meds were optimized for chronic conditions -he c/o testicular swelling, US shows bilat hydrocele, ntd, scrotal elevation was done -now coughing with meals, MBS done, advised for Pureed diet and thin liquids -- He had worsening functional status, and debility and therefore was recommended to [facility] facility but he did not participate with PT, and his insurance denied him. Therefore he will be dc home with services when medically ready - he had severe sob on 11/16/18, due to pulmonary edema, received lasix and bipap and now weaned off bipap on NC,, IVF were dc, CXR showed bibasilar crackles and pulm edema, -- He initially received IVF and has improvement in renal function, creat now elevated again since 11/17, nephrology consult appreciated, Renal US wnl --judicious use of D5W given hypernatremia to correct free water deficit, cont lasix -echo showed EF of 30%, optimize meds -he is likely cardiorenal syndrome?, cont milrinone drip per cardiology -He will need anticoagulation sometime in the future, that is to be determined by cardiology Diagnosis Sepsis secondary to septic arthritis of the right knee ARF (acute renal failure) with tubular necrosis, vasomotor nephropathy Hypertension Metabolic Encephalopathy Dementia Dysphagia Acute respiratory failure with hypoxia Pulmonary edema Hypernatremia acute on chronic systolic CHF, EF 30% hypokalemia afib with rvr Hypercoagulable states History Interval history: Review of systems Constitutional: no fever, no malaise, no joint pains CVS: No chest pain, c.o orthopnea GI: No abdominal pain, no diarrhea, no vomiting, no constipation Respiratory: sob is improved Hospitalist Physical - Physical exam Narrative exam: General.: no distress HEENT: Moist mucous membranes, extraocular muscles intact, no lymphadenopathy Neck: supple Cardiac: S1-S2 heard Lungs: bibasilar crackles Abdomen: soft , nontender, nondistended, bowel sounds positive Extremities: no edema clubbing or cyanosis testicular edema Skin: no rash or lesions Neurologic: alert awake, gen weakness Psych: calm, and cooperative - Constitutional Vitals: Temp Pulse Resp BP Pulse Ox 97.2 F L 108 H 16 135/79 98 11/22/18 08:18 11/22/18 08:18 11/22/18 08:18 11/22/18 08:18 11/22/18 08:18 General appearance: Present: no acute distress Results - Labs CBC & Chem 7: 11/20/18 08:31 11/22/18 06:32 Labs: Laboratory Last Values WBC 10.1 K/mm3 (4.5-11.0) 11/20/18 08:31 RBC 3.40 M/mm3 (3.65-5.03) L 11/20/18 08:31 Hgb 9.7 gm/dl (11.8-15.2) L 11/20/18 08:31 Hct 30.0 % (35.5-45.6) L 11/20/18 08:31 MCV 89 fl (84-94) 11/20/18 08:31 MCH 29 pg (28-32) 11/20/18 08:31 MCHC 32 % (32-34) 11/20/18 08:31 RDW 15.2 % (13.2-15.2) 11/20/18 08:31 Plt Count 419 K/mm3 (140-440) 11/20/18 08:31 Lymph % (Auto) 4.3 % (13.4-35.0) L 11/17/18 09:22 Pershing % (Auto) 6.5 % (0.0-7.3) 11/17/18 09:22 Eos % (Auto) 0.0 % (0.0-4.3) 11/17/18 09:22 Baso % (Auto) 0.2 % (0.0-1.8) 11/17/18 09:22 Lymph # 0.4 K/mm3 (1.2-5.4) L 11/17/18 09:22 Pershing # 0.7 K/mm3 (0.0-0.8) 11/17/18 09:22 Eos # 0.0 K/mm3 (0.0-0.4) 11/17/18 09:22 Baso # 0.0 K/mm3 (0.0-0.1) 11/17/18 09:22 Add Manual Diff Complete 11/20/18 08:31 Total Counted 100 11/20/18 08:31 Seg Neutrophils % 89.0 % (40.0-70.0) H 11/17/18 09:22 Seg Neuts % (Manual) 67.0 % (40.0-70.0) 11/20/18 08:31 Band Neutrophils % 0 % 11/20/18 08:31 Lymphocytes % (Manual) 10.0 % (13.4-35.0) L 11/20/18 08:31 Reactive Lymphs % (Man) 0 % 11/20/18 08:31 Monocytes % (Manual) 13.0 % (0.0-7.3) H 11/20/18 08:31 Eosinophils % (Manual) 7.0 % (0.0-4.3) H 11/20/18 08:31 Basophils % (Manual) 0 % (0.0-1.8) 11/20/18 08:31 Metamyelocytes % 0 % 11/20/18 08:31 Myelocytes % 3.0 % 11/20/18 08:31 Promyelocytes % 0 % 11/20/18 08:31 Blast Cells % 0 % 11/20/18 08:31 Nucleated RBC % Not Reportable 11/20/18 08:31 Seg Neutrophils # 9.0 K/mm3 (1.8-7.7) H 11/17/18 09:22 Seg Neutrophils # Man 6.8 K/mm3 (1.8-7.7) 11/20/18 08:31 Band Neutrophils # 0.0 K/mm3 11/20/18 08:31 Lymphocytes # (Manual) 1.0 K/mm3 (1.2-5.4) L 11/20/18 08:31 Abs React Lymphs (Man) 0.0 K/mm3 11/20/18 08:31 Monocytes # (Manual) 1.3 K/mm3 (0.0-0.8) H 11/20/18 08:31 Eosinophils # (Manual) 0.7 K/mm3 (0.0-0.4) H 11/20/18 08:31 Basophils # (Manual) 0.0 K/mm3 (0.0-0.1) 11/20/18 08:31 Metamyelocytes # 0.0 K/mm3 11/20/18 08:31 Myelocytes # 0.3 K/mm3 11/20/18 08:31 Promyelocytes # 0.0 K/mm3 11/20/18 08:31 Blast Cells # 0.0 K/mm3 11/20/18 08:31 WBC Morphology Not Reportable 11/20/18 08:31 Hypersegmented Neuts Not Reportable 11/20/18 08:31 Hyposegmented Neuts Not Reportable 11/20/18 08:31 Hypogranular Neuts Not Reportable 11/20/18 08:31 Smudge Cells Not Reportable 11/20/18 08:31 Toxic Granulation Not Reportable 11/20/18 08:31 Toxic Vacuolation Not Reportable 11/20/18 08:31 Dohle Bodies Not Reportable 11/20/18 08:31 Pelger-Huet Anomaly Not Reportable 11/20/18 08:31 Swetha Rods Not Reportable 11/20/18 08:31 Platelet Estimate Consistent w auto 11/20/18 08:31 Clumped Platelets Not Reportable 11/20/18 08:31 Plt Clumps, EDTA Not Reportable 11/20/18 08:31 Large Platelets Not Reportable 11/20/18 08:31 Giant Platelets Not Reportable 11/20/18 08:31 Platelet Satelliting Not Reportable 11/20/18 08:31 Plt Morphology Comment Not Reportable 11/20/18 08:31 RBC Morphology Not Reportable 11/20/18 08:31 Dimorphic RBCs Not Reportable 11/20/18 08:31 Polychromasia Few 11/20/18 08:31 Hypochromasia Not Reportable 11/20/18 08:31 Poikilocytosis 1+ 11/20/18 08:31 Anisocytosis 1+ 11/20/18 08:31 Microcytosis Not Reportable 11/20/18 08:31 Macrocytosis Not Reportable 11/20/18 08:31 Spherocytes Not Reportable 11/20/18 08:31 Pappenheimer Bodies Not Reportable 11/20/18 08:31 Sickle Cells Not Reportable 11/20/18 08:31 Target Cells Not Reportable 11/20/18 08:31 Tear Drop Cells Not Reportable 11/20/18 08:31 Ovalocytes 1+ 11/20/18 08:31 Helmet Cells Not Reportable 11/20/18 08:31 [place] Bodies Not Reportable 11/20/18 08:31 [place] Rings Not Reportable 11/20/18 08:31 [place] Cells Not Reportable 11/20/18 08:31 Bite Cells Not Reportable 11/20/18 08:31 Crenated Cell Not Reportable 11/20/18 08:31 Elliptocytes Not Reportable 11/20/18 08:31 Acanthocytes (Spur) Not Reportable 11/20/18 08:31 Rouleaux Not Reportable 11/20/18 08:31 Hemoglobin C Crystals Not Reportable 11/20/18 08:31 Schistocytes Not Reportable 11/20/18 08:31 Malaria parasites Not Reportable 11/20/18 08:31 [place] Bodies Not Reportable 11/20/18 08:31 Hem Pathologist Commnt No 11/20/18 08:31 Sodium 144 mmol/L (137-145) 11/22/18 06:32 Potassium 3.7 mmol/L (3.6-5.0) 11/22/18 06:32 Chloride 105.5 mmol/L (98-107) 11/22/18 06:32 Carbon Dioxide 26 mmol/L (22-30) 11/22/18 06:32 Anion Gap 16 mmol/L 11/22/18 06:32 BUN 38 mg/dL (9-20) H 11/22/18 06:32 Creatinine 1.8 mg/dL (0.8-1.5) H 11/22/18 06:32 Estimated GFR 45 ml/min 11/22/18 06:32 BUN/Creatinine Ratio 21 % 11/22/18 06:32 Glucose 119 mg/dL (75-100) H 11/22/18 06:32 POC Glucose 135 (70-105) H 11/18/18 23:42 Lactic Acid 1.40 mmol/L (0.7-2.0) 10/26/18 06:05 Calcium 8.0 mg/dL (8.4-10.2) L 11/22/18 06:32 Magnesium 2.20 mg/dL (1.7-2.3) 11/19/18 04:19 Total Bilirubin 0.40 mg/dL (0.1-1.2) 10/25/18 17:12 AST 34 units/L (5-40) 10/25/18 17:12 ALT 24 units/L (7-56) 10/25/18 17:12 Alkaline Phosphatase 101 units/L (35-129) 10/25/18 17:12 C-Reactive Protein 23.00 mg/dL (0.00-1.30) H 10/28/18 20:48 Total Protein 6.8 g/dL (6.3-8.2) 10/25/18 17:12 Albumin 2.9 g/dL (3.9-5) L 10/25/18 17:12 Albumin/Globulin Ratio 0.7 % 10/25/18 17:12 Urine Color Yellow (Yellow) 11/12/18 22:31 Urine Turbidity Slightly-cloudy (Clear) 11/12/18 22:31 Urine pH 6.0 (5.0-7.0) 11/12/18 22:31 Ur Specific [place] 1.009 (1.003-1.030) 11/12/18 22:31 Urine Protein 100 mg/dl mg/dL (Negative) 11/12/18 22:31 Urine Glucose (UA) Neg mg/dL (Negative) 11/12/18 22:31 Urine Ketones Neg mg/dL (Negative) 11/12/18 22:31 Urine Blood Sm (Negative) 11/12/18 22:31 Urine Nitrite Neg (Negative) 11/12/18 22:31 Urine Bilirubin Neg (Negative) 11/12/18 22:31 Urine Urobilinogen < 2.0 mg/dL (<2.0) 11/12/18 22:31 Ur Leukocyte Esterase Neg (Negative) 11/12/18 22:31 Urine WBC (Auto) 6.0 /HPF (0.0-6.0) 11/12/18 22:31 Urine RBC (Auto) 48.0 /HPF (0.0-6.0) 11/12/18 22:31 U Epithel Cells (Auto) < 1.0 /HPF (0-13.0) 11/12/18 22:31 Urine Bacteria (Auto) 1+ /HPF (Negative) 11/12/18 22:31 Amorphous Crystals Few 10/26/18 05:30 Hyaline Casts 9 /LPF 10/26/18 05:30 Urine Mucus Few /HPF 11/12/18 22:31 Urine Eosinophils None seen (None Seen) 11/19/18 01:10 Urine Creatinine 67.4 mg/dL (0.1-20.0) H 11/19/18 01:10 Urine Sodium 50 mmol/L 11/19/18 01:10 Urine Total Protein 23 mg/dL (5-11.8) H 11/19/18 01:10 Fluid Type Synovial 11/02/18 10:15 Fluid Color Red 11/02/18 10:15 Fluid Appearance Turbid 11/02/18 10:15 Fluid WBC 92452 /mm3 11/02/18 10:15 Fluid RBC 8580 /mm3 11/02/18 10:15 Fluid Seg Neutrophils 93.0 % 11/02/18 10:15 Fluid Lymphocytes 7.0 % 11/02/18 10:15 Fluid Reactive Lymphs 0 % 11/02/18 10:15 Fluid Monocytes 0 % 11/02/18 10:15 Fluid Eosinophils 0 % 11/02/18 10:15 Fluid Basophils 0 % 11/02/18 10:15 Synovial Crystals Negative (NONE SEEN) 10/29/18 Unknown Vancomycin Trough 21.4 ug/mL (5.0-20.0) H 11/12/18 16:58 Random Vancomycin 20.0 ug/mL (0-40.0) 11/17/18 05:27 Influenza A (Rapid) Negative (Negative) 10/29/18 16:42 Influenza B (Rapid) Negative (Negative) 10/29/18 16:42 Nutrition/Malnutrition Assess - Dietary Evaluation Nutrition/Malnutrition Findings: Nutrition Notes Start: 11/01/18 12:03 Freq: Status: Active Protocol: Document 11/21/18 15:11 RM (Rec: 11/21/18 15:16 RM [id number]) Nutrition Notes Initial or Follow up Reassessment Current Diagnosis Hypertension Heart Failure Other Pertinent Diagnosis (R) knee septic arthritis, Dementia Current Diet Pureed Labs/Tests Reviewed Pertinent Medications Lasix Height 5 ft 4 in Weight 60 kg [place] Body Weight (kg) 59.09 BMI 22.6 Subjective/Other Information Diet changed to pureed but Ensure Enlive was not carried over. Per pt tech pt ate 25% of breakfast. Also stated pt told her that pt did not eat lunch. Percent of energy/protein needs met: 16%/31% Burn Absent Trauma Absent #1 Nutrition Diagnosis Inadequate oral intake Diagnosis Progress(for reassessment Continues documentation) Is patient on ventilator? No Is Patient Ambulatory and/or Out of Bed No REE-([facility]-confined to bed) [phone] Calculation Used for Recommendations [facility] Additional Notes Pro needs 1-1.2g/k-74g/ day Fluid needs 1ml/kcal Nutrition Intervention Change Diet Order: Continue current diet order Add Supplement/Snack (indicate name/kcal Add back Ensure Enlive Vanilla /protein ) TID Provides kCal: 1,050 Provides Protein (gm) 60 Goal #1 Meet at least 75% of calorie and protein needs via PO and ONS intakes Goal #2 Wt maintenance Anticipated Discharge Needs: Continue Ensure Enlive (or equivalent) 2-3 times daily if PO intakes remain suboptimal Follow-Up By: 11/24/18 Additional Comments Follow for PO and ONS intakes
--- NOTE | 2018-11-22 09:32 | Progress Note ---
Assessment and Plan Septic arthritic right knee Acute renal failure Acute systolic heart failure Paroxysmal Afib on carvedilol and digoxin for suppression An echocardiogram this admission revealed a severe dilated cardiomyopathy, biventricular heart failure, and moderate to severe regurgitation of both atrioventricular valves. No evident valvular vegetations on a less than optimal quality transthoracic echocardiogram. Recommendations: Continue aggressive medical therapy for systolic heart failure including a trial of IV milrinone. Continue medical therapy for paroxysmal atrial fibrillation with carvedilol and digoxin as tolerated. The patient will ultimately benefit from long-term oral anticoagulation after the acute medical and surgical issues are resolved. Subjective Date of service: 11/22/18 Principal diagnosis: SIRS Interval history: Patient is resting in bed comfortably. IV milrinone continues. Objective Vital Signs Temp Pulse Resp BP BP Pulse Ox 11/22/18 08:18 97.2 F L 108 H 16 135/79 98 11/22/18 05:21 105 H 123/65 11/22/18 04:29 97.5 F L 106 H 16 123/65 97 11/22/18 03:23 112 H 11/21/18 23:30 97.3 F L 105 H 16 107/64 98 11/21/18 21:43 100 11/21/18 21:37 110 H 119/63 11/21/18 21:36 110 H 119/63 11/21/18 21:35 110 H 119/63 11/21/18 19:41 98.7 F 109 H 16 119/63 98 11/21/18 16:45 111 H 98 11/21/18 16:44 111 H 109/69 11/21/18 16:43 111 H 109/69 98 11/21/18 15:30 98.2 F 109 H 18 134/76 11/21/18 14:10 110 H 125/68 11/21/18 13:41 98.5 F 110 H 18 125/68 98 11/21/18 10:49 105 H 93/46 11/21/18 10:42 105 H 93/46 98 - Physical Examination General: No Apparent Distress HEENT: Positive: PERRL Neck: Positive: trachea midline Cardiac: Positive: Tachycardia Lungs: Positive: Decreased Breath Sounds Neuro: Positive: Weakness Extremities: Absent: edema - Labs and Meds Comprehensive Metabolic Panel 11/22/18 Range/Units 06:32 Sodium 144 (137-145) mmol/L Potassium 3.7 (3.6-5.0) mmol/L Chloride 105.5 (98-107) mmol/L Carbon Dioxide 26 (22-30) mmol/L BUN 38 H (9-20) mg/dL Creatinine 1.8 H (0.8-1.5) mg/dL Glucose 119 H (75-100) mg/dL Calcium 8.0 L (8.4-10.2) mg/dL
[2018-11-22] MEDS: VIBRAMYCIN PO SCH ×2 (09:55→21:15)
[2018-11-22] MEDS: CATAPRES PO SCH ×2 (09:55→21:16)
[2018-11-22] MEDS: HALFPRIN EC PO SCH (09:55)
[2018-11-22] MEDS: MAXIPIME/NS 1 GM/100 ML 1 GM/100 ML BAG IV SCH (09:55)
[2018-11-22] MEDS: PLAVIX PO SCH (09:55)
[2018-11-22] MEDS: K-DUR PO SCH (09:56)
[2018-11-22] MEDS: SODIUM CHLORIDE FLUSH SYRINGE 10 ML IV SCH ×2 (09:56→21:16)
[2018-11-22] MEDS: APRESOLINE PO SCH ×3 (09:56→21:16)
[2018-11-22] MEDS: LASIX IV SCH (09:56)
[2018-11-22] MEDS: COREG PO SCH ×2 (09:58→21:15)
--- NOTE | 2018-11-22 10:59 | Progress Note ---
Assessment and Plan - Patient Problems (1) Acute kidney injury Current Visit: Yes Status: Acute Plan to address problem: suspect pre-renal azotemia in the setting of IV diuretic therapy along with decreased po intake, acute cardiorenal syndrome may contribute. cont lasix 40mg daily for volume control, pt now started on inotropic support with milrinone cont maintenance D5W given poor po intake. avoid nephrotoxins, NSAID, IV contrast (2) Hypernatremia Current Visit: Yes Status: Acute Plan to address problem: na improving on D5W. encouraged pt to increase oral water intake (3) Septic arthritis Current Visit: Yes Status: Acute Plan to address problem: cont ABX as per ID, dose for eGFR of ~30mls/min (4) Hypertension Current Visit: Yes Status: Acute Plan to address problem: BP controlled on current meds, incl. hydralazine, metoprolol and clonidine. will monitor BP and adjust meds accordingly Subjective Date of service: 11/22/18 Principal diagnosis: SIRS Interval history: Pt awake, alert, in no acute respiratory distress this AM. started on milrinone gtt Objective - Vital Signs Vital signs: Vital Signs - 12hr 11/21/18 11/22/18 11/22/18 23:30 03:23 04:29 Temperature 97.3 F L 97.5 F L Pulse Rate 105 H 112 H 106 H Respiratory 16 16 Rate Blood Pressure 107/64 123/65 O2 Sat by Pulse 98 97 Oximetry 11/22/18 11/22/18 11/22/18 05:21 08:18 10:00 Temperature 97.2 F L Pulse Rate 105 H 108 H Respiratory 16 Rate Blood Pressure 123/65 135/79 O2 Sat by Pulse 98 98 Oximetry - General Appearance General appearance: well-developed, appears stated age, chronically ill EENT: ATNC, PERRL, mucous membranes moist Neck: no JVD Respiratory: Present: Clear to Ascultation Cardiology: regular, S1S2 Gastrointestinal: normoactive bowel sounds Integumentary: no rash, other (no pitting edema ) Neurologic: no focal deficit, alert and oriented x3, strength 5/5, CN 3-12 intact Psychiatric: mood/affect appropriate, cooperative - Lab 11/20/18 08:31 11/22/18 06:32 Most recent lab results Calcium 8.0 mg/dL (8.4-10.2) L 11/22/18 06:32 Magnesium 2.20 mg/dL (1.7-2.3) 11/19/18 04:19 Urine Creatinine 67.4 mg/dL (0.1-20.0) H 11/19/18 01:10 Urine Sodium 50 mmol/L 11/19/18 01:10 Urine Total Protein 23 mg/dL (5-11.8) H 11/19/18 01:10 Medications & Allergies - Medications Allergies/Adverse Reactions: Allergies No Known Allergies Allergy (Verified 10/25/18 17:04) Home Medications: Home Medications Medication Instructions Recorded Confirmed Last Taken Type Atorvastatin Calcium 40 mg PO DAILY 10/25/18 10/25/18 Unknown History Clopidogrel [Plavix] 75 mg PO QDAY 10/25/18 10/25/18 Unknown History Lisinopril [Zestril TAB] 20 mg PO QDAY #30 tablet 11/09/18 Unknown Rx Metoprolol Xl [Metoprolol 100 mg PO QDAY #30 tablet 11/09/18 Unknown Rx SUCCINATE ER TAB] Vancomycin 750 mg IV Q24H 21 Days mg 11/09/18 Unknown Rx cloNIDine [Catapres] 0.2 mg PO Q12HR #60 tablet 11/09/18 Unknown Rx hydrALAZINE [Apresoline TAB] 100 mg PO TID #90 tab 11/09/18 Unknown Rx Ciprofloxacin HCl [Cipro] 500 mg PO BID 14 Days tablet 11/16/18 Unknown Rx Active Medications: Generic Name Dose Route Start Last Admin Trade Name Freq PRN Reason Stop Dose Admin Acetaminophen 650 mg 10/25/18 16:54 11/19/18 21:36 Tylenol PO 650 mg Q4H PRN Administration Pain MILD(1-3)/Fever >100.5/PARIKH Albuterol 2.5 mg 10/25/18 16:54 11/18/18 14:04 Proventil IH 2.5 mg Q4HRT PRN Administration Shortness Of Breath Aspirin 81 mg 11/20/18 18:00 11/22/18 09:55 Halfprin Ec PO 81 mg QDAY LOUIE Administration Atorvastatin Calcium 40 mg 10/26/18 10:00 11/22/18 09:56 Lipitor PO 40 mg DAILY LOUIE Administration Carvedilol 12.5 mg 11/22/18 10:00 11/22/18 09:58 Coreg PO 12.5 mg BID LOUIE Administration Clonidine HCl 0.2 mg 11/05/18 10:00 11/22/18 09:55 Catapres PO 0.2 mg Q12HR LOUIE Administration Clopidogrel Bisulfate 75 mg 10/26/18 10:00 11/22/18 09:55 Plavix PO 75 mg QDAY LOUIE Administration Digoxin 0.0625 mg 11/21/18 17:00 11/21/18 16:44 Lanoxin PO 0.0625 mg DAILY@1700 LOUIE Administration Doxycycline Hyclate 100 mg 11/17/18 10:00 11/22/18 09:55 Vibramycin PO 100 mg Q12HR LOUIE Administration Furosemide 40 mg 11/19/18 12:00 11/22/18 09:56 Lasix IV 40 mg QDAY LOUIE Administration Hydralazine HCl 100 mg 11/02/18 08:30 11/22/18 09:56 Apresoline PO 100 mg TID LOUIE Administration Hydralazine HCl 20 mg 11/16/18 16:12 Apresoline IV Q4HR PRN Hypertension Metronidazole 500 mg in 100 mls @ 100 mls/hr 11/16/18 17:00 11/22/18 05:21 Flagyl 500 Mg/100 Ml IV 100 mls/hr Q8HR LOUIE Administration Protocol Cefepime HCl 1 gm in 100 mls @ 200 mls/hr 11/18/18 10:00 11/22/18 09:55 Maxipime/Ns 1 Gm/100 Ml IV 200 mls/hr Q24HR LOUIE Administration Milrinone Lactate/Dextrose 20 mg in 100 mls @ 4.5 mls/hr 11/21/18 15:00 11/21/18 18:02 Milrinone-D5w 20 Mg/100 Ml IV 11/24/18 14:59 0.25 mcg/kg/min DIRECT LOUIE 4.5 mls/hr Administration Protocol 0.25 MCG/KG/MIN Isosorbide Dinitrate 20 mg 11/20/18 18:00 11/22/18 05:21 Isordil Titradose PO 20 mg Q8HR LOUIE Administration Ondansetron HCl 4 mg 10/25/18 16:54 11/16/18 13:49 Zofran IV 4 mg Q8H PRN Administration Nausea And Vomiting Potassium Chloride 20 meq 11/20/18 10:00 11/22/18 09:56 K-Dur PO 20 meq QDAY LOUIE Administration Sodium Chloride 10 ml 10/25/18 22:00 11/22/18 09:56 Sodium Chloride Flush Syringe 10 Ml IV 10 ml BID LOUIE Administration Sodium Chloride 10 ml 10/25/18 16:54 Sodium Chloride Flush Syringe 10 Ml IV PRN PRN LINE FLUSH Sodium Chloride 10 ml 11/02/18 16:00 11/09/18 17:18 Sodium Chloride Flush Syringe 10 Ml IV 10 ml PRN LOUIE Administration
[2018-11-22] MEDS: LANOXIN PO SCH (17:05)
[2018-11-23] MEDS: ISORDIL TITRADOSE PO SCH ×3 (05:13→21:28)
[2018-11-23] MEDS: FLAGYL 500 MG/100 ML 500 MG/100 ML BAG IV SCH ×3 (05:14→21:29)
[2018-11-23 06:44] LABS: Calcium 8.3 mg/dL (8.4-10.2)
[2018-11-23] MEDS: APRESOLINE PO SCH ×3 (08:00→21:28)
[2018-11-23] MEDS: MILRINONE-D5W 20 MG/100 ML 20 MG/100 ML BAG IV SCH (10:09)
[2018-11-23] MEDS: MAXIPIME/NS 1 GM/100 ML 1 GM/100 ML BAG IV SCH (10:14)
[2018-11-23] MEDS: VIBRAMYCIN PO SCH ×2 (10:18→21:28)
[2018-11-23] MEDS: COREG PO SCH ×2 (10:18→21:29)
[2018-11-23] MEDS: K-DUR PO SCH (10:18)
[2018-11-23] MEDS: HALFPRIN EC PO SCH (10:18)
[2018-11-23] MEDS: PLAVIX PO SCH (10:18)
[2018-11-23] MEDS: LASIX IV SCH (10:18)
[2018-11-23] MEDS: CATAPRES PO SCH ×2 (10:19→21:30)
[2018-11-23] MEDS: SODIUM CHLORIDE FLUSH SYRINGE 10 ML IV SCH ×2 (10:20→21:29)
--- NOTE | 2018-11-23 10:31 | Progress Note ---
Addendum entered and electronically signed by CHLOE FISCHER MD 11/23/18 11:42: Medical therapy for heart failure, left ventricle systolic dysfunction, paroxysmal atrial fibrillation. Original Note: Assessment and Plan Septic arthritic right knee Acute renal failure Acute systolic heart failure Paroxysmal Afib on carvedilol and digoxin for suppression An echocardiogram this admission revealed a severe dilated cardiomyopathy, biventricular heart failure, and moderate to severe regurgitation of both atrioventricular valves. No evident valvular vegetations on a less than optimal quality transthoracic echocardiogram. Recommendations: Continue aggressive medical therapy for systolic heart failure including a trial of IV milrinone for an additional 24 hours. Continue medical therapy for paroxysmal atrial fibrillation with carvedilol and digoxin as tolerated. The patient will ultimately benefit from long-term oral anticoagulation after the acute medical and surgical issues are resolved. Subjective Date of service: 11/23/18 Principal diagnosis: SIRS Interval history: Patient is resting in bed comfortably. IV milrinone continues. Objective Vital Signs Temp Pulse Resp BP BP Pulse Ox 11/23/18 10:19 97 H 132/74 11/23/18 10:18 97 H 132/74 11/23/18 08:51 97 11/23/18 07:28 98.8 F 97 H 20 119/61 98 11/23/18 05:13 95 H 137/78 11/23/18 05:00 98.4 F 97 H 12 137/78 97 11/23/18 04:55 98.4 F 97 H 12 137/78 97 11/23/18 02:58 98 H 11/22/18 23:25 98.3 F 100 H 14 108/68 94 11/22/18 21:16 100 H 108/63 11/22/18 21:15 100 H 108/63 11/22/18 19:56 98.3 F 101 H 16 108/63 96 11/22/18 16:27 97 H 99/64 96 11/22/18 12:25 109 H 117/70 96 - Physical Examination General: No Apparent Distress HEENT: Positive: PERRL Neck: Positive: trachea midline Cardiac: Positive: Reg Rate and Rhythm Lungs: Positive: Decreased Breath Sounds Neuro: Positive: Weakness Extremities: Absent: edema - Labs and Meds Comprehensive Metabolic Panel 11/23/18 Range/Units 05:42 Sodium 144 (137-145) mmol/L Potassium 3.6 (3.6-5.0) mmol/L Chloride 106.1 (98-107) mmol/L Carbon Dioxide 27 (22-30) mmol/L BUN 39 H (9-20) mg/dL Creatinine 1.9 H (0.8-1.5) mg/dL Glucose 101 H (75-100) mg/dL Calcium 8.3 L (8.4-10.2) mg/dL
--- NOTE | 2018-11-23 14:07 | Progress Note ---
Assessment and Plan Assessment and plan: 78 YO Male with HTN, Nicotine Dependence pw gen weakness, , ams, malaise, x4 days. He fell on both his knees at home. -At time of admission, he met sepsis criteria and had bilat knee effusion and contusions - he was rx with broad spectrum abx, -K was repleted -septic arthritis of R knee was suspected, sp tap, cx neg so far, AFB cx still pending -per ID upon discharge Cipro 500mg, PO BID and Vancomycin 1gm q 24 until 11/30/18 - meds were optimized for chronic conditions -he c/o testicular swelling, US shows bilat hydrocele, ntd, scrotal elevation was done -now coughing with meals, MBS done, advised for Pureed diet and thin liquids -- He had worsening functional status, and debility and therefore was recommended to [facility] facility but he did not participate with PT, and his insurance denied him. Therefore he will be dc home with services when medically ready - he had severe sob on 11/16/18, due to pulmonary edema, received lasix and bipap and now weaned off bipap on NC,, IVF were dc, CXR showed bibasilar crackles and pulm edema, -- He initially received IVF and has improvement in renal function, and then it worsened again as patient got into cardiorenal syndrome --he received D5w for hypernatremia, now resolved -Found to have PAF, mgt per cardiology -echo showed EF of 30%, optimize meds -cardiorenal syndrome, cont milrinone drip x1 more day per cardiology, cont lasix -He will need anticoagulation sometime in the future, that is to be determined by cardiology Diagnosis Sepsis secondary to septic arthritis of the right knee acute on chronic systolic CHF, EF 30% Cardiorenal syndrome ARF (acute renal failure) with tubular necrosis, vasomotor nephropathy Hypertension Metabolic Encephalopathy Dementia Dysphagia Acute respiratory failure with hypoxia Pulmonary edema Hypernatremia hypokalemia afib with rvr Hypercoagulable states History Interval history: Review of systems Constitutional: no fever, no malaise, no joint pains CVS: No chest pain, orthopnea is improved GI: No abdominal pain, no diarrhea, no vomiting, no constipation Respiratory: sob is improved Hospitalist Physical - Physical exam Narrative exam: General.: no distress HEENT: Moist mucous membranes, extraocular muscles intact, no lymphadenopathy Neck: supple Cardiac: S1-S2 heard Lungs: bibasilar crackles Abdomen: soft , nontender, nondistended, bowel sounds positive Extremities: no edema clubbing or cyanosis testicular edema improved Skin: no rash or lesions Neurologic: alert awake, gen weakness Psych: calm, and cooperative - Constitutional Vitals: Temp Pulse Resp BP Pulse Ox 97.9 F 88 20 100/73 98 11/23/18 11:31 11/23/18 13:59 11/23/18 11:31 11/23/18 13:59 11/23/18 11:31 General appearance: Present: no acute distress Results - Labs CBC & Chem 7: 11/20/18 08:31 11/23/18 05:42 Labs: Laboratory Last Values WBC 10.1 K/mm3 (4.5-11.0) 11/20/18 08:31 RBC 3.40 M/mm3 (3.65-5.03) L 11/20/18 08:31 Hgb 9.7 gm/dl (11.8-15.2) L 11/20/18 08:31 Hct 30.0 % (35.5-45.6) L 11/20/18 08:31 MCV 89 fl (84-94) 11/20/18 08:31 MCH 29 pg (28-32) 11/20/18 08:31 MCHC 32 % (32-34) 11/20/18 08:31 RDW 15.2 % (13.2-15.2) 11/20/18 08:31 Plt Count 419 K/mm3 (140-440) 11/20/18 08:31 Lymph % (Auto) 4.3 % (13.4-35.0) L 11/17/18 09:22 Ogle % (Auto) 6.5 % (0.0-7.3) 11/17/18 09:22 Eos % (Auto) 0.0 % (0.0-4.3) 11/17/18 09:22 Baso % (Auto) 0.2 % (0.0-1.8) 11/17/18 09:22 Lymph # 0.4 K/mm3 (1.2-5.4) L 11/17/18 09:22 Ogle # 0.7 K/mm3 (0.0-0.8) 11/17/18 09:22 Eos # 0.0 K/mm3 (0.0-0.4) 11/17/18 09:22 Baso # 0.0 K/mm3 (0.0-0.1) 11/17/18 09:22 Add Manual Diff Complete 11/20/18 08:31 Total Counted 100 11/20/18 08:31 Seg Neutrophils % 89.0 % (40.0-70.0) H 11/17/18 09:22 Seg Neuts % (Manual) 67.0 % (40.0-70.0) 11/20/18 08:31 Band Neutrophils % 0 % 11/20/18 08:31 Lymphocytes % (Manual) 10.0 % (13.4-35.0) L 11/20/18 08:31 Reactive Lymphs % (Man) 0 % 11/20/18 08:31 Monocytes % (Manual) 13.0 % (0.0-7.3) H 11/20/18 08:31 Eosinophils % (Manual) 7.0 % (0.0-4.3) H 11/20/18 08:31 Basophils % (Manual) 0 % (0.0-1.8) 11/20/18 08:31 Metamyelocytes % 0 % 11/20/18 08:31 Myelocytes % 3.0 % 11/20/18 08:31 Promyelocytes % 0 % 11/20/18 08:31 Blast Cells % 0 % 11/20/18 08:31 Nucleated RBC % Not Reportable 11/20/18 08:31 Seg Neutrophils # 9.0 K/mm3 (1.8-7.7) H 11/17/18 09:22 Seg Neutrophils # Man 6.8 K/mm3 (1.8-7.7) 11/20/18 08:31 Band Neutrophils # 0.0 K/mm3 11/20/18 08:31 Lymphocytes # (Manual) 1.0 K/mm3 (1.2-5.4) L 11/20/18 08:31 Abs React Lymphs (Man) 0.0 K/mm3 11/20/18 08:31 Monocytes # (Manual) 1.3 K/mm3 (0.0-0.8) H 11/20/18 08:31 Eosinophils # (Manual) 0.7 K/mm3 (0.0-0.4) H 11/20/18 08:31 Basophils # (Manual) 0.0 K/mm3 (0.0-0.1) 11/20/18 08:31 Metamyelocytes # 0.0 K/mm3 11/20/18 08:31 Myelocytes # 0.3 K/mm3 11/20/18 08:31 Promyelocytes # 0.0 K/mm3 11/20/18 08:31 Blast Cells # 0.0 K/mm3 11/20/18 08:31 WBC Morphology Not Reportable 11/20/18 08:31 Hypersegmented Neuts Not Reportable 11/20/18 08:31 Hyposegmented Neuts Not Reportable 11/20/18 08:31 Hypogranular Neuts Not Reportable 11/20/18 08:31 Smudge Cells Not Reportable 11/20/18 08:31 Toxic Granulation Not Reportable 11/20/18 08:31 Toxic Vacuolation Not Reportable 11/20/18 08:31 Dohle Bodies Not Reportable 11/20/18 08:31 Pelger-Huet Anomaly Not Reportable 11/20/18 08:31 Swetha Rods Not Reportable 11/20/18 08:31 Platelet Estimate Consistent w auto 11/20/18 08:31 Clumped Platelets Not Reportable 11/20/18 08:31 Plt Clumps, EDTA Not Reportable 11/20/18 08:31 Large Platelets Not Reportable 11/20/18 08:31 Giant Platelets Not Reportable 11/20/18 08:31 Platelet Satelliting Not Reportable 11/20/18 08:31 Plt Morphology Comment Not Reportable 11/20/18 08:31 RBC Morphology Not Reportable 11/20/18 08:31 Dimorphic RBCs Not Reportable 11/20/18 08:31 Polychromasia Few 11/20/18 08:31 Hypochromasia Not Reportable 11/20/18 08:31 Poikilocytosis 1+ 11/20/18 08:31 Anisocytosis 1+ 11/20/18 08:31 Microcytosis Not Reportable 11/20/18 08:31 Macrocytosis Not Reportable 11/20/18 08:31 Spherocytes Not Reportable 11/20/18 08:31 Pappenheimer Bodies Not Reportable 11/20/18 08:31 Sickle Cells Not Reportable 11/20/18 08:31 Target Cells Not Reportable 11/20/18 08:31 Tear Drop Cells Not Reportable 11/20/18 08:31 Ovalocytes 1+ 11/20/18 08:31 Helmet Cells Not Reportable 11/20/18 08:31 [place] Bodies Not Reportable 11/20/18 08:31 [place] Rings Not Reportable 11/20/18 08:31 [place] Cells Not Reportable 11/20/18 08:31 Bite Cells Not Reportable 11/20/18 08:31 Crenated Cell Not Reportable 11/20/18 08:31 Elliptocytes Not Reportable 11/20/18 08:31 Acanthocytes (Spur) Not Reportable 11/20/18 08:31 Rouleaux Not Reportable 11/20/18 08:31 Hemoglobin C Crystals Not Reportable 11/20/18 08:31 Schistocytes Not Reportable 11/20/18 08:31 Malaria parasites Not Reportable 11/20/18 08:31 [place] Bodies Not Reportable 11/20/18 08:31 Hem Pathologist Commnt No 11/20/18 08:31 Sodium 144 mmol/L (137-145) 11/23/18 05:42 Potassium 3.6 mmol/L (3.6-5.0) 11/23/18 05:42 Chloride 106.1 mmol/L (98-107) 11/23/18 05:42 Carbon Dioxide 27 mmol/L (22-30) 11/23/18 05:42 Anion Gap 15 mmol/L 11/23/18 05:42 BUN 39 mg/dL (9-20) H 11/23/18 05:42 Creatinine 1.9 mg/dL (0.8-1.5) H 11/23/18 05:42 Estimated GFR 42 ml/min 11/23/18 05:42 BUN/Creatinine Ratio 21 % 11/23/18 05:42 Glucose 101 mg/dL (75-100) H 11/23/18 05:42 POC Glucose 135 (70-105) H 11/18/18 23:42 Lactic Acid 1.40 mmol/L (0.7-2.0) 10/26/18 06:05 Calcium 8.3 mg/dL (8.4-10.2) L 11/23/18 05:42 Magnesium 2.20 mg/dL (1.7-2.3) 11/19/18 04:19 Total Bilirubin 0.40 mg/dL (0.1-1.2) 10/25/18 17:12 AST 34 units/L (5-40) 10/25/18 17:12 ALT 24 units/L (7-56) 10/25/18 17:12 Alkaline Phosphatase 101 units/L (35-129) 10/25/18 17:12 C-Reactive Protein 23.00 mg/dL (0.00-1.30) H 10/28/18 20:48 Total Protein 6.8 g/dL (6.3-8.2) 10/25/18 17:12 Albumin 2.9 g/dL (3.9-5) L 10/25/18 17:12 Albumin/Globulin Ratio 0.7 % 10/25/18 17:12 Urine Color Yellow (Yellow) 11/12/18 22:31 Urine Turbidity Slightly-cloudy (Clear) 11/12/18 22:31 Urine pH 6.0 (5.0-7.0) 11/12/18 22:31 Ur Specific [place] 1.009 (1.003-1.030) 11/12/18 22:31 Urine Protein 100 mg/dl mg/dL (Negative) 11/12/18 22:31 Urine Glucose (UA) Neg mg/dL (Negative) 11/12/18 22:31 Urine Ketones Neg mg/dL (Negative) 11/12/18 22:31 Urine Blood Sm (Negative) 11/12/18 22:31 Urine Nitrite Neg (Negative) 11/12/18 22:31 Urine Bilirubin Neg (Negative) 11/12/18 22:31 Urine Urobilinogen < 2.0 mg/dL (<2.0) 11/12/18 22:31 Ur Leukocyte Esterase Neg (Negative) 11/12/18 22:31 Urine WBC (Auto) 6.0 /HPF (0.0-6.0) 11/12/18 22:31 Urine RBC (Auto) 48.0 /HPF (0.0-6.0) 11/12/18 22:31 U Epithel Cells (Auto) < 1.0 /HPF (0-13.0) 11/12/18 22:31 Urine Bacteria (Auto) 1+ /HPF (Negative) 11/12/18 22:31 Amorphous Crystals Few 10/26/18 05:30 Hyaline Casts 9 /LPF 10/26/18 05:30 Urine Mucus Few /HPF 11/12/18 22:31 Urine Eosinophils None seen (None Seen) 11/19/18 01:10 Urine Creatinine 67.4 mg/dL (0.1-20.0) H 11/19/18 01:10 Urine Sodium 50 mmol/L 11/19/18 01:10 Urine Total Protein 23 mg/dL (5-11.8) H 11/19/18 01:10 Fluid Type Synovial 11/02/18 10:15 Fluid Color Red 11/02/18 10:15 Fluid Appearance Turbid 11/02/18 10:15 Fluid WBC 19204 /mm3 11/02/18 10:15 Fluid RBC 8580 /mm3 11/02/18 10:15 Fluid Seg Neutrophils 93.0 % 11/02/18 10:15 Fluid Lymphocytes 7.0 % 11/02/18 10:15 Fluid Reactive Lymphs 0 % 11/02/18 10:15 Fluid Monocytes 0 % 11/02/18 10:15 Fluid Eosinophils 0 % 11/02/18 10:15 Fluid Basophils 0 % 11/02/18 10:15 Synovial Crystals Negative (NONE SEEN) 10/29/18 Unknown Vancomycin Trough 21.4 ug/mL (5.0-20.0) H 11/12/18 16:58 Random Vancomycin 20.0 ug/mL (0-40.0) 11/17/18 05:27 Influenza A (Rapid) Negative (Negative) 10/29/18 16:42 Influenza B (Rapid) Negative (Negative) 10/29/18 16:42 Nutrition/Malnutrition Assess - Dietary Evaluation Nutrition/Malnutrition Findings: Nutrition Notes Start: 11/01/18 12:03 Freq: Status: Active Protocol: Document 11/21/18 15:11 RM (Rec: 11/21/18 15:16 RM [id number]) Nutrition Notes Initial or Follow up Reassessment Current Diagnosis Hypertension Heart Failure Other Pertinent Diagnosis (R) knee septic arthritis, Dementia Current Diet Pureed Labs/Tests Reviewed Pertinent Medications Lasix Height 5 ft 4 in Weight 60 kg [place] Body Weight (kg) 59.09 BMI 22.6 Subjective/Other Information Diet changed to pureed but Ensure Enlive was not carried over. Per pt tech pt ate 25% of breakfast. Also stated pt told her that pt did not eat lunch. Percent of energy/protein needs met: 16%/31% Burn Absent Trauma Absent #1 Nutrition Diagnosis Inadequate oral intake Diagnosis Progress(for reassessment Continues documentation) Is patient on ventilator? No Is Patient Ambulatory and/or Out of Bed No REE-([facility]-confined to bed) 1495.776 Calculation Used for Recommendations [facility] Additional Notes Pro needs 1-1.2g/k-74g/ day Fluid needs 1ml/kcal Nutrition Intervention Change Diet Order: Continue current diet order Add Supplement/Snack (indicate name/kcal Add back Ensure Enlive Vanilla /protein ) TID Provides kCal: 1,050 Provides Protein (gm) 60 Goal #1 Meet at least 75% of calorie and protein needs via PO and ONS intakes Goal #2 Wt maintenance Anticipated Discharge Needs: Continue Ensure Enlive (or equivalent) 2-3 times daily if PO intakes remain suboptimal Follow-Up By: 11/24/18 Additional Comments Follow for PO and ONS intakes
--- NOTE | 2018-11-23 15:14 | Progress Note ---
Assessment and Plan - Patient Problems (1) Acute kidney injury Current Visit: Yes Status: Acute Plan to address problem: suspect pre-renal azotemia in the setting of IV diuretic therapy along with decreased po intake, acute cardiorenal syndrome may contribute. stable renal function. cont lasix 40mg daily for volume control, pt now started on inotropic support with milrinone. cont maintenance D5W given poor po intake. avoid nephrotoxins, NSAID, IV contrast (2) Hypernatremia Current Visit: Yes Status: Acute Plan to address problem: na improving on D5W. encouraged pt to increase oral water intake (3) Septic arthritis Current Visit: Yes Status: Acute Plan to address problem: cont ABX as per ID, dose for eGFR of ~30mls/min (4) Hypertension Current Visit: Yes Status: Acute Plan to address problem: BP controlled on current meds, incl. hydralazine, metoprolol and clonidine. will monitor BP and adjust meds accordingly Subjective Date of service: 11/23/18 Principal diagnosis: SIRS Interval history: Pt awake, alert, in no acute respiratory distress this AM. on milrinone gtt Objective - Vital Signs Vital signs: Vital Signs - 12hr 11/23/18 11/23/18 11/23/18 04:55 05:00 05:13 Temperature 98.4 F 98.4 F Pulse Rate 97 H 97 H 95 H Respiratory 12 12 Rate Blood Pressure 137/78 137/78 Blood Pressure 137/78 [Left] O2 Sat by Pulse 97 97 Oximetry 11/23/18 11/23/18 11/23/18 07:28 08:51 10:18 Temperature 98.8 F Pulse Rate 97 H 97 H Respiratory 20 Rate Blood Pressure 119/61 132/74 Blood Pressure [Left] O2 Sat by Pulse 98 97 Oximetry 11/23/18 11/23/18 11/23/18 10:19 11:31 13:59 Temperature 97.9 F Pulse Rate 97 H 99 H 88 Respiratory 20 Rate Blood Pressure 132/74 118/61 100/73 Blood Pressure [Left] O2 Sat by Pulse 98 Oximetry - General Appearance General appearance: well-developed, well-nourished, appears stated age EENT: ATNC, PERRL, mucous membranes moist Neck: no JVD Respiratory: Present: Decreased Breath Sounds Cardiology: regular, S1S2 Gastrointestinal: normoactive bowel sounds Integumentary: no rash, other (no edema ) Neurologic: no focal deficit, alert and oriented x3, strength 5/5, CN 3-12 intact Psychiatric: mood/affect appropriate, cooperative - Lab 11/20/18 08:31 11/23/18 05:42 Most recent lab results Calcium 8.3 mg/dL (8.4-10.2) L 11/23/18 05:42 Magnesium 2.20 mg/dL (1.7-2.3) 11/19/18 04:19 Urine Creatinine 67.4 mg/dL (0.1-20.0) H 11/19/18 01:10 Urine Sodium 50 mmol/L 11/19/18 01:10 Urine Total Protein 23 mg/dL (5-11.8) H 11/19/18 01:10 Medications & Allergies - Medications Allergies/Adverse Reactions: Allergies No Known Allergies Allergy (Verified 10/25/18 17:04) Home Medications: Home Medications Medication Instructions Recorded Confirmed Last Taken Type Atorvastatin Calcium 40 mg PO DAILY 10/25/18 10/25/18 Unknown History Clopidogrel [Plavix] 75 mg PO QDAY 10/25/18 10/25/18 Unknown History Lisinopril [Zestril TAB] 20 mg PO QDAY #30 tablet 11/09/18 Unknown Rx Metoprolol Xl [Metoprolol 100 mg PO QDAY #30 tablet 11/09/18 Unknown Rx SUCCINATE ER TAB] Vancomycin 750 mg IV Q24H 21 Days mg 11/09/18 Unknown Rx cloNIDine [Catapres] 0.2 mg PO Q12HR #60 tablet 11/09/18 Unknown Rx hydrALAZINE [Apresoline TAB] 100 mg PO TID #90 tab 11/09/18 Unknown Rx Ciprofloxacin HCl [Cipro] 500 mg PO BID 14 Days tablet 11/16/18 Unknown Rx Active Medications: Generic Name Dose Route Start Last Admin Trade Name Freq PRN Reason Stop Dose Admin Acetaminophen 650 mg 10/25/18 16:54 11/19/18 21:36 Tylenol PO 650 mg Q4H PRN Administration Pain MILD(1-3)/Fever >100.5/PARIKH Albuterol 2.5 mg 10/25/18 16:54 11/18/18 14:04 Proventil IH 2.5 mg Q4HRT PRN Administration Shortness Of Breath Aspirin 81 mg 11/20/18 18:00 02/07/19 10:18 Halfprin Ec PO 81 mg QDAY LOUIE Administration Atorvastatin Calcium 40 mg 10/26/18 10:00 11/23/18 10:18 Lipitor PO 40 mg DAILY LOUIE Administration Carvedilol 12.5 mg 11/22/18 10:00 11/23/18 10:18 Coreg PO 12.5 mg BID LOUIE Administration Clonidine HCl 0.2 mg 11/05/18 10:00 11/23/18 10:19 Catapres PO 0.2 mg Q12HR LOUIE Administration Clopidogrel Bisulfate 75 mg 10/26/18 10:00 11/23/18 10:18 Plavix PO 75 mg QDAY LOUIE Administration Digoxin 0.0625 mg 11/21/18 17:00 11/22/18 17:05 Lanoxin PO 0.0625 mg DAILY@1700 LOUIE Administration Doxycycline Hyclate 100 mg 11/17/18 10:00 11/23/18 10:18 Vibramycin PO 11/30/18 09:59 100 mg Q12HR LOUIE Administration Furosemide 40 mg 11/19/18 12:00 11/23/18 10:18 Lasix IV 40 mg QDAY LOUIE Administration Hydralazine HCl 100 mg 11/02/18 08:30 11/23/18 13:58 Apresoline PO Not Given TID LOUIE Hydralazine HCl 20 mg 11/16/18 16:12 Apresoline IV Q4HR PRN Hypertension Metronidazole 500 mg in 100 mls @ 100 mls/hr 11/16/18 17:00 11/23/18 13:47 Flagyl 500 Mg/100 Ml IV 11/30/18 16:59 100 mls/hr Q8HR LOUIE Administration Protocol Cefepime HCl 1 gm in 100 mls @ 200 mls/hr 11/18/18 10:00 11/23/18 10:14 Maxipime/Ns 1 Gm/100 Ml IV 11/30/18 09:59 200 mls/hr Q24HR LOUIE Administration Milrinone Lactate/Dextrose 20 mg in 100 mls @ 4.5 mls/hr 11/21/18 15:00 11/23/18 10:09 Milrinone-D5w 20 Mg/100 Ml IV 11/24/18 14:59 0.25 mcg/kg/min DIRECT LOUIE 4.5 mls/hr Administration Protocol 0.25 MCG/KG/MIN Isosorbide Dinitrate 20 mg 11/20/18 18:00 11/23/18 13:59 Isordil Titradose PO Not Given Q8HR [facility] Ondansetron HCl 4 mg 10/25/18 16:54 11/16/18 13:49 Zofran IV 4 mg Q8H PRN Administration Nausea And Vomiting Potassium Chloride 20 meq 11/20/18 10:00 11/23/18 10:18 K-Dur PO 20 meq QDAY LOUIE Administration Sodium Chloride 10 ml 10/25/18 22:00 11/23/18 10:20 Sodium Chloride Flush Syringe 10 Ml IV 10 ml BID LOUIE Administration Sodium Chloride 10 ml 10/25/18 16:54 Sodium Chloride Flush Syringe 10 Ml IV PRN PRN LINE FLUSH
[2018-11-23] MEDS: LANOXIN PO SCH (18:32)
[2018-11-24] MEDS: ISORDIL TITRADOSE PO SCH ×2 (05:00→14:00)
[2018-11-24] MEDS: FLAGYL 500 MG/100 ML 500 MG/100 ML BAG IV SCH ×2 (05:01→15:48)
[2018-11-24 05:56] LABS: Calcium 8.6 mg/dL (8.4-10.2)
--- NOTE | 2018-11-24 10:51 | Progress Note ---
Assessment and Plan - Patient Problems (1) Acute kidney injury Current Visit: Yes Status: Acute Plan to address problem: suspect pre-renal azotemia in the setting of IV diuretic therapy along with decreased po intake, acute cardiorenal syndrome contributing to AMANDA. stable renal function. cont lasix 40mg daily for volume control along with inotropic s upport with milrinone. avoid nephrotoxins, NSAID, IV contrast. Pt is being arranged for home hospice. (2) Hypernatremia Current Visit: Yes Status: Acute Plan to address problem: encouraged pt to increase oral water intake. resume D5W at 50ml/hr if Na continues to rise. (3) Septic arthritis Current Visit: Yes Status: Acute Plan to address problem: cont ABX as per ID, dose for eGFR of ~30mls/min (4) Hypertension Current Visit: Yes Status: Acute Plan to address problem: BP controlled on current meds, incl. hydralazine, metoprolol and clonidine. will monitor BP and adjust meds accordingly (5) Acute on chronic systolic (congestive) heart failure Current Visit: Yes Status: Acute Plan to address problem: Echo showed global LV systolic function is severely decreased, with EF 25-30%. on IV lasix 40mg daily along inotropic support with milrinone. Subjective Date of service: 11/24/18 Principal diagnosis: SIRS Interval history: Pt awake, alert, weak. no acute respiratory distress. Objective - Vital Signs Vital signs: Vital Signs - 12hr 11/23/18 11/23/18 11/24/18 22:59 23:08 02:15 Temperature 97.8 F Pulse Rate 100 H 99 H 99 H Respiratory 16 20 20 Rate Blood Pressure 112/62 O2 Sat by Pulse 97 97 98 Oximetry 11/24/18 11/24/18 11/24/18 04:10 05:00 06:25 Temperature 98.2 F Pulse Rate 97 H 97 H 95 H Respiratory 20 Rate Blood Pressure 139/75 139/75 O2 Sat by Pulse 100 Oximetry 11/24/18 08:13 Temperature 98.4 F Pulse Rate 107 H Respiratory 20 Rate Blood Pressure 135/75 O2 Sat by Pulse 99 Oximetry - General Appearance General appearance: well-developed, appears stated age EENT: ATNC, PERRL, mucous membranes dry Neck: no JVD Respiratory: Present: Clear to Ascultation Cardiology: regular, S1S2 Gastrointestinal: normoactive bowel sounds Integumentary: no rash, other (no edema ) Neurologic: no focal deficit, alert and oriented x3, strength 5/5, CN 3-12 intact Psychiatric: mood/affect appropriate, cooperative - Lab 11/20/18 08:31 11/24/18 05:18 Most recent lab results Calcium 8.6 mg/dL (8.4-10.2) 11/24/18 05:18 Magnesium 2.20 mg/dL (1.7-2.3) 11/19/18 04:19 Urine Creatinine 67.4 mg/dL (0.1-20.0) H 11/19/18 01:10 Urine Sodium 50 mmol/L 11/19/18 01:10 Urine Total Protein 23 mg/dL (5-11.8) H 11/19/18 01:10 Medications & Allergies - Medications Allergies/Adverse Reactions: Allergies No Known Allergies Allergy (Verified 10/25/18 17:04) Home Medications: Home Medications Medication Instructions Recorded Confirmed Last Taken Type Atorvastatin Calcium 40 mg PO DAILY 10/25/18 10/25/18 Unknown History Clopidogrel [Plavix] 75 mg PO QDAY 10/25/18 10/25/18 Unknown History Lisinopril [Zestril TAB] 20 mg PO QDAY #30 tablet 11/09/18 Unknown Rx Metoprolol Xl [Metoprolol 100 mg PO QDAY #30 tablet 11/09/18 Unknown Rx SUCCINATE ER TAB] Vancomycin 750 mg IV Q24H 21 Days mg 11/09/18 Unknown Rx cloNIDine [Catapres] 0.2 mg PO Q12HR #60 tablet 11/09/18 Unknown Rx hydrALAZINE [Apresoline TAB] 100 mg PO TID #90 tab 11/09/18 Unknown Rx Ciprofloxacin HCl [Cipro] 500 mg PO BID 14 Days tablet 11/16/18 Unknown Rx Active Medications: Generic Name Dose Route Start Last Admin Trade Name Freq PRN Reason Stop Dose Admin Acetaminophen 650 mg 10/25/18 16:54 11/19/18 21:36 Tylenol PO 650 mg Q4H PRN Administration Pain MILD(1-3)/Fever >100.5/PARIKH Albuterol 2.5 mg 10/25/18 16:54 11/18/18 14:04 Proventil IH 2.5 mg Q4HRT PRN Administration Shortness Of Breath Aspirin 81 mg 11/20/18 18:00 11/23/18 10:18 Halfprin Ec PO 81 mg QDAY LOUIE Administration Atorvastatin Calcium 40 mg 10/26/18 10:00 11/23/18 10:18 Lipitor PO 40 mg DAILY LOUIE Administration Carvedilol 12.5 mg 11/22/18 10:00 11/23/18 21:29 Coreg PO 12.5 mg BID LOUIE Administration Clonidine HCl 0.2 mg 11/05/18 10:00 11/23/18 21:30 Catapres PO Not Given Q12HR LOUIE Clopidogrel Bisulfate 75 mg 10/26/18 10:00 11/23/18 10:18 Plavix PO 75 mg QDAY LOUIE Administration Digoxin 0.0625 mg 11/21/18 17:00 11/23/18 18:32 Lanoxin PO 0.0625 mg DAILY@1700 LOUIE Administration Doxycycline Hyclate 100 mg 11/17/18 10:00 11/23/18 21:28 Vibramycin PO 11/30/18 09:59 100 mg Q12HR LOUIE Administration Furosemide 40 mg 11/19/18 12:00 11/23/18 10:18 Lasix IV 40 mg QDAY LOUIE Administration Hydralazine HCl 100 mg 11/02/18 08:30 11/23/18 21:28 Apresoline PO 100 mg TID LOUIE Administration Hydralazine HCl 20 mg 11/16/18 16:12 Apresoline IV Q4HR PRN Hypertension Metronidazole 500 mg in 100 mls @ 100 mls/hr 11/16/18 17:00 11/24/18 05:01 Flagyl 500 Mg/100 Ml IV 11/30/18 16:59 100 mls/hr Q8HR LOUIE Administration Protocol Cefepime HCl 1 gm in 100 mls @ 200 mls/hr 11/18/18 10:00 11/23/18 10:14 Maxipime/Ns 1 Gm/100 Ml IV 11/30/18 09:59 200 mls/hr Q24HR LOUIE Administration Milrinone Lactate/Dextrose 20 mg in 100 mls @ 4.5 mls/hr 11/21/18 15:00 11/23/18 10:09 Milrinone-D5w 20 Mg/100 Ml IV 11/24/18 14:59 0.25 mcg/kg/min DIRECT LOUIE 4.5 mls/hr Administration Protocol 0.25 MCG/KG/MIN Isosorbide Dinitrate 20 mg 11/20/18 18:00 11/24/18 05:00 Isordil Titradose PO 20 mg Q8HR LOUIE Administration Ondansetron HCl 4 mg 10/25/18 16:54 11/16/18 13:49 Zofran IV 4 mg Q8H PRN Administration Nausea And Vomiting Potassium Chloride 20 meq 11/20/18 10:00 11/23/18 10:18 K-Dur PO 20 meq QDAY LOUIE Administration Sodium Chloride 10 ml 10/25/18 22:00 11/23/18 21:29 Sodium Chloride Flush Syringe 10 Ml IV 10 ml BID LOUIE Administration Sodium Chloride 10 ml 10/25/18 16:54 Sodium Chloride Flush Syringe 10 Ml IV PRN PRN LINE FLUSH
--- NOTE | 2018-11-24 11:12 | Discharge Summary ---
Providers - Providers Date of Admission: 10/25/18 16:54 Attending physician: CARI FERGUSON MD 10/26/18 09:40 Consult to Physician [CONS] Routine Comment: called office/austen Consulting Provider: CLEMENTINE ALEXANDER Physician Instructions: Reason For Exam: septic knee vs arthirits induced effuison 10/27/18 10:06 Physical Therapy Evaluation and Treat [CONS] Routine Comment: Reason For Exam: Debility/Falls 10/27/18 15:49 Consult to Physician [CONS] Routine Comment: Consulting Provider: SHORTY GASPAR Physician Instructions: Reason For Exam: presumed septic knee 10/29/18 10:41 Consult to Interventional Radiology [CONS] Routine Consulting Provider: CANDY MERCEDES Reason For Exam: right knee joint aspiration Place consult to:: Notified:: Phone number called:: [phone] Was contact made?: Yes If yes, spoke with:: WILL SEE PATIENT IN THE MORNING Time called:: 16:59 Comment:: CRISPIN 11/06/18 11:34 Consult to Case Management [CONS] Stat Services Needed at Discharge: Other Notified:: yes Additional Physician Instructions: [facility] M [phone] O [phone] F [phone] OUTPATIENT PARENTERAL ANTIBIOTIC THERAPY ORDERS Diagnoses: Right Knee Septic Arthritis Antimicrobial administration: upon discharge Ciprofloxacin 500mg, PO BID and Vancomycin 1gm q 24 until 11/30/18 -f/u ID clinic 11/28/18 -Order placed with case management Remove PICC line after last dose unless otherwise instructed. Lines: PICC Lab monitoring: CBC, BUN, Creatinine, ALT, AST, CRP, ESR , vancomycin trough once a week preferly on Tuesday morning. Please fax results to [phone] and call [phone] for critical lab results. Lula Purdy NP/kavita Gaspar Date: 11/06/18 11/08/18 07:51 Consult to Physician [CONS] Routine Comment: called office spoke to tia/austen Consulting Provider: SULLY CARRASCO Physician Instructions: Reason For Exam: testicular and penile swelling 11/15/18 09:05 Speech Therapy Evaluation and Treat [CONS] Routine Reason For Exam: patient pocketing food in the mouth after eating 11/17/18 14:55 Consult to Physician [CONS] Routine Comment: called answ. serv. /austen Consulting Provider: JOSUE PHILLIPS Physician Instructions: Reason For Exam: masood 11/18/18 14:36 Consult to Physician [CONS] Routine Comment: Consulting Provider: CHLOE FISCHER Physician Instructions: Reason For Exam: chf 11/21/18 10:37 Consult to Case Management [CONS] Stat Services Needed at Discharge: Home Health Services Notified:: yes Additional Physician Instructions: OUTPATIENT PARENTERAL ANTIBIOTIC THERAPY ORDERS Diagnoses: Right Knee Septic Arthritis Antimicrobial administration: upon discharge Ciprofloxacin 500mg, PO BID and Vancomycin 1gm q 24 until 11/30/18 -f/u ID clinic 11/28/18 -Order placed with case management Remove PICC line after last dose unless otherwise instructed. Lines: PICC Lab monitoring: CBC, BUN, Creatinine, ALT, AST, CRP, ESR , vancomycin trough once a week preferly on Tuesday morning. Please fax results to [phone] and call [phone] for critical lab results. Lula Purdy NP/Iona Harrison Date: 11/21/18 Primary care physician: ASSISTANT GOLF COACH Hospitalization Condition: Serious Hospital course: 78 YO Male with HTN, Nicotine Dependence pw gen weakness, , ams, malaise, x4 days. He fell on both his knees at home. -At time of admission, he met sepsis criteria and had bilat knee effusion and contusions - he was rx with broad spectrum abx, -K was repleted -septic arthritis of R knee was suspected, sp tap, cx neg so far, AFB cx still pending -He received IV antibiotics per infectious disease recommendation, was transitioned to oral antibiotics at the time of discharge - meds were optimized for chronic conditions -he c/o testicular swelling, US shows bilat hydrocele, ntd, scrotal elevation was done, urology agreed with the plan -There was suspicion of dysphagia, therefore MBS was done, speech therapy recommended. Diet with thin liquids -- He had worsening functional status, and debility and therefore was recommended to [facility] facility but he did not participate with PT, and his insurance denied him. Therefore his family wanted him to start on home hospice services - He developed acute pulmonary edema due to CHF, he was diuresed with improvement, he was also treated with milrinone drip per cardiology recommendation --He suffered acute kidney injury, but improved with diuresis and milrinone, was most likely due to cardiorenal syndrome --he received D5w for hypernatremia, after which resolved -Found to have PAF, his meds were optimized for rate control and was started on anticoagulant prior to discharge Diagnosis Sepsis secondary to septic arthritis of the right knee acute on chronic systolic CHF, EF 30% Cardiorenal syndrome ARF (acute renal failure) with tubular necrosis, vasomotor nephropathy Hypertension Metabolic Encephalopathy Dementia Dysphagia Acute respiratory failure with hypoxia Pulmonary edema Hypernatremia hypokalemia afib with rvr Hypercoagulable states Disposition: DC-50 TO HOSPICE (HOME) Time spent for discharge: 33 mins Core Measure Documentation - Palliative Care Palliative Care/ Comfort Measures: Not Applicable - Core Measures Any of the following diagnoses?: heart failure - Heart Failure Discharge Requirements CHELLE/ARB for LVSD if EF <40%: No Reason for no CHELLE/ARB: Renal impairment Beta delfina at discharge: Yes Exam - Constitutional Vitals: Temp Pulse Resp BP Pulse Ox 98.4 F 107 H 20 135/75 99 11/24/18 08:13 11/24/18 08:13 11/24/18 08:13 11/24/18 08:13 11/24/18 08:13 General appearance: Present: no acute distress, well-nourished - EENT Eyes: Present: PERRL ENT: hearing intact, clear oral mucosa - Neck Neck: Present: supple, normal ROM - Respiratory Respiratory effort: normal Respiratory: bilateral: CTA - Cardiovascular Heart Sounds: Present: S1 & S2. Absent: rub, click - Extremities Extremities: pulses symmetrical, No edema Peripheral Pulses: within normal limits - Abdominal General gastrointestinal: Present: soft, non-tender, non-distended, normal bowel sounds Male genitourinary: Present: normal - Integumentary Integumentary: Present: clear, warm, dry - Musculoskeletal Musculoskeletal: gait normal, strength equal bilaterally - Psychiatric Psychiatric: appropriate mood/affect, intact judgment & insight - Neurologic Neurologic: CNII-XII intact, moves all extremities Plan Follow up with: SHORTY GASPAR MD [Staff Physician] - 7 Days PRIMARY CARE, [Primary Care Provider] - 2-3 Days CLEMENTINE ALEXANDER MD [Staff Physician] - 2-3 Days Prescriptions: RX: Apixaban [Eliquis] 2.5 mg PO Q12HR #60 tablet RX: Aspirin EC [Aspirin Enteric Coated TAB] 81 mg PO QDAY #30 tablet RX: Carvedilol [Coreg] 12.5 mg PO BID #60 tablet Ciprofloxacin HCl [Ciprofloxacin TAB] 500 mg PO Q12H 6 Days tab RX: cloNIDine [Catapres] 0.2 mg PO Q12HR #60 tablet RX: Digoxin [Lanoxin] 0.0625 mg PO DAILY@1700 #30 tablet RX: Doxycycline [Vibramycin CAP] 100 mg PO Q12HR 6 Days capsule Furosemide [Lasix TAB] 40 mg PO QDAY #30 tablet RX: Isosorbide Dinitrate [Isordil Titradose] 20 mg PO Q8HR #90 tablet RX: Potassium Chloride [K-Dur] 20 meq PO QDAY #30 tablet
[2018-11-24] MEDS: APRESOLINE PO SCH ×2 (11:17→14:00)
[2018-11-24] MEDS: PLAVIX PO SCH (11:17)
[2018-11-24] MEDS: VIBRAMYCIN PO SCH (11:17)
[2018-11-24] MEDS: K-DUR PO SCH (11:18)
[2018-11-24] MEDS: LASIX IV SCH (11:18)
[2018-11-24] MEDS: HALFPRIN EC PO SCH (11:19)
[2018-11-24] MEDS: SODIUM CHLORIDE FLUSH SYRINGE 10 ML IV SCH (11:19)
[2018-11-24] MEDS: MILRINONE-D5W 20 MG/100 ML 20 MG/100 ML BAG IV SCH (11:23)
[2018-11-24] MEDS: COREG PO SCH (11:24)
[2018-11-24] MEDS: MAXIPIME/NS 1 GM/100 ML 1 GM/100 ML BAG IV SCH (11:24)
[2018-11-24] MEDS: CATAPRES PO SCH (11:25)
--- NOTE | 2018-11-24 12:55 | Progress Note ---
Assessment and Plan Septic arthritic right knee Acute renal failure - creatinine now stable Acute systolic heart failure - resolved Paroxysmal Afib on carvedilol and digoxin for suppression An echocardiogram this admission revealed a severe dilated cardiomyopathy, biventricular heart failure, and moderate to severe regurgitation of both atrioventricular valves. No evident valvular vegetations on a less than optimal quality transthoracic echocardiogram. Recommendations: Discontinue IV milrinone Change IV lasix to po Start low dose eliquis and discontinue aspirin therapy Ischemic evaluation once acute medical issues resolve - this can be done as outpatient Subjective Date of service: 11/24/18 Principal diagnosis: SIRS Interval history: Patient denies chest pain or shortness of breath Patient weak and lethargic Objective Vital Signs Temp Pulse Resp BP Pulse Ox 11/24/18 11:30 98.2 F 105 H 20 144/86 94 11/24/18 11:25 106 H 136/76 11/24/18 11:24 106 H 136/76 11/24/18 08:13 98.4 F 107 H 20 135/75 99 11/24/18 06:25 95 H 11/24/18 05:00 97 H 139/75 11/24/18 04:10 98.2 F 97 H 20 139/75 100 11/24/18 02:15 99 H 20 98 11/23/18 23:08 99 H 20 97 11/23/18 22:59 97.8 F 100 H 16 112/62 97 11/23/18 21:30 90 135/70 11/23/18 21:29 90 135/70 11/23/18 21:28 90 135/70 11/23/18 20:32 98 11/23/18 19:49 98.2 F 93 H 18 135/70 98 11/23/18 18:32 108 H 102/60 11/23/18 15:18 97.7 F 95 H 20 106/43 97 11/23/18 13:59 88 100/73 - Physical Examination General: No Apparent Distress HEENT: Positive: PERRL Neck: Positive: trachea midline Cardiac: Positive: Reg Rate and Rhythm Lungs: Positive: Normal Exam Neuro: Positive: Weakness Extremities: Absent: edema - Labs and Meds Comprehensive Metabolic Panel 11/24/18 Range/Units 05:18 Sodium 148 H (137-145) mmol/L Potassium 3.6 (3.6-5.0) mmol/L Chloride 107.9 H (98-107) mmol/L Carbon Dioxide 27 (22-30) mmol/L BUN 38 H (9-20) mg/dL Creatinine 1.9 H (0.8-1.5) mg/dL Glucose 101 H (75-100) mg/dL Calcium 8.6 (8.4-10.2) mg/dL
[2018-11-24 16:09] VITALS: BP 118/66
[2018-11-24] MEDS ORDERED: ELIQUIS PO SCH (22:00)
[2018-11-25] MEDS ORDERED: LASIX PO SCH (10:00)
== END 2018-11-24 16:30 | disposition hospice, home (50) | DRG 871 ==
LOC: ED 11:54 → 2B-ACE 16:54 → 4A 11-21 17:44
PROVIDERS: ADMIT Internal Medicine; ATTEND Internal Medicine
PROC: 0S9D3ZZ Drainage of Left Knee Joint, Percutaneous Approach (ICD-10-PCS; 2018-10-30)
PROC: 0S9C4ZZ Drainage of Right Knee Joint, Percutaneous Endoscopic Approach (ICD-10-PCS; principal; 2018-11-02)
DX: A41.9 Sepsis, unspecified organism (principal); N17.0 Acute kidney failure with tubular necrosis; G93.41 Metabolic encephalopathy; J96.01 Acute respiratory failure with hypoxia; I50.23 Acute on chronic systolic (congestive) heart failure; I38 Endocarditis, valve unspecified; I42.0 Dilated cardiomyopathy; I47.1 Supraventricular tachycardia; M00.9 Pyogenic arthritis, unspecified; E87.0 Hyperosmolality and hypernatremia; I13.0 Hypertensive heart and chronic kidney disease with heart failure and stage 1 through stage 4 chronic kidney disease, or unspecified chronic kidney disease; D68.59 Other primary thrombophilia; M25.462 Effusion, left knee; N43.3 Hydrocele, unspecified; N18.9 Chronic kidney disease, unspecified; M25.461 Effusion, right knee; F03.90 Unspecified dementia, unspecified severity, without behavioral disturbance, psychotic disturbance, mood disturbance, and anxiety; N28.1 Cyst of kidney, acquired; I50.82 Biventricular heart failure; I27.20 Pulmonary hypertension, unspecified; W01.0XXA Fall on same level from slipping, tripping and stumbling without subsequent striking against object, initial encounter; S93.409A Sprain of unspecified ligament of unspecified ankle, initial encounter; I16.0 Hypertensive urgency; Z82.49 Family history of ischemic heart disease and other diseases of the circulatory system; Z79.899 Other long term (current) drug therapy; Y93.89 Activity, other specified; Y92.098 Other place in other non-institutional residence as the place of occurrence of the external cause; Y99.8 Other external cause status
CPT/HCPCS: 36415; 70450; 71045; 74176; 74230; 76700; 76770; 80048; 80053; 80202; 81001; 82140; 82565; 82570; 82962; 83735; 84132; 84156; 84300; 84520; 85007; 85025; 85027; 85048; 86140; 87040; 87086; 87116; 87400; 89050; 89051; 93005; 93010; 93306; 93975; 94640; 94660; 94760; 96365; 96375; 99406; G0378; A4217; A9270-GY; G8978-GP; G8979-GP; J0360; J0690; J0692; J1030; J1160; J1170; J1940; J1956; J2060; J2260; J2405; J2543; J2704; J2920; J3370; J3480; J7030; J7040; J7050; J7070